=== PATIENT | female | born 1950 | race Caucasian/White ===

== ENCOUNTER 2020-11-03 12:26 | Inpatient (IN) | payer MEDICARE, OTHER ==
[2020-11-03] MEDS ORDERED: IBUPROFEN 600 MG TAB PO STA (12:50)
[2020-11-03] MEDS ORDERED: ACETAMINOPHEN TAB 500 MG TAB PO STA (12:50)
[2020-11-03] MEDS ORDERED: VANCOMYCIN IV PER PHARMACY 1 EACH MISC MISCELLANE PRN (12:50)
--- NOTE | 2020-11-03 12:54 | ED ---
General Adult HPI - General Chief complaint: Altered Mental Status Stated complaint: Fever Time Seen by Provider: 11/03/20 12:30 Source: patient, EMS, RN notes reviewed, old records reviewed Mode of arrival: EMS - History of Present Illness Initial comments: This is a 70-year-old female who presents to the emergency department from [facility]. She was diagnosed with pneumonia at that facility and sent to us because she was altered mental status with pneumonia. Patient received Rocephin and Zithromax at the facility and 2 L of fluid. Patient is a very poor historian. Patient states she started coughing earlier today which may be an accurate. Patient had a CT of the brain at the other facility was normal chest x-ray showed pneumonia. Patient high white count 22,000 and lactic acid was over 4. - Related Data Home Medications Medication Instructions Recorded Confirmed Acetaminophen [Tylenol Arthritis] 650 mg PO Q8H PRN 11/03/20 11/03/20 Aspirin EC [Ecotrin Low Dose] 81 mg PO DAILY 11/03/20 11/03/20 Benztropine Mesylate [Cogentin] 1 mg PO HS 11/03/20 11/03/20 Bumetanide [Bumex] 1 mg PO BID 11/03/20 11/03/20 Calcium Carbonate/Vitamin D3 1 tab PO DAILY 11/03/20 11/03/20 [Calcium 600-Vit D3 400 Tablet] Furosemide [Lasix] 20 mg PO PC-LUNCH 11/03/20 11/03/20 Furosemide [Lasix] 40 mg PO QAM 11/03/20 11/03/20 Gabapentin 300 mg PO TID 11/03/20 11/03/20 Glimepiride [Amaryl] 8 mg PO AC-BRKFST 11/03/20 11/03/20 Glucosamine-Chondr 500-400Mg 1 tab PO Q12HR 11/03/20 11/03/20 Levothyroxine Sodium [Synthroid] 150 mcg PO DAILY 11/03/20 11/03/20 Losartan [Cozaar] 12.5 mg PO DAILY 11/03/20 11/03/20 Magnesium Oxide [Mag-Ox] 250 mg PO BID 11/03/20 11/03/20 Metoprolol Succinate [Toprol XL] 25 mg PO HS 11/03/20 11/03/20 Multivitamin [Multivitamins Adult 2 tab PO DAILY 11/03/20 11/03/20 Gummies] Nystatin 100,000 Unit/gm Powd 1 applic TOPICAL BID 11/03/20 11/03/20 [Mycostatin Powder] Nystatin 100,000Unit/gm Cream 1 applic TOPICAL TID 11/03/20 11/03/20 [Mycostatin Cream] Omeprazole [PriLOSEC] 20 mg PO DAILY 11/03/20 11/03/20 Polyethylene Glycol 3350 [Miralax] 17 gm PO DAILY PRN 11/03/20 11/03/20 Potassium Chloride [Klor-Con 10] 10 meq PO DAILY 11/03/20 11/03/20 cloZAPine [Clozaril] 300 mg PO DAILY 11/03/20 11/03/20 l Acidophil/B Lactis/B Longum 460 mg PO DAILY 11/03/20 11/03/20 [Florajen3 Capsule] levETIRAcetam [Keppra] 500 mg PO Q12HR 11/03/20 11/03/20 metFORMIN HCL 1,000 mg PO BID 11/03/20 11/03/20 risperiDONE [RisperDAL] 1 mg PO HS 11/03/20 11/03/20 sitaGLIPtin [Januvia] 25 mg PO DAILY 11/03/20 11/03/20 Allergies Allergy/AdvReac Type Severity Reaction Status Date / Time haloperidol [From Haldol] Allergy Unknown Verified 11/03/20 14:10 Review of Systems ROS Statement: Those systems with pertinent positive or pertinent negative responses have been documented in the HPI. ROS Other: All systems not noted in ROS Statement are negative. Past Medical History Past Medical History: CVA/TIA, Diabetes Mellitus, GERD/Reflux, Hypertension, Myocardial Infarction (SD) Additional Past Medical History / Comment(s): hypothyroidism, high cholesterol History of Any Multi-Drug Resistant Organisms: None Reported Past Surgical History: Tonsillectomy Additional Past Surgical History / Comment(s): compression fracture, Past Psychological History: Schizophrenia Smoking Status: Never smoker Past Alcohol Use History: None Reported Past Drug Use History: None Reported General Exam - General Exam Comments Initial Comments: GENERAL: Patient is well-developed and well-nourished. Patient is nontoxic and well- hydrated and is in mild distress. ENT: Neck is soft and supple. No significant lymphadenopathy is noted. Oropharynx is clear. Moist mucous membranes. Neck has full range of motion without eliciting any pain. EYES: The sclera were anicteric and conjunctiva were pink and moist. Extraocular movements were intact and pupils were equal round and reactive to light. Eyelids were unremarkable. PULMONARY: Unlabored respirations. Good breath sounds bilaterally. Patient has crackles in the left base CARDIOVASCULAR: There is a regular rate and rhythm without any murmurs gallops or rubs. ABDOMEN: Soft and nontender with normal bowel sounds. SKIN: Skin is clear with no lesions or rashes and otherwise unremarkable. NEUROLOGIC: Patient is alert and oriented 2. Cranial nerves II through XII are grossly intact. Motor and sensory are also intact. Normal speech, volume and content. Symmetrical smile. MUSCULOSKELETAL: Normal extremities with adequate strength and full range of motion. Chronic cellulitis bilaterally LYMPHATICS: No significant lymphadenopathy is noted PSYCHIATRIC: Normal psychiatric evaluation. Course Vital Signs 11/03/20 11/03/20 11/03/20 12:31 12:51 14:13 Temperature 100.9 F H 99.4 F Pulse Rate 98 93 Respiratory 18 17 22 Rate Blood Pressure 120/57 116/57 O2 Sat by Pulse 98 96 Oximetry Medical Decision Making - Medical Decision Making Chest x-ray shows bilateral infiltrates consistent with pneumonia. COVID test is negative. Patient was already given a shot of Rocephin and Zithromax prior to arrival she was also given 2 L prior to arrival we gave her another 1.5 L so that she got a total of over 30 mL's per KG. I spoke with [facility] agreed to admit the patient admitted the patient wrote admitting orders continued antibiotics. Patient was diagnosed pneumonia at 2:16 PM. - Lab Data Result diagrams: 11/03/20 13:04 11/03/20 13:04 Lab Results 11/03/20 11/03/20 11/03/20 Range/Units 13:04 13:04 13:04 WBC 22.7 H (3.8-10.6) k/uL RBC 4.78 (3.80-5.40) m/uL Hgb 13.6 (11.4-16.0) gm/dL Hct 41.7 (34.0-46.0) % MCV 87.3 (80.0-100.0) fL MCH 28.4 (25.0-35.0) pg MCHC 32.6 (31.0-37.0) g/dL RDW 14.3 (11.5-15.5) % Plt Count 211 (150-450) k/uL MPV 6.9 Neutrophils % 91 % Lymphocytes % 4 % Monocytes % 3 % Eosinophils % 1 % Basophils % 0 % Neutrophils # 20.7 H (1.3-7.7) k/uL Lymphocytes # 0.9 L (1.0-4.8) k/uL Monocytes # 0.7 (0-1.0) k/uL Eosinophils # 0.2 (0-0.7) k/uL Basophils # 0.0 (0-0.2) k/uL Sodium 139 (137-145) mmol/L Potassium 3.4 L (3.5-5.1) mmol/L Chloride 99 (98-107) mmol/L Carbon Dioxide 32 H (22-30) mmol/L Anion Gap 8 mmol/L BUN 15 (7-17) mg/dL Creatinine 0.41 L (0.52-1.04) mg/dL Est GFR (CKD-EPI)AfAm >90 (>60 ml/min/1.73 sqM) Est GFR (CKD-EPI)NonAf >90 (>60 ml/min/1.73 sqM) Glucose 152 H (74-99) mg/dL Plasma Lactic Acid Cb 3.5 H* (0.7-2.0) mmol/L Calcium 8.7 (8.4-10.2) mg/dL Total Bilirubin 0.6 (0.2-1.3) mg/dL AST 26 (14-36) U/L ALT 20 (4-34) U/L Alkaline Phosphatase 105 (38-126) U/L Total Protein 6.4 (6.3-8.2) g/dL Albumin 3.6 (3.5-5.0) g/dL Coronavirus (PCR) (Not Detectd) 11/03/20 Range/Units 13:06 WBC (3.8-10.6) k/uL RBC (3.80-5.40) m/uL Hgb (11.4-16.0) gm/dL Hct (34.0-46.0) % MCV (80.0-100.0) fL MCH (25.0-35.0) pg MCHC (31.0-37.0) g/dL RDW (11.5-15.5) % Plt Count (150-450) k/uL MPV Neutrophils % % Lymphocytes % % Monocytes % % Eosinophils % % Basophils % % Neutrophils # (1.3-7.7) k/uL Lymphocytes # (1.0-4.8) k/uL Monocytes # (0-1.0) k/uL Eosinophils # (0-0.7) k/uL Basophils # (0-0.2) k/uL Sodium (137-145) mmol/L Potassium (3.5-5.1) mmol/L Chloride (98-107) mmol/L Carbon Dioxide (22-30) mmol/L Anion Gap mmol/L BUN (7-17) mg/dL Creatinine (0.52-1.04) mg/dL Est GFR (CKD-EPI)AfAm (>60 ml/min/1.73 sqM) Est GFR (CKD-EPI)NonAf (>60 ml/min/1.73 sqM) Glucose (74-99) mg/dL Plasma Lactic Acid Cb (0.7-2.0) mmol/L Calcium (8.4-10.2) mg/dL Total Bilirubin (0.2-1.3) mg/dL AST (14-36) U/L ALT (4-34) U/L Alkaline Phosphatase (38-126) U/L Total Protein (6.3-8.2) g/dL Albumin (3.5-5.0) g/dL Coronavirus (PCR) Not Detected (Not Detectd) Critical Care Time Critical Care Time: Yes Total Critical Care Time: 35 Disposition Clinical Impression: Pneumonia, Sepsis, Altered mental status Disposition: ADMITTED IP TO THIS HOSP Referrals: Nixon Kim MD [Primary Care Provider] - 1-2 days Time of Disposition: 14:17
[2020-11-03] MEDS ORDERED: SODIUM CHLORIDE 0.9% 500 ML 500 ML IV STA (13:01)
[2020-11-03] MEDS ORDERED: SODIUM CHLORIDE 0.9% 1,000 ML IV STA (13:01)
[2020-11-03] MEDS ORDERED: VANCOMYCIN 2,000 MG in SODIUM CHLORIDE 0.9% 500 ML 500 ML IVPB ONE (13:15)
[2020-11-03 13:33] LABS: Basophils % (A) 0 %; Eosinophils # (A) 0.2 k/uL (0-0.7); Eosinophils % (A) 1 %; HCT 41.7 % (34.0-46.0); HGB 13.6 gm/dL (11.4-16.0); Lymphocytes # (A) 0.9 k/uL (1.0-4.8); Lymphocytes % (A) 4 %; MCH 28.4 pg (25.0-35.0); MCHC 32.6 g/dL (31.0-37.0); MCV 87.3 fL (80.0-100.0); Mean Platelet Volume 6.9; Monocytes # (A) 0.7 k/uL (0-1.0); Monocytes % (A) 3 %; Neutrophils # (A) 20.7 k/uL (1.3-7.7); Neutrophils % (A) 91 %; Platelet Count 211 k/uL (150-450); RBC 4.78 m/uL (3.80-5.40); RDW 14.3 % (11.5-15.5); WBC 22.7 k/uL (3.8-10.6)
[2020-11-03 13:53] LABS: ALT 20 U/L (4-34); AST 26 U/L (14-36); African American GFR (CKD) >90 (>60 ml/min/1.73 sqM); Albumin 3.6 g/dL (3.5-5.0); Alkaline Phosphatase 105 U/L (38-126); Anion Gap 8 mmol/L; Blood Urea Nitrogen 15 mg/dL (7-17); Calcium 8.7 mg/dL (8.4-10.2); Carbon Dioxide 32 mmol/L (22-30); Chloride 99 mmol/L (98-107); Glucose 152 mg/dL (74-99); Non-African American GFR(CKD) >90 (>60 ml/min/1.73 sqM); Potassium 3.4 mmol/L (3.5-5.1); Sodium 139 mmol/L (137-145); Total Bilirubin 0.6 mg/dL (0.2-1.3); Total Protein 6.4 g/dL (6.3-8.2)
--- NOTE | 2020-11-03 14:08 | XR ---
EXAMINATION TYPE: XR chest 1V portable DATE OF EXAM: 11/03/2020 COMPARISON: CT chest 11/03/2020 heart per [place] INDICATION: History of pneumonia TECHNIQUE: Single frontal view of the chest is obtained. FINDINGS: The heart size is enlarged. The pulmonary vasculature is normal. Mild bibasilar infiltrates are present. Correlate for atelectasis or atypical pneumonia. IMPRESSION: 1. Mild bibasilar infiltrates and cardiomegaly. Clinical correlation for atypical pneumonia is recomm ended.
[2020-11-03] MEDS ORDERED: PNEUMONIA PROTOCOL UTILIZED 1 EACH MISC PO PRN (14:17)
[2020-11-03] MEDS ORDERED: polyethylene glycoL 3350 17 GM POWD.PACK PO PRN (16:27)
[2020-11-03] MEDS ORDERED: Potassium Replacement Protocol 1 EACH MISC MISCELLANE PRN (16:32)
[2020-11-03] MEDS: LOSARTAN 25 MG TAB PO SCH (17:00)
[2020-11-03] MEDS: MULTIVITAMINS, THERA 1 EACH TAB PO SCH (17:00)
[2020-11-03] MEDS: PANTOPRAZOLE 40 MG TABLET PO SCH (17:00)
[2020-11-03] MEDS: CALCIUM CARB-VIT D 500 MG-5 MCG TAB PO SCH (17:00)
[2020-11-03 17:01] LABS: Glucose,Whole Blood 185 mg/dL (75-99)
[2020-11-03] MEDS: LINAGLIPTIN 5 MG TABLET PO SCH (17:16)
[2020-11-03] MEDS: GABAPENTIN 300 MG CAP PO SCH ×2 (17:34→21:50)
[2020-11-03] MEDS: LEVOTHYROXINE 75 MCG TAB PO SCH (17:34)
[2020-11-03] MEDS ORDERED: POTASSIUM CHLORIDE ER 20 MEQ TAB.ER PO STA (17:44)
[2020-11-03] MEDS: INSULIN ASPART (NovoLOG) 100 UNIT/ML VIAL SQ SCH ×2 (17:55→23:03)
[2020-11-03] MEDS ORDERED: cloZAPine 100 MG TAB PO SCH (18:00)
[2020-11-03] MEDS ORDERED: ACETAMINOPHEN TAB 325 MG TAB PO PRN (20:08)
[2020-11-03] MEDS ORDERED: HYDROcodone/APAP 5-325MG 1 EACH TAB PO PRN (20:09)
[2020-11-03 20:54] LABS: Glucose,Whole Blood 125 mg/dL (75-99)
[2020-11-03] MEDS ORDERED: POTASSIUM CHLORIDE ER 20 MEQ TAB.ER PO SCH (21:00)
[2020-11-03] MEDS ORDERED: levETIRAcetam 500 MG TAB PO SCH (21:00)
[2020-11-03] MEDS: BENZTROPINE MESYLATE 1 MG TAB PO SCH (21:50)
[2020-11-03] MEDS: MAGNESIUM OXIDE 400 MG TAB PO SCH (21:50)
[2020-11-03] MEDS: cloZAPine 100 MG TAB PO SCH (21:50)
[2020-11-03] MEDS: risperiDONE 1 MG TAB PO SCH (21:50)
[2020-11-03] MEDS: METOPROLOL SUCCINATE (ER) 25 MG TAB.ER.24H PO SCH (21:50)
[2020-11-03] MEDS: POTASSIUM CHLORIDE ER 10 MEQ TAB.ER.PRT PO SCH (21:50)
[2020-11-03] MEDS: BUMETANIDE 1 MG TAB PO SCH (21:50)
[2020-11-03] MEDS: NYSTATIN 100,000 UNIT/GM POWD 15 GM TOPICAL SCH (21:51)
[2020-11-03] MEDS: HEPARIN SODIUM,PORCINE 5,000 UNIT/ML 1 ML VIAL SQ SCH (21:51)
[2020-11-03] MEDS: NON FORMULARY DRUG (Glucosamine-Chondr 500-400mg 1 EACH Each) PO SCH (21:51)
[2020-11-03] MEDS: NYSTATIN 100,000UNIT/GM CREAM 30 GM TUBE TOPICAL SCH (21:51)
--- NOTE | 2020-11-03 22:06 | HP ---
HISTORY AND PHYSICAL DATE OF SERVICE: 11/03/2020 CHIEF COMPLAINTS: Change in mental status and pneumonia. HISTORY OF PRESENT ILLNESS: This 70-year-old woman with a past medical history of multiple medical problems, including CVA, TIA, diabetes mellitus, GERD, hypertension, hyperlipidemia, seizure disorder, being followed by a primary physician in the [place] area, was noted to have weakness, some cough and confusion. The patient was taken to [facility] and the patient was diagnosed to have pneumonia. The patient was given IV fluid, and after 2 L of fluid, apparently the patient became slightly better. The patient was admitted for further evaluation and treatment. Chest x-ray showed some pneumonia. The white count is elevated. CT scan has also been done. The patient also had previous issues with the pancreas as well; further details are unknown at this time. Currently the patient is confused, able to provide only a sketchy history. Most of the history is taken from my discussion with the staff as well as review of the chart. PAST MEDICAL HISTORY: CVA, TIA, diabetes mellitus, history of GERD, hypertension, hyperlipidemia, seizure disorder. HOME MEDICATIONS: Lasix, Risperdal, metformin, Clozaril, Klor-Con, Tylenol, Prilosec, nystatin, Mycostatin, multivitamins, MiraLAX, Toprol, magnesium oxide, Cozaar, Synthroid, Januvia, Keppra, Amaryl, calcium, Bumex, Cogentin, Ecotrin. ALLERGIES: HALOPERIDOL. FAMILY HISTORY: No family history of heart disease or strokes. SOCIAL HISTORY: No history of smoking. No history of alcohol intake. REVIEW OF SYSTEMS: ENT: No diminished hearing. No diminished vision. CARDIOVASCULAR SYSTEM: No angina, palpitations. RESPIRATORY SYSTEM: As mentioned earlier. GI: No nausea, vomiting. : No dysuria or retention. NERVOUS SYSTEM: As mentioned earlier. ALLERGY/IMMUNOLOGY: No asthma, hayfever. MUSCULOSKELETAL: As mentioned earlier. HEMATOLOGY/ONCOLOGY: No history of anemia. ENDOCRINE: Diabetes, hypothyroidism. CONSTITUTIONAL: As mentioned earlier. DERMATOLOGY: Negative. RHEUMATOLOGY: Negative. PSYCHIATRY: As mentioned earlier. PHYSICAL EXAMINATION: Patient alert and oriented x2. Pulse 87, blood pressure 138/72, respiration 20, temperature 98.2, pulse ox 96% on 3 L. HEENT: Conjunctivae normal. NECK: No jugular venous distention. CARDIOVASCULAR SYSTEM: S1, S2 muffled. RESPIRATORY SYSTEM: Breath sounds diminished at the bases. A few scattered rhonchi and crackles. ABDOMEN: Soft, non-tender. No mass palpable. LEGS: No edema. No swelling. NERVOUS SYSTEM: Higher functions as mentioned earlier. Moves all 4 limbs. No focal motor or sensory deficit. LYMPHATICS: No lymph node palpable in neck, axillae or groin. SKIN: No ulcer, rash, bleeding. JOINTS: No active deforming arthropathy. LABS/IMAGING: WBC is 22.7, sodium 139, potassium 3.4. COVID-19 is negative. The chest x-ray, which was personally reviewed by me, showed evidence of right lower lobe pneumonia. ASSESSMENT: 1. Right lower lobe pneumonia, possibly community-acquired, with sepsis and change in mental status. 2. Acute metabolic encephalopathy secondary to sepsis. 3. Rule out COVID-19. 4. Cerebrovascular accident and transient ischemic attack history. 5. Diabetes mellitus, type 2. 6. Gastroesophageal reflux disease. 7. Hypertension. 8. Hyperlipidemia. 9. History of seizure disorder. 10.History of pancreatic mass apparently. 11.History of bilateral stasis dermatitis. 12.History of hyponatremia. 13.History of urinary tract infection. 14.History of schizophrenia. 15.Obesity with body mass index 51.3. 16.NO CODE, NO CPR, NO VENT. RECOMMENDATIONS AND DISCUSSION: In this 70-year-old woman who presented with multiple complex medical issues, we will monitor the patient closely, continue the current medications, continue symptomatic treatment. Will initiate Rocephin and Zithromax and also continue the rest of the medications. I would also recommend pulmonary consultation by Dr. Dumont as well as infectious disease evaluation. Guarded prognosis because of multiple complex medical conditions. Further recommendations to follow. Medication reconciliation was done. See orders for further details. DVT prophylaxis. MMODL / IJN: [id number] / MARQUITA
[2020-11-04] MEDS: ACETAMINOPHEN TAB 325 MG TAB PO PRN (02:33)
[2020-11-04] MEDS: VANCOMYCIN 2,000 MG in SODIUM CHLORIDE 0.9% 500 ML 500 ML IVPB SCH ×2 (02:33→18:28)
[2020-11-04] MEDS: LEVOTHYROXINE 75 MCG TAB PO SCH (06:18)
[2020-11-04 06:31] LABS: Basophils % (A) 0 %; Eosinophils % (A) 0 %; HCT 37.6 % (34.0-46.0); HGB 12.5 gm/dL (11.4-16.0); Lymphocytes # (A) 0.3 k/uL (1.0-4.8); Lymphocytes % (A) 2 %; MCH 29.7 pg (25.0-35.0); MCHC 33.3 g/dL (31.0-37.0); MCV 89.1 fL (80.0-100.0); Monocytes # (A) 0.2 k/uL (0-1.0); Monocytes % (A) 2 %; Neutrophils % (A) 94 %; Platelet Count 186 k/uL (150-450); RBC 4.22 m/uL (3.80-5.40); RDW 14.2 % (11.5-15.5); WBC 11.7 k/uL (3.8-10.6)
[2020-11-04] MEDS ORDERED: ONDANSETRON 4 MG/2 ML VIAL IVP PRN (07:16)
[2020-11-04 07:41] LABS: Glucose,Whole Blood 285 mg/dL (75-99)
[2020-11-04] MEDS: INSULIN ASPART (NovoLOG) 100 UNIT/ML VIAL SQ SCH ×4 (07:57→23:40)
[2020-11-04] MEDS: NYSTATIN 100,000 UNIT/GM POWD 15 GM TOPICAL SCH ×2 (07:58→22:20)
[2020-11-04] MEDS: NYSTATIN 100,000UNIT/GM CREAM 30 GM TUBE TOPICAL SCH ×3 (07:58→23:42)
[2020-11-04] MEDS: HEPARIN SODIUM,PORCINE 5,000 UNIT/ML 1 ML VIAL SQ SCH ×2 (07:59→22:20)
[2020-11-04] MEDS: ASPIRIN 81 MG PO SCH (08:09)
[2020-11-04] MEDS: AZITHROMYCIN 500 MG TAB PO SCH (08:09)
[2020-11-04] MEDS: GLIMEPIRIDE 4 MG TAB PO SCH (08:09)
[2020-11-04] MEDS: CALCIUM CARB-VIT D 500 MG-5 MCG TAB PO SCH (08:09)
[2020-11-04] MEDS: BUMETANIDE 1 MG TAB PO SCH ×3 (08:09→23:39)
[2020-11-04] MEDS: PANTOPRAZOLE 40 MG TABLET PO SCH (08:09)
[2020-11-04] MEDS: cloZAPine 100 MG TAB PO SCH ×3 (08:10→21:04)
[2020-11-04] MEDS: LACTOBACILLUS ACIDOPH & BULGAR 1 EACH PACKET PO SCH (08:10)
[2020-11-04] MEDS: GABAPENTIN 300 MG CAP PO SCH ×3 (08:10→23:41)
[2020-11-04] MEDS: NON FORMULARY DRUG (Glucosamine-Chondr 500-400mg 1 EACH Each) PO SCH ×2 (08:10→23:39)
[2020-11-04] MEDS: MAGNESIUM OXIDE 400 MG TAB PO SCH ×2 (08:11→23:40)
[2020-11-04] MEDS: polyethylene glycoL 3350 17 GM POWD.PACK PO SCH (08:11)
[2020-11-04] MEDS: MULTIVITAMINS, THERA 1 EACH TAB PO SCH (08:11)
[2020-11-04] MEDS: POTASSIUM CHLORIDE ER 10 MEQ TAB.ER.PRT PO SCH ×2 (08:11→23:40)
[2020-11-04] MEDS: LINAGLIPTIN 5 MG TABLET PO SCH (08:11)
[2020-11-04] MEDS: LOSARTAN 25 MG TAB PO SCH (08:11)
--- NOTE | 2020-11-04 08:40 | XR ---
EXAMINATION TYPE: XR chest 1V DATE OF EXAM: 11/04/2020 COMPARISON: Prior chest x-ray 11/03/2020 HISTORY: Pneumonia TECHNIQUE: Single frontal view of the chest is obtained. FINDINGS: The heart is enlarged. Retrocardiac density persists, patchy basilar density also present on the right. Vertebral plasty change is again seen in the lower thoracic spine. No evident pneumotho rax. Patient is rotated. IMPRESSION: Correlate for pneumonia.
[2020-11-04] MEDS ORDERED: FUROSEMIDE 20 MG TAB PO SCH ×2 (09:00→13:30)
[2020-11-04] MEDS ORDERED: NON FORMULARY DRUG (Potassium Chloride [Klor-Con 10] 10 MEQ Tablet.Er) PO SCH (09:00)
[2020-11-04 10:25] LABS: African American GFR (CKD) 115.3 (60.0-200.0); Anion Gap 8.6 mmol/L (4.00-12.00); Calcium 8.5 mg/dL (8.7-10.3); Carbon Dioxide 30.4 mmol/L (21.6-31.8); Magnesium 1.9 mg/dL (1.5-2.4); Non-African American GFR(CKD) 99.4 (60.0-200.0); Potassium 3.3 mmol/L (3.5-5.5)
[2020-11-04] MEDS: IOPAMIDOL CONTRAST (ORAL USE) VIAL PO PRN ×2 (10:52→12:01)
[2020-11-04] MEDS: levETIRAcetam 500 MG TAB PO SCH (10:54)
[2020-11-04 11:16] LABS: Glucose,Whole Blood 262 mg/dL (75-99)
--- NOTE | 2020-11-04 11:28 | P.CNPUL ---
History of Present Illness Consult date: 11/04/20 Requesting physician: Angelica De La Torre Reason for consult: abnormal CXR/CT Chief complaint: Altered mental status, pneumonia History of present illness: This is a 70-year-old female patient with a history of CVA/TIA, expressive aphasia, seizure disorder, diabetes mellitus, GERD, hypertension, myocardial infarction, hypothyroidism, hyperlipidemia, schizophrenia, resides in [place]. She was brought into [facility] for altered mental status and hypoxemia. She was subsequently transferred here for further treatment. Her CoVID 19 screen was negative. Chest x-ray shows mild basilar atelectasis and possible infiltrate retrocardiac area. She is currently maintaining O2 saturations in the low 90s on 5 L high flow nasal cannula. Afebrile. White count 11.7. Hemoglobin 12.5. Sodium 140. Potassium 3.3. Creatinine 0.5. Glucose 302. She has been initiated on antibiotics in the form of vancomycin, ceftriaxone and azithromycin. Review of Systems ROS unobtainable: due to mental status Past Medical History Past Medical History: CVA/TIA, Diabetes Mellitus, GERD/Reflux, Hyperlipidemia, Hypertension, Seizure Disorder, Skin Disorder, Thyroid Disorder Additional Past Medical History / Comment(s): CVA with R sided weakness, TIA, NIDDM type II, spouse states pt is confused much of the time, pancreatic mass being monitored every 6 months, last seizure 3 years ago, bilateral lower leg/pedal edema, bilateral stasis dermatitis, hyponatremia, past thoracic compression fractures, UTI, hypothyroid/nodules History of Any Multi-Drug Resistant Organisms: None Reported Past Surgical History: Tonsillectomy Additional Past Surgical History / Comment(s): Thyroid surgery, colonoscopy Past Anesthesia/Blood Transfusion Reactions: No Reported Reaction Smoking Status: Never smoker - Past Family History Father Family Medical History: No Reported History Additional Family Medical History / Comment(s): Father is 99yrs old. Mother Family Medical History: Cancer Additional Family Medical History / Comment(s): Mother of breast cancer. Sister(s) Family Medical History: Cancer Additional Family Medical History / Comment(s): Pt's twin sister from leukemia a couple months ago. Medications and Allergies Home Medications Medication Instructions Recorded Confirmed Type Acetaminophen [Tylenol Arthritis] 650 mg PO Q8H PRN 11/03/20 11/03/20 History Aspirin EC [Ecotrin Low Dose] 81 mg PO DAILY 11/03/20 11/03/20 History Benztropine Mesylate [Cogentin] 1 mg PO HS 11/03/20 11/03/20 History Bumetanide [Bumex] 1 mg PO BID 11/03/20 11/03/20 History Calcium Carbonate/Vitamin D3 1 tab PO DAILY 11/03/20 11/03/20 History [Calcium 600-Vit D3 400 Tablet] Furosemide [Lasix] 20 mg PO PC-LUNCH 11/03/20 11/03/20 History Furosemide [Lasix] 40 mg PO QAM 11/03/20 11/03/20 History Gabapentin 300 mg PO TID 11/03/20 11/03/20 History Glimepiride [Amaryl] 8 mg PO AC-BRKFST 11/03/20 11/03/20 History Glucosamine-Chondr 500-400Mg 1 tab PO Q12HR 11/03/20 11/03/20 History Levothyroxine Sodium [Synthroid] 150 mcg PO DAILY 11/03/20 11/03/20 History Losartan [Cozaar] 12.5 mg PO DAILY 11/03/20 11/03/20 History Magnesium Oxide [Mag-Ox] 250 mg PO BID 11/03/20 11/03/20 History Metoprolol Succinate [Toprol XL] 25 mg PO HS 11/03/20 11/03/20 History Multivitamin [Multivitamins Adult 2 tab PO DAILY 11/03/20 11/03/20 History Gummies] Nystatin 100,000 Unit/gm Powd 1 applic TOPICAL BID 11/03/20 11/03/20 History [Mycostatin Powder] Nystatin 100,000Unit/gm Cream 1 applic TOPICAL TID 11/03/20 11/03/20 History [Mycostatin Cream] Omeprazole [PriLOSEC] 20 mg PO DAILY 11/03/20 11/03/20 History Polyethylene Glycol 3350 [Miralax] 17 gm PO DAILY PRN 11/03/20 11/03/20 History Potassium Chloride [Klor-Con 10] 10 meq PO DAILY 11/03/20 11/03/20 History cloZAPine [Clozaril] 300 mg PO DAILY 11/03/20 11/03/20 History l Acidophil/B Lactis/B Longum 460 mg PO DAILY 11/03/20 11/03/20 History [Florajen3 Capsule] levETIRAcetam [Keppra] 500 mg PO Q12HR 11/03/20 11/03/20 History metFORMIN HCL 1,000 mg PO BID 11/03/20 11/03/20 History risperiDONE [RisperDAL] 1 mg PO HS 11/03/20 11/03/20 History sitaGLIPtin [Januvia] 25 mg PO DAILY 11/03/20 11/03/20 History Allergies Allergy/AdvReac Type Severity Reaction Status Date / Time haloperidol [From Haldol] Allergy Unknown Verified 11/03/20 14:10 Physical Exam Vitals: Vital Signs Temp Pulse Pulse Pulse Resp BP BP 11/04/20 09:19 98 F 92 15 138/82 11/04/20 01:20 97.5 F L 112 H 22 153/70 11/03/20 19:55 87 83 20 11/03/20 19:08 98.4 F 87 20 138/72 11/03/20 16:15 97.4 F L 83 19 110/67 11/03/20 16:02 99 F 86 24 103/49 11/03/20 14:13 99.4 F 93 22 116/57 11/03/20 12:51 17 11/03/20 12:31 100.9 F H 98 18 120/57 Pulse Ox 11/04/20 09:19 93 L 11/04/20 01:20 91 L 11/03/20 19:55 11/03/20 19:08 96 11/03/20 16:15 97 11/03/20 16:02 96 11/03/20 14:13 96 11/03/20 12:51 11/03/20 12:31 98 Intake and Output 11/03/20 11/04/20 11/04/20 22:59 06:59 14:59 Intake Total 800 Output Total 600 Balance 200 Intake: Intake, IV Titration 500 Amount Vancomycin 2,000 mg In 500 Sodium Chloride 0.9% 500 ml 500 ml @ 167 mls/hr IVPB Q16H [facility] Rx#: [id number] Oral 300 Output: Urine 600 Other: # Voids 1 4 # Bowel Movements 1 Weight 115.212 kg GENERAL EXAM: Alert, 70-year-old female patient, on 5 L nasal cannula, comfortable in no apparent distress. HEAD: Normocephalic. EYES: Normal reaction of pupils, equal size. NOSE: Clear with pink turbinates. THROAT: No erythema or exudates. NECK: No masses, no JVD. CHEST: No chest wall deformity. LUNGS: Equal air entry with few scattered rhonchi, crackles in the posterior bases CVS: S1 and S2 normal with no audible murmur, regular rhythm. ABDOMEN: No hepatosplenomegaly, normal bowel sounds, no guarding or rigidity. SPINE: No scoliosis or deformity SKIN: No rashes CENTRAL NERVOUS SYSTEM: Expressive aphasia No focal deficits, tone is normal in all 4 extremities. EXTREMITIES: There is no peripheral edema. No clubbing, no cyanosis. Per ipheral pulses are intact. Results - Laboratory Findings CBC and BMP: 11/04/20 06:14 11/04/20 06:14 PT/INR, D-dimer D-Dimer 0.90 mg/L FEU (<0.60) H 11/03/20 20:40 Abnormal lab findings: Abnormal Labs 11/03/20 11/03/20 11/03/20 13:04 13:04 13:04 WBC 22.7 H Neutrophils # 20.7 H Lymphocytes # 0.9 L D-Dimer Potassium 3.4 L Carbon Dioxide 32 H Creatinine 0.41 L BUN/Creatinine Ratio Glucose 152 H POC Glucose (mg/dL) Plasma Lactic Acid Cb 3.5 H* Calcium 11/03/20 11/03/20 11/03/20 17:00 20:40 20:52 WBC Neutrophils # Lymphocytes # D-Dimer 0.90 H Potassium Carbon Dioxide Creatinine BUN/Creatinine Ratio Glucose POC Glucose (mg/dL) 185 H 125 H Plasma Lactic Acid Cb Calcium 11/04/20 11/04/20 11/04/20 06:14 06:14 07:39 WBC 11.7 H Neutrophils # 11.0 H Lymphocytes # 0.3 L D-Dimer Potassium 3.3 L Carbon Dioxide Creatinine 0.5 L BUN/Creatinine Ratio 22.00 H Glucose 302 H POC Glucose (mg/dL) 285 H Plasma Lactic Acid Cb Calcium 8.5 L 11/04/20 11:14 WBC Neutrophils # Lymphocytes # D-Dimer Potassium Carbon Dioxide Creatinine BUN/Creatinine Ratio Glucose POC Glucose (mg/dL) 262 H Plasma Lactic Acid Cb Calcium - Diagnostic Findings Chest x-ray: image reviewed Assessment and Plan Assessment: 1 Acute hypoxic respiratory failure secondary to an acute healthcare acquired pneumonia. CoVID 19 screen negative 2 History of CVA/TIA 3 Expressive aphasia 4 Seizure disorder 5 History of schizophrenia 6 Hypertension 7 Diabetes mellitus 8 Hypothyroidism 9 Hyperlipidemia 10 History of recurrent infarction 11 long term resident [place]: The patient was seen and evaluated by Dr. Dumont Chest x-ray and labs reviewed Continue current antibiotics for now Titrate down the FiO2 as tolerated We will continue to follow I, the cosigning physician, performed a history & physical examination of the patient. Lungs sounds scattered rhonchi, crackles in the posterior bases. Maintaining good O2 saturations in the 90s on 5 L/m per nasal cannula. I discussed the assessment and plan of care with my nurse practitioner, Anna John. I attest to the above consultation as dictated by her.
[2020-11-04] MEDS: FOLIC ACID 1 MG TAB PO SCH (12:37)
[2020-11-04] MEDS: THIAMINE 100 MG TAB PO SCH (12:37)
[2020-11-04] MEDS: POTASSIUM CHLORIDE ER 20 MEQ TAB.ER PO SCH ×2 (14:40→16:57)
--- NOTE | 2020-11-04 15:06 | CT ---
EXAMINATION TYPE: CT angio chest DATE OF EXAM: 11/04/2020 COMPARISON: Outside CT 11/03/2020 HISTORY: 70-year-old female Pneumonia, Sepsis, AMS TECHNIQUE: Contiguous axial scanning of the chest performed with IV Contrast, patient injected with 1 00 mL of Isovue 370. Coronal/sagittal MIP reconstructions performed. CT DLP: 583.3 mGycm Automated exposure control for dose reduction was used. FINDINGS: Heart mildly enlarged. Trace anterior basilar pericardial fluid. No flattening of the interventricula r septum reflux of contrast into the hepatic veins. Ectatic aortic root at 3.8 cm. Ectatic ascending aorta at 3.7 cm. Bovine configuration to the aortic arch. Ectatic upper descending thoracic aorta 3.0 cm. Borderline sized 1.0 cm subcarinal/right paraesophageal lymph node, axial image 57 probably reactive/ post inflammatory. Otherwise, no thoracic lymphadenopathy by CT size criteria. Lower lungs are limited by breathing. No evidence for pulmonary embolus in the upper midlungs. No def inite embolus is in the lower lungs though again, assessment limited due to patient breathing. Normal variant azygous fissure. There are trace bilateral pleural effusions with prominent volume los s and consolidation in the basilar lower lobes, left greater than right and to a lesser extent within the inferior lingula. Bands of atelectasis are demonstrated. Abdomen reported separately. Bones: There is vertebral compression collapse of T9 and prior T8 vertebroplasty. Some retropulsion a t T9 causing [id number] spinal canal stenosis and focal kyphotic deformity. These findings were present on 11/03/2019 but are age indeterminate. Correlate to exclude acute fracture. IMPRESSION: 1. T9 VERTEBRAL COMPRESSION COLLAPSE. MILD RETROPULSION RESULTS IN FOCAL KYPHOTIC DEFORMITY AND MILD TO MODERATE SPINAL CANAL STENOSIS AT THIS LEVEL. CLINICAL CORRELATION WILL BE NEEDED TO DETERMINE THE AGE OF THIS FRACTURE AND EXCLUDE AN ACUTE INJURY. 2. BREATHING MOTION ARTIFACT LIMITING ASSESSMENT FOR PULMONARY EMBOLUS. NO PULMONARY EMBOLUS IN THE U PPER MID LUNGS AND NO DEFINITE EMBOLUS IN THE LOWER LUNGS ALLOWING FOR THIS LIMITATION. 3. CARDIOMEGALY AND PULMONARY ARTERIAL HYPERTENSION. CORRELATE FOR MILD CHF GIVEN TRACE EFFUSIONS. 4. VOLUME LOSS AND CONSOLIDATION WITHIN THE BASILAR LOWER LOBES, LEFT GREATER THAN RIGHT. UNDERLYING PNEUMONIA NOT EXCLUDED. CORRELATE WITH PATIENT'S SYMPTOMS. 5. ABDOMEN REPORTED SEPARATELY.
--- NOTE | 2020-11-04 15:32 | CT ---
EXAMINATION TYPE: CT abdomen pelvis w con DATE OF EXAM: 11/04/2020 COMPARISON: NONE HISTORY: 70-year-old female Pneumonia, Sepsis,AMS TECHNIQUE: Contiguous axial scanning of the abdomen and pelvis following administration of 100 ml Iso chucky-370 IV contrast. Delayed images through the kidneys and coronal/sagittal reconstructions perform ed. CT DLP: 1871 mGycm Automated exposure control for dose reduction was used. FINDINGS: Chest reported separately. Tiny hiatal hernia. Liver enlarged measuring 23.5 cm. No focal liver lesion. Portal venous system is patent. No biliary d uctal dilatation. Small gallstones measuring 7 mm. No abnormal gallbladder distention. Adrenal glands, kidneys, and spleen appear within normal limits. There is prominence to the main pancreatic duct at the level of the pancreatic head approximately 6 m m. There is a cystic lesion of the pancreatic body measuring 2.5 cm. Generalized pancreatic atrophy. Marked distention of the stomach. Additional distention of the duodenum up to 5.3 cm. No discrete tra nsition point is seen but oral contrast has only progressed to the proximal jejunum. There is a right lower quadrant anterior abdominal wall hernia containing loops of nonobstructed smal l bowel. The hernia sac measures 8.9 cm wide and 12.6 cm craniocaudal. The proximal transverse colon may also be involved in the hernia. No mesenteric or retroperitoneal lymphadenopathy. Bladder urine distended. Uterus anteverted. Cystic left ovarian lesion measuring 3.4 cm and right ova eliana lesion measuring 2.1 cm both of which warrant annual follow-up with ultrasound. Pelvic phleboliths. Prominent distention of the rectum with stool up to 8.4 cm wide. Mild presacral e césar is nonspecific. No abnormal fluid collection in the pelvis or pelvic lymphadenopathy. Bones: Advanced degenerative changes of the left greater than right hips. Facet arthropathy mid to lo wer lumbar spine. Redemonstrated is an age indeterminate T9 vertebral compression collapse with mild to moderate spinal canal stenosis at this level due to retropulsion. Prior T8 vertebroplasty change. IMPRESSION: 1. MARKED GASTRIC DISTENTION AND ABNORMAL DILATATION OF THE DUODENUM UP TO 5.3 CM. NO DISCRETE TRANSI TION POINT IS IDENTIFIED. ORAL CONTRAST HAS ONLY MADE ITS WAY INTO THE JEJUNUM AT THIS TIME. CONSIDER SHORT INTERVAL FOLLOW-UP TO ASSESS THE TRANSIT OF ORAL CONTRAST A PARTIAL OBSTRUCTION AND ILEUS A RE IN THE DIFFERENTIAL AT THIS TIME. 2. Right lower quadrant anterior abdominal wall hernia measuring 12.6 x 8.9 cm containing nonobstruct ed small bowel loops and a segment of proximal transverse colon. 3. A 2.5 cm cystic lesion of the pancreatic body. There is also dilatation of the main pancreatic teresita t of 6 mm in the pancreatic head. Initial characterization with pancreas MRI with MRCP is recommended . 4. Rectum distended with stool up to 8.4 cm wide. Correlate to exclude fecal impaction. 5. Cholelithiasis, cystic ovarian lesions measuring 2.1 cm on the right and 3.4 cm on the left (for [facility] annual ultrasound surveillance is recommended), hepatomegaly (23.5 cm), and tiny hiatal hernia. 6. Chest reported separately.
[2020-11-04] MEDS: PIPERACILLIN-TAZOBACTAM 3.375 GM in SODIUM CHLORIDE 0.9% 100 ML IVPB SCH (16:57)
[2020-11-04 17:01] LABS: Glucose,Whole Blood 206 mg/dL (75-99)
--- NOTE | 2020-11-04 17:35 | PN ---
PROGRESS NOTE DATE OF SERVICE: 11/04/2020 This 70-year-old woman who was admitted with right lower lobe pneumonia also had elevated D-dimer. A chest CT was done which was personally reviewed. It showed bilateral pneumonia, left more than the right. The patient also a CT scan of the abdomen and pelvis which showed marked gastric distention with possible partial obstruction. A 2.5 cm pancreatic lesion with cholelithiasis was also noted. The patient was started on broad-spectrum IV antibiotics. Rapid COVID-19 is negative. Past medical history reviewed. REVIEW OF SYSTEMS: CARDIOVASCULAR SYSTEM: No angina, palpitations. RESPIRATORY SYSTEM: As mentioned earlier. GI: As mentioned earlier. : No dysuria or retention. NERVOUS SYSTEM: No numbness, weakness. CURRENT MEDICATIONS: Reviewed. They include Tylenol, Ajo 5 mg, aspirin, Zithromax, Cogentin, Bumex, Rocephin 2 grams, Clozaril, Neurontin, Amaryl, NovoLog, Synthroid. Doses are reviewed. PHYSICAL EXAMINATION: Patient is alert, oriented x3. Pulse 92, blood pressure 138/82, respirations 15, temperature 98 degrees, pulse ox 93% on 5 L. HEENT: Conjunctivae normal. NECK: No jugular venous distention. CARDIOVASCULAR SYSTEM: S1, S2 muffled. RESPIRATORY SYSTEM: Breath sounds diminished at the bases. A few scattered rhonchi and crackles. ABDOMEN: Soft, non-tender. No mass palpable. LEGS: No edema. No swelling. NERVOUS SYSTEM: No focal deficit. LABS: WBC 7.7. Sodium 140, potassium 3.3 and procalcitonin 2.12. ASSESSMENT: 1. Right lower lobe pneumonia, possibly community-acquired, possibly interstitial pneumonia, possibly aspiration pneumonia with sepsis and change in mental status, present on admission. 2. Acute metabolic encephalopathy secondary to sepsis. 3. COVID-19 rapid test negative. 4. Rule out bowel obstruction. 5. Cerebrovascular accident, transient ischemic attack history. 6. Diabetes mellitus, type 2. 7. Gastroesophageal reflux disease. 8. Hypertension. 9. Hyperlipidemia. 10.Possible cholelithiasis. 11.History of seizure disorder. 12.History of pancreatic mass apparently previously. 13.History of bilateral stasis dermatitis. 14.History of hyponatremia. 15.History of urinary tract infection. 16.History of schizophrenia. 17.Obesity with body mass index of 51.3. 18.NO CODE, NO CPR, NO VENT. RECOMMENDATIONS AND DISCUSSION: I recommend to continue current medications, continue with the monitoring, symptomatic treatment. So far the cultures are negative at this time. I recommend changing the antibiotics to IV Zosyn. Infectious disease evaluation. Also recommend surgical evaluation because of the abnormal CT scan. The prognosis is guarded because of multiple complex medical issues. Further recommendations to follow. MMODL / IJN: [id number] /
[2020-11-04 20:45] LABS: Glucose,Whole Blood 190 mg/dL (75-99)
[2020-11-04] MEDS: BENZTROPINE MESYLATE 1 MG TAB PO SCH (23:39)
[2020-11-04] MEDS: METOPROLOL SUCCINATE (ER) 25 MG TAB.ER.24H PO SCH (23:40)
[2020-11-04] MEDS: risperiDONE 1 MG TAB PO SCH (23:40)
[2020-11-05] MEDS: PANTOPRAZOLE 40 MG/10 ML VIAL IVP SCH ×3 (00:21→21:47)
[2020-11-05] MEDS: PIPERACILLIN-TAZOBACTAM 3.375 GM in SODIUM CHLORIDE 0.9% 100 ML IVPB SCH ×4 (00:22→23:24)
[2020-11-05] MEDS: LEVOTHYROXINE 75 MCG TAB PO SCH (04:58)
[2020-11-05 07:18] LABS: Basophils % (A) 0 %; Eosinophils % (A) 0 %; HCT 37.7 % (34.0-46.0); Lymphocytes # (A) 0.7 k/uL (1.0-4.8); Lymphocytes % (A) 5 %; MCH 28.7 pg (25.0-35.0); MCHC 31.9 g/dL (31.0-37.0); MCV 89.9 fL (80.0-100.0); Mean Platelet Volume 7.3; Monocytes # (A) 0.7 k/uL (0-1.0); Monocytes % (A) 6 %; Neutrophils % (A) 87 %; Platelet Count 188 k/uL (150-450); RDW 14.4 % (11.5-15.5); WBC 12.7 k/uL (3.8-10.6)
[2020-11-05 07:41] LABS: Glucose,Whole Blood 248 mg/dL (75-99)
[2020-11-05] MEDS: INSULIN ASPART (NovoLOG) 100 UNIT/ML VIAL SQ SCH ×4 (08:24→21:48)
[2020-11-05] MEDS: GLIMEPIRIDE 4 MG TAB PO SCH (08:24)
[2020-11-05] MEDS: CALCIUM CARB-VIT D 500 MG-5 MCG TAB PO SCH (08:25)
[2020-11-05] MEDS: LACTOBACILLUS ACIDOPH & BULGAR 1 EACH PACKET PO SCH (08:25)
[2020-11-05] MEDS: NON FORMULARY DRUG (Glucosamine-Chondr 500-400mg 1 EACH Each) PO SCH ×2 (08:25→21:48)
[2020-11-05] MEDS: GABAPENTIN 300 MG CAP PO SCH ×3 (08:25→21:48)
[2020-11-05] MEDS: MAGNESIUM OXIDE 400 MG TAB PO SCH ×2 (08:25→21:48)
[2020-11-05] MEDS: LINAGLIPTIN 5 MG TABLET PO SCH (08:25)
[2020-11-05] MEDS: MULTIVITAMINS, THERA 1 EACH TAB PO SCH (08:26)
[2020-11-05] MEDS: polyethylene glycoL 3350 17 GM POWD.PACK PO SCH (08:26)
[2020-11-05] MEDS: POTASSIUM CHLORIDE ER 10 MEQ TAB.ER.PRT PO SCH ×2 (08:26→21:47)
[2020-11-05] MEDS: HEPARIN SODIUM,PORCINE 5,000 UNIT/ML 1 ML VIAL SQ SCH ×2 (08:35→21:47)
[2020-11-05] MEDS: ACETAMINOPHEN TAB 325 MG TAB PO PRN ×2 (08:36→16:36)
[2020-11-05] MEDS: LOSARTAN 25 MG TAB PO SCH (08:36)
[2020-11-05] MEDS: cloZAPine 100 MG TAB PO SCH ×2 (08:37→21:48)
[2020-11-05] MEDS: BUMETANIDE 1 MG TAB PO SCH ×2 (08:37→21:48)
[2020-11-05] MEDS: ASPIRIN 81 MG PO SCH (08:37)
[2020-11-05] MEDS: AZITHROMYCIN 500 MG TAB PO SCH (08:37)
[2020-11-05] MEDS: levETIRAcetam 500 MG TAB PO SCH (08:37)
[2020-11-05] MEDS: NYSTATIN 100,000UNIT/GM CREAM 30 GM TUBE TOPICAL SCH ×3 (08:38→21:49)
[2020-11-05] MEDS: NYSTATIN 100,000 UNIT/GM POWD 15 GM TOPICAL SCH ×2 (08:38→21:49)
[2020-11-05] MEDS ORDERED: VANCOMYCIN TROUGH DUE 1 EACH MISC MISCELLANE ONE (09:00)
[2020-11-05] MEDS ORDERED: IPRATROPIUM-ALBUTEROL 3 ML NEB INHALATION PRN (09:10)
[2020-11-05 09:42] LABS: African American GFR (CKD) 115.3 (60.0-200.0); Anion Gap 8.8 mmol/L (4.00-12.00); Calcium 8.6 mg/dL (8.7-10.3); Carbon Dioxide 32.2 mmol/L (21.6-31.8); Non-African American GFR(CKD) 99.4 (60.0-200.0); Potassium 3.6 mmol/L (3.5-5.5)
--- NOTE | 2020-11-05 09:56 | P.GSCN ---
History of Present Illness Consult date: 11/05/20 Reason for Consult: Bowel obstruction History of present illness: 70-year-old female with history of previous CVA presents from [facility] with change in mental status and hypoxia. She has had 2 Covid test negative. Patient yesterday was noted to be distended and having some abdominal discomfort. A CAT scan chest abdomen and pelvis was obtained. CAT scan abdomen demonstrates significant gastric distention with generalized ileus versus early SBO changes. Patient has a hernia in the right lower abdominal wall that did not appear inflamed and the bowel loops did not appear to be a source of transition at this time. Patient evaluated in her room. Patient is alert and able to answer simple questions. Denies abdominal pain. Appears mildly tachypneic. Nasogastric tube was placed after CAT scan was obtained and 2 L of output initially obtained. Patient per nursing had relief of much of her abdominal complaints. Review of Systems ROS unobtainable: due to mental status Past Medical History Past Medical History: CVA/TIA, Diabetes Mellitus, GERD/Reflux, Hyperlipidemia, Hypertension, Seizure Disorder, Skin Disorder, Thyroid Disorder Additional Past Medical History / Comment(s): CVA with R sided weakness, TIA, NIDDM type II, spouse states pt is confused much of the time, pancreatic mass being monitored every 6 months, last seizure 3 years ago, bilateral lower leg/pedal edema, bilateral stasis dermatitis, hyponatremia, past thoracic compression fractures, UTI, hypothyroid/nodules History of Any Multi-Drug Resistant Organisms: None Reported Past Surgical History: Tonsillectomy Additional Past Surgical History / Comment(s): Thyroid surgery, colonoscopy Past Anesthesia/Blood Transfusion Reactions: No Reported Reaction Smoking Status: Never smoker - Past Family History Father Family Medical History: No Reported History Additional Family Medical History / Comment(s): Father is 99yrs old. Mother Family Medical History: Cancer Additional Family Medical History / Comment(s): Mother of breast cancer. Sister(s) Family Medical History: Cancer Additional Family Medical History / Comment(s): Pt's twin sister from leukemia a couple months ago. Medications and Allergies Home Medications Medication Instructions Recorded Confirmed Type Acetaminophen [Tylenol Arthritis] 650 mg PO Q8H PRN 11/03/20 11/03/20 History Aspirin EC [Ecotrin Low Dose] 81 mg PO DAILY 11/03/20 11/03/20 History Benztropine Mesylate [Cogentin] 1 mg PO HS 11/03/20 11/03/20 History Bumetanide [Bumex] 1 mg PO BID 11/03/20 11/03/20 History Calcium Carbonate/Vitamin D3 1 tab PO DAILY 11/03/20 11/03/20 History [Calcium 600-Vit D3 400 Tablet] Furosemide [Lasix] 20 mg PO PC-LUNCH 11/03/20 11/03/20 History Furosemide [Lasix] 40 mg PO QAM 11/03/20 11/03/20 History Gabapentin 300 mg PO TID 11/03/20 11/03/20 History Glimepiride [Amaryl] 8 mg PO AC-BRKFST 11/03/20 11/03/20 History Glucosamine-Chondr 500-400Mg 1 tab PO Q12HR 11/03/20 11/03/20 History Levothyroxine Sodium [Synthroid] 150 mcg PO DAILY 11/03/20 11/03/20 History Losartan [Cozaar] 12.5 mg PO DAILY 11/03/20 11/03/20 History Magnesium Oxide [Mag-Ox] 250 mg PO BID 11/03/20 11/03/20 History Metoprolol Succinate [Toprol XL] 25 mg PO HS 11/03/20 11/03/20 History Multivitamin [Multivitamins Adult 2 tab PO DAILY 11/03/20 11/03/20 History Gummies] Nystatin 100,000 Unit/gm Powd 1 applic TOPICAL BID 11/03/20 11/03/20 History [Mycostatin Powder] Nystatin 100,000Unit/gm Cream 1 applic TOPICAL TID 11/03/20 11/03/20 History [Mycostatin Cream] Omeprazole [PriLOSEC] 20 mg PO DAILY 11/03/20 11/03/20 History Polyethylene Glycol 3350 [Miralax] 17 gm PO DAILY PRN 11/03/20 11/03/20 History Potassium Chloride [Klor-Con 10] 10 meq PO DAILY 11/03/20 11/03/20 History cloZAPine [Clozaril] 300 mg PO DAILY 11/03/20 11/03/20 History l Acidophil/B Lactis/B Longum 460 mg PO DAILY 11/03/20 11/03/20 History [Florajen3 Capsule] levETIRAcetam [Keppra] 500 mg PO Q12HR 11/03/20 11/03/20 History metFORMIN HCL 1,000 mg PO BID 11/03/20 11/03/20 History risperiDONE [RisperDAL] 1 mg PO HS 11/03/20 11/03/20 History sitaGLIPtin [Januvia] 25 mg PO DAILY 11/03/20 11/03/20 History Allergies Allergy/AdvReac Type Severity Reaction Status Date / Time haloperidol [From Haldol] Allergy Unknown Verified 11/03/20 14:10 Surgical - Exam Vital Signs Temp Pulse Resp BP Pulse Ox 100.9 F H 98 18 120/57 98 11/03/20 12:31 11/03/20 12:31 11/03/20 12:31 11/03/20 12:31 11/03/20 12:31 Physical exam: General: Well-developed, well-nourished HEENT: Normocephalic, sclerae nonicteric Abdomen: Obese, mild distention, nontender, unable to palpate hernia with certainty Extremities: No edema Neuro: Alert Results - Labs 11/05/20 07:03 11/05/20 07:03 Abnormal Lab Results - Last 24 Hours (Table) 11/04/20 11/04/20 11/04/20 Range/Units 06:14 06:14 11:14 WBC (3.8-10.6) k/uL Neutrophils # (1.3-7.7) k/uL Lymphocytes # (1.0-4.8) k/uL Potassium 3.3 L (3.5-5.5) mmol/L Carbon Dioxide (21.6-31.8) mmol/L Creatinine 0.5 L (0.6-1.5) mg/dL BUN/Creatinine Ratio 22.00 H (12.00-20.00) Ratio Glucose 302 H (70-110) mg/dL POC Glucose (mg/dL) 262 H (75-99) mg/dL Calcium 8.5 L (8.7-10.3) mg/dL Procalcitonin 2.12 H (0.02-0.09) ng/mL 11/04/20 11/04/20 11/05/20 Range/Units 16:59 20:40 07:03 WBC 12.7 H (3.8-10.6) k/uL Neutrophils # 11.0 H (1.3-7.7) k/uL Lymphocytes # 0.7 L (1.0-4.8) k/uL Potassium (3.5-5.5) mmol/L Carbon Dioxide (21.6-31.8) mmol/L Creatinine (0.6-1.5) mg/dL BUN/Creatinine Ratio (12.00-20.00) Ratio Glucose (70-110) mg/dL POC Glucose (mg/dL) 206 H 190 H (75-99) mg/dL Calcium (8.7-10.3) mg/dL Procalcitonin (0.02-0.09) ng/mL 11/05/20 11/05/20 Range/Units 07:03 07:38 WBC (3.8-10.6) k/uL Neutrophils # (1.3-7.7) k/uL Lymphocytes # (1.0-4.8) k/uL Potassium (3.5-5.5) mmol/L Carbon Dioxide 32.2 H (21.6-31.8) mmol/L Creatinine 0.5 L (0.6-1.5) mg/dL BUN/Creatinine Ratio 22.00 H (12.00-20.00) Ratio Glucose 232 H (70-110) mg/dL POC Glucose (mg/dL) 248 H (75-99) mg/dL Calcium 8.6 L (8.7-10.3) mg/dL Procalcitonin (0.02-0.09) ng/mL Diabetes panel 11/04/20 11/05/20 Range/Units 06:14 07:03 Sodium 140 143 (135-145) mmol/L Potassium 3.3 L 3.6 (3.5-5.5) mmol/L Chloride 101 102 (96-109) mmol/L Carbon Dioxide 30.4 32.2 H (21.6-31.8) mmol/L BUN 11.0 11.0 (9.0-27.0) mg/dL Creatinine 0.5 L 0.5 L (0.6-1.5) mg/dL Glucose 302 H 232 H (70-110) mg/dL Calcium 8.5 L 8.6 L (8.7-10.3) mg/dL Calcium panel 11/04/20 11/05/20 Range/Units 06:14 07:03 Calcium 8.5 L 8.6 L (8.7-10.3) mg/dL Pituitary panel 11/04/20 11/05/20 Range/Units 06:14 07:03 Sodium 140 143 (135-145) mmol/L Potassium 3.3 L 3.6 (3.5-5.5) mmol/L Chloride 101 102 (96-109) mmol/L Carbon Dioxide 30.4 32.2 H (21.6-31.8) mmol/L BUN 11.0 11.0 (9.0-27.0) mg/dL Creatinine 0.5 L 0.5 L (0.6-1.5) mg/dL Glucose 302 H 232 H (70-110) mg/dL Calcium 8.5 L 8.6 L (8.7-10.3) mg/dL Adrenal panel 11/04/20 11/05/20 Range/Units 06:14 07:03 Sodium 140 143 (135-145) mmol/L Potassium 3.3 L 3.6 (3.5-5.5) mmol/L Chloride 101 102 (96-109) mmol/L Carbon Dioxide 30.4 32.2 H (21.6-31.8) mmol/L BUN 11.0 11.0 (9.0-27.0) mg/dL Creatinine 0.5 L 0.5 L (0.6-1.5) mg/dL Glucose 302 H 232 H (70-110) mg/dL Calcium 8.5 L 8.6 L (8.7-10.3) mg/dL Assessment and Plan (1) Ileus Narrative/Plan: 70-year-old female with abdominal distention and gastric ileus. CAT scan films reviewed. No definite transition point seen at this time. Favor ileus over SBO currently. Continue nasogastric tube to suction. Continue evaluation of the patient's pulmonary issues and new onset fever. We'll follow with you. Current Visit: Yes Status: Acute Code(s): K56.7 - ILEUS, UNSPECIFIED S NOMED Code(s): 565690200
--- NOTE | 2020-11-05 10:51 | P.CONS ---
History of Present Illness - Reason for Consult Consult date: 11/04/20 Pneumonia Requesting physician: Angelica De La Torre - Chief Complaint mental status changes and fever x 1 day - History of Present Illness Patient is a 70-year-old female presented to the [facility] apparently with mental status changes patient was evaluated by facility has been diagnosed with pneumonia received a dose of Rocephin and Zithromax and subsequen tly patient to be transferred to this facility apparently patient was complaining of some coughing however the patient was not a very good historian and not good information could be obtained from this patient chest x-ray at that facility shows possible pneumonia. Have elevated white count of 22,000 and elevated lactic acid patient subsequently has been evaluated this facility this patient noticed to have a fever 100.9 F patient did have a hypoxemia requiring supplemental oxygen she was also tachycardic patient did have white count of 2.7 this morning vitals noted 11.7 D-dimer was mildly elevated patient did have a normal creatinine liver enzymes are normal lactic acid was high at 3.5 proc alcitonin was 2.12 patient did have a chest x-ray shows mild bibasilar infiltrate with cardiomegaly CT angiogram of the chest did shows T9 vertebral compression collapse no PE pulmonary hypertension volume loss and consolidation within the basal lower lobes left greater than right CT abdominal pelvis did shows marked gastric distention and abnormal dilatation of the duodenum and right lower quadrant anterior abdominal wall hernia but no incarceration, patient was initially on Rocephin and Zithromax antibiotic subsequently discharged to [facility] infectious was consulted for further management. Most information from review the chart and nursing staff at the patient was alert with good historian. Review of Systems Positive points mentioned in history of present illness complete review could not be obtained because of his underlying medical condition Past Medical History Past Medical History: CVA/TIA, Diabetes Mellitus, GERD/Reflux, Hyperlipidemia, Hypertension, Seizure Disorder, Skin Disorder, Thyroid Disorder Additional Past Medical History / Comment(s): CVA with R sided weakness, TIA, NIDDM type II, spouse states pt is confused much of the time, pancreatic mass being monitored every 6 months, last seizure 3 years ago, bilateral lower leg/pedal edema, bilateral stasis dermatitis, hyponatremia, past thoracic compression fractures, UTI, hypothyroid/nodules History of Any Multi-Drug Resistant Organisms: None Reported Past Surgical History: Tonsillectomy Additional Past Surgical History / Comment(s): Thyroid surgery, colonoscopy Past Anesthesia/Blood Transfusion Reactions: No Reported Reaction Smoking Status: Never smoker - Past Family History Father Family Medical History: No Reported History Additional Family Medical History / Comment(s): Father is 99yrs old. Mother Family Medical History: Cancer Additional Family Medical History / Comment(s): Mother of breast cancer. Sister(s) Family Medical History: Cancer Additional Family Medical History / Comment(s): Pt's twin sister from leukemia a couple months ago. Medications and Allergies Home Medications Medication Instructions Recorded Confirmed Type Acetaminophen [Tylenol Arthritis] 650 mg PO Q8H PRN 11/03/20 11/03/20 History Aspirin EC [Ecotrin Low Dose] 81 mg PO DAILY 11/03/20 11/03/20 History Benztropine Mesylate [Cogentin] 1 mg PO HS 11/03/20 11/03/20 History Bumetanide [Bumex] 1 mg PO BID 11/03/20 11/03/20 History Calcium Carbonate/Vitamin D3 1 tab PO DAILY 11/03/20 11/03/20 History [Calcium 600-Vit D3 400 Tablet] Furosemide [Lasix] 20 mg PO PC-LUNCH 11/03/20 11/03/20 History Furosemide [Lasix] 40 mg PO QAM 11/03/20 11/03/20 History Gabapentin 300 mg PO TID 11/03/20 11/03/20 History Glimepiride [Amaryl] 8 mg PO AC-BRKFST 11/03/20 11/03/20 History Glucosamine-Chondr 500-400Mg 1 tab PO Q12HR 11/03/20 11/03/20 History Levothyroxine Sodium [Synthroid] 150 mcg PO DAILY 11/03/20 11/03/20 History Losartan [Cozaar] 12.5 mg PO DAILY 11/03/20 11/03/20 History Magnesium Oxide [Mag-Ox] 250 mg PO BID 11/03/20 11/03/20 History Metoprolol Succinate [Toprol XL] 25 mg PO HS 11/03/20 11/03/20 History Multivitamin [Multivitamins Adult 2 tab PO DAILY 11/03/20 11/03/20 History Gummies] Nystatin 100,000 Unit/gm Powd 1 applic TOPICAL BID 11/03/20 11/03/20 History [Mycostatin Powder] Nystatin 100,000Unit/gm Cream 1 applic TOPICAL TID 11/03/20 11/03/20 History [Mycostatin Cream] Omeprazole [PriLOSEC] 20 mg PO DAILY 11/03/20 11/03/20 History Polyethylene Glycol 3350 [Miralax] 17 gm PO DAILY PRN 11/03/20 11/03/20 History Potassium Chloride [Klor-Con 10] 10 meq PO DAILY 11/03/20 11/03/20 History cloZAPine [Clozaril] 300 mg PO DAILY 11/03/20 11/03/20 History l Acidophil/B Lactis/B Longum 460 mg PO DAILY 11/03/20 11/03/20 History [Florajen3 Capsule] levETIRAcetam [Keppra] 500 mg PO Q12HR 11/03/20 11/03/20 History metFORMIN HCL 1,000 mg PO BID 11/03/20 11/03/20 History risperiDONE [RisperDAL] 1 mg PO HS 11/03/20 11/03/20 History sitaGLIPtin [Januvia] 25 mg PO DAILY 11/03/20 11/03/20 History Allergies Allergy/AdvReac Type Severity Reaction Status Date / Time haloperidol [From Haldol] Allergy Unknown Verified 11/03/20 14:10 Physical Exam Vitals: Vital Signs Temp Pulse Resp BP Pulse Ox 11/04/20 15:48 98.2 F 95 23 142/84 94 L 11/04/20 09:19 98 F 92 15 138/82 93 L 11/04/20 01:20 97.5 F L 112 H 22 153/70 91 L Intake and Output 11/04/20 11/04/20 11/04/20 06:59 14:59 22:59 Intake Total 800 Output Total 600 2000 Balance 200 -2000 Intake: Intake, IV Titration 500 Amount Vancomycin 2,000 mg In 500 Sodium Chloride 0.9% 500 ml 500 ml @ 167 mls/hr IVPB Q16H [facility] Rx#: [id number] Oral 300 Output: Gastric Drainage 2000 Urine 600 Other: # Voids 4 # Bowel Movements 1 1 GENERAL DESCRIPTION: Elderly female lying in bed, no distress. No tachypnea or accessory muscle of respiration use. HEENT: Shows Pallor , no scleral icterus. Oral mucous membrane is dry. No pharyngeal erythema or thrush NECK: Trachea central, no thyromegaly. LUNGS: Unlabored breathing. Decreased breath sound at the base. No wheeze or crackle. HEART: S1, S2, regular rate and rhythm. No loud murmur ABDOMEN: Soft, no tenderness , guarding or rigidity, no organomegaly EXTREMITIES: Diffuse swelling of the lower extremity minimal erythema. SKIN: No rash, no masses palpable. NEUROLOGICAL: The patient is awake, alert, oriented x1, mood and affect normal Results CBC & Chem 7: 11/05/20 07:03 11/05/20 07:03 Labs: Abnormal Lab Results - Last 24 Hours (Table) 11/04/20 11/04/20 11/04/20 Range/Units 06:14 06:14 06:14 WBC 11.7 H (3.8-10.6) k/uL Neutrophils # 11.0 H (1.3-7.7) k/uL Lymphocytes # 0.3 L (1.0-4.8) k/uL Potassium 3.3 L (3.5-5.5) mmol/L Creatinine 0.5 L (0.6-1.5) mg/dL BUN/Creatinine Ratio 22.00 H (12.00-20.00) Ratio Glucose 302 H (70-110) mg/dL POC Glucose (mg/dL) (75-99) mg/dL Calcium 8.5 L (8.7-10.3) mg/dL Procalcitonin 2.12 H (0.02-0.09) ng/mL 11/04/20 11/04/20 11/04/20 Range/Units 07:39 11:14 16:59 WBC (3.8-10.6) k/uL Neutrophils # (1.3-7.7) k/uL Lymphocytes # (1.0-4.8) k/uL Potassium (3.5-5.5) mmol/L Creatinine (0.6-1.5) mg/dL BUN/Creatinine Ratio (12.00-20.00) Ratio Glucose (70-110) mg/dL POC Glucose (mg/dL) 285 H 262 H 206 H (75-99) mg/dL Calcium (8.7-10.3) mg/dL Procalcitonin (0.02-0.09) ng/mL 11/04/20 Range/Units 20:40 WBC (3.8-10.6) k/uL Neutrophils # (1.3-7.7) k/uL Lymphocytes # (1.0-4.8) k/uL Potassium (3.5-5.5) mmol/L Creatinine (0.6-1.5) mg/dL BUN/Creatinine Ratio (12.00-20.00) Ratio Glucose (70-110) mg/dL POC Glucose (mg/dL) 190 H (75-99) mg/dL Calcium (8.7-10.3) mg/dL Procalcitonin (0.02-0.09) ng/mL Assessment and Plan Assessment: 1-patient presented to hospital with sepsis in this patient who did have a fever elevated white count high lactic acid in this patient who did have mild basilar consolidation right greater than left with evidence of marked gastric distention and concern for possible aspiration pneumonia clinically doubt COVID-19 infection with 2 - COVID-19 test (1) Pneumonia Current Visit: Yes Status: Acute Code(s): J18.9 - PNEUMONIA, UNSPECIFIED ORGANISM SNOMED Code(s): 028012772 (2) Sepsis Current Visit: Yes Status: Acute Code(s): A41.9 - SEPSIS, UNSPECIFIED ORGANISM SNOMED Code(s): 46142536 Plan: 1-we will try to obtain a sputum for Gram stain and culture 2-Zosyn 3.375 g every 8 hours should provide adequate antibiotic coverage We will follow on clinical condition and cultures to further adjust medication if needed Thank you for this consultation will follow this patient along with you Time with Patient: Greater than 30
[2020-11-05] MEDS: IPRATROPIUM-ALBUTEROL 3 ML NEB INHALATION SCH ×2 (11:21→21:29)
[2020-11-05] MEDS: THIAMINE 100 MG TAB PO SCH (12:09)
[2020-11-05] MEDS: FOLIC ACID 1 MG TAB PO SCH (12:09)
[2020-11-05 12:28] LABS: Glucose,Whole Blood 265 mg/dL (75-99)
--- NOTE | 2020-11-05 12:39 | P.PN ---
Subjective Progress Note Date: 11/05/20 Principal diagnosis: Acute hypoxic respiratory failure secondary to an acute healthcare acquired pneumonia. CoVID 19 screen negative This is a 70-year-old female patient with a history of CVA/TIA, expressive aphasia, seizure disorder, diabetes mellitus, GERD, hypertension, myocardial infarction, hypothyroidism, hyperlipidemia, schizophrenia, resides in an [facility]. She was brought into [facility] for altered mental status and hypoxemia. She was subsequently transferred here for further treatment. Her CoVID 19 screen was negative. Chest x-ray shows mild basilar atelectasis and possible infiltrate retrocardiac area. She is currently maintaining O2 saturations in the low 90s on 5 L high flow nasal cannula. Afebrile. White count 11.7. Hemoglobin 12.5. Sodium 140. Potassium 3.3. Creatinine 0.5. Glucose 302. She has been initiated on antibiotics in the form of vancomycin, ceftriaxone and azithromycin. The patient is seen today 11/05/2020 in follow-up on the regular medical floor. She is currently resting comfortably in bed. Awake and alert. Difficulty in communicating. Poor historian. She is more short of breath with bronchospasm and wheezing. She is on 5 L high flow nasal cannula to maintain O2 saturation in the 90s. Temperature 100.[address] angiogram of the chest revealed no evidence of pulmonary embolism however there was breathing motion artifact limiting the assessment. There is evidence of cardiomegaly and p ulmonary arterial hypertension, trace pleural effusions. Volume loss and consolidation with the basilar lower lobes left greater than right. Computed tomography scan of the abdomen revealed marked. Gastric distention and abnormal dilatation of the duodenum up to 5.3 cm. Possible partial obstruction and ileus within the differential. There is a right lower quadrant abdominal wall hernia. 2.5 cm cystic lesion in the pancreatic body. Distended rectum with stool. Cholelithiasis. She did end up having continued abdominal distention and an end nasogastric tube was placed with 2 L of fluid returned. She been seen and evaluated by surgical services. No interventions planned at this point. White count 12.7. Hemoglobin 12.0. Sodium 143. Potassium 3.6. Creatinine 0.5. She remains on antibiotics in the form of Zosyn. Objective - Vital Signs Vital signs: Vital Signs Temp 100.1 F H 11/05/20 10:15 Pulse 106 H 11/05/20 11:35 Resp 26 H 11/05/20 10:15 BP 133/85 11/05/20 10:15 Pulse Ox 93 L 11/05/20 10:15 Intake & Output 11/04/20 11/05/20 11/05/20 18:59 06:59 18:59 Output Total 1999 Balance -1999 Output: Gastric Drainage 1999 Other: # Voids 3 # Bowel Movements 1 1 - Exam GENERAL EXAM: Alert, 70-year-old female patient, on 5 L nasal cannula, in mild respiratory distress. HEAD: Normocephalic. EYES: Normal reaction of pupils, equal size. NOSE: Clear with pink turbinates. THROAT: No erythema or exudates. NECK: No masses, no JVD. CHEST: No chest wall deformity. LUNGS: Equal air entry with few scattered rhonchi, crackles in the posterior bases CVS: S1 and S2 normal with no audible murmur, regular rhythm. ABDOMEN: Abdominal distention, normal bowel sounds, no guarding or rigidity. SPINE: No scoliosis or deformity SKIN: No rashes CENTRAL NERVOUS SYSTEM: Expressive aphasia No focal deficits, tone is normal in all 4 extremities. EXTREMITIES: There is no peripheral edema. No clubbing, no cyanosis. Peripheral pulses are intact. - Labs CBC & Chem 7: 11/05/20 07:03 11/05/20 07:03 Labs: Abnormal Lab Results - Last 24 Hours (Table) 11/04/20 11/04/20 11/04/20 Range/Units 06:14 16:59 20:40 WBC (3.8-10.6) k/uL Neutrophils # (1.3-7.7) k/uL Lymphocytes # (1.0-4.8) k/uL Carbon Dioxide (21.6-31.8) mmol/L Creatinine (0.6-1.5) mg/dL BUN/Creatinine Ratio (12.00-20.00) Ratio Glucose (70-110) mg/dL POC Glucose (mg/dL) 206 H 190 H (75-99) mg/dL Calcium (8.7-10.3) mg/dL Procalcitonin 2.12 H (0.02-0.09) ng/mL 11/05/20 11/05/20 11/05/20 Range/Units 07:03 07:03 07:38 WBC 12.7 H (3.8-10.6) k/uL Neutrophils # 11.0 H (1.3-7.7) k/uL Lymphocytes # 0.7 L (1.0-4.8) k/uL Carbon Dioxide 32.2 H (21.6-31.8) mmol/L Creatinine 0.5 L (0.6-1.5) mg/dL BUN/Creatinine Ratio 22.00 H (12.00-20.00) Ratio Glucose 232 H (70-110) mg/dL POC Glucose (mg/dL) 248 H (75-99) mg/dL Calcium 8.6 L (8.7-10.3) mg/dL Procalcitonin (0.02-0.09) ng/mL 11/05/20 Range/Units 12:25 WBC (3.8-10.6) k/uL Neutrophils # (1.3-7.7) k/uL Lymphocytes # (1.0-4.8) k/uL Carbon Dioxide (21.6-31.8) mmol/L Creatinine (0.6-1.5) mg/dL BUN/Creatinine Ratio (12.00-20.00) Ratio Glucose (70-110) mg/dL POC Glucose (mg/dL) 265 H (75-99) mg/dL Calcium (8.7-10.3) mg/dL Procalcitonin (0.02-0.09) ng/mL Assessment and Plan Assessment: 1 Acute hypoxic respiratory failure secondary to an acute healthcare acquired pneumonia. CoVID 19 screen negative 2 History of CVA/TIA with expressive aphasia, poor historian 3 abdominal distention and possible partial ileus, nasogastric tube inserted with 2 L output 4 Seizure disorder 5 History of schizophrenia 6 Hypertension 7 Diabetes mellitus 8 Hypothyroidism 9 Hyperlipidemia 10 History of recurrent infarction 11 senior living resident [place]: The patient was seen and evaluated by Dr. Dumont Chest x-ray, CAT scans and labs reviewed Continue Zosyn, discontinue azithromycin Add DuoNeb inhalations 4 times a day and when necessary Add IV Solu-Medrol 40 mg every 6 hours ID and surgical services are on the case Prognosis is guarded DO NOT RESUSCITATE/DO NOT INTUBATE CODE STATUS We will continue to follow I, the cosigning physician, performed a history & physical examination of the patient. Lungs sounds scattered rhonchi, crackles in the posterior bases. Maintaining good O2 saturations in the 90s on 5 L/m per nasal cannula. I discussed the assessment and plan of care with my nurse practitioner, Anna John. I attest to the above note as dictated by her.
[2020-11-05] MEDS: methylPREDNISolone SOD SUCCI 40 MG/ML 1 ML VIAL IV SCH ×3 (13:44→23:24)
[2020-11-05] MEDS: SODIUM CHLORIDE 0.9% 1,000 ML IV SCH (14:25)
[2020-11-05 17:27] LABS: Glucose,Whole Blood 235 mg/dL (75-99)
--- NOTE | 2020-11-05 17:27 | PN ---
PROGRESS NOTE DATE OF SERVICE: 11/05/2020 REASON FOR FOLLOWUP: Possible aspiration pneumonia. INTERVAL HISTORY: The patient is currently afebrile. The patient is slightly more awake and alert, though she did spike a fever this morning of 100.9. The patient is currently to have the NG ( ). She was noted to have significant distention of the stomach on the CT. The patient denies having any chest pain or significant cough. No abdominal pain and no diarrhea has been reported. PHYSICAL EXAMINATION: Blood pressure 133/85 with a pulse of 104, temperature 100.1 she is 93% on 5 L nasal cannula. General description is an elderly female lying in bed in no distress. Respiratory system: Unlabored breathing, decreased breath sounds at the base, no wheeze. Heart S1, S2. Regular rate and rhythm. Abdomen soft, no tenderness. LABS: Hemoglobin is 12.7, white count ( ), BUN of 11, creatinine 0.5. DIAGNOSTIC IMPRESSION AND PLAN: Patient admitted to hospital with fever with evidence of pneumonia, likely aspiration as known has significant distention of the stomach. The patient did have NG placed. The patient is covered with Zosyn, to continue. Try to obtain a sputum to narrow down antibiotics and monitor clinical course closely. MMODL / IJN: [id number] /
[2020-11-05] MEDS ORDERED: PANTOPRAZOLE 40 MG TABLET PO SCH (17:30)
--- NOTE | 2020-11-05 18:51 | PN ---
PROGRESS NOTE DATE OF SERVICE: 11/05/2020 INTERVAL HISTORY: This is a 70-year-old woman who was admitted with bilateral pneumonia also had abdominal distention. Abdominal and pelvis CAT scan showed evidence of possible ileus versus obstruction. Dr. Marie is favoring ileus more than obstruction. Marked gastric distention, abnormal dilation of the duodenum was also noted. After the NG tube decompression was achieved about 2 L of fluid coming out instantaneously. The patient is closely monitored. Patient continues to be confused and previously apparently the patient and the family have been offered surgical evaluation and intervention which the patient refused at that time. Dr. Marie is planning medical treatment with the patient on broad spectrum IV antibiotics. Multiple consultants including Dr. Dumont is following the patient closely. PAST MEDICAL HISTORY: Reviewed. REVIEW OF SYSTEMS: Could not be taken as the patient is still confused. CURRENT MEDICATIONS: Reviewed and include Tylenol, [place], DuoNeb, aspirin, Cogentin, Bumex and as well as the Zosyn. Doses reviewed. PHYSICAL EXAM: GENERAL: Patient is conscious, mildly confused. VITAL SIGNS: Pulse 95, blood pressure 165/82, respirations 16, temperature 98.8, T-max 100.1, pulse ox 100% on 5 liters. HEENT: Conjunctivae normal. NECK: No jugular venous distention. No carotid bruits. No lymph node enlargement. RESPIRATORY: Breath sounds diminished at the bases. A few scattered rhonchi and crackles. HEART: S1 and S2, muffled. ABDOMEN: Soft, obese. Slightly better than previous to NG tube. Still draining some darkish fluid. EXTREMITIES: No edema, no swelling. NERVOUS: Higher functions as mentioned earlier. Moves all four limbs. No focal motor or sensory deficits. Full exam is not possible. LAB: WBC 12.7, sodium 143, potassium 3.6. Other labs are noted. COVID-19 is negative. Procalcitonin 2.12. ASSESSMENT: 1. Acute right lobe pneumonia, possibly aspiration pneumonia with sepsis and acute hypoxic respiratory failure present on admission. 2. Change in mental status acute metabolic encephalopathy secondary to sepsis. 3. COVID-19 rapid test is negative. 4. Possible gastric ileus and duodenal ileus versus obstruction. 5. Cerebrovascular accident and transient ischemic attack history. 6. Diabetes type 2. 7. Gastroesophageal reflux disease. 8. Hypertension. 9. Hyperlipidemia. 10.Possible cholelithiasis. 11.History of seizure disorder. 12.History of pancreatic mass apparently previously. 13.History of bilateral stasis dermatitis. 14.History of hyponatremia. 15.History urinary tract infection. 16.History of schizophrenia. 17.Obesity with body mass index of 51.6. 18.NO CODE, NO CPR, NO VENT. RECOMMENDATIONS AND DISCUSSION: I recommend to continue current management and symptomatic treatment. Continue the broad-spectrum IV antibiotics. NG tube. Continue the rest of the medication. Medication was reviewed. Closely follow with multiple consultants. As mentioned earlier, the patient's family wanted to continue with conservative line of management at this time, per staff. Otherwise, we will continue to monitor. Prognosis guarded because of multiple complex medical issues. Further recommendations to follow. MMODL / IJN: [id number] /
[2020-11-05 20:15] LABS: Glucose,Whole Blood 256 mg/dL (75-99)
[2020-11-05] MEDS: risperiDONE 1 MG TAB PO SCH (21:48)
[2020-11-05] MEDS: BENZTROPINE MESYLATE 1 MG TAB PO SCH (21:48)
[2020-11-05] MEDS: METOPROLOL SUCCINATE (ER) 25 MG TAB.ER.24H PO SCH (21:48)
[2020-11-06] MEDS: LEVOTHYROXINE 75 MCG TAB PO SCH (05:32)
[2020-11-06] MEDS: methylPREDNISolone SOD SUCCI 40 MG/ML 1 ML VIAL IV SCH ×4 (05:32→23:43)
[2020-11-06 06:15] LABS: Basophils % (A) 0 %; Eosinophils % (A) 0 %; HCT 36.4 % (34.0-46.0); HGB 11.9 gm/dL (11.4-16.0); Lymphocytes # (A) 0.6 k/uL (1.0-4.8); Lymphocytes % (A) 7 %; MCH 29.4 pg (25.0-35.0); MCHC 32.7 g/dL (31.0-37.0); MCV 89.8 fL (80.0-100.0); Mean Platelet Volume 7.3; Monocytes # (A) 0.2 k/uL (0-1.0); Monocytes % (A) 3 %; Neutrophils # (A) 6.8 k/uL (1.3-7.7); Neutrophils % (A) 88 %; Platelet Count 189 k/uL (150-450); RBC 4.05 m/uL (3.80-5.40); RDW 14.1 % (11.5-15.5); WBC 7.7 k/uL (3.8-10.6)
[2020-11-06] MEDS: GLIMEPIRIDE 4 MG TAB PO SCH (07:35)
[2020-11-06] MEDS: NON FORMULARY DRUG (Glucosamine-Chondr 500-400mg 1 EACH Each) PO SCH ×2 (07:36→22:36)
[2020-11-06 07:37] LABS: Glucose,Whole Blood 296 mg/dL (75-99)
[2020-11-06] MEDS: LINAGLIPTIN 5 MG TABLET PO SCH (07:37)
[2020-11-06] MEDS: IPRATROPIUM-ALBUTEROL 3 ML NEB INHALATION SCH ×3 (07:51→19:53)
--- NOTE | 2020-11-06 08:40 | P.PN ---
Subjective Progress Note Date: 11/06/20 Principal diagnosis: Ileus versus SBO Patient pleasantly confused. Denies pain. No bowel function. Nasogastric output significantly decreased. White blood cell count is normal at 7.7. Afebrile for last 12-24 hours. Objective - Vital Signs Vital signs: Vital Signs Temp 97.8 F 11/06/20 07:00 Pulse 99 11/06/20 07:59 Resp 20 11/06/20 07:00 BP 151/80 11/06/20 07:00 Pulse Ox 96 11/06/20 07:00 Intake & Output 11/05/20 11/06/20 11/06/20 18:59 06:59 18:59 Output Total 100 Balance -100 Output: Gastric Drainage 100 Other: # Voids 2 3 - Exam Abdomen: Soft, mild distention, no appreciable tenderness, hernia nonpalpable - Labs CBC & Chem 7: 11/06/20 05:59 11/05/20 07:03 Labs: Abnormal Lab Results - Last 24 Hours (Table) 11/05/20 11/05/20 11/05/20 Range/Units 07:03 12:25 17:25 Lymphocytes # (1.0-4.8) k/uL Carbon Dioxide 32.2 H (21.6-31.8) mmol/L Creatinine 0.5 L (0.6-1.5) mg/dL BUN/Creatinine Ratio 22.00 H (12.00-20.00) Ratio Glucose 232 H (70-110) mg/dL POC Glucose (mg/dL) 265 H 235 H (75-99) mg/dL Calcium 8.6 L (8.7-10.3) mg/dL 11/05/20 11/06/20 11/06/20 Range/Units 20:12 05:59 07:02 Lymphocytes # 0.6 L (1.0-4.8) k/uL Carbon Dioxide (21.6-31.8) mmol/L Creatinine (0.6-1.5) mg/dL BUN/Creatinine Ratio (12.00-20.00) Ratio Glucose (70-110) mg/dL POC Glucose (mg/dL) 256 H 296 H (75-99) mg/dL Calcium (8.7-10.3) mg/dL Assessment and Plan (1) Ileus Narrative/Plan: 70-year-old female doing better after nasogastric tube placement and bowel rest. We'll repeat abdominal x-rays tomorrow. Further decisions regarding diet to follow. Current Visit: Yes Status: Acute Code(s): K56.7 - ILEUS, UNSPECIFIED SNOMED Code(s): 694027470
[2020-11-06 09:33] LABS: African American GFR (CKD) 115.3 (60.0-200.0); Anion Gap 12.5 mmol/L (4.00-12.00); Calcium 8.7 mg/dL (8.7-10.3); Carbon Dioxide 32.5 mmol/L (21.6-31.8); Non-African American GFR(CKD) 99.4 (60.0-200.0); Potassium 3.5 mmol/L (3.5-5.5)
[2020-11-06] MEDS: THIAMINE 100 MG TAB PO SCH (10:37)
[2020-11-06] MEDS: GABAPENTIN 300 MG CAP PO SCH ×3 (10:37→22:36)
[2020-11-06] MEDS: PANTOPRAZOLE 40 MG/10 ML VIAL IVP SCH ×2 (10:37→20:45)
[2020-11-06] MEDS: MULTIVITAMINS, THERA 1 EACH TAB PO SCH (10:37)
[2020-11-06] MEDS: FOLIC ACID 1 MG TAB PO SCH (10:37)
[2020-11-06] MEDS: CALCIUM CARB-VIT D 500 MG-5 MCG TAB PO SCH (10:38)
[2020-11-06] MEDS: LOSARTAN 25 MG TAB PO SCH (10:38)
[2020-11-06] MEDS: levETIRAcetam 500 MG TAB PO SCH (10:38)
[2020-11-06] MEDS: MAGNESIUM OXIDE 400 MG TAB PO SCH ×2 (10:38→22:36)
[2020-11-06] MEDS: POTASSIUM CHLORIDE ER 10 MEQ TAB.ER.PRT PO SCH ×2 (10:39→22:36)
[2020-11-06] MEDS: BUMETANIDE 1 MG TAB PO SCH ×2 (10:39→22:35)
[2020-11-06] MEDS: cloZAPine 100 MG TAB PO SCH ×2 (10:40→22:03)
[2020-11-06] MEDS: ASPIRIN 81 MG PO SCH (10:40)
[2020-11-06] MEDS: PIPERACILLIN-TAZOBACTAM 3.375 GM in SODIUM CHLORIDE 0.9% 100 ML IVPB SCH ×3 (10:40→23:42)
[2020-11-06] MEDS: HEPARIN SODIUM,PORCINE 5,000 UNIT/ML 1 ML VIAL SQ SCH ×2 (10:40→20:57)
[2020-11-06] MEDS: NYSTATIN 100,000 UNIT/GM POWD 15 GM TOPICAL SCH ×2 (10:41→22:36)
[2020-11-06] MEDS: LACTOBACILLUS ACIDOPH & BULGAR 1 EACH PACKET PO SCH (10:41)
[2020-11-06] MEDS: polyethylene glycoL 3350 17 GM POWD.PACK PO SCH (10:41)
[2020-11-06] MEDS: NYSTATIN 100,000UNIT/GM CREAM 30 GM TUBE TOPICAL SCH ×3 (10:42→23:40)
[2020-11-06] MEDS: INSULIN ASPART (NovoLOG) 100 UNIT/ML VIAL SQ SCH ×4 (10:43→20:45)
[2020-11-06] MEDS: SODIUM CHLORIDE 0.9% 1,000 ML IV SCH (10:43)
[2020-11-06 11:38] LABS: Glucose,Whole Blood 282 mg/dL (75-99)
--- NOTE | 2020-11-06 12:39 | P.PN ---
Subjective Progress Note Date: 11/06/20 Principal diagnosis: Acute hypoxic respiratory failure secondary to an acute healthcare acquired pneumonia. CoVID 19 screen negative This is a 70-year-old female patient with a history of CVA/TIA, expressive aphasia, seizure disorder, diabetes mellitus, GERD, hypertension, myocardial infarction, hypothyroidism, hyperlipidemia, schizophrenia, resides in an [facility]. She was brought into [facility] for altered mental status and hypoxemia. She was subsequently transferred here for further treatment. Her CoVID 19 screen was negative. Chest x-ray shows mild basilar atelectasis and possible infiltrate retrocardiac area. She is currently maintaining O2 saturations in the low 90s on 5 L high flow nasal cannula. Afebrile. White count 11.7. Hemoglobin 12.5. Sodium 140. Potassium 3.3. Creatinine 0.5. Glucose 302. She has been initiated on antibiotics in the form of vancomycin, ceftriaxone and azithromycin. The patient is seen today 11/05/2020 in follow-up on the regular medical floor. She is currently resting comfortably in bed. Awake and alert. Difficulty in communicating. Poor historian. She is more short of breath with bronchospasm and wheezing. She is on 5 L high flow nasal cannula to maintain O2 saturation in the 90s. Temperature 100.[address] angiogram of the chest revealed no evidence of pulmonary embolism however there was breathing motion artifact limiting the assessment. There is evidence of cardiomegaly and p ulmonary arterial hypertension, trace pleural effusions. Volume loss and consolidation with the basilar lower lobes left greater than right. Computed tomography scan of the abdomen revealed marked. Gastric distention and abnormal dilatation of the duodenum up to 5.3 cm. Possible partial obstruction and ileus within the differential. There is a right lower quadrant abdominal wall hernia. 2.5 cm cystic lesion in the pancreatic body. Distended rectum with stool. Cholelithiasis. She did end up having continued abdominal distention and an end nasogastric tube was placed with 2 L of fluid returned. She been seen and evaluated by surgical services. No interventions planned at this point. White count 12.7. Hemoglobin 12.0. Sodium 143. Potassium 3.6. Creatinine 0.5. She remains on antibiotics in the form of Zosyn. Patient is seen today 11/06/2020 in follow-up on the regular medical floor. She is currently resting comfortably in bed. More awake and alert today. Answering some questions appropriately. Speech is clearing. She is maintaining O2 saturations in the 90s on 5 L high flow nasal cannula. Less bronchospastic and wheezy today. Currently afebrile. Hemodynamically stable. White count 7.7. Hemoglobin 11.9. Platelet count 189. Sodium 147. Potassium 3.5. Creatinine 0.5. Glucose 298. Continued on IV Solu Medrol, bronchodilators. Antibiotics in the form of Zosyn. Objective - Vital Signs Vital signs: Vital Signs Temp 97.8 F 11/06/20 07:00 Pulse 99 11/06/20 07:59 Resp 20 11/06/20 07:00 BP 151/80 11/06/20 07:00 Pulse Ox 96 11/06/20 07:00 Intake & Output 11/05/20 11/06/20 11/06/20 18:59 06:59 18:59 Output Total 100 Balance -100 Output: Gastric Drainage 100 Other: Voiding Method Incontinent # Voids 2 3 - Exam GENERAL EXAM: Alert, 70-year-old female patient, on 5 L nasal cannula, in no acute respiratory distress. HEAD: Normocephalic. EYES: Normal reaction of pupils, equal size. NOSE: Clear with pink turbinates. THROAT: No erythema or exudates. NECK: No masses, no JVD. CHEST: No chest wall deformity. LUNGS: Equal air entry with few scattered rhonchi, crackles in the posterior bases CVS: S1 and S2 normal with no audible murmur, regular rhythm. ABDOMEN: Abdominal distention, normal bowel sounds, no guarding or rigidity. SPINE: No scoliosis or deformity SKIN: No rashes CENTRAL NERVOUS SYSTEM: Expressive aphasia No focal deficits, tone is normal in all 4 extremities. EXTREMITIES: There is no peripheral edema. No clubbing, no cyanosis. Peripheral pulses are intact. - Labs CBC & Chem 7: 11/06/20 05:59 11/06/20 05:59 Labs: Abnormal Lab Results - Last 24 Hours (Table) 11/05/20 11/05/20 11/06/20 Range/Units 17:25 20:12 05:59 Lymphocytes # 0.6 L (1.0-4.8) k/uL Sodium (135-145) mmol/L Carbon Dioxide (21.6-31.8) mmol/L Anion Gap (4.00-12.00) mmol/L Creatinine (0.6-1.5) mg/dL BUN/Creatinine Ratio (12.00-20.00) Ratio Glucose (70-110) mg/dL POC Glucose (mg/dL) 235 H 256 H (75-99) mg/dL 11/06/20 11/06/20 11/06/20 Range/Units 05:59 07:02 11:29 Lymphocytes # (1.0-4.8) k/uL Sodium 147 H (135-145) mmol/L Carbon Dioxide 32.5 H (21.6-31.8) mmol/L Anion Gap 12.50 H (4.00-12.00) mmol/L Creatinine 0.5 L (0.6-1.5) mg/dL BUN/Creatinine Ratio 28.00 H (12.00-20.00) Ratio Glucose 298 H (70-110) mg/dL POC Glucose (mg/dL) 296 H 282 H (75-99) mg/dL Assessment and Plan Assessment: 1 Acute hypoxic respiratory failure secondary to an acute healthcare acquired pneumonia. CoVID 19 screen negative 2 History of CVA/TIA with expressive aphasia, poor historian 3 Abdominal distention and possible partial ileus, nasogastric tube inserted with 2 L output 4 Seizure disorder 5 History of schizophrenia 6 Hypertension 7 Diabetes mellitus 8 Hypothyroidism 9 Hyperlipidemia 10 History of recurrent infarction 11 residential resident Plan: The patient was seen and evaluated by Dr. Dumont Continue Zosyn, continue DuoNeb inhalations 4 times a day and when necessary Continue IV Solu-Medrol 40 mg every 6 hours Titrate down the FiO2 as tolerated Prognosis is guarded. DO NOT RESUSCITATE/DO NOT INTUBATE CODE STATUS We will continue to follow I, the cosigning physician, performed a history & physical examination of the p atient. Lungs sounds scattered rhonchi, crackles in the posterior bases. Maintaining good O2 saturations in the 90s on 5 L/m per nasal cannula. I discussed the assessment and plan of care with my nurse practitioner, Anna John. I attest to the above note as dictated by her.
--- NOTE | 2020-11-06 15:28 | XR ---
EXAMINATION TYPE: XR chest 1V portable DATE OF EXAM: 11/06/2020 COMPARISON: 11/04/2020 HISTORY: Pneumonia. Short of breath. TECHNIQUE: FINDINGS: Heart is enlarged. There is some pulmonary vascular congestion. There is nasogastric tube i n the stomach. There are bilateral basilar pulmonary infiltrates. IMPRESSION: There is increased pulmonary infiltrates and pulmonary congestion compared to recent exam and consistent with worsening heart failure and pneumonia.
--- NOTE | 2020-11-06 16:12 | PN ---
PROGRESS NOTE DATE OF SERVICE: 11/06/2020 INTERVAL HISTORY: This is a 70-year-old woman who was admitted with bilateral aspiration pneumonia also had significant abdominal distention. The possibility of ileus is considered by Dr. Marie. Patient still has NG tube. Patient continues to be confused. Patient is being closely monitored. Multiple consultants are following the patient closely. Cultures are negative so far. Sodium is 147 today. Blood sugars elevated. The patient is started on IV steroids. PAST MEDICAL HISTORY: Reviewed. REVIEW OF SYSTEMS: CARDIOVASCULAR: No angina or palpitations. RESPIRATORY: As mentioned earlier. GI: As mentioned earlier. : No dysuria. NERVOUS SYSTEM: No numbness or weakness. CURRENT MEDICATIONS: Reviewed include Tylenol, [place], DuoNeb, aspirin, Bumex, Clozaril, folic acid, Amaryl, NovoLog. Doses are reviewed. PHYSICAL EXAM: GENERAL: Patient is alert and oriented times two. VITAL SIGNS: Pulse 89, blood pressure 151/80, respirations 20, temperature 97.8, pulse ox 96% on 5 liters. HEENT: Conjunctivae normal. Oral mucosa moist. NECK: No jugular venous distention. No carotid bruits. No lymph node enlargement. RESPIRATORY: Breath sounds diminished at the bases. A few scattered rhonchi. HEART: S1 and S2, muffled. ABDOMEN: Soft, minimal diffuse tenderness. EXTREMITIES: No edema, no swelling. NERVOUS: No focal deficits. LABS: WBC 7.3, hemoglobin is 11.9. The labs are personally reviewed ASSESSMENT: 1. Acute right lower lobe pneumonia possibly aspiration pneumonia with sepsis and acute hypoxic respiratory failure present on admission. 2. Change in mental status and acute metabolic encephalopathy secondary to sepsis, multifactorial. 3. COVID-19 rapid test is negative. 4. Possible gastric ileus and duodenal ileus versus obstruction. 5. Cerebrovascular accident, transient ischemic attack history. 6. Diabetes mellitus type 2. 7. On NG tube. 8. Gastroesophageal reflux disease. 9. Hypertension. 10.Hyperlipidemia. 11.Possible cholelithiasis. 12.History of seizure disorder. 13.History of pancreatic mass apparently previously. 14.History of bilateral stasis dermatitis. 15.History of hyponatremia. 16.History of urinary tract infection .. 17.History of schizophrenia. 18.Obesity with body mass index of 51.6. 19.NO CODE, NO CPR, NO VENT. RECOMMENDATIONS AND DISCUSSION: Recommend to continue current management and continue symptomatic treatment. Otherwise at this time I recommend to continue the empiric antibiotics. Otherwise closely follow with Dr. Marie and repeat labs and repeat chest x-ray. Sugars are slightly elevated. I would add Lantus at night and continue to monitor. Further recommendations to follow. MMODL / IJN: [id number] /
[2020-11-06 17:33] LABS: Glucose,Whole Blood 245 mg/dL (75-99)
[2020-11-06 20:27] LABS: Glucose,Whole Blood 253 mg/dL (75-99)
[2020-11-06] MEDS: INSULIN DETEMIR (LEVEMIR) 100 UNIT/ML SYR SQ SCH (22:06)
[2020-11-06] MEDS: BENZTROPINE MESYLATE 1 MG TAB PO SCH (22:10)
[2020-11-06] MEDS: METOPROLOL SUCCINATE (ER) 25 MG TAB.ER.24H PO SCH (22:36)
[2020-11-06] MEDS: risperiDONE 1 MG TAB PO SCH (22:36)
--- NOTE | 2020-11-06 23:32 | PN ---
PROGRESS NOTE DATE OF SERVICE: 11/06/2020 REASON FOR FOLLOWUP: Aspiration pneumonia. INTERVAL HISTORY: Patient is currently afebrile. The patient seemed to be more awake, alert. She is breathing comfortably. Denies having any chest pain. Did have some cough, not bringing up sputum. No nausea, vomiting, abdominal pain or diarrhea. PHYSICAL EXAMINATION: Blood pressure 162/79 with a pulse of 90, temperature 97.5. She is 90% on 5 L nasal cannula. General description is an elderly female lying in bed in no distress. Respiratory system: Unlabored breathing, decreased intensity of breath sounds in the bases, with no wheeze. Heart S1, S2. Regular rate and rhythm. ABDOMEN: Soft, no tenderness. LABS: Hemoglobin 11.1, white count 7.7, BUN of 14, creatinine 0.5. DIAGNOSTIC IMPRESSION AND PLAN: Patient admitted to the hospital with generalized weakness, multifactorial in this patient with possible Covid aspiration pneumonia with significant distention status post NG. Patient is covered with Zosyn to continue and monitor clinical course closely. MMODL / IJN: [id number] /
[2020-11-07] MEDS: SODIUM CHLORIDE 0.9% 1,000 ML IV SCH (04:55)
[2020-11-07] MEDS: LEVOTHYROXINE 75 MCG TAB PO SCH (05:10)
[2020-11-07] MEDS: methylPREDNISolone SOD SUCCI 40 MG/ML 1 ML VIAL IV SCH ×3 (05:23→16:32)
[2020-11-07 07:02] LABS: Glucose,Whole Blood 283 mg/dL (75-99)
[2020-11-07] MEDS: IPRATROPIUM-ALBUTEROL 3 ML NEB INHALATION SCH ×3 (07:17→19:43)
[2020-11-07] MEDS: GLIMEPIRIDE 4 MG TAB PO SCH (07:46)
[2020-11-07] MEDS: ASPIRIN 81 MG PO SCH (07:47)
[2020-11-07] MEDS: GABAPENTIN 300 MG CAP PO SCH ×3 (07:47→21:35)
[2020-11-07] MEDS: CALCIUM CARB-VIT D 500 MG-5 MCG TAB PO SCH (07:47)
[2020-11-07] MEDS: MAGNESIUM OXIDE 400 MG TAB PO SCH ×2 (07:47→21:36)
[2020-11-07] MEDS: LOSARTAN 25 MG TAB PO SCH (07:47)
[2020-11-07] MEDS: LACTOBACILLUS ACIDOPH & BULGAR 1 EACH PACKET PO SCH (07:47)
[2020-11-07] MEDS: LINAGLIPTIN 5 MG TABLET PO SCH (07:47)
[2020-11-07] MEDS: NON FORMULARY DRUG (Glucosamine-Chondr 500-400mg 1 EACH Each) PO SCH ×2 (07:47→21:36)
[2020-11-07] MEDS: BUMETANIDE 1 MG TAB PO SCH ×2 (07:47→21:36)
[2020-11-07] MEDS: polyethylene glycoL 3350 17 GM POWD.PACK PO SCH (07:48)
[2020-11-07] MEDS: POTASSIUM CHLORIDE ER 10 MEQ TAB.ER.PRT PO SCH ×2 (07:48→21:36)
[2020-11-07] MEDS: MULTIVITAMINS, THERA 1 EACH TAB PO SCH (07:48)
--- NOTE | 2020-11-07 07:54 | XR ---
EXAMINATION TYPE: XR abdomen 2V DATE OF EXAM: 11/07/2020 CLINICAL HISTORY: Pain and ileus. TECHNIQUE: Supine and upright views of the abdomen are obtained. COMPARISON: CT 3 days ago. FINDINGS: New nasogastric tube projects below diaphragm with persisting gas prominent stomach. Contra st from recent CT has majority been excreted, some residual contrast noted in rectum. Some gas promin ent small and large bowel loops throughout the lower abdomen. Exam suboptimal due to patient's large body habitus. Moderate to severe narrowing0 and spurring in both hips, left greater than right. There is vertebroplasty through compression type fracture in the lower thoracic spine. IMPRESSION: Interval passage of contrast to rectum noted. Thus there is no complete bowel obstruction . Interval successful placement of nasogastric tube. Gas prominent stomach still felt present though is improved.
[2020-11-07] MEDS: PIPERACILLIN-TAZOBACTAM 3.375 GM in SODIUM CHLORIDE 0.9% 100 ML IVPB SCH ×2 (08:35→16:26)
[2020-11-07] MEDS: INSULIN ASPART (NovoLOG) 100 UNIT/ML VIAL SQ SCH ×4 (08:35→20:59)
[2020-11-07] MEDS: NYSTATIN 100,000 UNIT/GM POWD 15 GM TOPICAL SCH ×2 (08:36→21:36)
[2020-11-07] MEDS: levETIRAcetam 500 MG TAB PO SCH (08:36)
[2020-11-07] MEDS: cloZAPine 100 MG TAB PO SCH ×2 (08:36→20:59)
[2020-11-07] MEDS: PANTOPRAZOLE 40 MG/10 ML VIAL IVP SCH ×2 (08:36→21:42)
[2020-11-07] MEDS: HEPARIN SODIUM,PORCINE 5,000 UNIT/ML 1 ML VIAL SQ SCH ×2 (08:36→21:00)
[2020-11-07] MEDS: NYSTATIN 100,000UNIT/GM CREAM 30 GM TUBE TOPICAL SCH ×2 (08:36→16:26)
--- NOTE | 2020-11-07 10:54 | P.PN ---
Subjective Progress Note Date: 11/07/20 Principal diagnosis: Ileus versus SBO Patient without new complaints. Appears comfortable. Denies pain. Repeat abdominal x-rays today still shows gas-filled stomach with some distention. Nasogastric tube remains in place and appears appropriately positioned. Objective - Vital Signs Vital signs: Vital Signs Temp 97.9 F 11/07/20 07:00 Pulse 76 11/07/20 07:00 Resp 16 11/07/20 07:00 BP 158/90 11/07/20 07:00 Pulse Ox 90 L 11/07/20 07:00 Intake & Output 11/06/20 11/07/20 11/07/20 18:59 06:59 18:59 Output Total 100 Balance -100 Output: Gastric Drainage 100 Other: Voiding Method Incontinent Incontinent # Voids 2 1 # Bowel Movements 1 - Exam Abdomen: Soft, obese, mild distention, nontender - Labs CBC & Chem 7: 11/06/20 05:59 11/06/20 05:59 Labs: Abnormal Lab Results - Last 24 Hours (Table) 11/06/20 11/06/20 11/06/20 Range/Units 11:29 17:03 20:16 POC Glucose (mg/dL) 282 H 245 H 253 H (75-99) mg/dL 11/07/20 Range/Units 07:01 POC Glucose (mg/dL) 283 H (75-99) mg/dL Assessment and Plan (1) Ileus Narrative/Plan: Patient's x-rays still show gastric distention. Continue nasogastric tube to suction. May require upper GI/small bowel follow-through if no improvement. Current Visit: Yes Status: Acute Code(s): K56.7 - ILEUS, UNSPECIFIED SNOMED Code(s): 850026781
[2020-11-07] MEDS: FOLIC ACID 1 MG TAB PO SCH (11:12)
[2020-11-07] MEDS: THIAMINE 100 MG TAB PO SCH (11:12)
[2020-11-07 11:35] LABS: Glucose,Whole Blood 287 mg/dL (75-99)
--- NOTE | 2020-11-07 11:57 | P.PN ---
Subjective Progress Note Date: 11/07/20 Principal diagnosis: Acute hypoxic respiratory failure secondary to an acute healthcare acquired pneumonia. CoVID 19 screen negative This is a 70-year-old female patient with a history of CVA/TIA, expressive aphasia, seizure disorder, diabetes mellitus, GERD, hypertension, myocardial infarction, hypothyroidism, hyperlipidemia, schizophrenia, resides in an [facility]. She was [facility] into [facility] for altered mental status and hypoxemia. She was subsequently transferred here for further treatment. Her CoVID 19 screen was negative. Chest x-ray shows mild basilar atelectasis and possible infiltrate retrocardiac area. She is currently maintaining O2 saturations in the low 90s on 5 L high flow nasal cannula. Afebrile. White count 11.7. Hemoglobin 12.5. Sodium 140. Potassium 3.3. Creatinine 0.5. Glucose 302. She has been initiated on antibiotics in the form of vancomycin, ceftriaxone and azithromycin. The patient is seen today 11/05/2020 in follow-up on the regular medical floor. She is currently resting comfortably in bed. Awake and alert. Difficulty in communicating. Poor historian. She is more short of breath with bronchospasm and wheezing. She is on 5 L high flow nasal cannula to maintain O2 saturation in the 90s. Temperature 100.[address] angiogram of the chest revealed no evidence of pulmonary embolism however there was breathing motion artifact limiting the assessment. There is evidence of cardiomegaly and p ulmonary arterial hypertension, trace pleural effusions. Volume loss and consolidation with the basilar lower lobes left greater than right. Computed tomography scan of the abdomen revealed marked. Gastric distention and abnormal dilatation of the duodenum up to 5.3 cm. Possible partial obstruction and ileus within the differential. There is a right lower quadrant abdominal wall hernia. 2.5 cm cystic lesion in the pancreatic body. Distended rectum with stool. Cholelithiasis. She did end up having continued abdominal distention and an end nasogastric tube was placed with 2 L of fluid returned. She been seen and evaluated by surgical services. No interventions planned at this point. White count 12.7. Hemoglobin 12.0. Sodium 143. Potassium 3.6. Creatinine 0.5. She remains on antibiotics in the form of Zosyn. Patient is seen today 11/06/2020 in follow-up on the regular medical floor. She is currently resting comfortably in bed. More awake and alert today. Answering some questions appropriately. Speech is clearing. She is maintaining O2 saturations in the 90s on 5 L high flow nasal cannula. Less bronchospastic and wheezy today. Currently afebrile. Hemodynamically stable. White count 7.7. Hemoglobin 11.9. Platelet count 189. Sodium 147. Potassium 3.5. Creatinine 0.5. Glucose 298. Continued on IV Solu Medrol, bronchodilators. Antibiotics in the form of Zosyn. The patient is seen today 11/07/2020 in follow-up on the regular medical floor. She is a bit more awake and alert today. Speaking in near complete sentences. Denies any worsening shortness of breath, cough or congestion. He is maintaining O2 saturation in the low 90s on 5 L/m per nasal cannula. She's afebrile. Blood glucose 287. Remains on antibiotics in the form of Zosyn, IV Solu-Medrol, bronchodilators. Abdominal x-ray today reveals interval passage of contrast to the rectum. There is no complete bowel obstruction. Gas prominent stomach still present but improved. Nasogastric tube remains in place. Remains nothing by mouth. Surgical services are on the case. Objective - Vital Signs Vital signs: Vital Signs Temp 97.9 F 11/07/20 07:00 Pulse 76 11/07/20 07:00 Resp 16 11/07/20 07:00 BP 158/90 11/07/20 07:00 Pulse Ox 90 L 11/07/20 07:00 Intake & Output 11/06/20 11/07/20 11/07/20 18:59 06:59 18:59 Output Total 100 Balance -100 Output: Gastric Drainage 100 Other: Voiding Method Incontinent Incontinent # Voids 2 1 # Bowel Movements 1 - Exam GENERAL EXAM: Alert, 70-year-old female patient, on 5 L nasal cannula, in no acute respiratory distress. HEAD: Normocephalic. EYES: Normal reaction of pupils, equal size. NOSE: Nasogastric tube secured in place. Clear with pink turbinates. THROAT: No erythema or exudates. NECK: No masses, no JVD. CHEST: No chest wall deformity. LUNGS: Equal air entry with few scattered rhonchi, crackles in the posterior bases CVS: S1 and S2 normal with no audible murmur, regular rhythm. ABDOMEN: Abdominal distention, normal bowel sounds, no guarding or rigidity. SPINE: No scoliosis or deformity SKIN: No rashes CENTRAL NERVOUS SYSTEM: Expressive aphasia No focal deficits, tone is normal in all 4 extremities. EXTREMITIES: There is no peripheral edema. No clubbing, no cyanosis. Peripheral pulses are intact. - Labs CBC & Chem 7: 11/06/20 05:59 11/06/20 05:59 Labs: Abnormal Lab Results - Last 24 Hours (Table) 11/06/20 11/06/20 11/07/20 Range/Units 17:03 20:16 07:01 POC Glucose (mg/dL) 245 H 253 H 283 H (75-99) mg/dL 11/07/20 Range/Units 11:33 POC Glucose (mg/dL) 287 H (75-99) mg/dL Assessment and Plan Assessment: 1 Acute hypoxic respiratory failure secondary to an acute healthcare acquired pneumonia. CoVID 19 screen negative currently on 5 L high flow nasal cannula. 2 History of CVA/TIA with expressive aphasia, poor historian 3 Abdominal distention and possible partial ileus, nasogastric tube inserted with 2 L output. Abdominal x-ray does not reveal complete obstruction 4 Seizure disorder 5 History of schizophrenia 6 Hypertension 7 Diabetes mellitus 8 Hypothyroidism 9 Hyperlipidemia 10 History of recurrent infarction 11 [facility] resident Plan: The patient was seen and evaluated by Chikis Samson inhalations, IV Solu-Medrol Titrate down the FiO2 as tolerated DO NOT RESUSCITATE/DO NOT INTUBATE CODE STATUS We will continue to follow I, the cosigning physician, performed a history & physical examination of the patient. Lungs sounds scattered rhonchi, crackles in the posterior bases. Maintaining good O2 saturations in the 90s on 5 L/m per nasal cannula. I discussed the assessment and plan of care with my nurse practitioner, Anna John. I attest to the above note as dictated by her.
[2020-11-07 16:26] LABS: Glucose,Whole Blood 266 mg/dL (75-99)
[2020-11-07 17:00] LABS: Glucose,Whole Blood 253 mg/dL (75-99)
--- NOTE | 2020-11-07 17:17 | PN ---
PROGRESS NOTE DATE OF SERVICE: 11/07/2020 This 70-year-old woman with a past medical history of multiple medical problems admitted with abdominal distention as well as possibly aspiration pneumonia. NG tube inserted. Surgery and Pulmonary are following the patient closely. The most recent abdominal plain x-ray showed still some persistent intestinal dilatations interval passage of the contrast in the rectum was also noted. No complete bowel obstruction was noted. The most recent chest x-ray which was done yesterday showed bilateral infiltrates also. Past medical history reviewed. REVIEW OF SYSTEMS: CARDIOVASCULAR SYSTEM: No angina. Respiration: As mentioned earlier. GI mentioned earlier. NERVOUS SYSTEM: No numbness or weakness. CURRENT MEDICATIONS: Reviewed and include Tylenol. [place]. DuoNeb, Cogentin, Bumex, Neurontin, heparin, Synthroid. Solu-Medrol and Zosyn. PHYSICAL EXAMINATION: Patient is alert, oriented x2. Pulse 88. Blood pressure is 158/91, respirations 16, temperature 97.9. Pulse ox 96% on 5 L. HEENT: Conjunctivae normal. NECK: No JVD. CARDIOVASCULAR: S1, S2 muffled. Respirations: Breath sounds diminished in the bases. A few scattered rhonchi and crackles. ABDOMEN: Soft, obese, nontender. LEGS are no edema. No swelling. NERVOUS SYSTEM: No focal deficits. LABORATORY DATA: Glucose 283, 287. CBC within normal limits. Sodium is 147. ASSESSMENT: 1. Acute right lower lobe pneumonia, possibly aspiration pneumonia with sepsis and acute hypoxic respiratory failure present on admission. 2. Change in mental status, acute metabolic encephalopathy secondary to sepsis multifactorial. 3. Covid 19 rapid test negative. 4. Possible gastric ileus and duodenal ileus, complete obstruction unlikely. 5. Cerebrovascular accident, transient ischemic attack history. 6. Diabetes mellitus type 2. 7. On NG tube. 8. Gastroesophageal reflux disease. 9. Hypertension. 10.Hyperlipidemia. 11.Possible cholelithiasis. 12.History of seizure disorder. 13.History of pancreatic mass apparently previously. 14.History of bilateral stasis dermatitis. 15.History of hyponatremia. 16.History urinary tract infection. 17.History of schizophrenia. 18.Obesity with body mass index of 51.6. 19.NO CODE, NO CPR, NO VENT. RECOMMENDATIONS AND DISCUSSION: I recommend to continue current management. Continue symptomatic treatment. Continue NG tube. Continue with empiric antibiotics. Chest x-ray noted. Continue the rest of medications. The patient is also started on Lantus 20 units. Blood sugar has been still increased. I would recommend increase Lantus to 25 units and continue to monitor. MMODL / IJN: [id number] /
[2020-11-07 20:32] LABS: Glucose,Whole Blood 227 mg/dL (75-99)
[2020-11-07] MEDS: INSULIN DETEMIR (LEVEMIR) 100 UNIT/ML SYR SQ SCH (20:59)
[2020-11-07] MEDS: BENZTROPINE MESYLATE 1 MG TAB PO SCH (21:36)
[2020-11-07] MEDS: METOPROLOL SUCCINATE (ER) 25 MG TAB.ER.24H PO SCH (21:36)
[2020-11-07] MEDS: risperiDONE 1 MG TAB PO SCH (21:36)
--- NOTE | 2020-11-07 22:44 | PN ---
PROGRESS NOTE DATE OF SERVICE: 11/07/2020 REASON FOR FOLLOWUP: Aspiration pneumonia. INTERVAL HISTORY: The patient is currently afebrile. The patient is breathing comfortably. Remains to be slightly pleasantly confused but no agitation has been noticed. Still has the NG. No vomiting or diarrhea reported by the nursing staff. Patient herself was unable to provide any reliable history. PHYSICAL EXAMINATION: Blood pressure 138/76, pulse of 75, temperature 97.5. She is 97% on 5 L nasal cannula. General description is an elderly female lying in bed in no distress. Respiratory system: Unlabored breathing, decreased breath sounds in the base, with no wheeze. Heart S1, S2. Regular rate and rhythm. Abdomen soft, no tenderness. LABS: No new labs have been obtained today. White count normal as of yesterday. DIAGNOSTIC IMPRESSION AND PLAN: Patient admitted to the hospital with mental status changes, multifactorial in this patient with cough, possible component of aspiration pneumonia with significant . The patient is status NG. The patient is covered with Zosyn to continue and will monitor clinical course closely. Continue supportive care. MMODL / IJN: [id number] /
[2020-11-08] MEDS: methylPREDNISolone SOD SUCCI 40 MG/ML 1 ML VIAL IV SCH ×5 (01:19→22:33)
[2020-11-08] MEDS: NYSTATIN 100,000UNIT/GM CREAM 30 GM TUBE TOPICAL SCH ×4 (01:20→22:36)
[2020-11-08] MEDS: PIPERACILLIN-TAZOBACTAM 3.375 GM in SODIUM CHLORIDE 0.9% 100 ML IVPB SCH ×4 (01:20→22:37)
[2020-11-08] MEDS: SODIUM CHLORIDE 0.9% 1,000 ML IV SCH ×2 (01:22→22:37)
[2020-11-08] MEDS: LEVOTHYROXINE 75 MCG TAB PO SCH (05:58)
[2020-11-08 07:23] LABS: Glucose,Whole Blood 222 mg/dL (75-99)
[2020-11-08] MEDS: CALCIUM CARB-VIT D 500 MG-5 MCG TAB PO SCH (07:57)
[2020-11-08] MEDS: GLIMEPIRIDE 4 MG TAB PO SCH (07:57)
[2020-11-08] MEDS: GABAPENTIN 300 MG CAP PO SCH ×3 (07:57→22:36)
[2020-11-08] MEDS: ASPIRIN 81 MG PO SCH (07:57)
[2020-11-08] MEDS: BUMETANIDE 1 MG TAB PO SCH ×2 (07:57→21:58)
[2020-11-08] MEDS: NON FORMULARY DRUG (Glucosamine-Chondr 500-400mg 1 EACH Each) PO SCH ×2 (07:58→21:58)
[2020-11-08] MEDS: LINAGLIPTIN 5 MG TABLET PO SCH (07:58)
[2020-11-08] MEDS: MAGNESIUM OXIDE 400 MG TAB PO SCH ×2 (07:58→21:59)
[2020-11-08] MEDS: polyethylene glycoL 3350 17 GM POWD.PACK PO SCH (07:58)
[2020-11-08] MEDS: LACTOBACILLUS ACIDOPH & BULGAR 1 EACH PACKET PO SCH (07:58)
[2020-11-08] MEDS: MULTIVITAMINS, THERA 1 EACH TAB PO SCH (07:58)
[2020-11-08] MEDS: POTASSIUM CHLORIDE ER 10 MEQ TAB.ER.PRT PO SCH ×2 (07:58→21:59)
[2020-11-08] MEDS: FOLIC ACID 1 MG TAB PO SCH (07:58)
[2020-11-08] MEDS: LOSARTAN 25 MG TAB PO SCH (07:58)
[2020-11-08] MEDS: INSULIN ASPART (NovoLOG) 100 UNIT/ML VIAL SQ SCH ×4 (08:00→22:33)
[2020-11-08] MEDS: cloZAPine 100 MG TAB PO SCH ×2 (08:02→22:32)
[2020-11-08] MEDS: levETIRAcetam 500 MG TAB PO SCH (08:02)
[2020-11-08] MEDS: HEPARIN SODIUM,PORCINE 5,000 UNIT/ML 1 ML VIAL SQ SCH ×2 (08:03→22:34)
[2020-11-08] MEDS: NYSTATIN 100,000 UNIT/GM POWD 15 GM TOPICAL SCH ×2 (08:03→22:34)
[2020-11-08] MEDS: PANTOPRAZOLE 40 MG/10 ML VIAL IVP SCH ×2 (08:04→22:33)
[2020-11-08] MEDS: IPRATROPIUM-ALBUTEROL 3 ML NEB INHALATION SCH ×3 (08:37→19:47)
--- NOTE | 2020-11-08 11:05 | XR ---
EXAMINATION TYPE: XR chest 1V portable DATE OF EXAM: 11/08/2020 CLINICAL HISTORY: Difficulty breathing and hypoxia progress study. TECHNIQUE: Single AP portable semiupright view of the chest is obtained. COMPARISON: Chest x-ray from 2 days earlier. CTA chest 4 days earlier. FINDINGS: Stable nasogastric tube. Persistent cardiomegaly with atherosclerotic thoracic aorta. Rede monstration of vertebroplasty at compression type fracture near T10 level. Persistent right bibasilar opacities along with right midlung opacity. Persistent low lung volumes. IMPRESSION: Cardiomegaly and low lung volumes with left greater than right bibasilar consolidation an d/or atelectasis and likely stable tiny bilateral pleural effusions with mild/moderate interstitial e césar. No significant change from prior studies except for successful decompression of stomach since C T.
--- NOTE | 2020-11-08 11:14 | P.PN ---
Subjective Progress Note Date: 11/08/20 CHIEF COMPLAINT: Ileus versus small bowel obstruction HISTORY OF PRESENT ILLNESS: Patient denies any abdominal pain. She has NG tube in place with only 50 ML out of greenish colored drainage. She did have a small bowel movement last night. She is requiring 8 L of oxygen. She's currently nothing by mouth. Afebrile. Her CBC is pending this morning she is covid negative PHYSICAL EXAM: VITAL SIGNS: Reviewed. GENERAL: Well-developed in no acute distress. HEENT: No sclera icterus. Extraocular movements grossly intact. Moist buccal mucosa. Head is atraumatic, normocephalic. ABDOMEN: Soft. Obese. Mildly distended. Nontender. NEUROLOGIC: Pleasantly confused and at baseline ASSESSMENT: 1. Ileus versus small bowel obstruction PLAN: -Continue with conservative management -Continue NG tube for decompression -Keep patient nothing by mouth except medications -GI prophylaxis Protonix and DVT prophylaxis subcu heparin Physician Patron Attendant note has been reviewed by physician. Signing provider agrees with the documented findings, assessment, and plan of care. Objective - Vital Signs Vital signs: Vital Signs Temp 98.2 F 11/08/20 07:00 Pulse 78 11/08/20 07:00 Resp 20 11/08/20 07:00 BP 163/82 11/08/20 07:00 Pulse Ox 88 L 11/08/20 07:00 Intake & Output 11/07/20 11/08/20 11/08/20 18:59 06:59 18:59 Output Total 600 Balance -600 Output: Urine 600 Other: Voiding Method Incontinent Incontinent # Voids 4 1 # Bowel Movements 1 - Labs CBC & Chem 7: 11/06/20 05:59 11/06/20 05:59 Labs: Abnormal Lab Results - Last 24 Hours (Table) 11/07/20 11/07/20 11/07/20 Range/Units 11:33 16:22 16:58 POC Glucose (mg/dL) 287 H 266 H 253 H (75-99) mg/dL 11/07/20 11/08/20 Range/Units 20:20 07:21 POC Glucose (mg/dL) 227 H 222 H (75-99) mg/dL
[2020-11-08 11:40] LABS: Glucose,Whole Blood 204 mg/dL (75-99)
[2020-11-08 11:47] LABS: ABG Base Excess 14.6 mmol/L; ABG HCO3 39 mmol/L (21-25); ABG Oxygen Saturation 91.5 % (94-97); ABG PCO2 60 mmHg (35-45); ABG PH 7.43 (7.35-7.45); ABG TCO2 41 mmol/L (19-24); Allen Test Performed? Yes
[2020-11-08 11:55] LABS: ABG PO2 59 mmHg (83-108)
[2020-11-08] MEDS: THIAMINE 100 MG TAB PO SCH (12:29)
--- NOTE | 2020-11-08 13:33 | P.PN ---
Subjective Progress Note Date: 11/08/20 HISTORY OF PRESENT ILLNESS This is a 70-year-old female admitted to the hospital with mental sta tus changes and treated for aspiration pneumonia and ileus versus small bowel obstruction. NG tube remains in place. Patient is covered with Zosyn IV. Repeat chest x-ray reveals cardiomegaly and low lung volumes with left greater than right bibasilar consolidation and/or atelectasis and likely stable tiny bilateral pleural effusions with mild to moderate interstitial edema. No significant change. She has been afebrile, heart rate 70, blood pressure 163/82, pulse ox 88% on 8 L nasal cannula. PHYSICAL EXAMINATION Gen: This is a morbidly obese 70-year-old female. Patient is laying in bed appears to be in no acute respiratory distress. HEENT: Head is atraumatic, normocephalic. Pupils equal, round. Sclerae is anicteric. NG tube in place. NECK: Supple. No JVD. No lymphadenopathy. LUNGS: Decreased breath sounds to the bases. No wheeze. No intercostal retractions. Poor respiratory effort. HEART: Regular rate and rhythm. No murmur. ABDOMEN: Soft. Bowel sounds are present. No masses. No tenderness. EXTREMITIES: Mild bilateral pedal edema. No calf tenderness. NEUROLOGICAL: Patient is awake, lethargic. Oriented to person. ASSESSMENT Aspiration pneumonia Ileus versus small bowel obstruction PLAN Continue Zosyn Continue supportive care. The above dictated assessment and findings were discussed with Dr. Smith. The impression and plan of care have been directed as dictated. May Camacho nurse practitioner acting as scribe for Dr. Smith. Objective - Vital Signs Vital signs: Vital Signs Temp 98.2 F 11/08/20 07:00 Pulse 78 11/08/20 07:00 Resp 20 11/08/20 07:00 BP 163/82 11/08/20 07:00 Pulse Ox 88 L 11/08/20 07:00 Intake & Output 11/07/20 11/08/20 11/08/20 18:59 06:59 18:59 Output Total 600 Balance -600 Output: Urine 600 Other: Voiding Method Incontinent Incontinent # Voids 4 1 # Bowel Movements 1 - Labs CBC & Chem 7: 11/06/20 05:59 11/06/20 05:59 Labs: Abnormal Lab Results - Last 24 Hours (Table) 11/07/20 11/07/20 11/07/20 Range/Units 11:33 16:22 16:58 POC Glucose (mg/dL) 287 H 266 H 253 H (75-99) mg/dL 11/07/20 11/08/20 Range/Units 20:20 07:21 POC Glucose (mg/dL) 227 H 222 H (75-99) mg/dL
--- NOTE | 2020-11-08 14:29 | P.PN ---
Subjective Progress Note Date: 11/08/20 Principal diagnosis: Acute hypoxic respiratory failure secondary to an acute healthcare acquired pneumonia This is a 70-year-old female patient with a history of CVA/TIA, expressive aphasia, seizure disorder, diabetes mellitus, GERD, hypertension, myocardial infarction, hypothyroidism, hyperlipidemia, schizophrenia, resides in an F. She was brought into [facility] for altered mental status and hypoxemia. She was subsequently transferred here for further treatment. Her CoVID 19 screen was negative. Chest x-ray shows mild basilar atelectasis and possible infiltrate retrocardiac area. She is currently maintaining O2 saturations in the low 90s on 5 L high flow nasal cannula. Afebrile. White count 11.7. Hemoglobin 12.5. Sodium 140. Potassium 3.3. Creatinine 0.5. Glucose 302. She has been initiated on antibiotics in the form of vancomycin, ceftriaxone and azithromycin. The patient is seen today 11/05/2020 in follow-up on the regular medical floor. She is currently resting comfortably in bed. Awake and alert. Difficulty in communicating. Poor historian. She is more short of breath with bronchospasm and wheezing. She is on 5 L high flow nasal cannula to maintain O2 saturation in the 90s. Temperature 100.[address] angiogram of the chest revealed no evidence of pulmonary embolism however there was breathing motion artifact limiting the assessment. There is evidence of cardiomegaly and pulmonary arterial hypertension, trace pleural effusions. Volume loss and consolidation with the basilar lower lobes left greater than right. Computed tomography scan of the abdomen revealed marked. Gastric distention and abnormal dilatation of the duodenum up to 5.3 cm. Possible partial obstruction and ileus within the differential. There is a right lower quadrant abdominal wall hernia. 2.5 cm cystic lesion in the pancreatic body. Distended rectum with stool. Cholelithiasis. She did end up having continued abdominal distention and an end nasogastric tube was placed with 2 L of fluid returned. She been seen and evaluated by surgical services. No interventions planned at this point. White count 12.7. Hemoglobin 12.0. Sodium 143. Potassium 3.6. Creatinine 0.5. She remains on antibiotics in the form of Zosyn. Patient is seen today 11/06/2020 in follow-up on the regular medical floor. She is currently resting comfortably in bed. More awake and alert today. Answering some questions appropriately. Speech is clearing. She is maintaining O2 saturations in the 90s on 5 L high flow nasal cannula. Less bronchospastic and wheezy today. Currently afebrile. Hemodynamically stable. White count 7.7. Hemoglobin 11.9. Platelet count 189. Sodium 147. Potassium 3.5. Creatinine 0.5. Glucose 298. Continued on IV Solu Medrol, bronchodilators. Antibiotics in the form of Zosyn. The patient is seen today 11/07/2020 in follow-up on the regular medical floor. She is a bit more awake and alert today. Speaking in near complete sentences. Denies any worsening shortness of breath, cough or congestion. He is maintaining O2 saturation in the low 90s on 5 L/m per nasal cannula. She's afebrile. Blood glucose 287. Remains on antibiotics in the form of Zosyn, IV Solu-Medrol, bronchodilators. Abdominal x-ray today reveals interval passage of contrast to the rectum. There is no complete bowel obstruction. Gas prominent stomach still present but improved. Nasogastric tube remains in place. Remains nothing by mouth. Surgical services are on the case. On 11/08/2020 patient seen in follow-up on medical floor, staff reports that FiO2 was increased from 5 L to 8 L, and her pulse ox is at 88%, however patient appears to be in no acute distress, her chest x-ray showed bibasilar consolid ation left greater than right and/or atelectasis and possible tiny bilateral pleural effusions with mild to moderate interstitial edema. Patient still has NG tube in place, and current chest x-ray shows successful decompression of the stomach since prior exam. NG tube is to low intermittent suction, her 24-hour output is adequate amount 100 mL, abdomen is soft, nontender, patient denies any nausea or abdominal pain. He was found to be negative for Coronavirus. Patient is on a combination of oral Bumex, IV steroids and bronchodilators, and Zosyn. She's been afebrile, she is breathing comfortably, denies any chest discomfort, denies any hemoptysis. No wheezing, no signs of any respiratory difficulty. Patient had a blood gas done today which showed the O2 of 59, pCO2 of 60, and pH of 7.43. This was done on FiO2 of 50%. Objective - Vital Signs Vital signs: Vital Signs Temp 98.2 F 11/08/20 07:00 Pulse 78 11/08/20 08:00 Resp 20 11/08/20 08:00 BP 163/82 11/08/20 07:00 Pulse Ox 88 L 11/08/20 07:00 Intake & Output 11/07/20 11/08/20 11/08/20 18:59 06:59 18:59 Output Total 600 Balance -600 Output: Urine 600 Other: Voiding Method Incontinent Incontinent Incontinent # Voids 4 1 # Bowel Movements 1 - Exam GENERAL EXAM: Alert, 70-year-old white female, and on 8 liters of oxygen, answering simple questions, appears to be in no acute distress HEAD: Normocephalic/atraumatic. EYES: Normal reaction of pupils, equal size. Conjunctiva pink, sclera white. NOSE: Clear with pink turbinates. THROAT: No erythema or exudates. NECK: No masses, no JVD, no thyroid enlargement, no adenopathy. CHEST: No chest wall deformity. Symmetrical expansion. LUNGS: Equal air entry with diminished breath sounds at the bases, no crackles, no wheezes CVS: Regular rate and rhythm, normal S1 and S2, no gallops, no murmurs, no rubs ABDOMEN: Soft, nontender. No hepatosplenomegaly, normal bowel sounds, no guarding or rigidity. EXTREMITIES: No clubbing, no edema, no cyanosis, 2+ pulses and upper and lower extremities. MUSCULOSKELETAL: Muscle strength and tone normal. SPINE: No scoliosis or deformity SKIN: No rashes CENTRAL NERVOUS SYSTEM: Alert and oriented -1. No focal deficits, tone is normal in all 4 extremities. PSYCHIATRIC: Alert and oriented -1. Appropriate affect. Intact judgment and insight. - Labs CBC & Chem 7: 11/06/20 05:59 11/06/20 05:59 Labs: Abnormal Lab Results - Last 24 Hours (Table) 11/07/20 11/07/20 11/07/20 Range/Units 16:22 16:58 20:20 ABG pCO2 (35-45) mmHg ABG pO2 (83-108) mmHg ABG HCO3 (21-25) mmol/L ABG Total CO2 (19-24) mmol/L ABG O2 Saturation (94-97) % POC Glucose (mg/dL) 266 H 253 H 227 H (75-99) mg/dL 11/08/20 11/08/20 11/08/20 Range/Units 07:21 11:31 11:42 ABG pCO2 60 H (35-45) mmHg ABG pO2 59 L* (83-108) mmHg ABG HCO3 39 H (21-25) mmol/L ABG Total CO2 41 H (19-24) mmol/L ABG O2 Saturation 91.5 L (94-97) % POC Glucose (mg/dL) 222 H 204 H (75-99) mg/dL Assessment and Plan Plan: Assessment: #1. Acute hypoxic respiratory failure related to possibility of aspiration pneumonia, COVID 19 has been ruled out #2. Chronic hypercapnic respiratory failure with the possibility of obesity hypoventilation syndrome #3. Ileus versus small bowel obstruction, patient has NG tube in place to low intermittent suction, surgical services are following #4. Altered mental status, related to pneumonia #5. History of CVA/TIA with expressive aphasia and right-sided weakness #6. History of seizure disorder #7. Diabetes mellitus type 2 #8. GERD/reflux #9. Hypertension #10. History of myocardial infarction #11. Hypothyroidism #12. Hyperlipidemia #13. Schizophrenia #14. Resident of a half-way facility Plan: Continue current antibiotic coverage, blood gases have been reviewed, showing chronic hypercapnic respiratory failure and hypoxemia, patient however appears comfortable, no respiratory distress noted, she is awake and alert, normal acid base balance, may continue on FiO2 to keep O2 sat at 88-89%, chest x-ray has been reviewed, maintain aspiration precautions, continue steroids and breathing treatments. Antibiotics per ID service recommendations. We'll continue to follow. I performed a history & physical examination of the patient and discussed their management with my nurse practitioner, Estefani Amor. I reviewed the nurse practitioner's note and agree with the documented findings and plan of care. Lung sounds are positive for diminished breath sounds. The findings and the impression was discussed with the patient. I attest to the documentation by the nurse practitioner. Time with Patient: Greater than 30
[2020-11-08 15:09] LABS: Basophils % (A) 0 %; Eosinophils % (A) 0 %; HCT 38.2 % (34.0-46.0); HGB 12.6 gm/dL (11.4-16.0); Hypochromasia Slight; Lymphocytes # (A) 0.5 k/uL (1.0-4.8); Lymphocytes % (A) 7 %; MCH 29.9 pg (25.0-35.0); MCHC 33.1 g/dL (31.0-37.0); MCV 90.3 fL (80.0-100.0); Mean Platelet Volume 7.5; Monocytes # (A) 0.4 k/uL (0-1.0); Monocytes % (A) 6 %; Neutrophils % (A) 86 %; Platelet Count 249 k/uL (150-450); RBC 4.22 m/uL (3.80-5.40); RDW 14.1 % (11.5-15.5); WBC 6.9 k/uL (3.8-10.6)
[2020-11-08 17:16] LABS: Glucose,Whole Blood 209 mg/dL (75-99)
--- NOTE | 2020-11-08 17:30 | PN ---
PROGRESS NOTE DATE OF SERVICE: 11/08/2020 This 70-year-old woman was admitted with multiple medical issues, including possibly aspiration pneumonia also had bowel dilatation also including the stomach and duodenum. The exact nature of the distention is unknown. Ileus is a possibility and the family refused further evaluation and investigation including surgery also. The patient is currently on NG tube. Patient continues to be confused. A chest x-ray was done today which is personally reviewed by me and showed evidence of pneumonia on the right side. A plain x-ray of the abdomen was done yesterday which was also personally reviewed by me and showed significant bowel dilatation. The patient being closely monitored. PAST MEDICAL HISTORY: Reviewed. REVIEW OF SYSTEMS: Could not be taken. The patient is confused. CURRENT MEDICATIONS: Reviewed and include: Tylenol, Beaver, DuoNeb, aspirin, Cogentin, Bumex, Clozaril, folic acid. Doses reviewed. PHYSICAL EXAM: Patient is conscious, confused, pulse 79, blood pressure 164/88, respiration 20, temperature 98.7, pulse ox 89 percent on 8 L. HEENT: Conjunctivae normal. Neck: No JVD. CARDIOVASCULAR: S1, S2. Respirations: Breath sounds diminished in the bases. A few scattered rhonchi and crackles. ABDOMEN: Soft, nontender. Legs are no edema. No swelling. NERVOUS SYSTEM: No focal deficits. LABORATORY DATA: CBC within normal limits. ABG showed pCO2 59. ASSESSMENT: 1. Acute right lower lobe pneumonia, possibly aspiration pneumonia with sepsis and acute hypoxic hypercarbic respiratory failure present on admission. 2. Change in mental status, acute metabolic encephalopathy secondary to sepsis and multifactorial. 3. Covid 19 rapid test is negative. 4. Possible gastric ileus and duodenal ileus complete obstruction unlikely on NG tube and conservative line of management. 5. History of cerebrovascular accident, transient ischemic attack. 6. Diabetes type 2. 7. Gastroesophageal reflux disease. 8. Hypertension. 9. Hyperlipidemia. 10.Possible cholelithiasis. 11.History of seizure disorder. 12.History of pancreatic mass apparently previously. 13.History of bilateral stasis dermatitis. 14.History of hyponatremia. 15.Anemia. 16.History of urinary tract infection. 17.History of schizophrenia. 18.Obesity with body mass index of 51.6. 19.NO CODE, NO CPR, NO VENT. RECOMMENDATIONS AND DISCUSSION: I recommend to continue current medications, continue to monitor. Symptomatic treatment. Otherwise, monitor. Continue with antibiotics. Chest x-ray reviewed. Closely follow with Infectious Disease and as well as Pulmonary. Guarded prognosis. Further recommendations to follow. MMODL / IJN: [id number] /
[2020-11-08 20:09] LABS: African American GFR (CKD) 115.3 (60.0-200.0); Anion Gap 6.5 mmol/L (4.00-12.00); Carbon Dioxide 36.5 mmol/L (21.6-31.8); Non-African American GFR(CKD) 99.4 (60.0-200.0); Potassium 3.4 mmol/L (3.5-5.5)
[2020-11-08 20:25] LABS: Glucose,Whole Blood 251 mg/dL (75-99)
[2020-11-08] MEDS: BENZTROPINE MESYLATE 1 MG TAB PO SCH (21:58)
[2020-11-08] MEDS: METOPROLOL SUCCINATE (ER) 25 MG TAB.ER.24H PO SCH ×2 (21:59→22:32)
[2020-11-08] MEDS: risperiDONE 1 MG TAB PO SCH (21:59)
[2020-11-08] MEDS: INSULIN DETEMIR (LEVEMIR) 100 UNIT/ML SYR SQ SCH (22:46)
[2020-11-09] MEDS: LEVOTHYROXINE 75 MCG TAB PO SCH (04:50)
[2020-11-09] MEDS: methylPREDNISolone SOD SUCCI 40 MG/ML 1 ML VIAL IV SCH ×3 (05:15→19:06)
[2020-11-09 06:59] LABS: Basophils % (A) 0 %; Eosinophils % (A) 0 %; HCT 42.3 % (34.0-46.0); HGB 13.5 gm/dL (11.4-16.0); Hypochromasia Slight; Lymphocytes # (A) 0.6 k/uL (1.0-4.8); Lymphocytes % (A) 7 %; MCH 29.2 pg (25.0-35.0); MCV 91.3 fL (80.0-100.0); Mean Platelet Volume 7.1; Monocytes # (A) 0.4 k/uL (0-1.0); Monocytes % (A) 5 %; Neutrophils # (A) 6.8 k/uL (1.3-7.7); Neutrophils % (A) 86 %; Platelet Count 258 k/uL (150-450); RBC 4.63 m/uL (3.80-5.40); RDW 14.1 % (11.5-15.5)
[2020-11-09 07:24] LABS: Glucose,Whole Blood 258 mg/dL (75-99)
--- NOTE | 2020-11-09 07:52 | XR ---
EXAMINATION TYPE: XR chest 1V portable DATE OF EXAM: 11/09/2020 COMPARISON: 11/08/2000 HISTORY: NG tube placement TECHNIQUE: Single frontal view of the chest is obtained. FINDINGS: NG tube is seen to the level of GE junction. Technique limits further assessment. Bilatera l infiltrate and tiny effusion stable. Heart enlarged. No pneumothorax. Coarsened interstitium. IMPRESSION: 1. Bilateral infiltrate is stable correlate for pneumonia versus pulmonary edema. 2. NG tube is seen coursing into the upper abdomen. Due to overlying soft tissue artifact distal francesca in of the NG tube now clearly defined.
[2020-11-09] MEDS: IPRATROPIUM-ALBUTEROL 3 ML NEB INHALATION SCH ×3 (07:55→20:51)
[2020-11-09] MEDS: PIPERACILLIN-TAZOBACTAM 3.375 GM in SODIUM CHLORIDE 0.9% 100 ML IVPB SCH ×2 (09:38→16:08)
[2020-11-09] MEDS: PANTOPRAZOLE 40 MG/10 ML VIAL IVP SCH (09:38)
[2020-11-09] MEDS: levETIRAcetam 500 MG TAB PO SCH (09:39)
[2020-11-09] MEDS: LOSARTAN 25 MG TAB PO SCH (09:39)
[2020-11-09] MEDS: HEPARIN SODIUM,PORCINE 5,000 UNIT/ML 1 ML VIAL SQ SCH ×2 (09:40→22:10)
[2020-11-09] MEDS: cloZAPine 100 MG TAB PO SCH ×2 (09:40→22:11)
[2020-11-09] MEDS: INSULIN ASPART (NovoLOG) 100 UNIT/ML VIAL SQ SCH ×4 (09:44→22:10)
[2020-11-09] MEDS: ASPIRIN 81 MG PO SCH (09:45)
[2020-11-09] MEDS: BUMETANIDE 1 MG TAB PO SCH (09:45)
[2020-11-09] MEDS: CALCIUM CARB-VIT D 500 MG-5 MCG TAB PO SCH (09:45)
[2020-11-09] MEDS: GLIMEPIRIDE 4 MG TAB PO SCH (09:45)
[2020-11-09] MEDS: MULTIVITAMINS, THERA 1 EACH TAB PO SCH (09:46)
[2020-11-09] MEDS: GABAPENTIN 300 MG CAP PO SCH ×3 (09:46→22:10)
[2020-11-09] MEDS: LACTOBACILLUS ACIDOPH & BULGAR 1 EACH PACKET PO SCH (09:46)
[2020-11-09] MEDS: POTASSIUM CHLORIDE ER 10 MEQ TAB.ER.PRT PO SCH ×2 (09:46→22:12)
[2020-11-09] MEDS: NON FORMULARY DRUG (Glucosamine-Chondr 500-400mg 1 EACH Each) PO SCH ×2 (09:46→21:57)
[2020-11-09] MEDS: MAGNESIUM OXIDE 400 MG TAB PO SCH ×2 (09:46→21:57)
[2020-11-09] MEDS: LINAGLIPTIN 5 MG TABLET PO SCH (09:46)
[2020-11-09] MEDS: polyethylene glycoL 3350 17 GM POWD.PACK PO SCH (09:46)
[2020-11-09 10:28] LABS: African American GFR (CKD) 115.3 (60.0-200.0); Anion Gap 11.7 mmol/L (4.00-12.00); Calcium 9.1 mg/dL (8.7-10.3); Carbon Dioxide 34.3 mmol/L (21.6-31.8); Non-African American GFR(CKD) 99.4 (60.0-200.0); Potassium 3.4 mmol/L (3.5-5.5)
--- NOTE | 2020-11-09 10:44 | P.PN ---
Subjective Progress Note Date: 11/09/20 CHIEF COMPLAINT: Ileus versus small bowel obstruction HISTORY OF PRESENT ILLNESS: Patient denies any abdominal pain. She is reporting that she feels more distended today. She has NG tube in place with 100 ML yellowish colored output. She did have a small bowel movement yesterday evening. She is nothing by mouth. She is now up to 15 L of oxygen. Afebrile. WBC 5.0 Chest x-ray shows stable bilateral infiltrates pneumonia versus pulmonary edema PHYSICAL EXAM: VITAL SIGNS: Reviewed. GENERAL: Well-developed in no acute distress. HEENT: No sclera icterus. Extraocular movements grossly intact. Moist buccal mucosa. Head is atraumatic, normocephalic. ABDOMEN: Soft. Obese. distended. Nontender. NEUROLOGIC: Pleasantly confused and at baseline ASSESSMENT: 1. Ileus versus small bowel obstruction PLAN: -Continue with conservative management -Continue NG tube for decompression -Keep patient nothing by mouth except medications -GI prophylaxis Protonix and DVT prophylaxis subcu heparin Physician Tire Fixer note has been reviewed by physician. Signing provider agrees with the documented findings, assessment, and plan of care. Objective - Vital Signs Vital signs: Vital Signs Temp 97.8 F 11/09/20 07:00 Pulse 80 11/09/20 08:01 Resp 20 11/09/20 08:00 BP 182/92 11/09/20 07:00 Pulse Ox 91 L 11/09/20 07:00 Intake & Output 11/08/20 11/09/20 11/09/20 18:59 06:59 18:59 Other: Voiding Method Incontinent Diaper Diaper Incontinent Incontinent # Voids 1 # Bowel Movements 0 - Labs CBC & Chem 7: 11/09/20 06:27 11/09/20 06:27 Labs: Abnormal Lab Results - Last 24 Hours (Table) 11/08/20 11/08/20 11/08/20 Range/Units 11:31 11:42 14:48 Lymphocytes # 0.5 L (1.0-4.8) k/uL ABG pCO2 60 H (35-45) mmHg ABG pO2 59 L* (83-108) mmHg ABG HCO3 39 H (21-25) mmol/L ABG Total CO2 41 H (19-24) mmol/L ABG O2 Saturation 91.5 L (94-97) % Sodium (135-145) mmol/L Potassium (3.5-5.5) mmol/L Chloride (96-109) mmol/L Carbon Dioxide (21.6-31.8) mmol/L Creatinine (0.6-1.5) mg/dL BUN/Creatinine Ratio (12.00-20.00) Ratio Glucose (70-110) mg/dL POC Glucose (mg/dL) 204 H (75-99) mg/dL Procalcitonin (0.02-0.09) ng/mL 11/08/20 11/08/20 11/08/20 Range/Units 14:48 14:48 17:04 Lymphocytes # (1.0-4.8) k/uL ABG pCO2 (35-45) mmHg ABG pO2 (83-108) mmHg ABG HCO3 (21-25) mmol/L ABG Total CO2 (19-24) mmol/L ABG O2 Saturation (94-97) % Sodium 154 H (135-145) mmol/L Potassium 3.4 L (3.5-5.5) mmol/L Chloride 111 H (96-109) mmol/L Carbon Dioxide 36.5 H (21.6-31.8) mmol/L Creatinine 0.5 L (0.6-1.5) mg/dL BUN/Creatinine Ratio 42.00 H (12.00-20.00) Ratio Glucose 214 H (70-110) mg/dL POC Glucose (mg/dL) 209 H (75-99) mg/dL Procalcitonin 0.21 H (0.02-0.09) ng/mL 11/08/20 11/09/20 11/09/20 Range/Units 20:23 06:27 06:27 Lymphocytes # 0.6 L (1.0-4.8) k/uL ABG pCO2 (35-45) mmHg ABG pO2 (83-108) mmHg ABG HCO3 (21-25) mmol/L ABG Total CO2 (19-24) mmol/L ABG O2 Saturation (94-97) % Sodium 155 H (135-145) mmol/L Potassium 3.4 L (3.5-5.5) mmol/L Chloride (96-109) mmol/L Carbon Dioxide 34.3 H (21.6-31.8) mmol/L Creatinine 0.5 L (0.6-1.5) mg/dL BUN/Creatinine Ratio 38.00 H (12.00-20.00) Ratio Glucose 255 H (70-110) mg/dL POC Glucose (mg/dL) 251 H (75-99) mg/dL Procalcitonin (0.02-0.09) ng/mL 11/09/20 Range/Units 07:03 Lymphocytes # (1.0-4.8) k/uL ABG pCO2 (35-45) mmHg ABG pO2 (83-108) mmHg ABG HCO3 (21-25) mmol/L ABG Total CO2 (19-24) mmol/L ABG O2 Saturation (94-97) % Sodium (135-145) mmol/L Potassium (3.5-5.5) mmol/L Chloride (96-109) mmol/L Carbon Dioxide (21.6-31.8) mmol/L Creatinine (0.6-1.5) mg/dL BUN/Creatinine Ratio (12.00-20.00) Ratio Glucose (70-110) mg/dL POC Glucose (mg/dL) 258 H (75-99) mg/dL Procalcitonin (0.02-0.09) ng/mL
[2020-11-09 11:42] LABS: Glucose,Whole Blood 227 mg/dL (75-99)
[2020-11-09] MEDS: NYSTATIN 100,000UNIT/GM CREAM 30 GM TUBE TOPICAL SCH ×3 (12:38→22:14)
[2020-11-09] MEDS: NYSTATIN 100,000 UNIT/GM POWD 15 GM TOPICAL SCH ×2 (12:38→22:13)
[2020-11-09] MEDS: THIAMINE 100 MG TAB PO SCH (13:11)
[2020-11-09] MEDS: FOLIC ACID 1 MG TAB PO SCH (13:11)
--- NOTE | 2020-11-09 14:39 | P.PN ---
Subjective Progress Note Date: 11/09/20 Principal diagnosis: Acute hypoxic respiratory failure secondary to an acute healthcare acquired pneumonia This is a 70-year-old female patient with a history of CVA/TIA, expressive aphasia, seizure disorder, diabetes mellitus, GERD, hypertension, myocardial infarction, hypothyroidism, hyperlipidemia, schizophrenia, resides in an F. She was brought into [facility] for altered mental status and hypoxemia. She was subsequently transferred here for further treatment. Her CoVID 19 screen was negative. Chest x-ray shows mild basilar atelectasis and possible infiltrate retrocardiac area. She is currently maintaining O2 saturations in the low 90s on 5 L high flow nasal cannula. Afebrile. White count 11.7. Hemoglobin 12.5. Sodium 140. Potassium 3.3. Creatinine 0.5. Glucose 302. She has been initiated on antibiotics in the form of vancomycin, ceftriaxone and azithromycin. The patient is seen today 11/05/2020 in follow-up on the regular medical floor. She is currently resting comfortably in bed. Awake and alert. Difficulty in communicating. Poor historian. She is more short of breath with bronchospasm and wheezing. She is on 5 L high flow nasal cannula to maintain O2 saturation in the 90s. Temperature 100.[address] angiogram of the chest revealed no evidence of pulmonary embolism however there was breathing motion artifact limiting the assessment. There is evidence of cardiomegaly and pulmonary arterial hypertension, trace pleural effusions. Volume loss and consolidation with the basilar lower lobes left greater than right. Computed tomography scan of the abdomen revealed marked. Gastric distention and abnormal dilatation of the duodenum up to 5.3 cm. Possible partial obstruction and ileus within the differential. There is a right lower quadrant abdominal wall hernia. 2.5 cm cystic lesion in the pancreatic body. Distended rectum with stool. Cholelithiasis. She did end up having continued abdominal distention and an end nasogastric tube was placed with 2 L of fluid returned. She been seen and evaluated by surgical services. No interventions planned at this point. White count 12.7. Hemoglobin 12.0. Sodium 143. Potassium 3.6. Creatinine 0.5. She remains on antibiotics in the form of Zosyn. Patient is seen today 11/06/2020 in follow-up on the regular medical floor. She is currently resting comfortably in bed. More awake and alert today. Answering some questions appropriately. Speech is clearing. She is maintaining O2 saturations in the 90s on 5 L high flow nasal cannula. Less bronchospastic and wheezy today. Currently afebrile. Hemodynamically stable. White count 7.7. Hemoglobin 11.9. Platelet count 189. Sodium 147. Potassium 3.5. Creatinine 0.5. Glucose 298. Continued on IV Solu Medrol, bronchodilators. Antibiotics in the form of Zosyn. The patient is seen today 11/07/2020 in follow-up on the regular medical floor. She is a bit more awake and alert today. Speaking in near complete sentences. Denies any worsening shortness of breath, cough or congestion. He is maintaining O2 saturation in the low 90s on 5 L/m per nasal cannula. She's afebrile. Blood glucose 287. Remains on antibiotics in the form of Zosyn, IV Solu-Medrol, bronchodilators. Abdominal x-ray today reveals interval passage of contrast to the rectum. There is no complete bowel obstruction. Gas prominent stomach still present but improved. Nasogastric tube remains in place. Remains nothing by mouth. Surgical services are on the case. On 11/08/2020 patient seen in follow-up on medical floor, staff reports that FiO2 was increased from 5 L to 8 L, and her pulse ox is at 88%, however patient appears to be in no acute distress, her chest x-ray showed bibasilar consolid ation left greater than right and/or atelectasis and possible tiny bilateral pleural effusions with mild to moderate interstitial edema. Patient still has NG tube in place, and current chest x-ray shows successful decompression of the stomach since prior exam. NG tube is to low intermittent suction, her 24-hour output is adequate amount 100 mL, abdomen is soft, nontender, patient denies any nausea or abdominal pain. He was found to be negative for Coronavirus. Patient is on a combination of oral Bumex, IV steroids and bronchodilators, and Zosyn. She's been afebrile, she is breathing comfortably, denies any chest discomfort, denies any hemoptysis. No wheezing, no signs of any respiratory difficulty. Patient had a blood gas done today which showed the O2 of 59, pCO2 of 60, and pH of 7.43. This was done on FiO2 of 50%. On 11/09/2020 patient seen in follow-up on medical floor, she is confused, but not agitated, her FiO2 requirements have increased, and she is currently on 15 L per high flow nasal cannula, and a pulse ox 91%, hemodynamically she's been slightly hypertensive, with a blood pressure of 182/92, she's had no fever, seems to be breathing comfortably, no cough, NG tube remains in place to low intermittent suction, patient has not received any nutrition, surgery is f ollowing, apparently she has not had any oral intake in the last 5 days, she has not received any other nutritional supplementation, will let surgery address that but abdomen is soft, nontender, today's chest x-ray has been reviewed showing bilateral infiltrates stable in appearance. Generally patient is weak, we ordered a BiPAP support on as-needed basis, but reportedly patient had refused BiPAP however we believe that because of over all generalized weakness patient may benefit from intermittent BiPAP support and bedtime BiPAP support. Objective - Vital Signs Vital signs: Vital Signs Temp 97.8 F 11/09/20 07:00 Pulse 80 11/09/20 08:01 Resp 20 11/09/20 08:00 BP 182/92 11/09/20 07:00 Pulse Ox 91 L 11/09/20 07:00 Intake & Output 11/08/20 11/09/20 11/09/20 18:59 06:59 18:59 Weight 115.212 kg Other: Voiding Method Incontinent Diaper Diaper Incontinent Incontinent # Voids 1 # Bowel Movements 0 - Exam GENERAL EXAM: Alert, confused but not agitated 70-year-old white female, and on 15 liters of oxygen, answering simple questions, appears to be in no acute distress HEAD: Normocephalic/atraumatic. EYES: Normal reaction of pupils, equal size. Conjunctiva pink, sclera white. NOSE: Clear with pink turbinates. NG tube in place to low intermittent suction THROAT: No erythema or exudates. NECK: No masses, no JVD, no thyroid enlargement, no adenopathy. CHEST: No chest wall deformity. Symmetrical expansion. LUNGS: Equal air entry with diminished breath sounds at the bases, no crackles, no wheezes CVS: Regular rate and rhythm, normal S1 and S2, no gallops, no murmurs, no rubs ABDOMEN: Soft, nontender. No hepatosplenomegaly, normal bowel sounds, no guarding or rigidity. EXTREMITIES: No clubbing, no edema, no cyanosis, 2+ pulses and upper and lower extremities. MUSCULOSKELETAL: Muscle strength and tone normal. SPINE: No scoliosis or deformity SKIN: No rashes CENTRAL NERVOUS SYSTEM: Alert and oriented -1. No focal deficits, tone is normal in all 4 extremities. PSYCHIATRIC: Alert and oriented -1. Appropriate affect. Intact judgment and insight. - Labs CBC & Chem 7: 11/09/20 06:27 11/09/20 06:27 Labs: Abnormal Lab Results - Last 24 Hours (Table) 11/08/20 11/08/20 11/08/20 Range/Units 14:48 14:48 14:48 Lymphocytes # 0.5 L (1.0-4.8) k/uL Sodium 154 H (135-145) mmol/L Potassium 3.4 L (3.5-5.5) mmol/L Chloride 111 H (96-109) mmol/L Carbon Dioxide 36.5 H (21.6-31.8) mmol/L Creatinine 0.5 L (0.6-1.5) mg/dL BUN/Creatinine Ratio 42.00 H (12.00-20.00) Ratio Glucose 214 H (70-110) mg/dL POC Glucose (mg/dL) (75-99) mg/dL Procalcitonin 0.21 H (0.02-0.09) ng/mL 11/08/20 11/08/20 11/09/20 Range/Units 17:04 20:23 06:27 Lymphocytes # (1.0-4.8) k/uL Sodium 155 H (135-145) mmol/L Potassium 3.4 L (3.5-5.5) mmol/L Chloride (96-109) mmol/L Carbon Dioxide 34.3 H (21.6-31.8) mmol/L Creatinine 0.5 L (0.6-1.5) mg/dL BUN/Creatinine Ratio 38.00 H (12.00-20.00) Ratio Glucose 255 H (70-110) mg/dL POC Glucose (mg/dL) 209 H 251 H (75-99) mg/dL Procalcitonin (0.02-0.09) ng/mL 0111/09/20 11/09/20 Range/Units 06:27 07:03 11:39 Lymphocytes # 0.6 L (1.0-4.8) k/uL Sodium (135-145) mmol/L Potassium (3.5-5.5) mmol/L Chloride (96-109) mmol/L Carbon Dioxide (21.6-31.8) mmol/L Creatinine (0.6-1.5) mg/dL BUN/Creatinine Ratio (12.00-20.00) Ratio Glucose (70-110) mg/dL POC Glucose (mg/dL) 258 H 227 H (75-99) mg/dL Procalcitonin (0.02-0.09) ng/mL Assessment and Plan Plan: Assessment: #1. Acute hypoxic respiratory failure related to possibility of aspiration pneumonia, COVID 19 has been ruled out #2. Chronic hypercapnic respiratory failure with the possibility of obesity hypoventilation syndrome, and overall generalized medical debility #3. Ileus versus small bowel obstruction, patient has NG tube in place to low intermittent suction, surgical services are following #4. Altered mental status, related to pneumonia #5. History of CVA/TIA with expressive aphasia and right-sided weakness #6. History of seizure disorder #7. Diabetes mellitus type 2 #8. GERD/reflux #9. Hypertension #10. History of myocardial infarction #11. Hypothyroidism #12. Hyperlipidemia #13. Schizophrenia #14. Resident of a alf facility #15. Hypernatremia, related to nothing by mouth status, small bowel obstruction versus ileus, and free water deficit, as well as diuretic therapy #16. Altered mental status likely related to hypernatremia, nothing by mouth status, worsening hypoxemia Plan: Today's chest x-ray has been reviewed, showing stable findings with the bilateral infiltrates. Continue with current antibiotic coverage, she seems to be more confused today, her sodium continues to increase, patient has been nothing by mouth for last 5 days has not had any nutritional supplementation. We will let the dietitian address that with the surgical services, we will stop the Bumex, we'll start the patient on D5W at 150 ML per hour, surgical services are okay with is using the NG tube patient will receive 200 mL of free water down the NG tube every 4 hours. Patient will benefit from BiPAP support at least at bedtime and as needed through the day for muscle fatigue as she is very generally debilitated. Encourage BiPAP support at bedtime and through the day as needed. Continue with aspiration precautions I performed a history & physical examination of the patient and discussed their management with my nurse practitioner, Estefani Amor. I reviewed the nurse practitioner's note and agree with the documented findings and plan of care. Lung sounds are positive for diminished breath sounds. The findings and the impression was discussed with the patient. I attest to the documentation by the nurse practitioner. Time with Patient: Less than 30
[2020-11-09] MEDS: DEXTROSE 5% IN WATER 1,000 ML IV SCH (14:56)
[2020-11-09] MEDS ORDERED: POTASSIUM CHLORIDE 20 MEQ in WATER FOR INJECTION 1 100ML.BAG IVPB STA (14:57)
--- NOTE | 2020-11-09 16:30 | PN ---
PROGRESS NOTE DATE OF SERVICE: 11/09/2020 This 70-year-old woman who was admitted with acute right lower lobe pneumonia with possible aspiration pneumonia and sepsis and acute hypoxic hypercarbic respiratory failure is being closely monitored. Patient with change in mental status. Patient also had , duodenal ileus, treated symptomatically. The most recent chest x-ray which was reviewed personally by me showed evidence of significant pneumonic process. PAST MEDICAL HISTORY: Reviewed. REVIEW OF SYSTEMS: CARDIOVASCULAR SYSTEM: No angina. RESPIRATORY SYSTEM: As mentioned earlier. GI: As mentioned earlier. CURRENT MEDICATIONS: Current medications are reviewed and include: Tylenol, [place], DuoNeb, Cogentin, Clozaril, dextrose, Amaryl. Doses are reviewed. PHYSICAL EXAMINATION: Patient is alert and oriented x2. Pulse 80, blood pressure 182/92, respiration 20, temperature 97.8, pulse ox 91% on L. HEENT: Conjunctivae normal. NECK: No jugular venous distention. CARDIOVASCULAR: S1, S2 muffled. RESPIRATORY: Breath sounds diminished at the bases. A few scattered rhonchi and crackles. ABDOMEN: Soft, nontender. No mass palpable. LEGS: No edema. No swelling. NERVOUS SYSTEM: No focal deficits. LABS: Labs are at this time show CBC with normal limits. Sodium 155, potassium 3.4. Glucose noted. ASSESSMENT: 1. Acute right lower lobe pneumonia possibly aspiration pneumonia with sepsis and acute hypoxic hypercarbic respiratory failure, present on admission. 2. Change in mental status, acute metabolic acidosis secondary to sepsis and multifactorial. 3. COVID-19 rapid test is negative. 4. Gastric ileus and duodenal ileus with complete bowel obstruction unlikely. NG tube and conservative line of management. 5. History of cerebrovascular accident, transient ischemic attack. 6. Diabetes mellitus type 2. 7. Gastroesophageal reflux disease. 8. Hypertension. 9. Hyperlipidemia. 10.Possible cholelithiasis. 11.History of seizure disorder. 12.History of pancreatic mass apparently previously. 13.History of bilateral stasis dermatitis. 14.History of hyponatremia. 15.Anemia. 16.History of urinary tract infection. 17.History of schizophrenia. 18.Obesity with body mass index of 51.6. 19.NO CODE, NO CPR, NO VENT. RECOMMENDATIONS AND DISCUSSION: Recommend to continue current medication, continue symptomatic treatment. Continue with the current medication. Continue with Lantus increase to 30 units subcu at bedtime and continue to monitor. Otherwise, prognosis guarded because of multiple complex medical issues. Still has NG tube. Conservative line of management. The family does not want any active surgical intervention or evaluation at this time. Guarded prognosis. Further recommendations to follow. MMZEKEL / IJN: [id number] / MTDD
[2020-11-09 17:20] LABS: Glucose,Whole Blood 170 mg/dL (75-99)
[2020-11-09 20:43] LABS: Glucose,Whole Blood 145 mg/dL (75-99)
[2020-11-09] MEDS: BENZTROPINE MESYLATE 1 MG TAB PO SCH (21:56)
[2020-11-09] MEDS: risperiDONE 1 MG TAB PO SCH (22:11)
--- NOTE | 2020-11-09 23:18 | PN ---
PROGRESS NOTE DATE OF SERVICE: 11/09/2020 REASON FOR FOLLOWUP: Aspiration pneumonia. INTERVAL HISTORY: Patient is currently afebrile. She has been breathing more comfortably. She is requiring high-flow nasal cannula oxygen. Denies any chest pain. Occasional cough. No abdominal pain or diarrhea. PHYSICAL EXAMINATION: Blood pressure 162/85 with a pulse of 79, temperature 97.1. She is 95% on 11 L nasal cannula. General description is an elderly female lying in bed in no distress. Respiratory system: Unlabored breathing, decreased breath sounds in the base, with no wheeze. Heart S1, S2. Regular rate. ABDOMEN: Soft, no tenderness. LAB: Hemoglobin 13.5, white count 8.0, BUN of 19, creatinine 0.5. DIAGNOSTIC IMPRESSION AND PLAN: Patient with likely aspiration pneumonia. Patient is covered with Zosyn to continue. Try to transition to oral antibiotic on discharge. Continue supportive care. MMODL / IJN: [id number] /
[2020-11-10] MEDS: PANTOPRAZOLE 40 MG/10 ML VIAL IVP SCH ×3 (00:46→20:35)
[2020-11-10] MEDS: PIPERACILLIN-TAZOBACTAM 3.375 GM in SODIUM CHLORIDE 0.9% 100 ML IVPB SCH ×3 (00:54→12:59)
[2020-11-10] MEDS: methylPREDNISolone SOD SUCCI 40 MG/ML 1 ML VIAL IV SCH ×4 (00:55→18:33)
[2020-11-10] MEDS: DEXTROSE 5% IN WATER 1,000 ML IV SCH ×4 (01:42→18:31)
[2020-11-10] MEDS: INSULIN DETEMIR (LEVEMIR) 100 UNIT/ML SYR SQ SCH (02:57)
[2020-11-10 02:59] LABS: Glucose,Whole Blood 206 mg/dL (75-99)
[2020-11-10] MEDS: LEVOTHYROXINE 75 MCG TAB PO SCH (05:41)
[2020-11-10 07:10] LABS: African American GFR (CKD) >90 (>60 ml/min/1.73 sqM); Anion Gap 1 mmol/L; Blood Urea Nitrogen 16 mg/dL (7-17); Calcium 8.4 mg/dL (8.4-10.2); Carbon Dioxide 39 mmol/L (22-30); Chloride 106 mmol/L (98-107); Glucose 235 mg/dL (74-99); Non-African American GFR(CKD) >90 (>60 ml/min/1.73 sqM); Sodium 146 mmol/L (137-145)
[2020-11-10] MEDS: IPRATROPIUM-ALBUTEROL 3 ML NEB INHALATION SCH ×3 (07:25→20:00)
[2020-11-10 07:34] LABS: Glucose,Whole Blood 226 mg/dL (75-99)
[2020-11-10 07:54] LABS: Basophils % (A) 0 %; Eosinophils # (A) 0.1 k/uL (0-0.7); Eosinophils % (A) 1 %; HCT 45.4 % (34.0-46.0); HGB 14.2 gm/dL (11.4-16.0); Hypochromasia Slight; Lymphocytes # (A) 0.6 k/uL (1.0-4.8); Lymphocytes % (A) 6 %; MCH 28.5 pg (25.0-35.0); MCHC 31.3 g/dL (31.0-37.0); MCV 91.2 fL (80.0-100.0); Mean Platelet Volume 7.3; Monocytes # (A) 0.3 k/uL (0-1.0); Monocytes % (A) 2 %; Neutrophils # (A) 9.3 k/uL (1.3-7.7); Neutrophils % (A) 90 %; Platelet Count 265 k/uL (150-450); RBC 4.98 m/uL (3.80-5.40); RDW 14.4 % (11.5-15.5); WBC 10.3 k/uL (3.8-10.6)
[2020-11-10] MEDS: INSULIN ASPART (NovoLOG) 100 UNIT/ML VIAL SQ SCH ×3 (08:14→18:30)
[2020-11-10] MEDS: GLIMEPIRIDE 4 MG TAB PO SCH (08:14)
[2020-11-10] MEDS: NYSTATIN 100,000 UNIT/GM POWD 15 GM TOPICAL SCH ×2 (09:00→18:32)
[2020-11-10] MEDS: GABAPENTIN 300 MG CAP PO SCH ×4 (09:00→20:35)
[2020-11-10] MEDS: cloZAPine 100 MG TAB PO SCH ×2 (09:00→20:38)
[2020-11-10] MEDS: LINAGLIPTIN 5 MG TABLET PO SCH (10:23)
[2020-11-10] MEDS: HEPARIN SODIUM,PORCINE 5,000 UNIT/ML 1 ML VIAL SQ SCH ×2 (10:23→20:35)
[2020-11-10] MEDS: CALCIUM CARB-VIT D 500 MG-5 MCG TAB PO SCH (10:23)
[2020-11-10] MEDS: LACTOBACILLUS ACIDOPH & BULGAR 1 EACH PACKET PO SCH (10:23)
[2020-11-10] MEDS: ASPIRIN 81 MG PO SCH (10:23)
[2020-11-10] MEDS: MULTIVITAMINS, THERA 1 EACH TAB PO SCH (10:24)
[2020-11-10] MEDS: MAGNESIUM OXIDE 400 MG TAB PO SCH (10:24)
[2020-11-10] MEDS: polyethylene glycoL 3350 17 GM POWD.PACK PO SCH (10:24)
[2020-11-10] MEDS: LOSARTAN 25 MG TAB PO SCH (10:24)
[2020-11-10] MEDS: POTASSIUM CHLORIDE ER 10 MEQ TAB.ER.PRT PO SCH ×2 (10:25→20:35)
--- NOTE | 2020-11-10 10:25 | P.PN ---
Subjective Progress Note Date: 11/10/20 CHIEF COMPLAINT: Ileus versus small bowel obstruction HISTORY OF PRESENT ILLNESS: Patient is being followed for ileus versus small bowel obstruction. Patient denies any abdominal pain. Patient denies any flatus or BM. She has NG tube in place with 300 ML light brownish colored output. She is nothing by mouth. Her oxygen requirement is down from 15-11 L of high flow oxygen. Patient has been 6 days without eating. She is scheduled for PICC line and to be started on TPN today. Patient is receiving free water through her NG tube and is on IV fluids D5W at 150ml/hr. Afebrile. WBC 10.3 sodium down from 155-146 potassium 4.0. Hypokalemia improved with supplement. Patient also being treated for aspiration pneumonia PHYSICAL EXAM: VITAL SIGNS: Reviewed. GENERAL: Well-developed in no acute distress. HEENT: No sclera icterus. Extraocular movements grossly intact. Moist buccal mucosa. Head is atraumatic, normocephalic. ABDOMEN: Soft. Obese. distended. Nontender. NEUROLOGIC: Pleasantly confused and at baseline ASSESSMENT: 1. Ileus versus small bowel obstruction PLAN: -Patient scheduled for PICC line placement for TPN -Continue with conservative management -Continue NG tube for decompression -Keep patient nothing by mouth except medications -GI prophylaxis Protonix and DVT prophylaxis subcu heparin Physician Station Chief note has been reviewed by physician. Signing provider agrees with the documented findings, assessment, and plan of care. Objective - Vital Signs Vital signs: Vital Signs Temp 98.6 F 11/10/20 07:00 Pulse 80 11/10/20 07:35 Resp 15 11/10/20 08:00 BP 173/92 11/10/20 07:00 Pulse Ox 94 L 11/10/20 07:00 Intake & Output 11/09/20 11/10/20 11/10/20 18:59 06:59 18:59 Output Total 200 Balance -200 Weight 115.212 kg Output: Gastric Drainage 200 Other: Voiding Method Diaper Diaper Diaper Incontinent Incontinent Incontinent # Voids 2 1 # Bowel Movements 1 - Labs CBC & Chem 7: 11/10/20 07:34 11/10/20 05:59 Labs: Abnormal Lab Results - Last 24 Hours (Table) 01/05/21 01/05/21 01/05/21 Range/Units 06:27 11:39 17:15 Neutrophils # (1.3-7.7) k/uL Lymphocytes # (1.0-4.8) k/uL Sodium 155 H (135-145) mmol/L Potassium 3.4 L (3.5-5.5) mmol/L Carbon Dioxide 34.3 H (21.6-31.8) mmol/L Creatinine 0.5 L (0.6-1.5) mg/dL BUN/Creatinine Ratio 38.00 H (12.00-20.00) Ratio Glucose 255 H (70-110) mg/dL POC Glucose (mg/dL) 227 H 170 H (75-99) mg/dL 11/09/20 11/10/20 11/10/20 Range/Units 20:41 02:56 05:59 Neutrophils # (1.3-7.7) k/uL Lymphocytes # (1.0-4.8) k/uL Sodium 146 H (135-145) mmol/L Potassium (3.5-5.5) mmol/L Carbon Dioxide 39 H (21.6-31.8) mmol/L Creatinine 0.32 L (0.6-1.5) mg/dL BUN/Creatinine Ratio (12.00-20.00) Ratio Glucose 235 H (70-110) mg/dL POC Glucose (mg/dL) 145 H 206 H (75-99) mg/dL 11/10/20 11/10/20 Range/Units 07:29 07:34 Neutrophils # 9.3 H (1.3-7.7) k/uL Lymphocytes # 0.6 L (1.0-4.8) k/uL Sodium (135-145) mmol/L Potassium (3.5-5.5) mmol/L Carbon Dioxide (21.6-31.8) mmol/L Creatinine (0.6-1.5) mg/dL BUN/Creatinine Ratio (12.00-20.00) Ratio Glucose (70-110) mg/dL POC Glucose (mg/dL) 226 H (75-99) mg/dL
[2020-11-10] MEDS ORDERED: LIDOCAINE 1% INJ 10MG/ML (20 ML MDV) ONE (11:43)
[2020-11-10] MEDS ORDERED: LIDOCAINE 1% INJ 10MG/ML (20 ML MDV) SQ ONE (12:02)
--- NOTE | 2020-11-10 12:26 | IR ---
PICC LINE PLACEMENT: HISTORY: Infection requiring long-term antibiotic therapy PROCEDURE: Ultrasound and fluoroscopic guidance of PICC line placement. COMPLICATIONS: None ANESTHESIA: 1. 1% Lidocaine locally. FINDINGS/TECHNIQUE: The procedure was explained to the patient. The risks, complications, benefits and alternatives were discussed and any questions were answered. Informed consent was obtained. The patient was placed supine on the fluoroscopic table and prepped and draped in the usual sterile fash ion. Utilizing a 21 gauge needle and sonographic and fluoroscopic guidance, access in the left ceph alic vein was achieved and there is placement of a 0.018 guidewire. The vein is patent. A 4-F sheat h was placed over the guidewire. The guidewire and dilator were removed and a 4-F. PICC line was ashok rohan through the sheath with the tip at the level of the SVC. The sheath was removed, the catheter wa s flushed and sutured into position. The patient was stable throughout the procedure and remained st able upon discharge from the Department of Radiology. The vein puncture was patent under ultrasound. A banks scale image was obtained to document patency of the vein punctured. All elements of the maximal barrier technique were utilized. FLUOROSCOPY TIME: 0.2 minutes and 1 images submitted IMPRESSION: Successful PICC line placement under ultrasound and fluoroscopic guidance.
[2020-11-10 13:01] LABS: Ionized Calcium 4.6 mg/dL (4.5-5.3)
[2020-11-10] MEDS: levETIRAcetam 500 MG TAB PO SCH (13:02)
[2020-11-10] MEDS: NYSTATIN 100,000UNIT/GM CREAM 30 GM TUBE TOPICAL SCH ×3 (13:05→20:39)
[2020-11-10] MEDS: THIAMINE 100 MG TAB PO SCH (13:05)
[2020-11-10] MEDS: FOLIC ACID 1 MG TAB PO SCH (13:05)
[2020-11-10 13:13] LABS: Albumin 3.1 g/dL (3.5-5.0); Magnesium 2.2 mg/dL (1.6-2.3); Phosphorus 3.2 mg/dL (2.5-4.5)
[2020-11-10 13:41] LABS: Glucose,Whole Blood 171 mg/dL (75-99)
--- NOTE | 2020-11-10 13:57 | P.PN ---
Subjective Progress Note Date: 11/10/20 Principal diagnosis: Acute hypoxic respiratory failure secondary to an acute healthcare acquired pneumonia This is a 70-year-old female patient with a history of CVA/TIA, expressive aphasia, seizure disorder, diabetes mellitus, GERD, hypertension, myocardial infarction, hypothyroidism, hyperlipidemia, schizophrenia, resides in an F. She was brought into [facility] for altered mental status and hypoxemia. She was subsequently transferred here for further treatment. Her CoVID 19 screen was negative. Chest x-ray shows mild basilar atelectasis and possible infiltrate retrocardiac area. She is currently maintaining O2 saturations in the low 90s on 5 L high flow nasal cannula. Afebrile. White count 11.7. Hemoglobin 12.5. Sodium 140. Potassium 3.3. Creatinine 0.5. Glucose 302. She has been initiated on antibiotics in the form of vancomycin, ceftriaxone and azithromycin. The patient is seen today 11/05/2020 in follow-up on the regular medical floor. She is currently resting comfortably in bed. Awake and alert. Difficulty in communicating. Poor historian. She is more short of breath with bronchospasm and wheezing. She is on 5 L high flow nasal cannula to maintain O2 saturation in the 90s. Temperature 100.[address] angiogram of the chest revealed no evidence of pulmonary embolism however there was breathing motion artifact limiting the assessment. There is evidence of cardiomegaly and pulmonary arterial hypertension, trace pleural effusions. Volume loss and consolidation with the basilar lower lobes left greater than right. Computed tomography scan of the abdomen revealed marked. Gastric distention and abnormal dilatation of the duodenum up to 5.3 cm. Possible partial obstruction and ileus within the differential. There is a right lower quadrant abdominal wall hernia. 2.5 cm cystic lesion in the pancreatic body. Distended rectum with stool. Cholelithiasis. She did end up having continued abdominal distention and an end nasogastric tube was placed with 2 L of fluid returned. She been seen and evaluated by surgical services. No interventions planned at this point. White count 12.7. Hemoglobin 12.0. Sodium 143. Potassium 3.6. Creatinine 0.5. She remains on antibiotics in the form of Zosyn. Patient is seen today 11/06/2020 in follow-up on the regular medical floor. She is currently resting comfortably in bed. More awake and alert today. Answering some questions appropriately. Speech is clearing. She is maintaining O2 saturations in the 90s on 5 L high flow nasal cannula. Less bronchospastic and wheezy today. Currently afebrile. Hemodynamically stable. White count 7.7. Hemoglobin 11.9. Platelet count 189. Sodium 147. Potassium 3.5. Creatinine 0.5. Glucose 298. Continued on IV Solu Medrol, bronchodilators. Antibiotics in the form of Zosyn. The patient is seen today 11/07/2020 in follow-up on the regular medical floor. She is a bit more awake and alert today. Speaking in near complete sentences. Denies any worsening shortness of breath, cough or congestion. He is maintaining O2 saturation in the low 90s on 5 L/m per nasal cannula. She's afebrile. Blood glucose 287. Remains on antibiotics in the form of Zosyn, IV Solu-Medrol, bronchodilators. Abdominal x-ray today reveals interval passage of contrast to the rectum. There is no complete bowel obstruction. Gas prominent stomach still present but improved. Nasogastric tube remains in place. Remains nothing by mouth. Surgical services are on the case. On 11/08/2020 patient seen in follow-up on medical floor, staff reports that FiO2 was increased from 5 L to 8 L, and her pulse ox is at 88%, however patient appears to be in no acute distress, her chest x-ray showed bibasilar consolid ation left greater than right and/or atelectasis and possible tiny bilateral pleural effusions with mild to moderate interstitial edema. Patient still has NG tube in place, and current chest x-ray shows successful decompression of the stomach since prior exam. NG tube is to low intermittent suction, her 24-hour output is adequate amount 100 mL, abdomen is soft, nontender, patient denies any nausea or abdominal pain. He was found to be negative for Coronavirus. Patient is on a combination of oral Bumex, IV steroids and bronchodilators, and Zosyn. She's been afebrile, she is breathing comfortably, denies any chest discomfort, denies any hemoptysis. No wheezing, no signs of any respiratory difficulty. Patient had a blood gas done today which showed the O2 of 59, pCO2 of 60, and pH of 7.43. This was done on FiO2 of 50%. On 11/09/2020 patient seen in follow-up on medical floor, she is confused, but not agitated, her FiO2 requirements have increased, and she is currently on 15 L per high flow nasal cannula, and a pulse ox 91%, hemodynamically she's been slightly hypertensive, with a blood pressure of 182/92, she's had no fever, seems to be breathing comfortably, no cough, NG tube remains in place to low intermittent suction, patient has not received any nutrition, surgery is f ollowing, apparently she has not had any oral intake in the last 5 days, she has not received any other nutritional supplementation, will let surgery address that but abdomen is soft, nontender, today's chest x-ray has been reviewed showing bilateral infiltrates stable in appearance. Generally patient is weak, we ordered a BiPAP support on as-needed basis, but reportedly patient had refused BiPAP however we believe that because of over all generalized weakness patient may benefit from intermittent BiPAP support and bedtime BiPAP support. On 11/10/2020 patient seen in follow-up on medical floor, she is looking much better today, much more awake, she is following command, she is responding a ppropriately, less confused. Her sodium is down to 146 on today's labs, she is receiving free water, 200 ml down the NG tube every 4 hours however the NG tube is still being intermittently inactive to suction, and 200 mL moderate NG tube in last 24 hours, abdomen is soft, nontender, no nausea, patient states she had a bowel movement 2 days ago, she denies any acute complaints, no worsening dyspnea, she needs a lot of encouragement and coaching to work on incentive spirometer, she is able to achieve 500 mL on the today. She is sitting up in the recliner today, appears to be in no acute distress, his labs have been reviewed, showing white blood cell count of 10.3, hemoglobin is 14, potassium is 4.0, chloride is 106, CO2 is 29, BUN 16, creatinine 0.32. She is currently on 11 L of oxygen pulse ox 94%, she is breathing comfortable, back to the uterus, BiPAP is on standby on the as-needed basis and at bedtime. Overall patient clinically is looking better. Services are following, and patient will receive a PICC line for TPN initiation. Objective - Vital Signs Vital signs: Vital Signs Temp 98.6 F 11/10/20 07:00 Pulse 77 11/10/20 11:12 Resp 15 11/10/20 08:00 BP 173/92 11/10/20 07:00 Pulse Ox 94 L 11/10/20 07:00 Intake & Output 11/09/20 11/10/20 11/10/20 18:59 06:59 18:59 Output Total 200 Balance -200 Weight 115.212 kg Output: Gastric Drainage 200 Other: Voiding Method Diaper Diaper Diaper Incontinent Incontinent Incontinent # Voids 2 1 # Bowel Movements 1 - Exam GENERAL EXAM: Alert, pleasant, less confused, oriented 2, not agitated 70-year-old white female, and on 11 liters of oxygen, answering simple questions, appears to be in no acute distress HEAD: Normocephalic/atraumatic. EYES: Normal reaction of pupils, equal size. Conjunctiva pink, sclera white. NOSE: Clear with pink turbinates. NG tube in place to low intermittent suction THROAT: No erythema or exudates. NECK: No masses, no JVD, no thyroid enlargement, no adenopathy. CHEST: No chest wall deformity. Symmetrical expansion. LUNGS: Equal air entry with diminished breath sounds at the bases, no crackles, no wheezes CVS: Regular rate and rhythm, normal S1 and S2, no gallops, no murmurs, no rubs ABDOMEN: Soft, nontender. No hepatosplenomegaly, normal bowel sounds, no guarding or rigidity. EXTREMITIES: No clubbing, no edema, no cyanosis, 2+ pulses and upper and lower extremities. MUSCULOSKELETAL: Muscle strength and tone normal. SPINE: No scoliosis or deformity SKIN: No rashes CENTRAL NERVOUS SYSTEM: Alert and oriented -2. No focal deficits, tone is normal in all 4 extremities. PSYCHIATRIC: Alert and oriented -2. Appropriate affect. Intact judgment and insight. - Labs CBC & Chem 7: 11/10/20 07:34 11/10/20 05:59 Labs: Abnormal Lab Results - Last 24 Hours (Table) 11/09/20 11/09/20 11/10/20 Range/Units 17:15 20:41 02:56 Neutrophils # (1.3-7.7) k/uL Lymphocytes # (1.0-4.8) k/uL Sodium (137-145) mmol/L Carbon Dioxide (22-30) mmol/L Creatinine (0.52-1.04) mg/dL Glucose (74-99) mg/dL POC Glucose (mg/dL) 170 H 145 H 206 H (75-99) mg/dL Albumin (3.5-5.0) g/dL Triglycerides (<150) mg/dL 11/10/20 11/10/20 11/10/20 Range/Units 05:59 07:29 07:34 Neutrophils # 9.3 H (1.3-7.7) k/uL Lymphocytes # 0.6 L (1.0-4.8) k/uL Sodium 146 H (137-145) mmol/L Carbon Dioxide 39 H (22-30) mmol/L Creatinine 0.32 L (0.52-1.04) mg/dL Glucose 235 H (74-99) mg/dL POC Glucose (mg/dL) 226 H (75-99) mg/dL Albumin (3.5-5.0) g/dL Triglycerides (<150) mg/dL 11/10/20 11/10/20 Range/Units 12:30 13:35 Neutrophils # (1.3-7.7) k/uL Lymphocytes # (1.0-4.8) k/uL Sodium (137-145) mmol/L Carbon Dioxide (22-30) mmol/L Creatinine (0.52-1.04) mg/dL Glucose (74-99) mg/dL POC Glucose (mg/dL) 171 H (75-99) mg/dL Albumin 3.1 L (3.5-5.0) g/dL Triglycerides 268 H (<150) mg/dL Assessment and Plan Plan: Assessment: #1. Acute hypoxic respiratory failure related to possibility of aspiration pneumonia, COVID 19 has been ruled out #2. Chronic hypercapnic respiratory failure with the possibility of obesity hypoventilation syndrome, and overall generalized medical debility #3. Ileus versus small bowel obstruction, patient has NG tube in place to low intermittent suction, surgical services are following #4. Altered mental status, related to pneumonia #5. History of CVA/TIA with expressive aphasia and right-sided weakness #6. History of seizure disorder #7. Diabetes mellitus type 2 #8. GERD/reflux #9. Hypertension #10. History of myocardial infarction #11. Hypothyroidism #12. Hyperlipidemia #13. Schizophrenia #14. Resident of a [facility] facility #15. Hypernatremia, related to nothing by mouth status, small bowel obstruction versus ileus, and free water deficit, as well as diuretic therapy #16. Altered mental status likely related to hypernatremia, nothing by mouth status, worsening hypoxemia, improved with hydration, Plan: Continue weaning FiO2, encourage deep breathing and coughing, incentive spirometry use, continue D5W at 150 ML per hour, patient is going for PICC line insertion and initiation of TPN, no worsening dyspnea, maintain aspiration precautions, will await further recommendations from surgical services as to when the NG tube can be clamped or discontinued. Use BiPAP support as needed for respiratory fatigue I performed a history & physical examination of the patient and discussed their management with my nurse practitioner, Estefani Amor. I reviewed the nurse practitioner's note and agree with the documented findings and plan of care. Lung sounds are positive for diminished breath sounds. The findings and the impression was discussed with the patient. I attest to the documentation by the nurse practitioner. Time with Patient: Less than 30
[2020-11-10] MEDS: [UNRECOGNIZED DRUG - OTHER] IV SCH ×6 (15:42)
[2020-11-10] MEDS: POTASSIUM PHOSPHATE IV SCH ×6 (15:42)
[2020-11-10] MEDS: CALCIUM GLUCONATE IV SCH ×6 (15:42)
[2020-11-10] MEDS: MAGNESIUM SULFATE IV SCH ×6 (15:42)
[2020-11-10] MEDS: FAT EMULSION 20% 250 ML IV SCH (15:42)
[2020-11-10] MEDS: MVI IV SCH ×6 (15:42)
[2020-11-10 17:22] LABS: Glucose,Whole Blood 117 mg/dL (75-99)
--- NOTE | 2020-11-10 18:23 | PN ---
PROGRESS NOTE DATE OF SERVICE: 11/10/2020 This 70-year-old woman who was admitted with acute right lower lobe pneumonia with possible aspiration pneumonia also had features of sepsis and acute hypoxic respiratory failure. Patient also had bowel obstruction, possible duodenal, and stomach ileus, but at this time the family does not want any new surgical intervention or evaluation. Patient is being closely monitored. The patient is still on NG tube. TPN has also been . A PICC line has been inserted. Multiple consultants are following the patient closely. Past medical history reviewed. Review of systems could not be taken. The patient is confused. CURRENT MEDICATIONS: Reviewed. They include DuoNeb, Cogentin, Clozaril, Neurontin, NovoLog, Synthroid, Zosyn. Doses are reviewed. PHYSICAL EXAMINATION: Patient is conscious but confused. Oriented x2. Pulse 81, blood pressure 179/82, respiration 20, temperature 98.8, pulse ox 94% on 11 L. HEENT: Conjunctivae normal. NECK: No jugular venous distention. CARDIOVASCULAR SYSTEM: S1, S2 muffled. RESPIRATORY SYSTEM: Breath sounds diminished at the bases. A few scattered rhonchi and crackles. ABDOMEN: Soft, obese, non-tender. No mass palpable. LEGS: No edema. No swelling. NERVOUS SYSTEM: Higher functions as mentioned earlier. Moves all 4 limbs. No focal motor or sensory deficit. LYMPHATICS: No lymph node palpable in neck, axillae or groin. SKIN: No ulcer, rash, bleeding. JOINTS: No active deforming arthropathy. LABS: CBC within normal limits. Sodium ntd, triglycerides 268. ASSESSMENT: 1. Acute right lower lobe pneumonia, possibly aspiration pneumonia with sepsis and acute hypoxic hypercarbic respiratory failure, present on admission. 2. Change in mental status, acute metabolic encephalopathy secondary to sepsis and multifactorial. COVID-19 rapid test is negative. 3. Gastric ileus and duodenal ileus with a complete bowel obstruction unlikely. 4. NG tube and conservative line of management. 5. On total parenteral nutrition. 6. History of cerebrovascular accident, transient ischemic attack. 7. Diabetes mellitus, type 2. 8. Gastroesophageal reflux disease. 9. Hypertension. 10.Hyperlipidemia. 11.Possible cholelithiasis history. 12.History of seizure disorder. 13.History of pancreatic mass apparently previously. 14.History of bilateral stasis dermatitis. 15.History of hyponatremia. 16.History of anemia. 17.History of urinary tract infection. 18.History of schizophrenia. 19.Obesity with body mass index of 51.6. 20.NO CODE, NO CPR, NO VENT. RECOMMENDATIONS AND DISCUSSION: I recommend to continue current medications, continue with the monitoring, symptomatic treatment. Repeat labs. PT/OT evaluation. Continue the NG tube. Continue the TPN. Closely follow with dietitian. Guarded prognosis. Further recommendations to follow. MMODL / IJN: [id number] / MTDD
[2020-11-10] MEDS ORDERED: LORazepam 2 MG/ML INJ IV PRN (18:34)
[2020-11-10] MEDS: METOPROLOL SUCCINATE (ER) 25 MG TAB.ER.24H PO SCH (20:35)
[2020-11-10] MEDS: BENZTROPINE MESYLATE 1 MG TAB PO SCH (20:36)
[2020-11-10] MEDS: risperiDONE 1 MG TAB PO SCH (20:38)
[2020-11-10 20:57] LABS: Glucose,Whole Blood 130 mg/dL (75-99)
[2020-11-11] MEDS: PIPERACILLIN-TAZOBACTAM 3.375 GM in SODIUM CHLORIDE 0.9% 100 ML IVPB SCH ×4 (01:27→23:45)
[2020-11-11] MEDS: methylPREDNISolone SOD SUCCI 40 MG/ML 1 ML VIAL IV SCH ×3 (01:27→12:42)
[2020-11-11 02:22] LABS: Glucose,Whole Blood 156 mg/dL (75-99)
[2020-11-11] MEDS: INSULIN ASPART (NovoLOG) 100 UNIT/ML VIAL SQ SCH ×5 (02:34→21:22)
[2020-11-11] MEDS: INSULIN DETEMIR (LEVEMIR) 100 UNIT/ML SYR SQ SCH ×2 (02:35→21:23)
--- NOTE | 2020-11-11 04:13 | PN ---
PROGRESS NOTE DATE OF SERVICE: 11/10/2020 REASON FOR FOLLOWUP: Aspiration pneumonia. INTERVAL HISTORY: The patient is currently afebrile. The patient is breathing comfortably. Wants her NG tube to be out. Denies any chest pain or shortness of breath or cough. No abdominal pain. No diarrhea. PHYSICAL EXAMINATION: Blood pressure 134/84 with pulse of 77, temperature 97.1. She is 93% on . General is an elderly female lying in bed in no distress. Respiratory system: Unlabored breathing with decreased breath sounds in the bases, no wheeze. Heart S1-S2 regular rate and rhythm. ABDOMEN: Soft, no tenderness. LABORATORY DATA: Hemoglobin is 14.1, white count of 10.3. DIAGNOSTIC IMPRESSION AND PLAN: Patient with aspiration pneumonia, sputum significant , status post I and D patient is covered with Zosyn. Currently afebrile. normal. Continue current antibiotics and monitor clinical course closely. Continue supportive care. MMODL / IJN: [id number] /
[2020-11-11] MEDS: DEXTROSE 5% IN WATER 1,000 ML IV SCH ×3 (06:15→14:35)
[2020-11-11] MEDS: LEVOTHYROXINE 75 MCG TAB PO SCH (06:15)
[2020-11-11 06:41] LABS: Glucose,Whole Blood 208 mg/dL (75-99)
[2020-11-11 07:12] LABS: Magnesium 2.4 mg/dL (1.6-2.3); Phosphorus 4.4 mg/dL (2.5-4.5)
[2020-11-11] MEDS: IPRATROPIUM-ALBUTEROL 3 ML NEB INHALATION SCH ×3 (07:30→20:03)
[2020-11-11] MEDS: HEPARIN SODIUM,PORCINE 5,000 UNIT/ML 1 ML VIAL SQ SCH ×2 (08:35→21:22)
[2020-11-11] MEDS: POTASSIUM CHLORIDE ER 10 MEQ TAB.ER.PRT PO SCH ×2 (08:36→21:24)
[2020-11-11] MEDS: LOSARTAN 25 MG TAB PO SCH (08:36)
[2020-11-11] MEDS: levETIRAcetam 500 MG TAB PO SCH (08:36)
[2020-11-11] MEDS: GABAPENTIN 300 MG CAP PO SCH ×3 (08:36→21:34)
--- NOTE | 2020-11-11 08:40 | XR ---
EXAMINATION TYPE: XR chest 1V portable DATE OF EXAM: 11/11/2020 COMPARISON: 11/09/2020 INDICATION: Nasogastric tube placement TECHNIQUE: Single frontal view of the chest is obtained. FINDINGS: The heart size is borderline prominent. The pulmonary vasculature is normal. Small bilateral pleural effusions are present. Mild infiltrate may be at the left base. Platelike ate lectasis at the right base IMPRESSION: 1. Mild bibasilar infiltrates with small pleural fluid collections
[2020-11-11] MEDS: NYSTATIN 100,000UNIT/GM CREAM 30 GM TUBE TOPICAL SCH ×3 (08:59→21:34)
[2020-11-11] MEDS: NYSTATIN 100,000 UNIT/GM POWD 15 GM TOPICAL SCH ×2 (08:59→21:23)
[2020-11-11] MEDS: PANTOPRAZOLE 40 MG/10 ML VIAL IVP SCH ×2 (08:59→21:23)
[2020-11-11 09:47] LABS: African American GFR (CKD) >90 (>60 ml/min/1.73 sqM); Anion Gap 5 mmol/L; Blood Urea Nitrogen 14 mg/dL (7-17); Calcium 8.7 mg/dL (8.4-10.2); Carbon Dioxide 36 mmol/L (22-30); Chloride 102 mmol/L (98-107); Glucose 213 mg/dL (74-99); Non-African American GFR(CKD) >90 (>60 ml/min/1.73 sqM); Potassium 3.7 mmol/L (3.5-5.1); Sodium 143 mmol/L (137-145)
[2020-11-11] MEDS ORDERED: HALOPERIDOL LACTATE 5 MG/ML 1 ML VIAL IM PRN (10:41)
--- NOTE | 2020-11-11 11:38 | P.PN ---
Subjective Progress Note Date: 11/11/20 CHIEF COMPLAINT: Ileus versus small bowel obstruction HISTORY OF PRESENT ILLNESS: Patient is being followed for ileus versus small bowel obstruction. Patient denies any abdominal pain. Patient denies any flatus or BM. Per nursing staff there were issues with the NG tube not working through the night. Patient is now sitting up at bedside chair this morning and NG tube is now working. She is nothing by mouth. Her oxygen requirement is down to 10 L of high flow oxygen. Patient had PICC line placed yesterday to start TPN. Unfortunately, patient pulled out the PICC line. She is scheduled for another PICC line placement today. Patient has bedside sitter. Patient also being treated for aspiration pneumonia. Hypernatremia resolved PHYSICAL EXAM: VITAL SIGNS: Reviewed. GENERAL: Well-developed in no acute distress. HEENT: No sclera icterus. Extraocular movements grossly intact. Moist buccal mucosa. Head is atraumatic, normocephalic. ABDOMEN: Soft. Obese. distended. Nontender. NEUROLOGIC: Pleasantly confused and at baseline ASSESSMENT: 1. Ileus versus small bowel obstruction PLAN: -Computed tomography scan of the abdomen and pelvis with oral contrast ordered for further evaluation of patient's possible small bowel obstruction -Patient scheduled for PICC line placement for TPN -Continue with conservative management -Continue NG tube for decompression -Keep patient nothing by mouth except medications -GI prophylaxis Protonix and DVT prophylaxis subcu heparin Physician Professor Of Theology note has been reviewed by physician. Signing provider agrees with the documented findings, assessment, and plan of care. Objective - Vital Signs Vital signs: Vital Signs Temp 98.3 F 11/11/20 06:57 Pulse 76 11/11/20 11:12 Resp 17 11/11/20 06:57 BP 161/80 11/11/20 06:57 Pulse Ox 94 L 11/11/20 06:57 Intake & Output 11/10/20 11/11/20 11/11/20 18:59 06:59 18:59 Output Total 250 Balance -250 Output: Gastric Drainage 250 Other: Voiding Method Diaper Diaper Incontinent Incontinent # Voids 3 - Labs CBC & Chem 7: 11/10/20 07:34 11/11/20 06:23 Labs: Abnormal Lab Results - Last 24 Hours (Table) 11/10/20 11/10/20 11/10/20 Range/Units 12:30 13:35 17:20 Carbon Dioxide (22-30) mmol/L Creatinine (0.52-1.04) mg/dL Glucose (74-99) mg/dL POC Glucose (mg/dL) 171 H 117 H (75-99) mg/dL Magnesium (1.6-2.3) mg/dL Albumin 3.1 L (3.5-5.0) g/dL Triglycerides 268 H (<150) mg/dL 11/10/20 11/11/20 11/11/20 Range/Units 20:56 02:20 06:23 Carbon Dioxide (22-30) mmol/L Creatinine (0.52-1.04) mg/dL Glucose (74-99) mg/dL POC Glucose (mg/dL) 130 H 156 H (75-99) mg/dL Magnesium 2.4 H (1.6-2.3) mg/dL Albumin (3.5-5.0) g/dL Triglycerides (<150) mg/dL 11/11/20 11/11/20 Range/Units 06:23 06:39 Carbon Dioxide 36 H (22-30) mmol/L Creatinine 0.40 L (0.52-1.04) mg/dL Glucose 213 H (74-99) mg/dL POC Glucose (mg/dL) 208 H (75-99) mg/dL Magnesium (1.6-2.3) mg/dL Albumin (3.5-5.0) g/dL Triglycerides (<150) mg/dL
[2020-11-11 12:04] LABS: Glucose,Whole Blood 281 mg/dL (75-99)
[2020-11-11] MEDS: IOPAMIDOL CONTRAST (ORAL USE) VIAL PO PRN ×2 (13:30→14:30)
--- NOTE | 2020-11-11 13:44 | P.PN ---
Subjective Progress Note Date: 11/11/20 Principal diagnosis: Acute hypoxic respiratory failure secondary to an acute healthcare acquired pneumonia This is a 70-year-old female patient with a history of CVA/TIA, expressive aphasia, seizure disorder, diabetes mellitus, GERD, hypertension, myocardial infarction, hypothyroidism, hyperlipidemia, schizophrenia, resides in an F. She was brought into [facility] for altered mental status and hypoxemia. She was subsequently transferred here for further treatment. Her CoVID 19 screen was negative. Chest x-ray shows mild basilar atelectasis and possible infiltrate retrocardiac area. She is currently maintaining O2 saturations in the low 90s on 5 L high flow nasal cannula. Afebrile. White count 11.7. Hemoglobin 12.5. Sodium 140. Potassium 3.3. Creatinine 0.5. Glucose 302. She has been initiated on antibiotics in the form of vancomycin, ceftriaxone and azithromycin. The patient is seen today 11/05/2020 in follow-up on the regular medical floor. She is currently resting comfortably in bed. Awake and alert. Difficulty in communicating. Poor historian. She is more short of breath with bronchospasm and wheezing. She is on 5 L high flow nasal cannula to maintain O2 saturation in the 90s. Temperature 100.[address] angiogram of the chest revealed no evidence of pulmonary embolism however there was breathing motion artifact limiting the assessment. There is evidence of cardiomegaly and pulmonary arterial hypertension, trace pleural effusions. Volume loss and consolidation with the basilar lower lobes left greater than right. Computed tomography scan of the abdomen revealed marked. Gastric distention and abnormal dilatation of the duodenum up to 5.3 cm. Possible partial obstruction and ileus within the differential. There is a right lower quadrant abdominal wall hernia. 2.5 cm cystic lesion in the pancreatic body. Distended rectum with stool. Cholelithiasis. She did end up having continued abdominal distention and an end nasogastric tube was placed with 2 L of fluid returned. She been seen and evaluated by surgical services. No interventions planned at this point. White count 12.7. Hemoglobin 12.0. Sodium 143. Potassium 3.6. Creatinine 0.5. She remains on antibiotics in the form of Zosyn. Patient is seen today 11/06/2020 in follow-up on the regular medical floor. She is currently resting comfortably in bed. More awake and alert today. Answering some questions appropriately. Speech is clearing. She is maintaining O2 saturations in the 90s on 5 L high flow nasal cannula. Less bronchospastic and wheezy today. Currently afebrile. Hemodynamically stable. White count 7.7. Hemoglobin 11.9. Platelet count 189. Sodium 147. Potassium 3.5. Creatinine 0.5. Glucose 298. Continued on IV Solu Medrol, bronchodilators. Antibiotics in the form of Zosyn. The patient is seen today 11/07/2020 in follow-up on the regular medical floor. She is a bit more awake and alert today. Speaking in near complete sentences. Denies any worsening shortness of breath, cough or congestion. He is maintaining O2 saturation in the low 90s on 5 L/m per nasal cannula. She's afebrile. Blood glucose 287. Remains on antibiotics in the form of Zosyn, IV Solu-Medrol, bronchodilators. Abdominal x-ray today reveals interval passage of contrast to the rectum. There is no complete bowel obstruction. Gas prominent stomach still present but improved. Nasogastric tube remains in place. Remains nothing by mouth. Surgical services are on the case. On 11/08/2020 patient seen in follow-up on medical floor, staff reports that FiO2 was increased from 5 L to 8 L, and her pulse ox is at 88%, however patient appears to be in no acute distress, her chest x-ray showed bibasilar consolid ation left greater than right and/or atelectasis and possible tiny bilateral pleural effusions with mild to moderate interstitial edema. Patient still has NG tube in place, and current chest x-ray shows successful decompression of the stomach since prior exam. NG tube is to low intermittent suction, her 24-hour output is adequate amount 100 mL, abdomen is soft, nontender, patient denies any nausea or abdominal pain. He was found to be negative for Coronavirus. Patient is on a combination of oral Bumex, IV steroids and bronchodilators, and Zosyn. She's been afebrile, she is breathing comfortably, denies any chest discomfort, denies any hemoptysis. No wheezing, no signs of any respiratory difficulty. Patient had a blood gas done today which showed the O2 of 59, pCO2 of 60, and pH of 7.43. This was done on FiO2 of 50%. On 11/09/2020 patient seen in follow-up on medical floor, she is confused, but not agitated, her FiO2 requirements have increased, and she is currently on 15 L per high flow nasal cannula, and a pulse ox 91%, hemodynamically she's been slightly hypertensive, with a blood pressure of 182/92, she's had no fever, seems to be breathing comfortably, no cough, NG tube remains in place to low intermittent suction, patient has not received any nutrition, surgery is f ollowing, apparently she has not had any oral intake in the last 5 days, she has not received any other nutritional supplementation, will let surgery address that but abdomen is soft, nontender, today's chest x-ray has been reviewed showing bilateral infiltrates stable in appearance. Generally patient is weak, we ordered a BiPAP support on as-needed basis, but reportedly patient had refused BiPAP however we believe that because of over all generalized weakness patient may benefit from intermittent BiPAP support and bedtime BiPAP support. On 11/10/2020 patient seen in follow-up on medical floor, she is looking much better today, much more awake, she is following command, she is responding a ppropriately, less confused. Her sodium is down to 146 on today's labs, she is receiving free water, 200 ml down the NG tube every 4 hours however the NG tube is still being intermittently inactive to suction, and 200 mL moderate NG tube in last 24 hours, abdomen is soft, nontender, no nausea, patient states she had a bowel movement 2 days ago, she denies any acute complaints, no worsening dyspnea, she needs a lot of encouragement and coaching to work on incentive spirometer, she is able to achieve 500 mL on the today. She is sitting up in the recliner today, appears to be in no acute distress, his labs have been reviewed, showing white blood cell count of 10.3, hemoglobin is 14, potassium is 4.0, chloride is 106, CO2 is 29, BUN 16, creatinine 0.32. She is currently on 11 L of oxygen pulse ox 94%, she is breathing comfortable, back to the uterus, BiPAP is on standby on the as-needed basis and at bedtime. Overall patient clinically is looking better. Services are following, and patient will receive a PICC line for TPN initiation. On 11/11/2020 patient seen in follow-up on medical floor, she is lethargic on today's exam, she is sitting up in the recliner, there is a airworthiness safety inspector at the bedside, apparently last night patient was more confused, pulled out her IV lines, including the PICC line. She remains on high flow oxygen at 11 L, her pulse ox is 94%, hemodynamics are stable, she is afebrile. Does not seem to be in any acute pulmonary distress, today's chest x-ray has been reviewed showing mild bibasilar infiltrates with small pleural fluid collections. No cough or congestion, patient seems very drowsy, remains confused, but not agitated. Today's labs have been reviewed, her sodium has been corrected, down to 143, potassium 3.7, chloride is 102, CO2 36, BUN is 14 and creatinine 0.4. Last pro calcitonin was improving and was down to 0.21, NG tube remains in place and there has only been 250 ML out of it for last 24 hours. Patient also receiving some water flushes through it 200 mL every 4 hours, abdomen is soft, patient has had no nausea or vomiting, she had a bowel movement on 11/10/2020, denies any abdominal discomfort, surgical services of following, CT of the abdomen and pelvis is pending for this afternoon Objective - Vital Signs Vital signs: Vital Signs Temp 98.3 F 11/11/20 06:57 Pulse 77 11/11/20 11:25 Resp 17 11/11/20 06:57 BP 161/80 11/11/20 06:57 Pulse Ox 94 L 11/11/20 06:57 Intake & Output 11/10/20 11/11/20 11/11/20 18:59 06:59 18:59 Output Total 250 Balance -250 Output: Gastric Drainage 250 Other: Voiding Method Diaper Diaper Incontinent Incontinent # Voids 3 - Exam GENERAL EXAM: Drowsy, pleasant, less confused, oriented 1, not agitated 70-year-old white female, and on 11 liters of oxygen, answering simple questions, appears to be in no acute distress HEAD: Normocephalic/atraumatic. EYES: Normal reaction of pupils, equal size. Conjunctiva pink, sclera white. NOSE: Clear with pink turbinates. NG tube in place to low intermittent suction THROAT: No erythema or exudates. NECK: No masses, no JVD, no thyroid enlargement, no adenopathy. CHEST: No chest wall deformity. Symmetrical expansion. LUNGS: Equal air entry with diminished breath sounds at the bases, no crackles, no wheezes CVS: Regular rate and rhythm, normal S1 and S2, no gallops, no murmurs, no rubs ABDOMEN: Soft, nontender. No hepatosplenomegaly, normal bowel sounds, no guarding or rigidity. EXTREMITIES: No clubbing, no edema, no cyanosis, 2+ pulses and upper and lower extremities. MUSCULOSKELETAL: Muscle strength and tone normal. SPINE: No scoliosis or deformity SKIN: No rashes CENTRAL NERVOUS SYSTEM: Drowsy, but arousable to verbal stimulation. No focal deficits, tone is normal in all 4 extremities. - Labs CBC & Chem 7: 11/10/20 07:34 11/11/20 06:23 Labs: Abnormal Lab Results - Last 24 Hours (Table) 11/10/20 11/10/20 11/10/20 Range/Units 13:35 17:20 20:56 Carbon Dioxide (22-30) mmol/L Creatinine (0.52-1.04) mg/dL Glucose (74-99) mg/dL POC Glucose (mg/dL) 171 H 117 H 130 H (75-99) mg/dL Magnesium (1.6-2.3) mg/dL 11/11/20 11/11/20 11/11/20 Range/Units 02:20 06:23 06:23 Carbon Dioxide 36 H (22-30) mmol/L Creatinine 0.40 L (0.52-1.04) mg/dL Glucose 213 H (74-99) mg/dL POC Glucose (mg/dL) 156 H (75-99) mg/dL Magnesium 2.4 H (1.6-2.3) mg/dL 11/11/20 11/11/20 Range/Units 06:39 11:42 Carbon Dioxide (22-30) mmol/L Creatinine (0.52-1.04) mg/dL Glucose (74-99) mg/dL POC Glucose (mg/dL) 208 H 281 H (75-99) mg/dL Magnesium (1.6-2.3) mg/dL Assessment and Plan Plan: Assessment: #1. Acute hypoxic respiratory failure related to possibility of aspiration pneumonia, COVID 19 has been ruled out #2. Chronic hypercapnic respiratory failure with the possibility of obesity hypoventilation syndrome, and overall generalized medical debility #3. Ileus versus small bowel obstruction, patient has NG tube in place to low intermittent suction, surgical services are following #4. Altered mental status, related to pneumonia #5. History of CVA/TIA with expressive aphasia and right-sided weakness #6. History of seizure disorder #7. Diabetes mellitus type 2 #8. GERD/reflux #9. Hypertension #10. History of myocardial infarction #11. Hypothyroidism #12. Hyperlipidemia #13. Schizophrenia #14. Resident of a detention facility #15. Hypernatremia, related to nothing by mouth status, small bowel obstruction versus ileus, and free water deficit, as well as diuretic therapy, improved #16. Altered mental status, metabolic encephalopathy Plan: Decrease IV fluids down to 50 ML per hour, maintain aspiration precautions, continue with Zosyn, today's chest x-ray was noted encourage deep breathing and coughing, encourage incentive spirometry use, avoid oversedation with narcotics and benzodiazepines. Maintaining safety precautions. CT of the abdomen and pelvis pending for this afternoon, surgery managing the NG tube. BiPAP support as needed for respiratory fatigue. I performed a history & physical examination of the patient and discussed their management with my nurse practitioner, Estefani Amor. I reviewed the nurse practitioner's note and agree with the documented findings and plan of care. Lung sounds are positive for diminished breath sounds. The findings and the impression was discussed with the patient. I attest to the documentation by the nurse practitioner. Time with Patient: Less than 30
[2020-11-11] MEDS ORDERED: METOCLOPRAMIDE 5 MG/ML 2 ML VIAL IVP PRN (14:36)
--- NOTE | 2020-11-11 15:53 | CT ---
EXAMINATION TYPE: CT abdomen pelvis wo con DATE OF EXAM: 11/11/2020 COMPARISON: 11/04/2020 HISTORY: 70-year-old female Abdominal distention. CT DLP: 1677.4 mGycm. Automated exposure control for dose reduction was used. TECHNIQUE: Contiguous axial scanning of the abdomen and pelvis without IV contrast. Coronal and sagit jermaine reconstructions performed. FINDINGS: Heart mildly enlarged without pericardial effusion. There are small bilateral pleural effusions with prominent atelectasis and consolidation in the lower lungs. An NG tube has been placed with pronounced decompression of the stomach now. Oral contrast is present within the stomach and extends to the mid small bowel level. Suspect old oral contrast material now within the left side of the colon and rectum. Noncontrast appearance of the liver, adrenal glands, kidneys and spleen show no gross abnormality. Redemonstrated 2.6 cm cystic lesion of the pancreatic body which will need to be reassessed at follow -up as recommended previously. No dilated small bowel, free fluid, or free air. No mesenteric or retroperitoneal lymphadenopathy see n. No significant stool burden. Redemonstrated right lower quadrant ventral abdominal wall hernia containing nonobstructed small martha l loops. The hernia sac measures 11.0 cm craniocaudal and 8.8 cm wide, similar compared to 11/04/2020 but now shows some mass effect onto the anterior abdominal wall with concave margin, refer to axial image 83 for example. IMPRESSION: The abdominal wall defect itself is narrow at 1.7 cm wide. Bladder distended. Uterus anteverted with a 2.4 cm cyst of the left ovary redemonstrated. Right ovary appears normal. Presacral edema but improvement in the previous rectal dilatation and wall thickenin g. No pelvic lymphadenopathy seen. Bones: Advanced degenerative change at the left greater than right hips. Facet arthropathy mid to low er lumbar spine. Redemonstrated T8 vertebroplasty and T9 vertebral compression collapse with focal ky phosis at this level and moderate spinal canal stenosis from retropulsion. IMPRESSION: 1. Placement of NG tube with significant interval decompression of the stomach and duodenum. Oral co ntrast extends to the mid small bowel level. The previous oral contrast has made its way to the left side of the colon. No evidence for bowel obstruction. 2. Redemonstrated 11.0 x 8.8 cm right lower quadrant ventral abdominal wall hernia containing nonobs tructed small bowel loops. The hernia now show some mass effect on to the anterior abdominal wall wit h a concave margin. Findings may be seen in the setting of hernia incarceration. No inflammatory rankin ges to suggest strangulation. 3. Small bilateral pleural effusions. Continued prominent consolidation within the dependent portion of the lower lungs. Correlate to exclude underlying pneumonia. 4. The previous rectal stool and rectal distention has improved. 5. Appropriate follow-up for the cystic pancreatic and left ovarian lesions as mentioned previously.
--- NOTE | 2020-11-11 16:08 | PN ---
PROGRESS NOTE DATE OF SERVICE: 11/11/2020 INTERVAL HISTORY: This is a 70-year-old woman who was admitted with acute right lower lobe pneumonia, possibly aspiration in nature, also significant GI problems. Also the patient had persistent NG tube. The patient is confused. Patient apparently pulled out the PICC line yesterday through which the TPN was given. A new PICC line is being planned to be inserted today. The most recent chest x-ray done today which is reviewed personally by me showed evidence of bilateral pneumonia, right more than the left, and multiple consultants are following the patient. The patient is on broad-spectrum IV antibiotics. The cultures are negative so far. PAST MEDICAL HISTORY: Reviewed. REVIEW OF SYSTEMS: Could not be taken. The patient is confused. CURRENT MEDICATIONS: Are reviewed include DuoNeb, Clozaril, dextrose, TPN, heparin, Levemir, Keppra, Synthroid, Ativan. Doses reviewed. PHYSICAL EXAM: GENERAL: Patient is alert and oriented times one. VITAL SIGNS: Pulse 71, blood pressure 161/80, respirations 17, temperature 98.3, pulse ox 94% on 11 liters of oxygen. HEENT: Conjunctivae normal. NECK: No jugular venous distention. No carotid bruits. No lymph node enlargement. RESPIRATORY: Breath sounds diminished at the bases. Bilateral scattered rhonchi and crackles. HEART: S1 and S2, muffled. ABDOMEN: Soft, no tenderness. No masses palpable. EXTREMITIES: No edema, no swelling. NG tube. LAB STUDIES: Sodium 143, potassium 3.7, glucose 281. ASSESSMENT: 1. Acute right lower lobe pneumonia possibly aspiration pneumonia with sepsis and acute hypoxic respiratory failure, present on admission. 2. Change in mental status secondary to acute metabolic encephalopathy secondary to sepsis and multifactorial. COVID-19 test is negative. 3. Gastric recent and duodenal ileus with complete bowel obstruction unlikely. 4. NG tube on conservative line of management. 5. On TPN. 6. History of cerebrovascular accident, transient ischemic attack. 7. Diabetes mellitus type 2. 8. Gastroesophageal reflux disease. 9. Hypertension. 10.Hyperlipidemia. 11.History of cholelithiasis. 12.History of seizure disorder. 13.History of pancreatic mass possibly apparently. 14.History of bilateral stasis dermatitis. 15.History of hyponatremia. 16.Anemia. 17.History of urinary tract infection .. 18.History of schizophrenia. 19.Obesity with body mass index of 51.2. 20.NO CODE, NO CPR, NO VENT. RECOMMENDATIONS AND DISCUSSION: I recommend to continue current management. Continue symptomatic treatment. Continue broad spectrum IV antibiotics. Chest x-ray showed improvement, but however the patient is still on NG tube and the family, as mentioned earlier, does not want any extensive treatment. Currently patient is NO CODE. Continue with TPN. The prognosis is extremely guarded because of multiple complex medical issues. Further recommendations to follow. MMODL / IJN: [id number] /
[2020-11-11] MEDS: MVI IV SCH ×6 (16:17)
[2020-11-11] MEDS: [UNRECOGNIZED DRUG - OTHER] IV SCH ×6 (16:17)
[2020-11-11] MEDS: CALCIUM GLUCONATE IV SCH ×12 (16:17)
[2020-11-11] MEDS: [UNRECOGNIZED DRUG - OTHER] IV SCH ×6 (16:17)
[2020-11-11] MEDS: POTASSIUM PHOSPHATE IV SCH ×12 (16:17)
[2020-11-11] MEDS: MAGNESIUM SULFATE IV SCH ×12 (16:17)
[2020-11-11 16:51] LABS: Glucose,Whole Blood 295 mg/dL (75-99)
[2020-11-11 21:16] LABS: Glucose,Whole Blood 260 mg/dL (75-99)
[2020-11-11] MEDS: BENZTROPINE MESYLATE 1 MG TAB PO SCH (21:22)
[2020-11-11] MEDS: cloZAPine 100 MG TAB PO SCH (21:22)
[2020-11-11] MEDS: METOPROLOL SUCCINATE (ER) 25 MG TAB.ER.24H PO SCH (21:23)
[2020-11-11] MEDS: risperiDONE 1 MG TAB PO SCH (21:24)
--- NOTE | 2020-11-11 23:11 | PN ---
PROGRESS NOTE DATE OF SERVICE: 11/11/2020 REASON FOR FOLLOWUP: Aspiration pneumonia. INTERVAL HISTORY: Patient is currently afebrile. The patient remains confused. No agitation has been noticed. No vomiting or diarrhea reported. The patient herself was not able to provide any history. PHYSICAL EXAMINATION: Blood pressure 109/62 with a pulse of 74, temperature 97.8. She is 92% on 2 L nasal cannula. General description is an elderly female lying in bed in no distress. Respiratory system: Unlabored breathing, decreased breath sounds in the base, with no wheeze. Heart S1, S2. Regular rate and rhythm. Abdomen soft. No tenderness. LABS: BUN of 14 and creatinine 0.40. DIAGNOSTIC IMPRESSION AND PLAN: Patient with a component of aspiration pneumonia in this patient who did have significant distention of the stomach. The patient at this time covered with Zosyn to continue and monitor clinical course closely. Continue supportive care. MMODL / IJN: [id number] /
[2020-11-12 02:47] LABS: Glucose,Whole Blood 200 mg/dL (75-99)
[2020-11-12] MEDS: CALCIUM GLUCONATE IV SCH ×6 (03:39)
[2020-11-12] MEDS: [UNRECOGNIZED DRUG - OTHER] IV SCH ×6 (03:39)
[2020-11-12] MEDS: POTASSIUM PHOSPHATE IV SCH ×6 (03:39)
[2020-11-12] MEDS: MAGNESIUM SULFATE IV SCH ×6 (03:39)
[2020-11-12] MEDS: LEVOTHYROXINE 75 MCG TAB PO SCH (05:53)
[2020-11-12 07:10] LABS: Glucose,Whole Blood 157 mg/dL (75-99)
[2020-11-12] MEDS: PIPERACILLIN-TAZOBACTAM 3.375 GM in SODIUM CHLORIDE 0.9% 100 ML IVPB SCH ×3 (07:12→23:09)
[2020-11-12] MEDS: POTASSIUM CHLORIDE ER 10 MEQ TAB.ER.PRT PO SCH ×2 (07:14→20:56)
[2020-11-12] MEDS: LOSARTAN 25 MG TAB PO SCH (07:14)
[2020-11-12] MEDS: levETIRAcetam 500 MG TAB PO SCH (07:15)
[2020-11-12] MEDS: GABAPENTIN 300 MG CAP PO SCH ×3 (07:15→20:55)
[2020-11-12] MEDS: HEPARIN SODIUM,PORCINE 5,000 UNIT/ML 1 ML VIAL SQ SCH ×2 (07:15→20:54)
[2020-11-12] MEDS: NYSTATIN 100,000 UNIT/GM POWD 15 GM TOPICAL SCH ×2 (07:16→20:56)
[2020-11-12] MEDS: methylPREDNISolone SOD SUCCI 40 MG/ML 1 ML VIAL IV SCH (07:16)
[2020-11-12] MEDS: NYSTATIN 100,000UNIT/GM CREAM 30 GM TUBE TOPICAL SCH ×3 (07:16→20:57)
[2020-11-12] MEDS: PANTOPRAZOLE 40 MG/10 ML VIAL IVP SCH ×2 (07:16→20:54)
[2020-11-12] MEDS: INSULIN ASPART (NovoLOG) 100 UNIT/ML VIAL SQ SCH ×4 (07:18→20:55)
[2020-11-12] MEDS: IPRATROPIUM-ALBUTEROL 3 ML NEB INHALATION SCH ×3 (07:42→19:14)
[2020-11-12] MEDS: DEXTROSE 5% IN WATER 1,000 ML IV SCH (08:10)
[2020-11-12] MEDS ORDERED: LIDOCAINE 1% INJ 10MG/ML (20 ML MDV) SQ ONE (08:57)
[2020-11-12] MEDS ORDERED: IV FLUID CONTINUATION 1,000 ML IV ONE (09:00)
--- NOTE | 2020-11-12 09:32 | IR ---
PICC LINE PLACEMENT: HISTORY: TPN PROCEDURE: Ultrasound and fluoroscopic guidance of PICC line placement. COMPLICATIONS: None ANESTHESIA: 1. 1% Lidocaine locally. FINDINGS/TECHNIQUE: The procedure was explained to the patient. The risks, complications, benefits and alternatives were discussed and any questions were answered. Informed consent was obtained. The patient was placed supine on the fluoroscopic table and prepped and draped in the usual sterile fash ion. Utilizing a 21 gauge needle and sonographic and fluoroscopic guidance, access in the left ceph alic vein was achieved and there is placement of a 0.018 guidewire. The vein is patent. A 4-F sheat h was placed over the guidewire. The guidewire and dilator were removed and a 4-F. PICC line was ashok rohan through the sheath with the tip at the level of the SVC. The sheath was removed, the catheter wa s flushed and sutured into position. The patient was stable throughout the procedure and remained st able upon discharge from the Department of Radiology. The vein puncture was patent under ultrasound. A banks scale image was obtained to document patency of the vein punctured. All elements of the maximal barrier technique were utilized. FLUOROSCOPY TIME: 0.1 minutes and one image submitted IMPRESSION: Successful PICC line placement under ultrasound and fluoroscopic guidance.
[2020-11-12] MEDS ORDERED: MAGNESIUM SULFATE IV ONE ×6 (10:00)
[2020-11-12] MEDS ORDERED: [UNRECOGNIZED DRUG - OTHER] IV ONE ×6 (10:00)
[2020-11-12] MEDS ORDERED: MVI IV ONE ×6 (10:00)
[2020-11-12] MEDS ORDERED: CALCIUM GLUCONATE IV ONE ×6 (10:00)
[2020-11-12] MEDS ORDERED: POTASSIUM PHOSPHATE IV ONE ×6 (10:00)
[2020-11-12 10:10] LABS: African American GFR (CKD) 115.3 (60.0-200.0); Anion Gap 6.1 mmol/L (4.00-12.00); Calcium 8.3 mg/dL (8.7-10.3); Carbon Dioxide 37.9 mmol/L (21.6-31.8); Magnesium 2.1 mg/dL (1.5-2.4); Non-African American GFR(CKD) 99.4 (60.0-200.0); Phosphorus 3.2 mg/dL (2.4-5.1)
[2020-11-12] MEDS: cloZAPine 100 MG TAB PO SCH ×2 (10:21→20:55)
--- NOTE | 2020-11-12 10:28 | P.PN ---
Subjective Progress Note Date: 11/12/20 CHIEF COMPLAINT: Ileus versus small bowel obstruction HISTORY OF PRESENT ILLNESS: Patient is being followed for ileus versus small bowel obstruction. Patient denies any abdominal pain. Patient denies any flatus or BM. Patient has had 300ml greenish fluid through her NG tube for the past 24 hours. Computed tomography scan of abdomen and pelvis shows placement of NG tube with significant interval decompression of stomach and duodenum. Oral contrast extends to the mid small bowel level. The previous oral contraceptive estimated weight left side of the colon. No evidence of bowel obstruction. Redemonstrated Leven by 8.8 cm right lower quadrant ventral abdominal wall hernia containing nonobstructed small bowel loops. The hernia now I'll shows some mass effect on the anterior abdominal wall with a concave margin. Findings may be seen in the setting of hernia incarceration. No inflammatory change to suggest strangulation. The previous rectal stool in rectal distention has improved. Patient has bedside sitter. Patient also being treated for aspiration pneumonia. Hypernatremia resolved. Patient did get her PICC line placed today. And she is scheduled to start her TPN. Afebrile PHYSICAL EXAM: VITAL SIGNS: Reviewed. GENERAL: Well-developed in no acute distress. HEENT: No sclera icterus. Extraocular movements grossly intact. Moist buccal mucosa. Head is atraumatic, normocephalic. ABDOMEN: Soft. Obese. distended. Nontender. Evidence of incisional hernia on the right side of the abdomen NEUROLOGIC: Pleasantly confused and at baseline ASSESSMENT: 1. Ileus versus small bowel obstruction with no further evidence of small bowel obstruction or ileus on repeat computed tomography scan 2. Incarcerated incisional hernia PLAN: -Patient is scheduled for repair of incarcerated incisional hernia on 11/15/[address] Sosa -Patient has PICC line and is scheduled to start TPN today -Continue NG tube for decompression -Keep patient nothing by mouth except medications -GI prophylaxis Protonix and DVT prophylaxis subcu heparin Physician Buttonhole Marker note has been reviewed by physician. Signing provider agrees with the documented findings, assessment, and plan of care. Objective - Vital Signs Vital signs: Vital Signs Temp 98.4 F 11/12/20 06:00 Pulse 77 11/12/20 07:54 Resp 16 11/12/20 08:00 BP 106/62 01/08/21 06:00 Pulse Ox 91 L 11/12/20 07:42 Intake & Output 11/11/20 11/12/20 11/12/20 18:59 06:59 18:59 Intake Total 400 25 Output Total 300 Balance 400 -300 25 Intake: IV 25 Intake, IV Titration 400 Amount Dextrose 5% in Water 1, 400 000 ml @ 50 mls/hr IV . Q20H [facility] Rx#:[id number] Output: Gastric Drainage 300 Other: Voiding Method Diaper Diaper Incontinent Incontinent - Labs CBC & Chem 7: 11/10/20 07:34 11/12/20 06:22 Labs: Abnormal Lab Results - Last 24 Hours (Table) 11/11/20 11/11/20 11/11/20 Range/Units 11:42 16:47 21:14 Sodium (135-145) mmol/L Potassium (3.5-5.5) mmol/L Carbon Dioxide (21.6-31.8) mmol/L Creatinine (0.6-1.5) mg/dL Glucose (70-110) mg/dL POC Glucose (mg/dL) 281 H 295 H 260 H (75-99) mg/dL Calcium (8.7-10.3) mg/dL 11/12/20 11/12/20 11/12/20 Range/Units 02:44 06:22 07:08 Sodium 147 H (135-145) mmol/L Potassium 3.0 L (3.5-5.5) mmol/L Carbon Dioxide 37.9 H (21.6-31.8) mmol/L Creatinine 0.5 L (0.6-1.5) mg/dL Glucose 177 H (70-110) mg/dL POC Glucose (mg/dL) 200 H 157 H (75-99) mg/dL Calcium 8.3 L (8.7-10.3) mg/dL
[2020-11-12 11:35] LABS: Glucose,Whole Blood 148 mg/dL (75-99)
[2020-11-12] MEDS: POTASSIUM CHLORIDE 20 MEQ in WATER FOR INJECTION 1 100ML.BAG IVPB SCH ×2 (12:27→14:56)
[2020-11-12] MEDS: FAT EMULSION 20% 250 ML IV SCH (14:24)
[2020-11-12 16:41] LABS: Glucose,Whole Blood 192 mg/dL (75-99)
--- NOTE | 2020-11-12 18:00 | PN ---
PROGRESS NOTE REASON FOR FOLLOWUP: Aspiration pneumonia. INTERVAL HISTORY: The patient is currently afebrile. The patient is breathing comfortably. He seems to be slightly more awake and alert today. No chest pain. Occasional cough. No abdominal pain or diarrhea. PHYSICAL EXAMINATION: Blood pressure 106/52 with a pulse of 88, temperature 98.4. She is 92% on 8 L high- flow oxygen. General description is an elderly female lying in bed in no distress. Respiratory system: Unlabored breathing, decreased intensity in breath sounds. No wheeze. HEART: S1, S2. Regular rate and rhythm. ABDOMEN: Soft. No tenderness. LABS: BUN of 10, creatinine 0.50. DIAGNOSTIC IMPRESSION AND PLAN: Patient with aspiration pneumonia in this patient who did have significant abdominal distention, status post NG. The patient is currently covered with Zosyn to continue and monitor clinical course closely. MMODL / IJN: [id number] /
--- NOTE | 2020-11-12 19:06 | PN ---
PROGRESS NOTE DATE OF SERVICE: 11/12/2020 This 70-year-old woman who was admitted with acute right lower lobe pneumonia as well as aspiration pneumonia, sepsis, is being closely monitored. There is no significant GI problem. The patient is still on NG tube. PICC line has been pulled by patient. The PICC line insertion was done. Patient on broad spectrum IV antibiotics. Abdomen and pelvis CAT scan was also done yesterday which showed placement of NG tube. The previous contrast was made into the left side of the colon. No evidence of bowel obstruction was noted and significant decompression of stomach and duodenum was also noted. Abdominal wall hernia was noted. Small bilateral is also noted. Past medical history reviewed. REVIEW OF SYSTEM: Could not be taken, the patient is confused. CURRENT MEDICATIONS: Reviewed and include: DuoNeb, Cogentin, Clozaril, dextrose, lipids, TPN, Levemir and Keppra. Doses are reviewed. PHYSICAL EXAM: Patient is conscious, confused. Pulse 74, blood pressure 143/76, respirations 16, temperature 97.2, pulse ox 92% on 10 L high-flow nasal cannula. HEENT: Conjunctivae normal. Neck: No JVD. CARDIOVASCULAR: S1, S2 muffled. Respiration: Breath sounds diminished in the bases. A few scattered rhonchi and crackles. ABDOMEN: Soft. Nervous system: Diffusely weak. LABS: Sodium 147, potassium 3. Accu-Cheks noted. ASSESSMENT: 1. Acute right lower lobe pneumonia possibly aspiration pneumonia with sepsis and acute hypoxic respiratory failure present on admission. 2. Change in mental status secondary to acute metabolic encephalopathy secondary to sepsis and multifactorial. Covid 19 test is negative, ruled out. 3. Gastric and duodenal ileus with complete bowel obstruction unlikely. 4. On NG tube and conservative line of management. 5. On TPN and status post PICC line repeat. 6. History of cerebrovascular accident, transient ischemic attack. 7. Diabetes mellitus type 2. 8. Gastroesophageal reflux disease. 9. Hypertension. 10.Hyperlipidemia. 11.History of cholelithiasis. 12.History of seizure disorder. 13.History of pancreatic mass, possibly apparently previously. 14.History of bilateral stasis dermatitis. 15.History of hyponatremia. 16.Hypokalemia. 17.Anemia. 18.History urinary tract infection. 19.History of schizophrenia. 20.Obesity with body mass index of 51.2. 21. 22.NO CODE, NO CPR, NO VENT. RECOMMENDATIONS AND DISCUSSION: This 70-year-old woman who presented with multiple complex medical issues, we will monitor the patient closely, continue the current medications, Symptomatic treatment. Continue with NG tube. Continue with the broad-spectrum IV antibiotics. I would also recommend potassium supplementation. The patient is on D5 water drip at this time. Monitor sodium closely. Repeat labs. The patient is on IV steroids which is being reduced. Also cut down the dose of insulin also. Guarded prognosis. Further recommendations to follow. See orders for details. Please note, the family wants only conservative line of management at this time. The patient is NO CODE. MMODL / IJN: [id number] /
[2020-11-12 20:38] LABS: Glucose,Whole Blood 190 mg/dL (75-99)
[2020-11-12] MEDS: INSULIN DETEMIR (LEVEMIR) 100 UNIT/ML SYR SQ SCH (20:54)
[2020-11-12] MEDS: METOPROLOL SUCCINATE (ER) 25 MG TAB.ER.24H PO SCH (20:55)
[2020-11-12] MEDS: BENZTROPINE MESYLATE 1 MG TAB PO SCH (20:55)
[2020-11-12] MEDS: risperiDONE 1 MG TAB PO SCH (20:56)
[2020-11-13 02:15] LABS: Glucose,Whole Blood 211 mg/dL (75-99)
[2020-11-13] MEDS: DEXTROSE 5% IN WATER 1,000 ML IV SCH ×2 (04:24→23:16)
[2020-11-13] MEDS: LEVOTHYROXINE 75 MCG TAB PO SCH (05:43)
[2020-11-13 05:54] LABS: Basophils % (A) 0 %; Eosinophils % (A) 0 %; HCT 39.8 % (34.0-46.0); HGB 12.9 gm/dL (11.4-16.0); Lymphocytes # (A) 0.9 k/uL (1.0-4.8); Lymphocytes % (A) 8 %; MCH 29.2 pg (25.0-35.0); MCHC 32.6 g/dL (31.0-37.0); MCV 89.8 fL (80.0-100.0); Mean Platelet Volume 7.3; Monocytes # (A) 0.8 k/uL (0-1.0); Monocytes % (A) 7 %; Neutrophils # (A) 9.1 k/uL (1.3-7.7); Neutrophils % (A) 83 %; Platelet Count 200 k/uL (150-450); RBC 4.43 m/uL (3.80-5.40); RDW 14.3 % (11.5-15.5); WBC 10.9 k/uL (3.8-10.6)
[2020-11-13] MEDS: IPRATROPIUM-ALBUTEROL 3 ML NEB INHALATION SCH ×4 (07:00→20:42)
[2020-11-13 07:10] LABS: Glucose,Whole Blood 247 mg/dL (75-99)
[2020-11-13] MEDS: PIPERACILLIN-TAZOBACTAM 3.375 GM in SODIUM CHLORIDE 0.9% 100 ML IVPB SCH ×3 (07:29→23:01)
[2020-11-13] MEDS: INSULIN ASPART (NovoLOG) 100 UNIT/ML VIAL SQ SCH ×4 (07:30→20:58)
[2020-11-13] MEDS: HEPARIN SODIUM,PORCINE 5,000 UNIT/ML 1 ML VIAL SQ SCH ×2 (07:31→20:58)
[2020-11-13] MEDS: GABAPENTIN 300 MG CAP PO SCH ×3 (07:31→20:59)
[2020-11-13] MEDS: LOSARTAN 25 MG TAB PO SCH (07:31)
[2020-11-13] MEDS: POTASSIUM CHLORIDE ER 10 MEQ TAB.ER.PRT PO SCH ×2 (07:31→20:59)
[2020-11-13] MEDS: levETIRAcetam 500 MG TAB PO SCH (07:32)
[2020-11-13] MEDS: cloZAPine 100 MG TAB PO SCH ×2 (07:32→20:59)
[2020-11-13] MEDS: NYSTATIN 100,000UNIT/GM CREAM 30 GM TUBE TOPICAL SCH ×3 (07:33→20:59)
[2020-11-13] MEDS: PANTOPRAZOLE 40 MG/10 ML VIAL IVP SCH ×2 (07:33→20:58)
[2020-11-13] MEDS: methylPREDNISolone SOD SUCCI 40 MG/ML 1 ML VIAL IV SCH (07:33)
[2020-11-13] MEDS: NYSTATIN 100,000 UNIT/GM POWD 15 GM TOPICAL SCH ×2 (07:33→20:59)
[2020-11-13 10:15] LABS: African American GFR (CKD) 115.3 (60.0-200.0); Anion Gap 3.9 mmol/L (4.00-12.00); Calcium 8.2 mg/dL (8.7-10.3); Carbon Dioxide 38.1 mmol/L (21.6-31.8); Magnesium 2.2 mg/dL (1.5-2.4); Non-African American GFR(CKD) 99.4 (60.0-200.0); Phosphorus 3.9 mg/dL (2.4-5.1); Potassium 3.5 mmol/L (3.5-5.5)
[2020-11-13 11:24] LABS: Glucose,Whole Blood 211 mg/dL (75-99)
--- NOTE | 2020-11-13 11:43 | P.PN ---
Progress Note - Text Progress Note Date: 11/13/20 The patient is resting in bed. She is less confused today. On exam her vital signs are stable. Abdomen soft. Ileus. Patient is scheduled for repair of incisional/ventral hernia on Sunday. She'll continue receive nothing by mouth with NG tube
[2020-11-13] MEDS: MAGNESIUM SULFATE IV SCH ×6 (12:06)
[2020-11-13] MEDS: [UNRECOGNIZED DRUG - OTHER] IV SCH ×6 (12:06)
[2020-11-13] MEDS: POTASSIUM PHOSPHATE IV SCH ×6 (12:06)
[2020-11-13] MEDS: CALCIUM GLUCONATE IV SCH ×6 (12:06)
[2020-11-13 16:49] LABS: Glucose,Whole Blood 239 mg/dL (75-99)
--- NOTE | 2020-11-13 17:25 | PN ---
PROGRESS NOTE DATE OF SERVICE: 11/13/2020 REASON FOR FOLLOWUP: Aspiration pneumonia. INTERVAL HISTORY: The patient is currently afebrile. The patient is breathing comfortably. Still has the NG in. No vomiting, diarrhea or any other changes reported by the nursing staff. The patient herself is not a very good historian. PHYSICAL EXAMINATION: Blood pressure 144/70 with a pulse of 71, temperature 98.7. She is 95% on 7 L nasal cannula. General description is an elderly female lying in bed in no distress. RESPIRATORY SYSTEM: Unlabored breathing with decreased breath sounds at the base. No wheeze. HEART: S1, S2. Regular rate and rhythm. ABDOMEN: Soft. No tenderness. LABS: Hemoglobin is 12.9, white count 10.9, BUN of 13, creatinine 0.5. DIAGNOSTIC IMPRESSION AND PLAN: Patient with a component of aspiration pneumonia in this patient who did have significant epigastric distention, possible obstruction. Surgery is following the patient. Currently on TPN and Zosyn; to continue. Monitor clinical course closely. MMODL / IJN: [id number] /
[2020-11-13 20:27] LABS: Glucose,Whole Blood 189 mg/dL (75-99)
[2020-11-13] MEDS: risperiDONE 1 MG TAB PO SCH (20:58)
[2020-11-13] MEDS: BENZTROPINE MESYLATE 1 MG TAB PO SCH (20:58)
[2020-11-13] MEDS: INSULIN DETEMIR (LEVEMIR) 100 UNIT/ML SYR SQ SCH (20:58)
[2020-11-13] MEDS: METOPROLOL SUCCINATE (ER) 25 MG TAB.ER.24H PO SCH (20:58)
--- NOTE | 2020-11-13 21:52 | P.PN ---
Subjective Progress Note Date: 11/13/20 Principal diagnosis: Sepsis Ms. Anna is a 70-year-old female with a past medical history of CVA/TIA, expressive aphasia, seizure disorder, diabetes mellitus, GERD, hypertension, hypothyroidism, hyperlipidemia, she is off uremia who is a resident of [facility] brought in for altered mental status changes and hypoxia. She has been treated for aspiration pneumonia. Patient also has issues with aspiration so she is on NG tube. Patient had a CAT scan of the abdomen and pelvis showing no evidence of bowel obstruction but there was right lower quadrant ventral abdominal wall hernia containing nonobstructed small bowel loops. She was also having bilateral small pleural effusions. On 11/13/2020 -patient is lying in bed appears to be confused. Sitter at bedside. As per nursing staff report patient has been pulling her NG tube. Review of systems could not be done as the patient is confused on reviewing the vitals patient had a temperature of 98.2, heart rate 72 respiratory 20, blood pressure 153/81 saturating at 95% on 7 L of high flow nasal cannula. On reviewing the labs patient had a white count of 10.9, hemoglobin 12.9, platelets 200, sodium 147, potassium 3.5, chloride 105, bicarb 38. BUN is 13 and creatinine is 0.5. Active Medications Albuterol/Ipratropium (Ipratropium-Albuterol 3 Ml Neb) 3 ml INHALATION RT-TID PRN PRN Reason: Shortness Of Breath Or Wheezing Albuterol/Ipratropium (Ipratropium-Albuterol 3 Ml Neb) 3 ml INHALATION RT-TID [facility] Last Admin: 11/13/20 20:42 Dose: 3 ml Documented by: Benztropine Mesylate (Benztropine Mesylate 1 Mg Tab) 1 mg PO [facility] Last Admin: 11/13/20 20:58 Dose: 1 mg Documented by: Clozapine (Clozapine 100 Mg Tab) 200 mg PO [facility] Stop: 11/17/20 23:00 Last Admin: 11/13/20 20:59 Dose: 200 mg Documented by: Clozapine (Clozapine 100 Mg Tab) 100 mg PO DAILY [facility] Stop: 11/17/20 10:01 Last Admin: 11/13/20 07:32 Dose: 100 mg Documented by: Gabapentin (Gabapentin 300 Mg Cap) 300 mg PO TID [facility] Last Admin: 11/13/20 20:59 Dose: 300 mg Documented by: Heparin Sodium (Porcine) (Heparin Sodium,Porcine 5,000 Unit/Ml 1 Ml Vial) 5,000 unit SQ Q12HR [facility] Last Admin: 11/13/20 20:58 Dose: 5,000 unit Documented by: Piperacillin Sod/Tazobactam (Sod 3.375 gm/ Sodium Chloride) 100 mls @ 25 mls/hr IVPB Q8HR [facility] Last Admin: 11/13/20 16:03 Dose: 25 mls/hr Documented by: Dextrose/Water (Dextrose 5%-Water Iv Soln) 1,000 mls @ 50 mls/hr IV .Q20H [facility] Last Admin: 11/13/20 04:24 Dose: Not Given Documented by: Fat Emulsion Intravenous (Lipids 20%) 250 mls @ 20.833 mls/hr IV MoWeFr [facility] Last Admin: 11/12/20 14:24 Dose: 20.833 mls/hr Documented by: Potassium Phosphate 30 mmol/Magnesium Sulfate 1 gm/Calcium Gluconate 1 gm/ Amino Acids/Dextrose 1,022 mls @ 65 mls/hr IV .BY DURATION [facility] Last Admin: 11/13/20 12:06 Dose: 65 mls/hr Documented by: Potassium Phosphate 30 mmol/Magnesium Sulfate 1 gm/Calcium Gluconate 1 gm/Parenteral Vitamin Supplement 10 ml/ Chromium/Copper/Manganese/Seleni/Zn 1 ml/Amino Acids/Dextrose 1,033 mls @ 65 mls/hr IV .BY DURATION [facility] Insulin Aspart (Insulin Aspart (Novolog) 100 Unit/Ml Vial) 0 unit SQ ACHS [facility]; Protocol Last Admin: 11/13/20 20:58 Dose: 3 unit Documented by: Insulin Detemir (Insulin Detemir (Levemir) 100 Unit/Ml Syr) 20 unit SQ HS [facility] Last Admin: 11/13/20 20:58 Dose: 20 unit Documented by: Levetiracetam (Levetiracetam 500 Mg Tab) 500 mg PO DAILY [facility] Last Admin: 11/13/20 07:32 Dose: 500 mg Documented by: Levothyroxine Sodium (Levothyroxine 75 Mcg Tab) 150 mcg PO DAILY@0630 [facility] Last Admin: 11/13/20 05:43 Dose: Not Given Documented by: Lorazepam (Lorazepam 2 Mg/Ml Inj) 1 mg IV Q6HR PRN PRN Reason: Anxiety/agitation/restlessness Losartan Potassium (Losartan 25 Mg Tab) 12.5 mg PO DAILY [facility] Last Admin: 11/13/20 07:31 Dose: 12.5 mg Documented by: Methylprednisolone Sodium Succinate (Methylprednisolone Sod Succi 40 Mg/Ml 1 Ml Vial) 40 mg IV DAILY [facility] Last Admin: 11/13/20 07:33 Dose: 40 mg Documented by: Metoclopramide HCl (Metoclopramide 5 Mg/Ml 2 Ml Vial) 10 mg IVP Q6HR PRN PRN Reason: Nausea Metoprolol Succinate (Metoprolol Succinate (Er) 25 Mg Tab.Er.24h) 25 mg PO [facility] Last Admin: 11/13/20 20:58 Dose: 25 mg Documented by: Miscellaneous Information (Pneumonia Protocol Utilized 1 Each Mis) 1 each PO ONCE PRN PRN Reason: Per Protocol Miscellaneous Information (Potassium Replacement Protocol 1 Each Mis) 1 each MISCELLANE DAILY PRN; Protocol PRN Reason: Per Protocol Nystatin (Nystatin 100,000 Unit/Gm Powd 15 Gm) 1 applic TOPICAL BID [facility] Last Admin: 11/13/20 20:59 Dose: 1 applic Documented by: Nystatin (Nystatin 100,000unit/Gm Cream 30 Gm Tube) 1 applic TOPICAL TID [facility] Last Admin: 11/13/20 20:59 Dose: 1 applic Documented by: Ondansetron HCl (Ondansetron 4 Mg/2 Ml Vial) 4 mg IVP Q6HR PRN PRN Reason: Nausea And Vomiting Last Admin: 11/04/20 07:27 Dose: 4 mg Documented by: Pantoprazole Sodium (Pantoprazole 40 Mg/10 Ml Vial) 40 mg IVP BID [facility] Last Admin: 11/13/20 20:58 Dose: 40 mg Documented by: Potassium Chloride (Potassium Chloride Er 10 Meq Tab.Er.Prt) 10 meq PO BID [facility] Last Admin: 11/13/20 20:59 Dose: 10 meq Documented by: Risperidone (Risperidone 1 Mg Tab) 1 mg PO [facility] Last Admin: 11/13/20 20:58 Dose: 1 mg Documented by: Objective - Vital Signs Vital signs: Vital Signs Temp 98.7 F 11/13/20 15:16 Pulse 71 11/13/20 15:16 Resp 18 11/13/20 15:16 BP 144/70 11/13/20 15:16 Pulse Ox 95 11/13/20 15:16 Intake & Output 11/12/20 11/13/20 11/13/20 18:59 06:59 18:59 Intake Total 25 Output Total 300 Balance -275 Weight 115.212 kg Intake: IV 25 Output: Gastric Drainage 300 Other: Voiding Method Diaper Bedpan Bedpan Incontinent Diaper Diaper Incontinent Incontinent # Voids 2 - Exam PHYSICAL EXAMINATION: GENERAL: Awake but confused and trying to pull her IV line and NG tube HEENT: Conjunctiva normal, NG tube in place with dark green-colored secretions Neck: No JVD Cardiovascular: S1-S2 muffled Respiratory: Breath sounds diminished at the bases with few rhonchi and crackles Abdomen: Soft nontender CHECK CASHIER: Diffuse weakness Extremities: No edema - Labs CBC & Chem 7: 11/13/20 05:35 11/13/20 05:35 Labs: Abnormal Lab Results - Last 24 Hours (Table) 11/12/20 11/12/20 11/13/20 Range/Units 16:38 20:37 02:13 WBC (3.8-10.6) k/uL Neutrophils # (1.3-7.7) k/uL Lymphocytes # (1.0-4.8) k/uL Sodium (135-145) mmol/L Carbon Dioxide (21.6-31.8) mmol/L Anion Gap (4.00-12.00) mmol/L Creatinine (0.6-1.5) mg/dL BUN/Creatinine Ratio (12.00-20.00) Ratio Glucose (70-110) mg/dL POC Glucose (mg/dL) 192 H 190 H 211 H (75-99) mg/dL Calcium (8.7-10.3) mg/dL 11/13/20 11/13/20 11/13/20 Range/Units 05:35 05:35 07:09 WBC 10.9 H (3.8-10.6) k/uL Neutrophils # 9.1 H (1.3-7.7) k/uL Lymphocytes # 0.9 L (1.0-4.8) k/uL Sodium 147 H (135-145) mmol/L Carbon Dioxide 38.1 H (21.6-31.8) mmol/L Anion Gap 3.90 L (4.00-12.00) mmol/L Creatinine 0.5 L (0.6-1.5) mg/dL BUN/Creatinine Ratio 26.00 H (12.00-20.00) Ratio Glucose 212 H (70-110) mg/dL POC Glucose (mg/dL) 247 H (75-99) mg/dL Calcium 8.2 L (8.7-10.3) mg/dL 11/13/20 Range/Units 11:21 WBC (3.8-10.6) k/uL Neutrophils # (1.3-7.7) k/uL Lymphocytes # (1.0-4.8) k/uL Sodium (135-145) mmol/L Carbon Dioxide (21.6-31.8) mmol/L Anion Gap (4.00-12.00) mmol/L Creatinine (0.6-1.5) mg/dL BUN/Creatinine Ratio (12.00-20.00) Ratio Glucose (70-110) mg/dL POC Glucose (mg/dL) 211 H (75-99) mg/dL Calcium (8.7-10.3) mg/dL Assessment and Plan Assessment: ASSESSMENT Sepsis secondary to acute right lower lobe pneumonia Acute hypoxic respiratory failure due to pneumonia Metabolic encephalopathy multifactorial Gastric and duodenal ileus Parenteral nutrition -on TPN History of CVA/TIA Type 2 diabetes mellitus GERD Hypertension Hyperlipidemia Morbid obesity with BMI 51.2 Seizure disorder Hypokalemia Hyponatremia Bilateral stasis dermatitis History of pancreatic mass No code PLAN: Patient has multiple chronic medical issues, she is on broad-spectrum antibiotics as per ID recommendations. She is on TPN for nutritional support. Multiple consultants surgery, pulmonary, ID on board and following the patient closely. Overall prognosis is poor. Currently family wants conservative plan of management. Patient is a NO CODE.
[2020-11-14] MEDS: [UNRECOGNIZED DRUG - OTHER] IV SCH ×12 (00:55→18:32)
[2020-11-14] MEDS: MAGNESIUM SULFATE IV SCH ×12 (00:55→18:32)
[2020-11-14] MEDS: CALCIUM GLUCONATE IV SCH ×12 (00:55→18:32)
[2020-11-14] MEDS: POTASSIUM PHOSPHATE IV SCH ×12 (00:55→18:32)
[2020-11-14] MEDS: LEVOTHYROXINE 75 MCG TAB PO SCH (05:35)
[2020-11-14 06:27] LABS: Basophils % (A) 0 %; Eosinophils % (A) 0 %; HCT 38.5 % (34.0-46.0); HGB 12.9 gm/dL (11.4-16.0); Lymphocytes # (A) 0.7 k/uL (1.0-4.8); Lymphocytes % (A) 7 %; MCH 30.3 pg (25.0-35.0); MCHC 33.6 g/dL (31.0-37.0); MCV 90.1 fL (80.0-100.0); Mean Platelet Volume 7.5; Monocytes # (A) 0.6 k/uL (0-1.0); Monocytes % (A) 6 %; Neutrophils # (A) 9.8 k/uL (1.3-7.7); Neutrophils % (A) 87 %; Platelet Count 154 k/uL (150-450); RBC 4.27 m/uL (3.80-5.40); RDW 14.1 % (11.5-15.5); WBC 11.3 k/uL (3.8-10.6)
[2020-11-14 07:09] LABS: Glucose,Whole Blood 315 mg/dL (75-99)
[2020-11-14] MEDS: PIPERACILLIN-TAZOBACTAM 3.375 GM in SODIUM CHLORIDE 0.9% 100 ML IVPB SCH ×3 (07:39→23:00)
[2020-11-14] MEDS: INSULIN ASPART (NovoLOG) 100 UNIT/ML VIAL SQ SCH ×4 (07:39→20:50)
[2020-11-14] MEDS: levETIRAcetam 500 MG TAB PO SCH (07:40)
[2020-11-14] MEDS: cloZAPine 100 MG TAB PO SCH ×3 (07:40→21:31)
[2020-11-14] MEDS: POTASSIUM CHLORIDE ER 10 MEQ TAB.ER.PRT PO SCH ×3 (07:41→21:31)
[2020-11-14] MEDS: GABAPENTIN 300 MG CAP PO SCH ×4 (07:41→21:31)
[2020-11-14] MEDS: methylPREDNISolone SOD SUCCI 40 MG/ML 1 ML VIAL IV SCH (07:41)
[2020-11-14] MEDS: HEPARIN SODIUM,PORCINE 5,000 UNIT/ML 1 ML VIAL SQ SCH ×2 (07:41→20:51)
[2020-11-14] MEDS: NYSTATIN 100,000UNIT/GM CREAM 30 GM TUBE TOPICAL SCH ×3 (07:42→20:50)
[2020-11-14] MEDS: NYSTATIN 100,000 UNIT/GM POWD 15 GM TOPICAL SCH ×2 (07:42→20:50)
[2020-11-14] MEDS: LOSARTAN 25 MG TAB PO SCH (07:42)
[2020-11-14] MEDS: PANTOPRAZOLE 40 MG/10 ML VIAL IVP SCH ×2 (07:42→20:51)
[2020-11-14] MEDS: IPRATROPIUM-ALBUTEROL 3 ML NEB INHALATION SCH ×4 (07:45→18:54)
[2020-11-14 10:44] LABS: Magnesium 2.1 mg/dL (1.5-2.4); Phosphorus 3.4 mg/dL (2.4-5.1)
--- NOTE | 2020-11-14 11:00 | P.PN ---
Progress Note - Text Progress Note Date: 11/14/20 The patient's confusion slowly better. She still denies a significant bowel function. On exam vital signs are stable. Abdomen soft. There is no significant tenderness. Incarcerated incisional/ventral hernia. Patient will undergo repair tomorrow.
[2020-11-14 11:37] LABS: Glucose,Whole Blood 237 mg/dL (75-99)
[2020-11-14 12:31] LABS: African American GFR (CKD) 115.3 (60.0-200.0); Anion Gap 6.2 mmol/L (4.00-12.00); Calcium 8.1 mg/dL (8.7-10.3); Carbon Dioxide 35.8 mmol/L (21.6-31.8); Non-African American GFR(CKD) 99.4 (60.0-200.0)
[2020-11-14 16:52] LABS: Glucose,Whole Blood 206 mg/dL (75-99)
--- NOTE | 2020-11-14 18:46 | P.PN ---
Subjective Progress Note Date: 11/14/20 Principal diagnosis: Sepsis Ms. Anna is a 70-year-old female with a past medical history of CVA/TIA, expressive aphasia, seizure disorder, diabetes mellitus, GERD, hypertension, hypothyroidism, hyperlipidemia, she is off uremia who is a resident of [facility] brought in for altered mental status changes and hypoxia. She has been treated for aspiration pneumonia. Patient also has issues with aspiration so she is on NG tube. Patient had a CAT scan of the abdomen and pelvis showing no evidence of bowel obstruction but there was right lower quadrant ventral abdominal wall hernia containing nonobstructed small bowel loops. She was also having bilateral small pleural effusions. On 11/13/2020 -patient is lying in bed appears to be confused. Sitter at bedside. As per nursing staff report patient has been pulling her NG tube. Review of systems could not be done as the patient is confused on reviewing the vitals patient had a temperature of 98.2, heart rate 72 respiratory 20, blood pressure 153/81 saturating at 95% on 7 L of high flow nasal cannula. On reviewing the labs patient had a white count of 10.9, hemoglobin 12.9, platelets 200, sodium 147, potassium 3.5, chloride 105, bicarb 38. BUN is 13 and creatinine is 0.5. On 11/14/2020 - patient is seen and examined on the general medical floors. Patient is lying in bed and is confused but arousable. Sitter at the bedside. Patient is a poor historian and cannot provide much information. On reviewing the vitals temperature of 98.2, heart rate 85, respiratory rate 22, blood pressure 168 per 81 saturating at 98% on 7 L of nasal cannula. Labs morning show white count of lung 0.3, hemoglobin 12.9, platelets 154. Sodium 146 compression 4, chloride 104, bicarb 35, BUN 12, creatinine 0.5 magnesium 2.1. Active Medications Albuterol/Ipratropium (Ipratropium-Albuterol 3 Ml Neb) 3 ml INHALATION RT-TID PRN PRN Reason: Shortness Of Breath Or Wheezing Albuterol/Ipratropium (Ipratropium-Albuterol 3 Ml Neb) 3 ml INHALATION RT-TID [facility] Last Admin: 11/14/20 14:08 Dose: 3 ml Documented by: Benztropine Mesylate (Benztropine Mesylate 1 Mg Tab) 1 mg PO HS [facility] Last Admin: 11/13/20 20:58 Dose: 1 mg Documented by: Clozapine (Clozapine 100 Mg Tab) 200 mg PO [facility] Stop: 11/17/20 23:00 Last Admin: 11/13/20 20:59 Dose: 200 mg Documented by: Clozapine (Clozapine 100 Mg Tab) 100 mg PO DAILY [facility] Stop: 11/17/20 10:01 Last Admin: 11/14/20 07:40 Dose: 100 mg Documented by: Gabapentin (Gabapentin 300 Mg Cap) 300 mg PO TID [facility] Last Admin: 11/14/20 16:27 Dose: 300 mg Documented by: Heparin Sodium (Porcine) (Heparin Sodium,Porcine 5,000 Unit/Ml 1 Ml Vial) 5,000 unit SQ Q12HR [facility] Last Admin: 11/14/20 07:41 Dose: 5,000 unit Documented by: Piperacillin Sod/Tazobactam (Sod 3.375 gm/ Sodium Chloride) 100 mls @ 25 mls/hr IVPB Q8HR [facility] Last Admin: 11/14/20 16:27 Dose: 25 mls/hr Documented by: Dextrose/Water (Dextrose 5%-Water Iv Soln) 1,000 mls @ 50 mls/hr IV .Q20H [facility] Last Admin: 11/13/20 23:16 Dose: Not Given Documented by: Fat Emulsion Intravenous (Lipids 20%) 250 mls @ 20.833 mls/hr IV MoWeFr [facility] Last Admin: 11/12/20 14:24 Dose: 20.833 mls/hr Documented by: Potassium Phosphate 30 mmol/Magnesium Sulfate 1 gm/Calcium Gluconate 1 gm/ Amino Acids/Dextrose 1,022 mls @ 65 mls/hr IV .BY DURATION [facility] Last Admin: 11/14/20 18:32 Dose: 65 mls/hr Documented by: Potassium Phosphate 30 mmol/Magnesium Sulfate 1 gm/Calcium Gluconate 1 gm/Parenteral Vitamin Supplement 10 ml/ Chromium/Copper/Manganese/Seleni/Zn 1 ml/Amino Acids/Dextrose 1,033 mls @ 65 mls/hr IV .BY DURATION [facility] Last Admin: 11/14/20 00:55 Dose: Not Given Documented by: Insulin Aspart (Insulin Aspart (Novolog) 100 Unit/Ml Vial) 0 unit SQ ACHS [facility]; Protocol Last Admin: 11/14/20 17:12 Dose: 4 unit Documented by: Insulin Detemir (Insulin Detemir (Levemir) 100 Unit/Ml Syr) 20 unit SQ HS [facility] Last Admin: 11/13/20 20:58 Dose: 20 unit Documented by: Levetiracetam (Levetiracetam 500 Mg Tab) 500 mg PO DAILY [facility] Last Admin: 11/14/20 07:40 Dose: 500 mg Documented by: Levothyroxine Sodium (Levothyroxine 75 Mcg Tab) 150 mcg PO DAILY@0630 [facility] Last Admin: 11/14/20 05:35 Dose: 150 mcg Documented by: Lorazepam (Lorazepam 2 Mg/Ml Inj) 1 mg IV Q6HR PRN PRN Reason: Anxiety/agitation/restlessness Losartan Potassium (Losartan 25 Mg Tab) 12.5 mg PO DAILY [facility] Last Admin: 11/14/20 07:42 Dose: 12.5 mg Documented by: Methylprednisolone Sodium Succinate (Methylprednisolone Sod Succi 40 Mg/Ml 1 Ml Vial) 40 mg IV DAILY [facility] Last Admin: 11/14/20 07:41 Dose: 40 mg Documented by: Metoclopramide HCl (Metoclopramide 5 Mg/Ml 2 Ml Vial) 10 mg IVP Q6HR PRN PRN Reason: Nausea Metoprolol Succinate (Metoprolol Succinate (Er) 25 Mg Tab.Er.24h) 25 mg PO [facility] Last Admin: 11/13/20 20:58 Dose: 25 mg Documented by: Miscellaneous Information (Pneumonia Protocol Utilized 1 Each Misc) 1 each PO ONCE PRN PRN Reason: Per Protocol Miscellaneous Information (Potassium Replacement Protocol 1 Each Misc) 1 each MISCELLANE DAILY PRN; Protocol PRN Reason: Per Protocol Nystatin (Nystatin 100,000 Unit/Gm Powd 15 Gm) 1 applic TOPICAL BID [facility] Last Admin: 11/14/20 07:42 Dose: 1 applic Documented by: Nystatin (Nystatin 100,000unit/Gm Cream 30 Gm Tube) 1 applic TOPICAL TID [facility] Last Admin: 11/14/20 16:27 Dose: 1 applic Documented by: Ondansetron HCl (Ondansetron 4 Mg/2 Ml Vial) 4 mg IVP Q6HR PRN PRN Reason: Nausea And Vomiting Last Admin: 11/04/20 07:27 Dose: 4 mg Documented by: Pantoprazole Sodium (Pantoprazole 40 Mg/10 Ml Vial) 40 mg IVP BID [facility] Last Admin: 11/14/20 07:42 Dose: 40 mg Documented by: Potassium Chloride (Potassium Chloride Er 10 Meq Tab.Er.Prt) 10 meq PO BID [facility] Last Admin: 11/14/20 07:41 Dose: 10 meq Documented by: Risperidone (Risperidone 1 Mg Tab) 1 mg PO [facility] Last Admin: 11/13/20 20:58 Dose: 1 mg Documented by: Objective - Vital Signs Vital signs: Vital Signs Temp 98.2 F 11/14/20 14:00 Pulse 76 11/14/20 14:21 Resp 22 11/14/20 14:00 BP 168/81 11/14/20 14:00 Pulse Ox 98 11/14/20 14:00 Intake & Output 11/13/20 11/14/20 11/14/20 18:59 06:59 18:59 Intake Total 100 Balance 100 Weight 115.212 kg Intake: Oral 100 Other: Voiding Method Diaper Diaper Incontinent Incontinent # Voids 2 # Bowel Movements 1 - Exam PHYSICAL EXAMINATION: GENERAL: Awake but confused and trying to pull her IV line and NG tube HEENT: Conjunctiva normal, NG tube in place with dark green-colored secretions Neck: No JVD Cardiovascular: S1-S2 muffled Respiratory: Breath sounds diminished at the bases with few rhonchi and crackles Abdomen: Soft nontender [employer]IENT SERVER PROGRAMMER: Diffuse weakness Extremities: No edema - Labs CBC & Chem 7: 11/14/20 05:40 11/14/20 05:40 Labs: Abnormal Lab Results - Last 24 Hours (Table) 11/13/20 11/14/20 11/14/20 Range/Units 20:04 05:40 05:40 WBC 11.3 H (3.8-10.6) k/uL Neutrophils # 9.8 H (1.3-7.7) k/uL Lymphocytes # 0.7 L (1.0-4.8) k/uL Sodium 146 H (135-145) mmol/L Carbon Dioxide 35.8 H (21.6-31.8) mmol/L Creatinine 0.5 L (0.6-1.5) mg/dL BUN/Creatinine Ratio 24.00 H (12.00-20.00) Ratio Glucose 322 H (70-110) mg/dL POC Glucose (mg/dL) 189 H (75-99) mg/dL Calcium 8.1 L (8.7-10.3) mg/dL 11/14/20 11/14/20 11/14/20 Range/Units 07:07 11:35 16:47 WBC (3.8-10.6) k/uL Neutrophils # (1.3-7.7) k/uL Lymphocytes # (1.0-4.8) k/uL Sodium (135-145) mmol/L Carbon Dioxide (21.6-31.8) mmol/L Creatinine (0.6-1.5) mg/dL BUN/Creatinine Ratio (12.00-20.00) Ratio Glucose (70-110) mg/dL POC Glucose (mg/dL) 315 H 237 H 206 H (75-99) mg/dL Calcium (8.7-10.3) mg/dL Assessment and Plan Assessment: ASSESSMENT Sepsis secondary to acute right lower lobe pneumonia Acute hypoxic respiratory failure due to pneumonia Metabolic encephalopathy multifactorial Gastric and duodenal ileus Parenteral nutrition -on TPN History of CVA/TIA Type 2 diabetes mellitus GERD Hypertension Hyperlipidemia Morbid obesity with BMI 51.2 Seizure disorder Hypokalemia Hyponatremia Bilateral stasis dermatitis History of pancreatic mass No code PLAN: Patient has multiple chronic medical issues, she is on broad-spectrum antibiotics as per ID recommendations. She is on TPN for nutritional support. Multiple consultants surgery, pulmonary, ID on board and following the patient closely. Plan is to take the patient to the OR for repair of incarcerated incisional/ventral hernia. But she would be at a very high risk for the p rocedure. Overall prognosis is poor. Currently family wants conservative plan of management. Patient is a NO CODE.
[2020-11-14 20:31] LABS: Glucose,Whole Blood 224 mg/dL (75-99)
[2020-11-14] MEDS: DEXTROSE 5% IN WATER 1,000 ML IV SCH (20:42)
[2020-11-14] MEDS: METOPROLOL SUCCINATE (ER) 25 MG TAB.ER.24H PO SCH ×2 (20:49→21:31)
[2020-11-14] MEDS: BENZTROPINE MESYLATE 1 MG TAB PO SCH ×2 (20:50→21:31)
[2020-11-14] MEDS: INSULIN DETEMIR (LEVEMIR) 100 UNIT/ML SYR SQ SCH (20:50)
[2020-11-14] MEDS: risperiDONE 1 MG TAB PO SCH ×2 (20:50→21:31)
--- NOTE | 2020-11-14 20:53 | PN ---
PROGRESS NOTE DATE OF SERVICE: 11/14/2020 REASON FOR FOLLOWUP: Aspiration pneumonia. INTERVAL HISTORY: The patient is currently afebrile. The patient is breathing comfortably. The patient still has the NG and is on TPN. No vomiting, diarrhea or any other changes reported by the nursing staff. PHYSICAL EXAMINATION: Blood pressure 132/74 with a pulse of 72, temperature 98.8. She is 97% on 7 L nasal cannula. General description is an elderly female lying in bed in no distress. RESPIRATORY SYSTEM: Unlabored breathing with decreased breath sounds at the base. No wheeze. HEART: S1, S2. Regular rate and rhythm. ABDOMEN: Soft. No tenderness. LABS: Hemoglobin is 12.9, white count 11.3, BUN of 12, creatinine 0.5. DIAGNOSTIC IMPRESSION AND PLAN: Patient with a component of aspiration pneumonia in this patient who had significant distention of the stomach, currently on TPN with an NG and is covered with Zosyn; to continue and monitor her clinical course closely. MMODL / IJN: [id number] /
[2020-11-15 02:39] LABS: Glucose,Whole Blood 301 mg/dL (75-99)
[2020-11-15] MEDS: LEVOTHYROXINE 75 MCG TAB PO SCH (05:58)
[2020-11-15 06:26] LABS: Basophils % (A) 0 %; Eosinophils % (A) 0 %; HCT 41.2 % (34.0-46.0); HGB 13.4 gm/dL (11.4-16.0); Lymphocytes % (A) 9 %; MCH 29.2 pg (25.0-35.0); MCHC 32.5 g/dL (31.0-37.0); MCV 89.8 fL (80.0-100.0); Mean Platelet Volume 7.2; Monocytes # (A) 0.7 k/uL (0-1.0); Monocytes % (A) 6 %; Neutrophils # (A) 9.7 k/uL (1.3-7.7); Neutrophils % (A) 84 %; Platelet Count 142 k/uL (150-450); RBC 4.59 m/uL (3.80-5.40); RDW 14.2 % (11.5-15.5); WBC 11.6 k/uL (3.8-10.6)
[2020-11-15 07:24] LABS: Glucose,Whole Blood 260 mg/dL (75-99)
[2020-11-15] MEDS: IPRATROPIUM-ALBUTEROL 3 ML NEB INHALATION SCH ×3 (07:42→20:43)
[2020-11-15] MEDS: PIPERACILLIN-TAZOBACTAM 3.375 GM in SODIUM CHLORIDE 0.9% 100 ML IVPB SCH ×3 (08:14→23:03)
[2020-11-15] MEDS: methylPREDNISolone SOD SUCCI 40 MG/ML 1 ML VIAL IV SCH (08:14)
[2020-11-15] MEDS: PANTOPRAZOLE 40 MG/10 ML VIAL IVP SCH ×2 (08:14→21:06)
[2020-11-15] MEDS: levETIRAcetam 500 MG TAB PO SCH (08:15)
[2020-11-15] MEDS: LOSARTAN 25 MG TAB PO SCH (08:15)
[2020-11-15] MEDS: cloZAPine 100 MG TAB PO SCH ×2 (08:15→21:03)
[2020-11-15] MEDS: GABAPENTIN 300 MG CAP PO SCH ×3 (08:16→21:06)
[2020-11-15] MEDS: INSULIN ASPART (NovoLOG) 100 UNIT/ML VIAL SQ SCH ×4 (08:16→21:05)
[2020-11-15] MEDS: NYSTATIN 100,000UNIT/GM CREAM 30 GM TUBE TOPICAL SCH ×3 (08:16→21:06)
[2020-11-15] MEDS: NYSTATIN 100,000 UNIT/GM POWD 15 GM TOPICAL SCH ×2 (08:16→21:06)
[2020-11-15] MEDS: POTASSIUM CHLORIDE ER 10 MEQ TAB.ER.PRT PO SCH ×2 (08:16→21:06)
[2020-11-15] MEDS: HEPARIN SODIUM,PORCINE 5,000 UNIT/ML 1 ML VIAL SQ SCH ×2 (08:17→21:05)
[2020-11-15 09:11] LABS: African American GFR (CKD) 115.3 (60.0-200.0); Anion Gap 6.1 mmol/L (4.00-12.00); Calcium 8.4 mg/dL (8.7-10.3); Carbon Dioxide 34.9 mmol/L (21.6-31.8); Non-African American GFR(CKD) 99.4 (60.0-200.0)
[2020-11-15 11:33] LABS: Glucose,Whole Blood 269 mg/dL (75-99)
--- NOTE | 2020-11-15 14:18 | XR ---
EXAMINATION TYPE: XR chest 1V portable DATE OF EXAM: 11/15/2020 COMPARISON: Prior chest x-ray 11/11/2020 HISTORY: Prior chest x-ray 11/11/2020 TECHNIQUE: Single frontal view of the chest is obtained. FINDINGS: Orogastric tube is again seen, distal tip not included on exam, there is evidence of prior vertebroplasty as on prior. Persistent obscured left hemidiaphragm, bibasilar increased density with blunting the right costophrenic angle noted. Heart is obscured but may be enlarged. It is dense. Pat ient is rotated. There is no evident pneumothorax. IMPRESSION: There is not a significant interval change compared to prior exam. Possible basilar effu sions and associated atelectasis, correlate to exclude pneumonia.
--- NOTE | 2020-11-15 14:43 | P.PN ---
Subjective Progress Note Date: 11/15/20 CHIEF COMPLAINT: Ileus versus small bowel obstruction HISTORY OF PRESENT ILLNESS: Patient is being followed for ileus versus small bowel obstruction. She's also followed for her incisional hernia. She is lying in bed comfortably. She was evaluated by pulmonary service and cleared for surgery. However, cardiology once to diuresis patient. They have ordered chest x-ray and echo. They have not cleared patient yet for surgery. Patient did pull her PICC line again today and is scheduled for another PICC line to be replaced. Patient still not having any bowel movements. Afebrile PHYSICAL EXAM: VITAL SIGNS: Reviewed. GENERAL: Well-developed in no acute distress. HEENT: No sclera icterus. Extraocular movements grossly intact. Moist buccal mucosa. Head is atraumatic, normocephalic. ABDOMEN: Soft. Obese. distended. Nontender. Evidence of incisional hernia on the right side of the abdomen NEUROLOGIC: Pleasantly confused ASSESSMENT: 1. Ileus versus small bowel obstruction with no further evidence of small bowel obstruction or ileus on repeat computed tomography scan 2. Incarcerated incisional hernia PLAN: -Hernia repair surgery canceled today, per cardiology patient is not clear for surgery and is requiring to be diuresed. They've also ordered echo and chest x- ray -Continue NG tube for decompression -Keep patient nothing by mouth except medications -Patient scheduled for another PICC line to be placed for TPN -GI prophylaxis Protonix and DVT prophylaxis subcu heparin Physician Transfer Machine Operator note has been reviewed by physician. Signing provider agrees with the documented findings, assessment, and plan of care. Objective - Vital Signs Vital signs: Vital Signs Temp 98.2 F 11/15/20 14:00 Pulse 80 11/15/20 14:00 Resp 18 11/15/20 14:00 BP 146/68 11/15/20 14:00 Pulse Ox 92 L 11/15/20 14:00 Intake & Output 11/14/20 11/15/20 11/15/20 18:59 06:59 18:59 Weight 115.212 kg Other: Voiding Method Diaper Incontinent # Voids 2 # Bowel Movements 1 - Labs CBC & Chem 7: 11/15/20 06:10 11/15/20 06:10 Labs: Abnormal Lab Results - Last 24 Hours (Table) 11/14/20 11/14/20 11/15/20 Range/Units 16:47 20:28 02:29 WBC (3.8-10.6) k/uL Plt Count (150-450) k/uL Neutrophils # (1.3-7.7) k/uL Carbon Dioxide (21.6-31.8) mmol/L Creatinine (0.6-1.5) mg/dL BUN/Creatinine Ratio (12.00-20.00) Ratio Glucose (70-110) mg/dL POC Glucose (mg/dL) 206 H 224 H 301 H (75-99) mg/dL Calcium (8.7-10.3) mg/dL 11/15/20 11/15/20 11/15/20 Range/Units 06:10 06:10 07:10 WBC 11.6 H (3.8-10.6) k/uL Plt Count 142 L (150-450) k/uL Neutrophils # 9.7 H (1.3-7.7) k/uL Carbon Dioxide 34.9 H (21.6-31.8) mmol/L Creatinine 0.5 L (0.6-1.5) mg/dL BUN/Creatinine Ratio 26.00 H (12.00-20.00) Ratio Glucose 312 H (70-110) mg/dL POC Glucose (mg/dL) 260 H (75-99) mg/dL Calcium 8.4 L (8.7-10.3) mg/dL 11/15/20 Range/Units 11:31 WBC (3.8-10.6) k/uL Plt Count (150-450) k/uL Neutrophils # (1.3-7.7) k/uL Carbon Dioxide (21.6-31.8) mmol/L Creatinine (0.6-1.5) mg/dL BUN/Creatinine Ratio (12.00-20.00) Ratio Glucose (70-110) mg/dL POC Glucose (mg/dL) 269 H (75-99) mg/dL Calcium (8.7-10.3) mg/dL
--- NOTE | 2020-11-15 14:46 | P.CRDCN ---
History of Present Illness Consult reason: pre-op evaluation History of present illness: HISTORY OF PRESENTING ILLNESS This is a pleasant 70-year-old female past medical history significant for hypertension, dyslipidemia, CVA, seizure disorder, paranoid schizophrenic and chronic diastolic heart failure. She follows in the office with Dr. Gutierrez. We have been asked to see in consultation for preoperative evaluation. The patient was seen and examined sitting up in bed in mild respiratory distress. She is confused and not able to give an accurate history. She denies all symptoms of chest pain, shortness of breath, abdominal pain, nausea, vomiting, palpitations or dizziness. According to the nursing staff she has been pulling her IV's, PICC line and NG tube. She has been hospitalized since 11/03 initially being treated for aspiration pneumonia and found to have a ventral hernia. She is scheduled to undergo ventral hernia repair with Dr. Hummel this afternoon. She had a cardiac catheterization at [facility] in 2019 that revealed normal coronary arteries. Most recent echocardiogram in the office revealed preserved LV function with EF 55%, mild MR, moderate TR and moderate pulmonary hypertension. She is currently maintained on IV antibiotics, bowel rest and TPN. Oral diuretics have been held since admission. Laboratory data reviewed, WBC 11.6, hemoglobin 13.4, platelets 142, sodium 142, potassium 4.0, creatinine 0.5 and magnesium 2.0. Current daily cardiac medications include aspirin 81 mg daily, Toprol 25 mg daily, losartan 12.5 mg daily, Bumex 1 mg twice a day and Lasix 40 mg in the morning and 20 in the afternoon. REVIEW OF SYSTEMS At the time of my exam: Patient is confused however denies all complaints. CONSTITUTIONAL: Denies fever or chills. CARDIOVASCULAR: Denies chest pain, shortness of breath, orthopnea, PND or palpitations. RESPIRATORY: Denies cough. GASTROINTESTINAL: Denies abdominal pain, diarrhea, constipation, nausea or vomiting. MUSCULOSKELETAL: Denies myalgias. NEUROLOGIC: Denies numbness, tingling, headacbe or weakness. ENDOCRINE: Denies fatigue, weight change, polydipsia or polyurina. GENITOURINARY: Denies burning, hematuria or urgency with micturation. HEMATOLOGIC: Denies history of anemia or bleeding. PHYSICAL EXAMINATION Blood pressure 132/78 heart rate 81 afebrile and maintaining oxygen saturation on high flow nasal cannula. CONSTITUTIONAL: No apparent distress. HEENT: Head is normocephalic. Pupils are equal, round. Sclerae anicteric. Mucous membranes of the mouth are moist. No JVD. No carotid bruit. CHEST EXAMINATION: Bibasilar rales, scattered rhonchi, no wheezes. No chest wall tenderness is noted on palpation or with deep breathing. HEART EXAMINATION: Regular rate and rhythm. S1, S2 heard. Systolic ejection murmur at the left sternal border, no gallops or rub. ABDOMEN: Soft, nontender. Positive bowel sounds. EXTREMITIES: 2+ peripheral pulses, 2+ bilateral lower extremity pitting edema and no calf tenderness. NEUROLOGIC EXAMINATION: Patient is awake, alert and oriented to self. ASSESSMENT Acute on chronic diastolic heart failure Aspiration pneumonia Ventral hernia, possibly incarcerated Leukocytosis Hypertension Dyslipidemia CVA Seizure disorder PLAN Obtain repeat chest xray. Repeat 2D echocardiogram and doppler study to assess cardiac structure and function. Initiate lasix IV 40 mg BID. Obtain baseline EKG. Follow renal function and electrolytes in the morning. Document accurate intake and output along with daily weights. Currently she is not stable to proceed with surgical intervention, recommend diuresis for now and will reassess surgical status in 24 hours. Thank you kindly for this consultation. Nurse Practitioner note has been reviewed, I agree with a documented findings and plan of care. Patient was seen and examined. Past Medical History Past Medical History: CVA/TIA, Diabetes Mellitus, GERD/Reflux, Hyperlipidemia, Hypertension, Seizure Disorder, Skin Disorder, Thyroid Disorder Additional Past Medical History / Comment(s): CVA with R sided weakness, TIA, NIDDM type II, spouse states pt is confused much of the time, pancreatic mass being monitored every 6 months, last seizure 3 years ago, bilateral lower leg/ pedal edema, bilateral stasis dermatitis, hyponatremia, past thoracic compression fractures, UTI, hypothyroid/nodules History of Any Multi-Drug Resistant Organisms: None Reported Past Surgical History: Tonsillectomy Additional Past Surgical History / Comment(s): Thyroid surgery, colonoscopy Past Anesthesia/Blood Transfusion Reactions: No Reported Reaction Smoking Status: Never smoker - Past Family History Father Family Medical History: No Reported History Additional Family Medical History / Comment(s): Father is 99yrs old. Mother Family Medical History: Cancer Additional Family Medical History / Comment(s): Mother of breast cancer. Sister(s) Family Medical History: Cancer Additional Family Medical History / Comment(s): Pt's twin sister from leukemia a couple months ago. Medications and Allergies Home Medications Medication Instructions Recorded Confirmed Type Acetaminophen [Tylenol Arthritis] 650 mg PO Q8H PRN 11/03/20 11/03/20 History Aspirin EC [Ecotrin Low Dose] 81 mg PO DAILY 11/03/20 11/03/20 History Benztropine Mesylate [Cogentin] 1 mg PO HS 11/03/20 11/03/20 History Bumetanide [Bumex] 1 mg PO BID 11/03/20 11/03/20 History Calcium Carbonate/Vitamin D3 1 tab PO DAILY 11/03/20 11/03/20 History [Calcium 600-Vit D3 400 Tablet] Furosemide [Lasix] 20 mg PO PC-LUNCH 11/03/20 11/03/20 History Furosemide [Lasix] 40 mg PO QAM 11/03/20 11/03/20 History Gabapentin 300 mg PO TID 11/03/20 11/03/20 History Glimepiride [Amaryl] 8 mg PO AC-BRKFST 11/03/20 11/03/20 History Glucosamine-Chondr 500-400Mg 1 tab PO Q12HR 11/03/20 11/03/20 History Levothyroxine Sodium [Synthroid] 150 mcg PO DAILY 11/03/20 11/03/20 History Losartan [Cozaar] 12.5 mg PO DAILY 11/03/20 11/03/20 History Magnesium Oxide [Mag-Ox] 250 mg PO BID 11/03/20 11/03/20 History Metoprolol Succinate [Toprol XL] 25 mg PO HS 11/03/20 11/03/20 History Multivitamin [Multivitamins Adult 2 tab PO DAILY 11/03/20 11/03/20 History Gummies] Nystatin 100,000 Unit/gm Powd 1 applic TOPICAL BID 11/03/20 11/03/20 History [Mycostatin Powder] Nystatin 100,000Unit/gm Cream 1 applic TOPICAL TID 11/03/20 11/03/20 History [Mycostatin Cream] Omeprazole [PriLOSEC] 20 mg PO DAILY 11/03/20 11/03/20 History Polyethylene Glycol 3350 [Miralax] 17 gm PO DAILY PRN 11/03/20 11/03/20 History Potassium Chloride [Klor-Con 10] 10 meq PO DAILY 11/03/20 11/03/20 History cloZAPine [Clozaril] 300 mg PO DAILY 11/03/20 11/03/20 History l Acidophil/B Lactis/B Longum 460 mg PO DAILY 11/03/20 11/03/20 History [Florajen3 Capsule] levETIRAcetam [Keppra] 500 mg PO Q12HR 11/03/20 11/03/20 History metFORMIN HCL 1,000 mg PO BID 11/03/20 11/03/20 History risperiDONE [RisperDAL] 1 mg PO HS 11/03/20 11/03/20 History sitaGLIPtin [Januvia] 25 mg PO DAILY 11/03/20 11/03/20 History Allergies Allergy/AdvReac Type Severity Reaction Status Date / Time haloperidol [From Haldol] Allergy Unknown Verified 11/03/20 14:10 Physical Exam Vitals: Vital Signs Temp Pulse Pulse Pulse Resp BP Pulse Ox 11/15/20 14:00 98.2 F 80 18 146/68 92 L 11/15/20 11:10 96 11/15/20 11:02 81 11/15/20 10:49 80 11/15/20 08:00 98.6 F 66 82 18 132/78 96 11/15/20 07:52 80 11/15/20 07:42 80 11/15/20 01:30 99 F 76 20 155/76 92 L 11/14/20 19:03 78 11/14/20 19:00 98.8 F 72 20 132/74 97 11/14/20 18:56 76 Intake and Output 11/14/20 11/15/20 11/15/20 22:59 06:59 14:59 Other: Voiding Method Diaper Incontinent # Voids 2 # Bowel Movements 1 Results 11/15/20 06:10 11/15/20 06:10 CBC 11/15/20 Range/Units 06:10 WBC 11.6 H (3.8-10.6) k/uL RBC 4.59 (3.80-5.40) m/uL Hgb 13.4 (11.4-16.0) gm/dL Hct 41.2 (34.0-46.0) % Plt Count 142 L (150-450) k/uL Comprehensive Metabolic Panel 11/15/20 Range/Units 06:10 Sodium 142 (135-145) mmol/L Potassium 4.0 (3.5-5.5) mmol/L Chloride 101 (96-109) mmol/L Carbon Dioxide 34.9 H (21.6-31.8) mmol/L BUN 13.0 (9.0-27.0) mg/dL Creatinine 0.5 L (0.6-1.5) mg/dL Glucose 312 H (70-110) mg/dL Calcium 8.4 L (8.7-10.3) mg/dL Current Medications Generic Name Dose Route Start Last Admin Trade Name Freq PRN Reason Stop Dose Admin Albuterol/Ipratropium 3 ml 11/05/20 09:10 Ipratropium-Albuterol 3 Ml Neb INHALATION RT-TID PRN Shortness Of Breath Or Wheezing Albuterol/Ipratropium 3 ml 11/05/20 13:00 11/15/20 10:49 Ipratropium-Albuterol 3 Ml Neb INHALATION 3 ml RT-TID BRICE Administration Benztropine Mesylate 1 mg 11/03/20 21:00 11/14/20 21:31 Benztropine Mesylate 1 Mg Tab PO Not Given HS BRICE Clozapine 200 mg 11/03/20 21:00 11/14/20 21:31 Clozapine 100 Mg Tab PO 11/17/20 23:00 Not Given HS BRICE Clozapine 100 mg 11/12/20 10:00 11/15/20 08:15 Clozapine 100 Mg Tab PO 11/17/20 10:01 100 mg DAILY BRICE Administration Gabapentin 300 mg 11/03/20 16:30 11/15/20 08:16 Gabapentin 300 Mg Cap PO 300 mg TID BRICE Administration Heparin Sodium (Porcine) 5,000 unit 11/03/20 21:00 11/15/20 08:17 Heparin Sodium,Porcine 5,000 Unit/Ml 1 Ml Vial SQ Not Given Q12HR BRICE Piperacillin Sod/Tazobactam 100 mls @ 25 mls/hr 11/04/20 16:15 11/15/20 08:14 Sod 3.375 gm/ Sodium Chloride IVPB 25 mls/hr Q8HR BRICE Administration Dextrose/Water 1,000 mls @ 50 mls/hr 11/09/20 14:45 11/14/20 20:42 Dextrose 5%-Water Iv Soln IV Not Given .Q20H [facility] Fat Emulsion Intravenous 250 mls @ 20.833 mls/hr 11/10/20 14:00 11/12/20 14:2 4 Lipids 20% IV 20.833 mls/hr MoWeFr BRICE Administration Potassium Phosphate 30 mmol/ 1,022 mls @ 65 mls/hr 11/15/20 09:00 Magnesium Sulfate 1 gm/ IV Calcium Gluconate 1 gm/ Amino .BY DURATION BRICE Acids/Dextrose Potassium Phosphate 30 mmol/ 1,033 mls @ 65 mls/hr 11/15/20 09:00 Magnesium Sulfate 1 gm/ IV Calcium Gluconate 1 gm/ .BY DURATION [facility] Parenteral Vitamin Supplement 10 ml/ Chromium/Copper/ Manganese/Seleni/Zn 1 ml/ Amino Acids/Dextrose Insulin Aspart 0 unit 11/11/20 07:30 11/15/20 08:16 Insulin Aspart (Novolog) 100 Unit/Ml Vial SQ 6 unit ACHS [facility] Administration Protocol Insulin Detemir 20 unit 11/12/20 21:00 11/14/20 20:50 Insulin Detemir (Levemir) 100 Unit/Ml Syr SQ 20 unit HS BRICE Administration Levetiracetam 500 mg 11/04/20 09:00 11/15/20 08:15 Levetiracetam 500 Mg Tab PO 500 mg DAILY BRICE Administration Levothyroxine Sodium 150 mcg 11/03/20 16:30 11/15/20 05:58 Levothyroxine 75 Mcg Tab PO 150 mcg DAILY@0630 BRICE Administration Lorazepam 1 mg 11/10/20 18:34 Lorazepam 2 Mg/Ml Inj IV Q6HR PRN Anxiety/agitation/restlessness Losartan Potassium 12.5 mg 11/03/20 16:30 11/15/20 08:15 Losartan 25 Mg Tab PO 12.5 mg DAILY BRICE Administration Methylprednisolone Sodium Succinate 40 mg 11/12/20 09:00 11/15/20 08:14 Methylprednisolone Sod Succi 40 Mg/Ml 1 Ml Vial IV 40 mg DAILY BRICE Administration Metoclopramide HCl 10 mg 11/11/20 14:36 Metoclopramide 5 Mg/Ml 2 Ml Vial IVP Q6HR PRN Nausea Metoprolol Succinate 25 mg 11/03/20 21:00 11/14/20 21:31 Metoprolol Succinate (Er) 25 Mg Tab.Er.24h PO Not Given HS BRICE Miscellaneous Information 1 each 11/03/20 14:17 Pneumonia Protocol Utilized 1 Each Misc PO ONCE PRN Per Protocol Miscellaneous Information 1 each 11/03/20 16:32 Potassium Replacement Protocol 1 Each Misc MISCELLANE DAILY PRN Per Protocol Protocol Nystatin 1 applic 11/03/20 21:00 11/15/20 08:16 Nystatin 100,000 Unit/Gm Powd 15 Gm TOPICAL 1 applic BID BRICE Administration Nystatin 1 applic 11/03/20 22:00 11/15/20 08:16 Nystatin 100,000unit/Gm Cream 30 Gm Tube TOPICAL 1 applic TID BRICE Administration Ondansetron HCl 4 mg 11/04/20 07:16 11/04/20 07:27 Ondansetron 4 Mg/2 Ml Vial IVP 4 mg Q6HR PRN Administration Nausea And Vomiting Pantoprazole Sodium 40 mg 11/05/20 21:00 11/15/20 08:14 Pantoprazole 40 Mg/10 Ml Vial IVP 40 mg BID BRICE Administration Potassium Chloride 10 meq 11/03/20 21:00 11/15/20 08:16 Potassium Chloride Er 10 Meq Tab.Er.Prt PO 10 meq BID BRICE Administration Risperidone 1 mg 11/03/20 21:00 11/14/20 21:31 Risperidone 1 Mg Tab PO Not Given HS BRICE Intake and Output 11/14/20 11/15/20 11/15/20 22:59 06:59 14:59 Other: Voiding Method Diaper Incontinent # Voids 2 # Bowel Movements 1 11/15/20 06:10 11/15/20 06:10
[2020-11-15 16:31] LABS: Glucose,Whole Blood 256 mg/dL (75-99)
[2020-11-15] MEDS: POTASSIUM PHOSPHATE IV SCH ×12 (18:09→23:26)
[2020-11-15] MEDS: MAGNESIUM SULFATE IV SCH ×12 (18:09→23:26)
[2020-11-15] MEDS: [UNRECOGNIZED DRUG - OTHER] IV SCH ×12 (18:09→23:26)
[2020-11-15] MEDS: CALCIUM GLUCONATE IV SCH ×12 (18:09→23:26)
[2020-11-15] MEDS: FAT EMULSION 20% 250 ML IV SCH (18:10)
[2020-11-15] MEDS: DEXTROSE 5% IN WATER 1,000 ML IV SCH (18:11)
[2020-11-15] MEDS: FUROSEMIDE 10 MG/ML 4 ML VIAL IV SCH ×2 (18:11→21:04)
--- NOTE | 2020-11-15 18:47 | ECHOF ---
Referral Reason:pre-op MEASUREMENTS -------- HEIGHT: 167.6 cm WEIGHT: 99.8 kg BP: RVIDd: 3.2 cm (< 3.3) IVSd: 1.3 cm (0.6 - 1.1) LVIDd: 3.6 cm (3.9 - 5.3) LVPWd: 1.4 cm (0.6 - 1.1) IVSs: 1.6 cm LVIDs: 2.0 cm LVPWs: 1.8 cm IVSd: 2.9 cm (0.6 - 1.1) Ao Diam: 2.8 cm (2.0 - 3.7) AV Cusp: 2.0 cm (1.5 - 2.6) LA Diam: 2.8 cm (2.7 - 3.8) MV EXCURSION: 10.629 mm (> 18.000) MV EF SLOPE: 25 mm/s (70 - 150) EPSS: 0.9 cm MV E Kyle: 0.56 m/s MV DecT: 284 ms MV A Kyle: 0.86 m/s MV E/A Ratio: 0.66 RAP: 5.00 mmHg RVSP: 14.10 mmHg FINDINGS -------- This was a technically difficult study with suboptimal views. The left ventricular size is normal. There is moderate concentric left ventricular hypertrophy. O verall left ventricular systolic function is normal with, an EF between 55 - 60 %. The right ventricle is normal in size. The left atrial size is normal. The right atrial size is normal. The aortic valve is trileaflet and appears structurally normal. The mitral valve is normal. There is trace mitral regurgitation. The tricuspid valve appears structurally normal. Trace tricuspid regurgitation present. Right harley tricular systolic pressure is normal at < 35 mmHg. There is no pulmonic regurgitation present. The aortic root size is normal. IVC Not well visulized. There is no pericardial effusion. CONCLUSIONS -------- 1. The left ventricular size is normal. 2. There is moderate concentric left ventricular hypertrophy. 3. Overall left ventricular systolic function is normal with, an EF between 55 - 60 %. 4. There is trace mitral regurgitation. 5. Trace tricuspid regurgitation present. 6. There is no pericardial effusion. DIRECTOR SPECIAL EDUCATION: Gladys Gallagher [facility]
[2020-11-15 20:32] LABS: Glucose,Whole Blood 204 mg/dL (75-99)
[2020-11-15] MEDS: BENZTROPINE MESYLATE 1 MG TAB PO SCH (21:03)
[2020-11-15] MEDS: INSULIN DETEMIR (LEVEMIR) 100 UNIT/ML SYR SQ SCH (21:05)
[2020-11-15] MEDS: METOPROLOL TARTRATE 12.5 MG TAB PO SCH (21:05)
[2020-11-15] MEDS: risperiDONE 1 MG TAB PO SCH (21:06)
--- NOTE | 2020-11-15 22:16 | PN ---
PROGRESS NOTE DATE OF SERVICE: 11/15/2020 REASON FOR FOLLOWUP: Aspiration pneumonia. INTERVAL HISTORY: The patient is currently afebrile. The patient is breathing comfortably. The patient denies having any chest pain or shortness of breath. Occasional cough. No abdominal pain. She seems to be slightly more awake and alert today. PHYSICAL EXAMINATION: Blood pressure 146/68 with a pulse of 80, temperature 98.2. She is 92% on 7 L nasal cannula. General description is an elderly female lying in bed in no distress. RESPIRATORY SYSTEM: Unlabored breathing. Clear to auscultation anteriorly. HEART: S1, S2. Regular rate and rhythm. ABDOMEN: Soft. No tenderness. LABS: Hemoglobin 13.4, white count 11.7. BUN of 13, creatinine 0.5. DIAGNOSTIC IMPRESSION AND PLAN: Patient with a component of aspiration pneumonia in this patient who did have significant abdominal distention and concern for obstruction. The patient is currently being treated with NG suction, TPN, and Zosyn; to continue while monitoring clinical course closely. Continue supportive care. MMODL / IJN: [id number] /
--- NOTE | 2020-11-15 22:57 | P.PN ---
Subjective Progress Note Date: 11/15/20 Principal diagnosis: Sepsis Ms. Anna is a 70-year-old female with a past medical history of CVA/TIA, expressive aphasia, seizure disorder, diabetes mellitus, GERD, hypertension, hypothyroidism, hyperlipidemia, she is off uremia who is a resident of [facility] brought in for altered mental status changes and hypoxia. She has been treated for aspiration pneumonia. Patient also has issues with aspiration so she is on NG tube. Patient had a CAT scan of the abdomen and pelvis showing no evidence of bowel obstruction but there was right lower quadrant ventral abdominal wall hernia containing nonobstructed small bowel loops. She was also having bilateral small pleural effusions. On 11/13/2020 -patient is lying in bed appears to be confused. Sitter at bedside. As per nursing staff report patient has been pulling her NG tube. Review of systems could not be done as the patient is confused on reviewing the vitals patient had a temperature of 98.2, heart rate 72 respiratory 20, blood pressure 153/81 saturating at 95% on 7 L of high flow nasal cannula. On reviewing the labs patient had a white count of 10.9, hemoglobin 12.9, platelets 200, sodium 147, potassium 3.5, chloride 105, bicarb 38. BUN is 13 and creatinine is 0.5. On 11/14/2020 - patient is seen and examined on the general medical floors. Patient is lying in bed and is confused but arousable. Sitter at the bedside. Patient is a poor historian and cannot provide much information. On reviewing the vitals temperature of 98.2, heart rate 85, respiratory rate 22, blood pressure 168 per 81 saturating at 98% on 7 L of nasal cannula. Labs morning show white count of lung 0.3, hemoglobin 12.9, platelets 154. Sodium 146 compression 4, chloride 104, bicarb 35, BUN 12, creatinine 0.5 magnesium 2.1. On 11/15/2020-as per discussion with nursing staff, patient pulled her PICC line this morning. She is lying in bed and confused but arousable. Patient is a poor historian and cannot provide much information. Surgical service is on board, planning for repair of incarcerated incisional/ventral hernia. But she would be a very high risk candidate for the surgery, so cardiology was consulted for clearance. On reviewing the vitals temperature 98.2, heart rate 80, respi ratory rate 18, blood pressure 146 x 68 saturating at 92% on 7 L of high flow nasal cannula. On reviewing the labs white count of 11.6, hemoglobin 13.4, platelets 142. Sodium 142, potassium 4, chloride 101, bicarb 34, BUN 13, creatinine 0.5. She is on antibiotics in the form of Zosyn. She is on TPN for nutritional support. Active Medications Albuterol/Ipratropium (Ipratropium-Albuterol 3 Ml Neb) 3 ml INHALATION RT-TID PRN PRN Reason: Shortness Of Breath Or Wheezing Albuterol/Ipratropium (Ipratropium-Albuterol 3 Ml Neb) 3 ml INHALATION RT-TID [facility] Last Admin: 11/15/20 20:43 Dose: 3 ml Documented by: Benztropine Mesylate (Benztropine Mesylate 1 Mg Tab) 1 mg PO [facility] Last Admin: 11/15/20 21:03 Dose: 1 mg Documented by: Clozapine (Clozapine 100 Mg Tab) 200 mg PO [facility] Stop: 11/17/20 23:00 Last Admin: 11/15/20 21:03 Dose: 200 mg Documented by: Clozapine (Clozapine 100 Mg Tab) 100 mg PO DAILY [facility] Stop: 11/17/20 10:01 Last Admin: 11/15/20 08:15 Dose: 100 mg Documented by: Furosemide (Furosemide 10 Mg/Ml 4 Ml Vial) 40 mg IV Q12HR [facility] Last Admin: 11/15/20 21:04 Dose: 40 mg Documented by: Gabapentin (Gabapentin 300 Mg Cap) 300 mg PO TID [facility] Last Admin: 11/15/20 21:06 Dose: 300 mg Documented by: Heparin Sodium (Porcine) (Heparin Sodium,Porcine 5,000 Unit/Ml 1 Ml Vial) 5,000 unit SQ Q12HR [facility] Last Admin: 11/15/20 21:05 Dose: 5,000 unit Documented by: Piperacillin Sod/Tazobactam (Sod 3.375 gm/ Sodium Chloride) 100 mls @ 25 mls/hr IVPB Q8HR [facility] Last Admin: 11/15/20 18:08 Dose: 25 mls/hr Documented by: Dextrose/Water (Dextrose 5%-Water Iv Soln) 1,000 mls @ 50 mls/hr IV .Q20H [facility] Last Admin: 11/15/20 18:11 Dose: Not Given Documented by: Fat Emulsion Intravenous (Lipids 20%) 250 mls @ 20.833 mls/hr IV MoWeFr [facility] Last Admin: 11/15/20 18:10 Dose: Not Given Documented by: Potassium Phosphate 30 mmol/Magnesium Sulfate 1 gm/Calcium Gluconate 1 gm/ Amino Acids/Dextrose 1,022 mls @ 65 mls/hr IV .BY DURATION [facility] Last Admin: 11/15/20 18:09 Dose: Not Given Documented by: Potassium Phosphate 30 mmol/Magnesium Sulfate 1 gm/Calcium Gluconate 1 gm/Parenteral Vitamin Supplement 10 ml/ Chromium/Copper/Manganese/Seleni/Zn 1 ml/Amino Acids/Dextrose 1,033 mls @ 65 mls/hr IV .BY DURATION [facility] Insulin Aspart (Insulin Aspart (Novolog) 100 Unit/Ml Vial) 0 unit SQ ACHS [facility]; Protocol Last Admin: 11/15/20 21:05 Dose: 4 unit Documented by: Insulin Detemir (Insulin Detemir (Levemir) 100 Unit/Ml Syr) 20 unit SQ HS [facility] Last Admin: 11/15/20 21:05 Dose: 20 unit Documented by: Levetiracetam (Levetiracetam 500 Mg Tab) 500 mg PO DAILY [facility] Last Admin: 11/15/20 08:15 Dose: 500 mg Documented by: Levothyroxine Sodium (Levothyroxine Ivp 100 Mcg/5 Ml Vial) 112 mcg IV DAILY [facility] Lorazepam (Lorazepam 2 Mg/Ml Inj) 1 mg IV Q6HR PRN PRN Reason: Anxiety/agitation/restlessness Losartan Potassium (Losartan 25 Mg Tab) 12.5 mg PO DAILY [facility] Last Admin: 11/15/20 08:15 Dose: 12.5 mg Documented by: Methylprednisolone Sodium Succinate (Methylprednisolone Sod Succi 40 Mg/Ml 1 Ml Vial) 40 mg IV DAILY [facility] Last Admin: 11/15/20 08:14 Dose: 40 mg Documented by: Metoclopramide HCl (Metoclopramide 5 Mg/Ml 2 Ml Vial) 10 mg IVP Q6HR PRN PRN Reason: Nausea Metoprolol Tartrate (Metoprolol Tartrate 12.5 Mg Tab) 12.5 mg PO BID [facility] Last Admin: 11/15/20 21:05 Dose: 12.5 mg Documented by: Miscellaneous Information (Pneumonia Protocol Utilized 1 Each Misc) 1 each PO ONCE PRN PRN Reason: Per Protocol Miscellaneous Information (Potassium Replacement Protocol 1 Each Misc) 1 each MISCELLANE DAILY PRN; Protocol PRN Reason: Per Protocol Nystatin (Nystatin 100,000 Unit/Gm Powd 15 Gm) 1 applic TOPICAL BID [facility] Last Admin: 11/15/20 21:06 Dose: 1 applic Documented by: Nystatin (Nystatin 100,000unit/Gm Cream 30 Gm Tube) 1 applic TOPICAL TID [facility] Last Admin: 11/15/20 21:06 Dose: 1 applic Documented by: Ondansetron HCl (Ondansetron 4 Mg/2 Ml Vial) 4 mg IVP Q6HR PRN PRN Reason: Nausea And Vomiting Last Admin: 11/04/20 07:27 Dose: 4 mg Documented by: Pantoprazole Sodium (Pantoprazole 40 Mg/10 Ml Vial) 40 mg IVP BID [facility] Last Admin: 11/15/20 21:06 Dose: 40 mg Documented by: Potassium Chloride (Potassium Chloride Er 10 Meq Tab.Er.Prt) 10 meq PO BID [facility] Last Admin: 11/15/20 21:06 Dose: 10 meq Documented by: Risperidone (Risperidone 1 Mg Tab) 1 mg PO HS [facility] Last Admin: 11/15/20 21:06 Dose: 1 mg Documented by: Objective - Vital Signs Vital signs: Vital Signs Temp 98.2 F 11/15/20 14:00 Pulse 80 11/15/20 14:00 Resp 18 11/15/20 14:00 BP 146/68 11/15/20 14:00 Pulse Ox 92 L 11/15/20 14:00 Intake & Output 11/14/20 11/15/20 11/15/20 18:59 06:59 18:59 Weight 115.212 kg Other: Voiding Method Diaper Incontinent # Voids 2 # Bowel Movements 1 - Exam PHYSICAL EXAMINATION: GENERAL: Awake but confused and trying to pull her IV line and NG tube with greenish secretions HEENT: Conjunctiva normal, NG tube in place with dark green-colored secretions Neck: No JVD Cardiovascular: S1-S2 muffled Respiratory: Breath sounds diminished at the bases with few rhonchi and crackles Abdomen: Soft nontender PRODUCT SAFETY COORDINATOR: Diffuse weakness Extremities: Mild edema - Labs CBC & Chem 7: 11/15/20 06:10 11/15/20 06:10 Labs: Abnormal Lab Results - Last 24 Hours (Table) 11/14/20 11/14/20 11/15/20 Range/Units 16:47 20:28 02:29 WBC (3.8-10.6) k/uL Plt Count (150-450) k/uL Neutrophils # (1.3-7.7) k/uL Carbon Dioxide (21.6-31.8) mmol/L Creatinine (0.6-1.5) mg/dL BUN/Creatinine Ratio (12.00-20.00) Ratio Glucose (70-110) mg/dL POC Glucose (mg/dL) 206 H 224 H 301 H (75-99) mg/dL Calcium (8.7-10.3) mg/dL 11/15/20 11/15/20 11/15/20 Range/Units 06:10 06:10 07:10 WBC 11.6 H (3.8-10.6) k/uL Plt Count 142 L (150-450) k/uL Neutrophils # 9.7 H (1.3-7.7) k/uL Carbon Dioxide 34.9 H (21.6-31.8) mmol/L Creatinine 0.5 L (0.6-1.5) mg/dL BUN/Creatinine Ratio 26.00 H (12.00-20.00) Ratio Glucose 312 H (70-110) mg/dL POC Glucose (mg/dL) 260 H (75-99) mg/dL Calcium 8.4 L (8.7-10.3) mg/dL 11/15/20 Range/Units 11:31 WBC (3.8-10.6) k/uL Plt Count (150-450) k/uL Neutrophils # (1.3-7.7) k/uL Carbon Dioxide (21.6-31.8) mmol/L Creatinine (0.6-1.5) mg/dL BUN/Creatinine Ratio (12.00-20.00) Ratio Glucose (70-110) mg/dL POC Glucose (mg/dL) 269 H (75-99) mg/dL Calcium (8.7-10.3) mg/dL Assessment and Plan Assessment: ASSESSMENT Sepsis secondary to acute right lower lobe pneumonia Acute hypoxic respiratory failure due to pneumonia Metabolic encephalopathy multifactorial Gastric and duodenal ileus Parenteral nutrition -on TPN History of CVA/TIA Type 2 diabetes mellitus GERD Hypertension Hyperlipidemia Morbid obesity with BMI 51.2 Seizure disorder Hypokalemia Hyponatremia Bilateral stasis dermatitis History of pancreatic mass No code PLAN: Patient has multiple chronic medical issues, she is on broad-spectrum antibiotics as per ID recommendations. She is on TPN for nutritional support. Multiple consultants surgery, pulmonary, ID on board and following the patient closely.Surgery on board and planning for taking her to the OR for repair of ventral hernia. As she is a very high risk candidate for the surgery, cardiology was consulted for clearance. Overall prognosis is poor. Family is being updated on her condition. Patient is a NO CODE.
[2020-11-16 00:39] LABS: Glucose,Whole Blood 174 mg/dL (75-99)
--- NOTE | 2020-11-16 06:49 | P.PN ---
Subjective Progress Note Date: 11/16/20 Principal diagnosis: Preoperative cardiac assessment This is a pleasant 70-year-old female patient was chronic diastolic congestive heart failure as well as hypertension and dyslipidemia and history of CVA as well as multiple psychiatric disorder who was admitted to the hospital with possible ventral hernia and the plan initially was to pursue with surgery. We saw the patient as a consult for preoperative cardiac assessment and the patient was started on Lasix because she was in heart failure exacerbation secondary to diastole dysfunction. The echo revealed normal left ventricular systolic function without any significant valvular abnormalities. The patient was seen today. The lower extremities edema has definitely improved. She still have diminished breathing sounds bilaterally. She continues to be on Lasix IV. Otherwise hemodynamically she is stable but she states "I feel better". At this point I recommended continue the Lasix IV for additional 24 hours and continue monitor the kidney function and electrolytes. I would postpone the surgery at this point unless the surgeon is emergency then the patient can proceed. Objective - Vital Signs Vital signs: Vital Signs Temp 98.2 F 11/16/20 02:51 Pulse 74 11/16/20 02:51 Resp 18 11/15/20 20:00 BP 112/67 11/16/20 02:51 Pulse Ox 96 11/16/20 02:51 Intake & Output 11/15/20 11/15/20 11/16/20 06:59 18:59 06:59 Output Total 100 Balance -100 Weight 119 kg 63.5 kg Output: Gastric Drainage 100 Other: Voiding Method Diaper Incontinent # Voids 2 2 - Constitutional General appearance: Present: no acute distress - Respiratory Respiratory: bilateral: diminished - Cardiovascular Rhythm: regular Heart sounds: normal: S1, S2 - Labs CBC & Chem 7: 11/15/20 06:10 11/15/20 06:10 Labs: Abnormal Lab Results - Last 24 Hours (Table) 11/15/20 11/15/20 11/15/20 Range/Units 06:10 07:10 11:31 Carbon Dioxide 34.9 H (21.6-31.8) mmol/L Creatinine 0.5 L (0.6-1.5) mg/dL BUN/Creatinine Ratio 26.00 H (12.00-20.00) Ratio Glucose 312 H (70-110) mg/dL POC Glucose (mg/dL) 260 H 269 H (75-99) mg/dL Calcium 8.4 L (8.7-10.3) mg/dL 11/15/20 11/15/20 11/16/20 Range/Units 16:29 20:30 00:38 Carbon Dioxide (21.6-31.8) mmol/L Creatinine (0.6-1.5) mg/dL BUN/Creatinine Ratio (12.00-20.00) Ratio Glucose (70-110) mg/dL POC Glucose (mg/dL) 256 H 204 H 174 H (75-99) mg/dL Calcium (8.7-10.3) mg/dL Assessment and Plan Assessment: Assessment #1 acute exacerbation of diastolic congestive heart failure #2 possible aspiration pneumonia #3 ventral hernia #4 multiple comorbid conditions Plan #1 continue the Lasix IV for additional 24 hours #2 continue monitor the kidney function and electrolytes #3 follow-up with the patient
[2020-11-16 07:04] LABS: Glucose,Whole Blood 140 mg/dL (75-99)
[2020-11-16] MEDS: IPRATROPIUM-ALBUTEROL 3 ML NEB INHALATION SCH ×3 (07:57→19:41)
[2020-11-16] MEDS: INSULIN ASPART (NovoLOG) 100 UNIT/ML VIAL SQ SCH ×4 (08:27→21:39)
[2020-11-16] MEDS: PIPERACILLIN-TAZOBACTAM 3.375 GM in SODIUM CHLORIDE 0.9% 100 ML IVPB SCH ×2 (08:27→17:49)
[2020-11-16] MEDS: LOSARTAN 25 MG TAB PO SCH (08:28)
[2020-11-16] MEDS: FUROSEMIDE 10 MG/ML 4 ML VIAL IV SCH ×2 (08:28→21:39)
[2020-11-16] MEDS: PANTOPRAZOLE 40 MG/10 ML VIAL IVP SCH ×2 (08:28→21:44)
[2020-11-16] MEDS: methylPREDNISolone SOD SUCCI 40 MG/ML 1 ML VIAL IV SCH (08:28)
[2020-11-16] MEDS: cloZAPine 100 MG TAB PO SCH ×2 (08:29→21:39)
[2020-11-16] MEDS: METOPROLOL TARTRATE 12.5 MG TAB PO SCH ×2 (08:29→21:38)
[2020-11-16] MEDS: HEPARIN SODIUM,PORCINE 5,000 UNIT/ML 1 ML VIAL SQ SCH ×2 (08:30→21:39)
[2020-11-16] MEDS: levETIRAcetam 500 MG TAB PO SCH (08:30)
[2020-11-16] MEDS: POTASSIUM CHLORIDE ER 10 MEQ TAB.ER.PRT PO SCH ×2 (08:30→21:38)
[2020-11-16] MEDS: GABAPENTIN 300 MG CAP PO SCH ×3 (08:30→21:38)
[2020-11-16] MEDS: LEVOTHYROXINE IVP 100 MCG/5 ML VIAL IV SCH (08:35)
[2020-11-16] MEDS: NYSTATIN 100,000UNIT/GM CREAM 30 GM TUBE TOPICAL SCH ×3 (08:37→21:44)
[2020-11-16] MEDS: NYSTATIN 100,000 UNIT/GM POWD 15 GM TOPICAL SCH ×2 (08:37→21:45)
[2020-11-16 11:21] LABS: Glucose,Whole Blood 164 mg/dL (75-99)
[2020-11-16 11:58] LABS: African American GFR (CKD) 115.3 (60.0-200.0); Anion Gap 4.4 mmol/L (4.00-12.00); Calcium 8.7 mg/dL (8.7-10.3); Carbon Dioxide 35.6 mmol/L (21.6-31.8); Magnesium 1.9 mg/dL (1.5-2.4); Non-African American GFR(CKD) 99.4 (60.0-200.0); Phosphorus 3.8 mg/dL (2.4-5.1); Potassium 3.5 mmol/L (3.5-5.5)
[2020-11-16] MEDS: DEXTROSE 5% IN WATER 1,000 ML IV SCH (13:04)
--- NOTE | 2020-11-16 13:39 | P.PN ---
Subjective Progress Note Date: 11/16/20 CHIEF COMPLAINT: Ileus versus small bowel obstruction HISTORY OF PRESENT ILLNESS: Patient is being followed for ileus versus small bowel obstruction. She's also followed for her incisional/Ventral hernia. Patient did have a bowel movement 2. She is being followed by cardiology for diuresing of her CHF exacerbation. Cardiology will reevaluate patient tomorrow for possible cardiac clearance for her hernia repair and Port-A-Cath placement. Patient had pulled out 2 different PICC lines. Interventional radiology did not want to place another PICC line and recommended a port placement. Patient lying in bed comfortably. She is afebrile. She has NG tube in place with dark material output. Denies any abdominal pain. PHYSICAL EXAM: VITAL SIGNS: Reviewed. GENERAL: Well-developed in no acute distress. HEENT: No sclera icterus. Extraocular movements grossly intact. Moist buccal mucosa. Head is atraumatic, normocephalic. ABDOMEN: Soft. Obese. distended. Nontender. Evidence of incisional hernia on the right side of the abdomen NEUROLOGIC: Pleasantly confused ASSESSMENT: 1. Ileus versus small bowel obstruction with no further evidence of small bowel obstruction or ileus on repeat computed tomography scan 2. Incarcerated incisional hernia PLAN: -Patient scheduled for incarcerated incisional hernia repair tomorrow 11/17/[address] Sosa -Patient scheduled for Port-A-Cath placement for TPN with Dr. Sosa tomorrow 11/17/2020 -Continue NG tube for decompression -Keep patient nothing by mouth except medications -GI prophylaxis Protonix and DVT prophylaxis subcu heparin Physician Milk Receiver note has been reviewed by physician. Signing provider agrees with the documented findings, assessment, and plan of care. Objective - Vital Signs Vital signs: Vital Signs Temp 98.4 F 11/16/20 06:45 Pulse 72 11/16/20 12:45 Resp 18 11/16/20 06:45 BP 125/67 11/16/20 06:45 Pulse Ox 98 11/16/20 06:45 Intake & Output 11/15/20 11/16/20 11/16/20 18:59 06:59 18:59 Output Total 100 Balance -100 Weight 119 kg 63.5 kg Output: Gastric Drainage 100 Other: Voiding Method Diaper Diaper Incontinent Incontinent # Voids 2 # Bowel Movements 1 - Labs CBC & Chem 7: 01/11/21 06:10 11/16/20 06:33 Labs: Abnormal Lab Results - Last 24 Hours (Table) 11/15/20 11/15/20 11/16/20 Range/Units 16:29 20:30 00:38 Carbon Dioxide (21.6-31.8) mmol/L Creatinine (0.6-1.5) mg/dL BUN/Creatinine Ratio (12.00-20.00) Ratio Glucose (70-110) mg/dL POC Glucose (mg/dL) 256 H 204 H 174 H (75-99) mg/dL 11/16/20 11/16/20 11/16/20 Range/Units 06:33 07:02 11:19 Carbon Dioxide 35.6 H (21.6-31.8) mmol/L Creatinine 0.5 L (0.6-1.5) mg/dL BUN/Creatinine Ratio 32.00 H (12.00-20.00) Ratio Glucose 145 H (70-110) mg/dL POC Glucose (mg/dL) 140 H 164 H (75-99) mg/dL
[2020-11-16] MEDS ORDERED: POTASSIUM CHLORIDE 10 MEQ in WATER FOR INJECTION 1 100ML.BAG IVPB ONE (14:00)
--- NOTE | 2020-11-16 15:04 | P.PN ---
Subjective From records. Patient could not provide information so it was obtained from staff and records Ms. Anna is a 70-year-old female with a past medical history of CVA/TIA, expressive aphasia, seizure disorder, diabetes mellitus, GERD, hypertension, hypothyroidism, hyperlipidemia, she is off uremia who is a resident of [facility] brought in for altered mental status changes and hypoxia. She has been treated for aspiration pneumonia. Patient also has issues with aspiration so she is on NG tube. Patient had a CAT scan of the abdomen and pelvis showing no evidence of bowel obstruction but there was right lower quadrant ventral abdominal wall hernia containing nonobstructed small bowel loops. She was also having bilateral small pleural effusions. On 11/13/2020 -patient is lying in bed appears to be confused. Sitter at bedside. As per nursing staff report patient has been pulling her NG tube. Review of systems could not be done as the patient is confused on reviewing the vitals patient had a temperature of 98.2, heart rate 72 respiratory 20, blood pressure 153/81 saturating at 95% on 7 L of high flow nasal cannula. On reviewing the labs patient had a white count of 10.9, hemoglobin 12.9, platelets 200, sodium 147, potassium 3.5, chloride 105, bicarb 38. BUN is 13 and creatinine is 0.5. On 11/14/2020 - patient is seen and examined on the general medical floors. Patient is lying in bed and is confused but arousable. Sitter at the bedside. Patient is a poor historian and cannot provide much information. On reviewing the vitals temperature of 98.2, heart rate 85, respiratory rate 22, blood pressure 168 per 81 saturating at 98% on 7 L of nasal cannula. Labs morning show white count of lung 0.3, hemoglobin 12.9, platelets 154. Sodium 146 compression 4, chloride 104, bicarb 35, BUN 12, creatinine 0.5 magnesium 2.1. On 11/15/2020-as per discussion with nursing staff, patient pulled her PICC line this morning. She is lying in bed and confused but arousable. Patient is a poor historian and cannot provide much information. Surgical service is on board, planning for repair of incarcerated incisional/ventral hernia. But she would be a very high risk candidate for the surgery, so cardiology was consulted for clearance. On reviewing the vitals temperature 98.2, heart rate 80, respiratory rate 18, blood pressure 146 x 68 saturating at 92% on 7 L of high flow nasal cannula. On reviewing the labs white count of 11.6, hemoglobin 13.4, platelets 142. Sodium 142, potassium 4, chloride 101, bicarb 34, BUN 13, creati nine 0.5. She is on antibiotics in the form of Zosyn. She is on TPN for nutritional support. Subjective: This is the first time I care of the patient 11/16/2020 This is a pleasant 70 years old female with multiple medical problems was admitted for altered mental status, patient was agitated and pulling lines and aspiration pneumonia was suspected also patient possibly had incarcerated ventral hernia and she was planned to undergo surgical repair yesterday however it was held by applications packager for decompensated diastolic CHF with ejection fraction of 55%, patient was placed on Lasix 40 mg IV twice daily. When asked the patient she couldn't tell me that she agrees to go for surgery. Also patient has NG tube with about 100 mL of dark discharge since yesterday 7 PM. She is hemodynamically stable however she needs 5 L of oxygen compared to 7 L yesterday to keep oxygen saturating about 93%. Patient is very sleepy, she opens eyes spontaneously to verbal stimuli and go back to sleep shortly. She follows commands, she knew that she is at [facility] and both she could not recognize she is in the hospital, she could not recognize the year or the name of the president. Also patient has chronic aphasia and right hemiparesis per decrements. Chest peripheral IV line but no PICC line. Echocardiogram showed ejection fraction of 55-60% with moderate LVH. On exam patient has no leg edema. Labs from today looks stable Surgical team upon in for surgical repair of her incisional hernia tomorrow on 11/17 as well as placement of Port-A-Cath placement for TPN. Objective - Vital Signs Vital signs: Vital Signs Temp 97.8 F 11/16/20 14:00 Pulse 71 11/16/20 14:00 Resp 17 11/16/20 14:00 BP 114/61 11/16/20 14:00 Pulse Ox 93 L 11/16/20 14:00 Intake & Output 11/15/20 11/16/20 11/16/20 18:59 06:59 18:59 Output Total 100 Balance -100 Weight 119 kg 63.5 kg Output: Gastric Drainage 100 Other: Voiding Method Diaper Diaper Incontinent Incontinent # Voids 2 # Bowel Movements 1 - Exam -GENERAL: The patient is sleepy, she follows commands. She is confused. She is calm and not in distress. Well developed, well nourished. HEENT: Pupils are round and equally reacting to light. EOMI. No scleral icterus. No conjunctival pallor. Normocephalic, atraumatic. No pharyngeal erythema. No thyromegaly. CARDIOVASCULAR: S1 and S2 present. No murmurs, rubs, or gallops. PULMONARY: Chest is clear to auscultation, no wheezing or crackles. ABDOMEN: Soft, nontender, nondistended, normoactive bowel sounds. No palpable organomegaly. MUSCULOSKELETAL: No joint swelling or deformity. EXTREMITIES: No cyanosis, clubbing, or pedal edema. NEUROLOGICAL: Gross neurological examination did not reveal any focal deficits. SKIN: No rashes. no petechiae. - Labs CBC & Chem 7: 11/15/20 06:10 11/16/20 06:33 Labs: Abnormal Lab Results - Last 24 Hours (Table) 11/15/20 11/15/20 11/16/20 Range/Units 16:29 20:30 00:38 Carbon Dioxide (21.6-31.8) mmol/L Creatinine (0.6-1.5) mg/dL BUN/Creatinine Ratio (12.00-20.00) Ratio Glucose (70-110) mg/dL POC Glucose (mg/dL) 256 H 204 H 174 H (75-99) mg/dL 11/16/20 11/16/20 11/16/20 Range/Units 06:33 07:02 11:19 Carbon Dioxide 35.6 H (21.6-31.8) mmol/L Creatinine 0.5 L (0.6-1.5) mg/dL BUN/Creatinine Ratio 32.00 H (12.00-20.00) Ratio Glucose 145 H (70-110) mg/dL POC Glucose (mg/dL) 140 H 164 H (75-99) mg/dL Assessment and Plan Assessment: Sepsis secondary to acute right lower lobe pneumonia Acute hypoxic respiratory failure due to pneumonia Metabolic encephalopathy multifactorial Incarcerated ventral incisional hernia Ileus versus small bowel obstruction, improving Acute on chronic diastolic CHF with ejection fraction of 55% Pending Parenteral nutrition -on TPN History of CVA/TIA Type 2 diabetes mellitus patient with chronic hypoxic respiratory failure secondary to obesity and hypoventilation syndrome per pulmonary 2.6 cm pancreatic cyst, needs follow-up as an outpatient 2.4 left ovarian cyst, follow-up as an outpatient history of GERD Hypertension Hyperlipidemia Morbid obesity with BMI 51.2 history of Seizure disorder History of stroke with Chronic aphasia and right hemiparesis Hypokalemia Hyponatremia Bilateral stasis dermatitis History of pancreatic mass No code Plan: This is a pleasant 70 years old female who presents with pneumonia, CHF, AMS. And incisional ventral hernia Continue with antibiotics with Zosyn, Lasix IV and D5W. Several consultants on the case including infectious disease, applications packager, surgical team. She is planned for hernia repair and 11/16 Labs and medication were reviewed.. Continue same treatment. Continue with symptomatic treatment. Resume home medication. Monitor lytes and vitals. DVT and GI prophylaxis. Further recommendationsas per clinical course of the patient DVT prophylaxis: Subcutaneous heparin GI Prophylaxis: Ppi Prognosis is guarded
[2020-11-16 16:44] LABS: Glucose,Whole Blood 199 mg/dL (75-99)
[2020-11-16] MEDS: [UNRECOGNIZED DRUG - OTHER] IV SCH ×6 (16:49)
[2020-11-16] MEDS: MAGNESIUM SULFATE IV SCH ×6 (16:49)
[2020-11-16] MEDS: CALCIUM GLUCONATE IV SCH ×6 (16:49)
[2020-11-16] MEDS: POTASSIUM PHOSPHATE IV SCH ×6 (16:49)
[2020-11-16 21:09] LABS: Glucose,Whole Blood 159 mg/dL (75-99)
[2020-11-16] MEDS: risperiDONE 1 MG TAB PO SCH (21:38)
[2020-11-16] MEDS: BENZTROPINE MESYLATE 1 MG TAB PO SCH (21:39)
[2020-11-16] MEDS: INSULIN DETEMIR (LEVEMIR) 100 UNIT/ML SYR SQ SCH (21:43)
--- NOTE | 2020-11-16 22:14 | PN ---
PROGRESS NOTE DATE OF SERVICE: 11/16/2020 REASON FOR FOLLOWUP: Aspiration pneumonia. INTERVAL HISTORY: The patient is currently afebrile. The patient seems to be slightly more awake and alert. Denies having any chest pain or shortness of breath. Occasional cough. No abdominal pain. She was asking me when she can eat. PHYSICAL EXAMINATION: Blood pressure 113/72 with a pulse of 68, temperature 98.1. She is 96% on 5 L nasal cannula. General description is an elderly female lying in bed in no distress. RESPIRATORY SYSTEM: Unlabored breathing with decreased breath sounds at the base. No wheeze. HEART: S1, S2. Regular rate and rhythm. ABDOMEN: Soft. No tenderness. LABS: BUN of 16, creatinine 0.5. DIAGNOSTIC IMPRESSION AND PLAN: Patient with a component of aspiration pneumonia with significant distention of the stomach in this patient currently covered with Zosyn; to continue while monitoring clinical course closely. Continue with supportive care. MMODL / IJN: [id number] /
[2020-11-17] MEDS: PIPERACILLIN-TAZOBACTAM 3.375 GM in SODIUM CHLORIDE 0.9% 100 ML IVPB SCH ×4 (00:49→23:54)
[2020-11-17 03:36] LABS: Glucose,Whole Blood 131 mg/dL (75-99)
[2020-11-17] MEDS ORDERED: LACTATED RINGERS 1,000 ML IV SCH (05:59)
[2020-11-17 06:31] LABS: Basophils % (A) 0 %; Eosinophils % (A) 0 %; HCT 43.2 % (34.0-46.0); HGB 14.1 gm/dL (11.4-16.0); Lymphocytes # (A) 1.4 k/uL (1.0-4.8); Lymphocytes % (A) 14 %; MCH 29.2 pg (25.0-35.0); MCHC 32.6 g/dL (31.0-37.0); MCV 89.5 fL (80.0-100.0); Mean Platelet Volume 7.4; Monocytes # (A) 0.9 k/uL (0-1.0); Monocytes % (A) 9 %; Neutrophils # (A) 7.5 k/uL (1.3-7.7); Neutrophils % (A) 74 %; Platelet Count 212 k/uL (150-450); RBC 4.82 m/uL (3.80-5.40); RDW 14.7 % (11.5-15.5); WBC 10.2 k/uL (3.8-10.6)
[2020-11-17 07:49] LABS: Glucose,Whole Blood 142 mg/dL (75-99)
[2020-11-17] MEDS: INSULIN ASPART (NovoLOG) 100 UNIT/ML VIAL SQ SCH ×4 (08:42→20:37)
[2020-11-17] MEDS: METOPROLOL TARTRATE 12.5 MG TAB PO SCH ×2 (08:54→20:11)
[2020-11-17] MEDS: POTASSIUM CHLORIDE ER 10 MEQ TAB.ER.PRT PO SCH ×2 (08:54→20:12)
[2020-11-17] MEDS: LOSARTAN 25 MG TAB PO SCH (08:54)
[2020-11-17] MEDS: HEPARIN SODIUM,PORCINE 5,000 UNIT/ML 1 ML VIAL SQ SCH ×2 (08:54→20:12)
[2020-11-17] MEDS: GABAPENTIN 300 MG CAP PO SCH ×3 (08:54→20:13)
[2020-11-17] MEDS: PANTOPRAZOLE 40 MG/10 ML VIAL IVP SCH ×2 (08:55→20:12)
[2020-11-17] MEDS: methylPREDNISolone SOD SUCCI 40 MG/ML 1 ML VIAL IV SCH (08:55)
[2020-11-17] MEDS: FUROSEMIDE 10 MG/ML 4 ML VIAL IV SCH (08:55)
[2020-11-17] MEDS: NYSTATIN 100,000 UNIT/GM POWD 15 GM TOPICAL SCH ×2 (08:57→20:12)
[2020-11-17] MEDS: NYSTATIN 100,000UNIT/GM CREAM 30 GM TUBE TOPICAL SCH ×3 (08:57→20:12)
[2020-11-17] MEDS: IPRATROPIUM-ALBUTEROL 3 ML NEB INHALATION SCH ×3 (09:12→19:58)
[2020-11-17] MEDS: [UNRECOGNIZED DRUG - OTHER] IV SCH ×6 (09:26)
[2020-11-17] MEDS: CALCIUM GLUCONATE IV SCH ×6 (09:26)
[2020-11-17] MEDS: POTASSIUM PHOSPHATE IV SCH ×6 (09:26)
[2020-11-17] MEDS: MAGNESIUM SULFATE IV SCH ×6 (09:26)
[2020-11-17] MEDS: levETIRAcetam 500 MG TAB PO SCH (09:31)
[2020-11-17] MEDS: cloZAPine 100 MG TAB PO SCH ×2 (09:31→20:12)
[2020-11-17] MEDS: LEVOTHYROXINE IVP 100 MCG/5 ML VIAL IV SCH (09:32)
[2020-11-17] MEDS: DEXTROSE 5% IN WATER 1,000 ML IV SCH (09:36)
[2020-11-17 10:14] LABS: African American GFR (CKD) 108.5 (60.0-200.0); Anion Gap 5.9 mmol/L (4.00-12.00); BUN/Creat Ratio 28.33 Ratio (12.00-20.00); Carbon Dioxide 37.1 mmol/L (21.6-31.8); Magnesium 1.9 mg/dL (1.5-2.4); Non-African American GFR(CKD) 93.7 (60.0-200.0); Phosphorus 3.7 mg/dL (2.4-5.1); Potassium 3.4 mmol/L (3.5-5.5)
[2020-11-17] MEDS ORDERED: POTASSIUM CHLORIDE 20 MEQ in WATER FOR INJECTION 1 100ML.BAG IVPB STA (11:22)
[2020-11-17 11:38] LABS: Glucose,Whole Blood 178 mg/dL (75-99)
--- NOTE | 2020-11-17 11:42 | P.PN ---
Subjective HISTORY OF PRESENTING ILLNESS This is a pleasant 83-year-old male past medical history significant for coronary artery disease s/p bypass grafting 2006 with ARAGON to LAD and SVG to PDA and OM, abdominal aortic aneurysm status post repair, chronic persistent atrial fibrillation on long-term anticoagulation, moderate mitral regurgitation, hypertension, chronic systolic heart failure and dyslipidemia. He follows in the office with Dr. Elias. He is seen and examined sitting up in chair in no acute distress. HEENT denies symptoms of chest pain, shortness of breath, dizziness or palpitations. Blood pressure 149/86 heart rate 64 afebrile maintaining oxygen saturation on nasal cannula. Laboratory data reviewed, sodium 142, potassium 3.4, creatinine 0.9 and magnesium 1.9. Request has been resumed. PHYSICAL EXAMINATION CONSTITUTIONAL: No apparent distress. HEENT: Head is normocephalic. Pupils are equal, round. Sclerae anicteric. Mucous membranes of the mouth are moist. No JVD. No carotid bruit. NG tube in place. CHEST EXAMINATION: Scattered rhonchi. No rales or wheezes. No chest wall tenderness is noted on palpation or with deep breathing. HEART EXAMINATION: Irregular rate and rhythm. S1, S2 heard. Systolic ejection murmur at the base, no gallops or rub. EXTREMITIES: 2+ peripheral pulses, no lower extremity edema and no calf tenderness. ASSESSMENT Chronic persistent atrial fibrillation with rapid ventricular rate, currently controlled Incarcerated inguinal hernia status post repair Small bowel obstruction Hypokalemia Chronic systolic heart failure Coronary artery disease status post bypass grafting in 2006 Hypertension Dyslipidemia PLAN Potassium being replaced per protocol. Eliquis has been resumed for thromboembolic protection. Clinically stable from a cardiac perspective. We will follow along as needed. Nurse Practitioner note has been reviewed, I agree with a documented findings and plan of care. Patient was seen and examined. Objective - Vital Signs Vital signs: Vital Signs Temp 97.8 F 11/17/20 08:00 Pulse 64 11/17/20 09:24 Resp 18 11/17/20 09:26 BP 103/64 11/17/20 08:00 Pulse Ox 95 11/17/20 09:26 Intake & Output 11/16/20 11/17/20 11/17/20 18:59 06:59 18:59 Output Total 200 Balance -200 Output: Gastric Drainage 200 Other: Voiding Method Diaper Diaper Diaper Incontinent Incontinent Incontinent # Voids 2 3 # Bowel Movements 1 1 - Labs CBC & Chem 7: 11/17/20 06:05 11/17/20 06:05 Labs: Abnormal Lab Results - Last 24 Hours (Table) 11/16/20 11/16/20 11/16/20 Range/Units 06:33 16:41 21:06 Potassium (3.5-5.5) mmol/L Carbon Dioxide 35.6 H (21.6-31.8) mmol/L Creatinine 0.5 L (0.6-1.5) mg/dL BUN/Creatinine Ratio 32.00 H (12.00-20.00) Ratio Glucose 145 H (70-110) mg/dL POC Glucose (mg/dL) 199 H 159 H (75-99) mg/dL Triglycerides (0.0-149.0) mg/dL 11/17/20 11/17/20 11/17/20 Range/Units 03:34 06:05 07:47 Potassium 3.4 L (3.5-5.5) mmol/L Carbon Dioxide 37.1 H (21.6-31.8) mmol/L Creatinine (0.6-1.5) mg/dL BUN/Creatinine Ratio 28.33 H (12.00-20.00) Ratio Glucose 151 H (70-110) mg/dL POC Glucose (mg/dL) 131 H 142 H (75-99) mg/dL Triglycerides 280.0 H (0.0-149.0) mg/dL 11/17/20 Range/Units 11:36 Potassium (3.5-5.5) mmol/L Carbon Dioxide (21.6-31.8) mmol/L Creatinine (0.6-1.5) mg/dL BUN/Creatinine Ratio (12.00-20.00) Ratio Glucose (70-110) mg/dL POC Glucose (mg/dL) 178 H (75-99) mg/dL Triglycerides (0.0-149.0) mg/dL
--- NOTE | 2020-11-17 12:34 | P.PN ---
Subjective From records. Patient could not provide information so it was obtained from staff and records Ms. Anna is a 70-year-old female with a past medical history of CVA/TIA, expressive aphasia, seizure disorder, diabetes mellitus, GERD, hypertension, hypothyroidism, hyperlipidemia, she is off uremia who is a resident of [facility] brought in for altered mental status changes and hypoxia. She has been treated for aspiration pneumonia. Patient also has issues with aspiration so she is on NG tube. Patient had a CAT scan of the abdomen and pelvis showing no evidence of bowel obstruction but there was right lower quadrant ventral abdominal wall hernia containing nonobstructed small bowel loops. She was also having bilateral small pleural effusions. On 11/13/2020 -patient is lying in bed appears to be confused. Sitter at bedside. As per nursing staff report patient has been pulling her NG tube. Review of systems could not be done as the patient is confused on reviewing the vitals patient had a temperature of 98.2, heart rate 72 respiratory 20, blood pressure 153/81 saturating at 95% on 7 L of high flow nasal cannula. On reviewing the labs patient had a white count of 10.9, hemoglobin 12.9, platelets 200, sodium 147, potassium 3.5, chloride 105, bicarb 38. BUN is 13 and creatinine is 0.5. On 11/14/2020 - patient is seen and examined on the general medical floors. Patient is lying in bed and is confused but arousable. Sitter at the bedside. Patient is a poor historian and cannot provide much information. On reviewing the vitals temperature of 98.2, heart rate 85, respiratory rate 22, blood pressure 168 per 81 saturating at 98% on 7 L of nasal cannula. Labs morning show white count of lung 0.3, hemoglobin 12.9, platelets 154. Sodium 146 compression 4, chloride 104, bicarb 35, BUN 12, creatinine 0.5 magnesium 2.1. On 11/15/2020-as per discussion with nursing staff, patient pulled her PICC line this morning. She is lying in bed and confused but arousable. Patient is a poor historian and cannot provide much information. Surgical service is on board, planning for repair of incarcerated incisional/ventral hernia. But she would be a very high risk candidate for the surgery, so cardiology was consulted for clearance. On reviewing the vitals temperature 98.2, heart rate 80, respiratory rate 18, blood pressure 146 x 68 saturating at 92% on 7 L of high flow nasal cannula. On reviewing the labs white count of 11.6, hemoglobin 13.4, platelets 142. Sodium 142, potassium 4, chloride 101, bicarb 34, BUN 13, creati nine 0.5. She is on antibiotics in the form of Zosyn. She is on TPN for nutritional support. Subjective: This is the first time I care of the patient 11/16/2020 This is a pleasant 70 years old female with multiple medical problems was admitted for altered mental status, patient was agitated and pulling lines and aspiration pneumonia was suspected also patient possibly had incarcerated ventral hernia and she was planned to undergo surgical repair yesterday however it was held by joinery machinist for decompensated diastolic CHF with ejection fraction of 55%, patient was placed on Lasix 40 mg IV twice daily. When asked the patient she couldn't tell me that she agrees to go for surgery. Also patient has NG tube with about 100 mL of dark discharge since yesterday 7 PM. She is hemodynamically stable however she needs 5 L of oxygen compared to 7 L yesterday to keep oxygen saturating about 93%. Patient is very sleepy, she opens eyes spontaneously to verbal stimuli and go back to sleep shortly. She follows commands, she knew that she is at [place] and both she could not recognize she is in the hospital, she could not recognize the year or the name of the president. Also patient has chronic aphasia and right hemiparesis per decrements. Chest peripheral IV line but no PICC line. Echocardiogram showed ejection fraction of 55-60% with moderate LVH. On exam patient has no leg edema. Labs from today looks stable Surgical team upon in for surgical repair of her incisional hernia tomorrow on 11/17 as well as placement of Port-A-Cath placement for TPN. 11/17/2020 Patient is more awake today, she notes in the hospital, sheis November 2020, and she knew the name of the president Venkata. 11 patient is talking more freely with no aphasia, she can move her right arm with no hemiparesis. NG tube is still in place with light brown of a few millimeter of discharge. Patient is hemodynamically stable and labs look stable as well with sugar control. Patient with no abdominal pain or nausea vomiting. Abdomen nondistended. Patient is planned to go for ventral hernia repair today. Also she will got PICC line placement for possible TPN Objective - Vital Signs Vital signs: Vital Signs Temp 97.8 F 11/17/20 08:00 Pulse 64 11/17/20 09:24 Resp 18 11/17/20 09:26 BP 103/64 11/17/20 08:00 Pulse Ox 95 11/17/20 09:26 Intake & Output 11/16/20 11/17/20 11/17/20 18:59 06:59 18:59 Output Total 200 Balance -200 Output: Gastric Drainage 200 Other: Voiding Method Diaper Diaper Diaper Incontinent Incontinent Incontinent # Voids 2 3 # Bowel Movements 1 1 - Exam -GENERAL: The patient is sleepy, she follows commands. She is confused. She is calm and not in distress. Well developed, well nourished. HEENT: Pupils are round and equally reacting to light. EOMI. No scleral icterus. No conjunctival pallor. Normocephalic, atraumatic. No pharyngeal erythema. No thyromegaly. CARDIOVASCULAR: S1 and S2 present. No murmurs, rubs, or gallops. PULMONARY: Chest is clear to auscultation, no wheezing or crackles. ABDOMEN: Soft, nontender, nondistended, normoactive bowel sounds. No palpable organomegaly. MUSCULOSKELETAL: No joint swelling or deformity. EXTREMITIES: No cyanosis, clubbing, or pedal edema. NEUROLOGICAL: Gross neurological examination did not reveal any focal deficits. SKIN: No rashes. no petechiae. - Labs CBC & Chem 7: 11/17/20 06:05 11/17/20 06:05 Labs: Abnormal Lab Results - Last 24 Hours (Table) 11/16/20 11/16/20 11/17/20 Range/Units 16:41 21:06 03:34 Potassium (3.5-5.5) mmol/L Carbon Dioxide (21.6-31.8) mmol/L BUN/Creatinine Ratio (12.00-20.00) Ratio Glucose (70-110) mg/dL POC Glucose (mg/dL) 199 H 159 H 131 H (75-99) mg/dL Triglycerides (0.0-149.0) mg/dL 11/17/20 11/17/20 11/17/20 Range/Units 06:05 07:47 11:36 Potassium 3.4 L (3.5-5.5) mmol/L Carbon Dioxide 37.1 H (21.6-31.8) mmol/L BUN/Creatinine Ratio 28.33 H (12.00-20.00) Ratio Glucose 151 H (70-110) mg/dL POC Glucose (mg/dL) 142 H 178 H (75-99) mg/dL Triglycerides 280.0 H (0.0-149.0) mg/dL Assessment and Plan Assessment: Sepsis secondary to acute right lower lobe pneumonia Acute hypoxic respiratory failure due to pneumonia Metabolic encephalopathy multifactorial Incarcerated ventral incisional hernia Ileus versus small bowel obstruction, improving Acute on chronic diastolic CHF with ejection fraction of 55% Pending Parenteral nutrition -on TPN History of CVA/TIA Type 2 diabetes mellitus patient with chronic hypoxic respiratory failure secondary to obesity and hypoventilation syndrome per pulmonary 2.6 cm pancreatic cyst, needs follow-up as an outpatient 2.4 left ovarian cyst, follow-up as an outpatient history of GERD Hypertension Hyperlipidemia Morbid obesity with BMI 51.2 history of Seizure disorder History of stroke with Chronic aphasia and right hemiparesis Hypokalemia Hyponatremia Bilateral stasis dermatitis History of pancreatic mass No code Plan: This is a pleasant 70 years old female who presents with pneumonia, CHF, AMS. And incisional ventral hernia Continue with antibiotics with Zosyn, Lasix IV and D5W. Several consultants on the case including infectious disease, joinery machinist, surgical team. She is planned for hernia repair and 11/16 Labs and medication were reviewed.. Continue same treatment. Continue with symptomatic treatment. Resume home medication. Monitor lytes and vitals. DVT and GI prophylaxis. Further recommendationsas per clinical course of the patient DVT prophylaxis: Subcutaneous heparin GI Prophylaxis: Ppi Prognosis is guarded
--- NOTE | 2020-11-17 12:42 | P.PN ---
Subjective HISTORY OF PRESENTING ILLNESS This is a pleasant 70-year-old female past medical history significant for hypertension, dyslipidemia, CVA, seizure disorder, paranoid schizophrenic and chronic diastolic heart failure. She follows in the office with Dr. Gutierrez. She is seen and examined sitting up in bed. She seems more alert and conversat ional today. She denies chest pain or shortness of breath. Blood pressure 103/64 heart rate 67 afebrile maintaining oxygen saturation on room air. Laboratory data reviewed, CBC unremarkable, sodium 143, potassium 3.4, creatinine 0.6 and magnesium 1.9. Currently maintained on Lasix 40 mg IV twice a day. 24-hour urine output not accurately documented secondary to incontinence. Per nursing staff she has had 2 bowel movements yesterday and the patient states she is passing gas. She would like to eat something today if possible. PHYSICAL EXAMINATION CONSTITUTIONAL: No apparent distress. HEENT: Head is normocephalic. Pupils are equal, round. Sclerae anicteric. Mucous membranes of the mouth are moist. No JVD. No carotid bruit. CHEST EXAMINATION: Diminished bilaterally. No chest wall tenderness is noted on palpation or with deep breathing. HEART EXAMINATION: Regular rate and rhythm. S1, S2 heard. Systolic ejection murmur at the left sternal border, no gallops or rub. EXTREMITIES: 2+ peripheral pulses, no lower extremity edema and no calf tenderness. ASSESSMENT Acute on chronic diastolic heart failure Aspiration pneumonia Ventral hernia, possibly incarcerated Leukocytosis Hypertension Dyslipidemia CVA Seizure disorder PLAN Recommend not proceeding with any elective non-emergent surgeries at this time. Consider conservative management if feasible. Fluid overload has improved and will transition to oral diuretics. Nurse Practitioner note has been reviewed, I agree with a documented findings and plan of care. Patient was seen and examined. Objective - Vital Signs Vital signs: Vital Signs Temp 97.8 F 11/17/20 08:00 Pulse 64 11/17/20 09:24 Resp 18 11/17/20 09:26 BP 103/64 11/17/20 08:00 Pulse Ox 95 11/17/20 09:26 Intake & Output 11/16/20 11/17/20 11/17/20 18:59 06:59 18:59 Output Total 200 Balance -200 Output: Gastric Drainage 200 Other: Voiding Method Diaper Diaper Diaper Incontinent Incontinent Incontinent # Voids 2 3 # Bowel Movements 1 1 - Labs CBC & Chem 7: 11/17/20 06:05 11/17/20 06:05 Labs: Abnormal Lab Results - Last 24 Hours (Table) 11/16/20 11/16/20 11/17/20 Range/Units 16:41 21:06 03:34 Potassium (3.5-5.5) mmol/L Carbon Dioxide (21.6-31.8) mmol/L BUN/Creatinine Ratio (12.00-20.00) Ratio Glucose (70-110) mg/dL POC Glucose (mg/dL) 199 H 159 H 131 H (75-99) mg/dL Triglycerides (0.0-149.0) mg/dL 11/17/20 11/17/20 11/17/20 Range/Units 06:05 07:47 11:36 Potassium 3.4 L (3.5-5.5) mmol/L Carbon Dioxide 37.1 H (21.6-31.8) mmol/L BUN/Creatinine Ratio 28.33 H (12.00-20.00) Ratio Glucose 151 H (70-110) mg/dL POC Glucose (mg/dL) 142 H 178 H (75-99) mg/dL Triglycerides 280.0 H (0.0-149.0) mg/dL
[2020-11-17] MEDS: FAT EMULSION 20% 250 ML IV SCH (13:51)
--- NOTE | 2020-11-17 15:15 | P.PN ---
Subjective Progress Note Date: 11/17/20 CHIEF COMPLAINT: Ileus versus small bowel obstruction HISTORY OF PRESENT ILLNESS: Patient is being followed for ileus versus small bowel obstruction. She's also followed for her incisional/Ventral hernia. Patient did have 2 bowel movements yesterday. Patient states that she is now passing gas. Patient is followed by cardiology there diuresing her for CHF exacerbation. They're recommending to not proceed with any elective nonemergent surgeries at this time. Therefore, surgery for hernia repair and Port-A-Cath placement were canceled today. Patient will eventually need surgery for her incarcerated hernia. Afebrile WBC 10.2 hemoglobin 14.1 potassium 3.4 PHYSICAL EXAM: VITAL SIGNS: Reviewed. GENERAL: Well-developed in no acute distress. HEENT: No sclera icterus. Extraocular movements grossly intact. Moist buccal mucosa. Head is atraumatic, normocephalic. ABDOMEN: Soft. Obese. distended. Nontender. Evidence of incisional hernia on the right side of the abdomen NEUROLOGIC: Pleasantly confused ASSESSMENT: 1. Ileus versus small bowel obstruction with no further evidence of small bowel obstruction or ileus on repeat computed tomography scan 2. Incarcerated incisional hernia 3. Hypokalemia patient receiving supplement PLAN: -Surgery for incisional and ventral hernia repair and Port-A-Cath placement canceled today per cardiology recommendations of not proceeding with any nonemergent surgery at this time due to patient's CHF exacerbation -Continue with diuretics per cardiology recommendations -Patient will eventually need surgery on her incarcerated incisional/ventral hernia -Discontinue NG tube -Start clear liquid diet -Add ensure clear 3 times a day -GI prophylaxis Protonix and DVT prophylaxis subcu heparin Physician Cell Tuber Machine note has been reviewed by physician. Signing provider agrees with the documented findings, assessment, and plan of care. Objective - Vital Signs Vital signs: Vital Signs Temp 97.3 F L 11/17/20 14:00 Pulse 72 11/17/20 14:00 Resp 16 11/17/20 14:00 BP 110/63 11/17/20 14:00 Pulse Ox 91 L 11/17/20 14:00 Intake & Output 11/16/20 11/17/20 11/17/20 18:59 06:59 18:59 Output Total 200 Balance -200 Weight 63.5 kg Output: Gastric Drainage 200 Other: Voiding Method Diaper Diaper Diaper Incontinent Incontinent Incontinent # Voids 2 3 # Bowel Movements 1 1 - Labs CBC & Chem 7: 11/17/20 06:05 11/17/20 06:05 Labs: Abnormal Lab Results - Last 24 Hours (Table) 11/16/20 11/16/20 11/17/20 Range/Units 16:41 21:06 03:34 Potassium (3.5-5.5) mmol/L Carbon Dioxide (21.6-31.8) mmol/L BUN/Creatinine Ratio (12.00-20.00) Ratio Glucose (70-110) mg/dL POC Glucose (mg/dL) 199 H 159 H 131 H (75-99) mg/dL Triglycerides (0.0-149.0) mg/dL 11/17/20 11/17/20 11/17/20 Range/Units 06:05 07:47 11:36 Potassium 3.4 L (3.5-5.5) mmol/L Carbon Dioxide 37.1 H (21.6-31.8) mmol/L BUN/Creatinine Ratio 28.33 H (12.00-20.00) Ratio Glucose 151 H (70-110) mg/dL POC Glucose (mg/dL) 142 H 178 H (75-99) mg/dL Triglycerides 280.0 H (0.0-149.0) mg/dL
[2020-11-17] MEDS: FUROSEMIDE 40 MG TAB PO SCH (15:25)
[2020-11-17 16:47] LABS: Glucose,Whole Blood 237 mg/dL (75-99)
[2020-11-17] MEDS: BENZTROPINE MESYLATE 1 MG TAB PO SCH (20:11)
[2020-11-17] MEDS: risperiDONE 1 MG TAB PO SCH (20:11)
[2020-11-17 20:35] LABS: Glucose,Whole Blood 323 mg/dL (75-99)
[2020-11-17] MEDS: INSULIN DETEMIR (LEVEMIR) 100 UNIT/ML SYR SQ SCH (20:37)
--- NOTE | 2020-11-17 22:37 | PN ---
PROGRESS NOTE DATE OF SERVICE: 11/17/2020 REASON FOR FOLLOWUP: Aspiration pneumonia. INTERVAL HISTORY: The patient is currently afebrile. The patient is breathing more comfortably. Denies having any chest pain or shortness of breath. Occasional cough. No abdominal pain or diarrhea. PHYSICAL EXAMINATION: Blood pressure 107/62 with a pulse of 74, temperature 97.7. She is 95% on 3 L nasal cannula. General description is an elderly female lying in bed in no distress. RESPIRATORY SYSTEM: Unlabored breathing with decreased breath sounds at the base. No wheeze. HEART: S1, S2. Regular rate and rhythm. ABDOMEN: Soft. No tenderness. LABS: Hemoglobin is 14.1, white count 10.2, BUN of 17, creatinine 0.6. DIAGNOSTIC IMPRESSION AND PLAN: Patient with a component of aspiration pneumonia with significant distention of the stomach ileus in this patient who did have an NG tube; currently covered with Zosyn and TPN; to continue. Monitor clinical course closely. MMODL / IJN: [id number] /
[2020-11-18 02:03] LABS: Glucose,Whole Blood 135 mg/dL (75-99)
[2020-11-18] MEDS: DEXTROSE 5% IN WATER 1,000 ML IV SCH (05:03)
[2020-11-18 07:23] LABS: Glucose,Whole Blood 123 mg/dL (75-99)
[2020-11-18] MEDS: IPRATROPIUM-ALBUTEROL 3 ML NEB INHALATION SCH ×3 (08:50→19:52)
[2020-11-18] MEDS: PIPERACILLIN-TAZOBACTAM 3.375 GM in SODIUM CHLORIDE 0.9% 100 ML IVPB SCH ×2 (09:06→18:14)
[2020-11-18] MEDS: INSULIN ASPART (NovoLOG) 100 UNIT/ML VIAL SQ SCH ×4 (09:07→20:24)
[2020-11-18] MEDS: cloZAPine 100 MG TAB PO SCH (09:07)
[2020-11-18] MEDS: levETIRAcetam 500 MG TAB PO SCH (09:07)
[2020-11-18] MEDS: LOSARTAN 25 MG TAB PO SCH (09:08)
[2020-11-18] MEDS: POTASSIUM CHLORIDE ER 10 MEQ TAB.ER.PRT PO SCH ×2 (09:08→20:25)
[2020-11-18] MEDS: methylPREDNISolone SOD SUCCI 40 MG/ML 1 ML VIAL IV SCH (09:08)
[2020-11-18] MEDS: HEPARIN SODIUM,PORCINE 5,000 UNIT/ML 1 ML VIAL SQ SCH ×2 (09:08→20:25)
[2020-11-18] MEDS: METOPROLOL TARTRATE 12.5 MG TAB PO SCH ×2 (09:08→20:24)
[2020-11-18] MEDS: GABAPENTIN 300 MG CAP PO SCH ×3 (09:08→20:25)
[2020-11-18] MEDS: PANTOPRAZOLE 40 MG/10 ML VIAL IVP SCH ×2 (09:09→20:24)
[2020-11-18] MEDS: FUROSEMIDE 40 MG TAB PO SCH ×2 (09:09→14:56)
[2020-11-18] MEDS: LEVOTHYROXINE IVP 100 MCG/5 ML VIAL IV SCH (09:09)
[2020-11-18] MEDS: NYSTATIN 100,000 UNIT/GM POWD 15 GM TOPICAL SCH ×2 (09:10→14:57)
[2020-11-18] MEDS: NYSTATIN 100,000UNIT/GM CREAM 30 GM TUBE TOPICAL SCH ×3 (09:10→20:23)
--- NOTE | 2020-11-18 10:22 | P.PN ---
Subjective From records. Patient could not provide information so it was obtained from staff and records Ms. Anna is a 70-year-old female with a past medical history of CVA/TIA, expressive aphasia, seizure disorder, diabetes mellitus, GERD, hypertension, hypothyroidism, hyperlipidemia, she is off uremia who is a resident of [facility] brought in for altered mental status changes and hypoxia. She has been treated for aspiration pneumonia. Patient also has issues with aspiration so she is on NG tube. Patient had a CAT scan of the abdomen and pelvis showing no evidence of bowel obstruction but there was right lower quadrant ventral abdominal wall hernia containing nonobstructed small bowel loops. She was also having bilateral small pleural effusions. On 11/13/2020 -patient is lying in bed appears to be confused. Sitter at bedside. As per nursing staff report patient has been pulling her NG tube. Review of systems could not be done as the patient is confused on reviewing the vitals patient had a temperature of 98.2, heart rate 72 respiratory 20, blood pressure 153/81 saturating at 95% on 7 L of high flow nasal cannula. On reviewing the labs patient had a white count of 10.9, hemoglobin 12.9, platelets 200, sodium 147, potassium 3.5, chloride 105, bicarb 38. BUN is 13 and creatinine is 0.5. On 11/14/2020 - patient is seen and examined on the general medical floors. Patient is lying in bed and is confused but arousable. Sitter at the bedside. Patient is a poor historian and cannot provide much information. On reviewing the vitals temperature of 98.2, heart rate 85, respiratory rate 22, blood pressure 168 per 81 saturating at 98% on 7 L of nasal cannula. Labs morning show white count of lung 0.3, hemoglobin 12.9, platelets 154. Sodium 146 compression 4, chloride 104, bicarb 35, BUN 12, creatinine 0.5 magnesium 2.1. On 11/15/2020-as per discussion with nursing staff, patient pulled her PICC line this morning. She is lying in bed and confused but arousable. Patient is a poor historian and cannot provide much information. Surgical service is on board, planning for repair of incarcerated incisional/ventral hernia. But she would be a very high risk candidate for the surgery, so cardiology was consulted for clearance. On reviewing the vitals temperature 98.2, heart rate 80, respiratory rate 18, blood pressure 146 x 68 saturating at 92% on 7 L of high flow nasal cannula. On reviewing the labs white count of 11.6, hemoglobin 13.4, platelets 142. Sodium 142, potassium 4, chloride 101, bicarb 34, BUN 13, creati nine 0.5. She is on antibiotics in the form of Zosyn. She is on TPN for nutritional support. Subjective: This is the first time I care of the patient 11/16/2020 This is a pleasant 70 years old female with multiple medical problems was admitted for altered mental status, patient was agitated and pulling lines and aspiration pneumonia was suspected also patient possibly had incarcerated ventral hernia and she was planned to undergo surgical repair yesterday however it was held by architectural draftsperson for decompensated diastolic CHF with ejection fraction of 55%, patient was placed on Lasix 40 mg IV twice daily. When asked the patient she couldn't tell me that she agrees to go for surgery. Also patient has NG tube with about 100 mL of dark discharge since yesterday 7 PM. She is hemodynamically stable however she needs 5 L of oxygen compared to 7 L yesterday to keep oxygen saturating about 93%. Patient is very sleepy, she opens eyes spontaneously to verbal stimuli and go back to sleep shortly. She follows commands, she knew that she is at [facility] and both she could not recognize she is in the hospital, she could not recognize the year or the name of the president. Also patient has chronic aphasia and right hemiparesis per decrements. Chest peripheral IV line but no PICC line. Echocardiogram showed ejection fraction of 55-60% with moderate LVH. On exam patient has no leg edema. Labs from today looks stable Surgical team upon in for surgical repair of her incisional hernia tomorrow on 11/17 as well as placement of Port-A-Cath placement for TPN. 11/17/2020 Patient is more awake today, she notes in the hospital, sheis November 2020, and she knew the name of the president Venkata. 11 patient is talking more freely with no aphasia, she can move her right arm with no hemiparesis. NG tube is still in place with light brown of a few millimeter of discharge. Patient is hemodynamically stable and labs look stable as well with sugar control. Patient with no abdominal pain or nausea vomiting. Abdomen nondistended. Patient is planned to go for ventral hernia repair today. Also she will got PICC line placement for possible TPN 11/18/2020 Patient still awake and oriented to time place and person, she is mildly lethargic and sleepy but easily arousable. She is tolerating liquid diet and wanted to be advanced. Discontinue IV fluid. She had good bowel movement, no nausea vomiting, no abdominal pain. She is saturating 96% on 2 L oxygen and discussed with staff to try to wean down her oxygen requirement. Yesterday her surgery for her incarcerated ventral hernia was held open architectural draftsperson recommendation and due to her CHF exacerbation. Her mental status is improved and her IV Lasix was wished oral Lasix by cardiology team. She is less edematous today. Physical therapy were following the patient. We will ask for reevaluation by PT/OT to assess for home health care versus rehab. Objective - Vital Signs Vital signs: Vital Signs Temp 97.4 F L 11/18/20 07:50 Pulse 72 11/18/20 09:00 Resp 18 11/18/20 07:50 BP 114/73 11/18/20 07:50 Pulse Ox 96 11/18/20 07:50 Intake & Output 11/17/20 11/18/20 11/18/20 18:59 06:59 18:59 Intake Total 240 Output Total 70 Balance -70 240 Weight 63.5 kg 64 kg Intake: Oral 240 Output: Gastric Drainage 70 Other: Voiding Method Diaper Diaper Incontinent Incontinent Incontinent # Voids 4 - Exam -GENERAL: The patient is sleepy, she follows commands. She is confused. She is calm and not in distress. Well developed, well nourished. HEENT: Pupils are round and equally reacting to light. EOMI. No scleral icterus. No conjunctival pallor. Normocephalic, atraumatic. No pharyngeal erythema. No thyromegaly. CARDIOVASCULAR: S1 and S2 present. No murmurs, rubs, or gallops. PULMONARY: Chest is clear to auscultation, no wheezing or crackles. ABDOMEN: Soft, nontender, nondistended, normoactive bowel sounds. No palpable organomegaly. MUSCULOSKELETAL: No joint swelling or deformity. EXTREMITIES: No cyanosis, clubbing, or pedal edema. NEUROLOGICAL: Gross neurological examination did not reveal any focal deficits. SKIN: No rashes. no petechiae. - Labs CBC & Chem 7: 11/17/20 06:05 11/17/20 06:05 Labs: Abnormal Lab Results - Last 24 Hours (Table) 11/17/20 11/17/20 11/17/20 Range/Units 11:36 16:45 20:29 POC Glucose (mg/dL) 178 H 237 H 323 H (75-99) mg/dL 11/18/20 11/18/20 Range/Units 02:00 07:03 POC Glucose (mg/dL) 135 H 123 H (75-99) mg/dL Assessment and Plan Assessment: Sepsis secondary to acute right lower lobe pneumonia Acute hypoxic respiratory failure due to pneumonia Metabolic encephalopathy multifactorial Incarcerated ventral incisional hernia Ileus versus small bowel obstruction, improving Acute on chronic diastolic CHF with ejection fraction of 55% Pending Parenteral nutrition -on TPN History of CVA/TIA Type 2 diabetes mellitus patient with chronic hypoxic respiratory failure secondary to obesity and hypoventilation syndrome per pulmonary 2.6 cm pancreatic cyst, needs follow-up as an outpatient 2.4 left ovarian cyst, follow-up as an outpatient history of GERD Hypertension Hyperlipidemia Morbid obesity with BMI 51.2 history of Seizure disorder History of stroke with Chronic aphasia and right hemiparesis Hypokalemia Hyponatremia Bilateral stasis dermatitis History of pancreatic mass No code Plan: This is a pleasant 70 years old female who presents with pneumonia, CHF, AMS. And incisional ventral hernia Continue with antibiotics with Zosyn, Lasix IV and D5W. Several consultants on the case including infectious disease, architectural draftsperson, surgical team. She is planned for hernia repair and 11/16 Labs and medication were reviewed.. Continue same treatment. Continue with symptomatic treatment. Resume home medication. Monitor lytes and vitals. DVT and GI prophylaxis. Further recommendationsas per clinical course of the patient DVT prophylaxis: Subcutaneous heparin GI Prophylaxis: Ppi Prognosis is guarded
[2020-11-18 10:47] LABS: African American GFR (CKD) 115.3 (60.0-200.0); Calcium 8.2 mg/dL (8.7-10.3); Magnesium 1.7 mg/dL (1.5-2.4); Non-African American GFR(CKD) 99.4 (60.0-200.0); Phosphorus 2.9 mg/dL (2.4-5.1)
[2020-11-18 11:34] LABS: Glucose,Whole Blood 338 mg/dL (75-99)
[2020-11-18] MEDS ORDERED: POTASSIUM CHLORIDE ER 20 MEQ TAB.ER PO STA ×2 (11:42→23:25)
--- NOTE | 2020-11-18 11:45 | P.PN ---
Subjective Progress Note Date: 11/18/20 CHIEF COMPLAINT: Ileus versus small bowel obstruction HISTORY OF PRESENT ILLNESS: Patient is being followed for ileus versus small bowel obstruction. She's also followed for her incisional/Ventral hernia. Patient had 2 bowel movements yesterday and one bowel movement this morning. At this time she reports she has not passed gas. She was started on a clear liquid diet yesterday. She has tolerated it. She denies any abdominal pain. Denies any nausea or vomiting. Patient is followed by cardiology there diuresing her for CHF exacerbation. They're recommending to not proceed with any elective n onemergent surgeries at this time. She is currently on oral Lasix for her CHF exacerbation. She is down to 3 L satting at 96%. Afebrile. Potassium 3.0 . Magnesium 1.7 PHYSICAL EXAM: VITAL SIGNS: Reviewed. GENERAL: Well-developed in no acute distress. HEENT: No sclera icterus. Extraocular movements grossly intact. Moist buccal mucosa. Head is atraumatic, normocephalic. ABDOMEN: Soft. Obese. distended. Nontender. Evidence of incisional hernia on the right side of the abdomen NEUROLOGIC: Pleasantly confused ASSESSMENT: 1. Ileus versus small bowel obstruction with no further evidence of small bowel obstruction or ileus on repeat computed tomography scan 2. Incarcerated incisional/Ventral hernia 3. Hypokalemia and hypomagnesemia PLAN: -Replace magnesium and potassium -Surgery for incisional and ventral hernia repair and Port-A-Cath placement canceled per cardiology recommendations of not proceeding with any nonemergent surgery at this time due to patient's CHF exacerbation -Continue with diuretics per cardiology recommendations -Patient will eventually need surgery on her incarcerated incisional/ventral hernia -Advance diet to full liquids -continue Ensure clear 3 times a day -GI prophylaxis Protonix and DVT prophylaxis subcu heparin Physician Flake Miller Helper note has been reviewed by physician. Signing provider agrees with the documented findings, assessment, and plan of care. Objective - Vital Signs Vital signs: Vital Signs Temp 97.4 F L 11/18/20 07:50 Pulse 72 11/18/20 09:00 Resp 18 11/18/20 07:50 BP 114/73 11/18/20 07:50 Pulse Ox 96 11/18/20 07:50 Intake & Output 11/17/20 11/18/20 11/18/20 18:59 06:59 18:59 Intake Total 240 Output Total 70 Balance -70 240 Weight 63.5 kg 64 kg Intake: Oral 240 Output: Gastric Drainage 70 Other: Voiding Method Diaper Diaper Incontinent Incontinent Incontinent # Voids 4 1 # Bowel Movements 2 - Labs CBC & Chem 7: 11/17/20 06:05 11/18/20 06:18 Labs: Abnormal Lab Results - Last 24 Hours (Table) 11/17/20 11/17/20 11/17/20 Range/Units 11:36 16:45 20:29 Potassium (3.5-5.5) mmol/L Carbon Dioxide (21.6-31.8) mmol/L Creatinine (0.6-1.5) mg/dL BUN/Creatinine Ratio (12.00-20.00) Ratio Glucose (70-110) mg/dL POC Glucose (mg/dL) 178 H 237 H 323 H (75-99) mg/dL Calcium (8.7-10.3) mg/dL 11/18/20 11/18/20 11/18/20 Range/Units 02:00 06:18 07:03 Potassium 3.0 L (3.5-5.5) mmol/L Carbon Dioxide 32.0 H (21.6-31.8) mmol/L Creatinine 0.5 L (0.6-1.5) mg/dL BUN/Creatinine Ratio 28.00 H (12.00-20.00) Ratio Glucose 417 H (70-110) mg/dL POC Glucose (mg/dL) 135 H 123 H (75-99) mg/dL Calcium 8.2 L (8.7-10.3) mg/dL 11/18/20 Range/Units 11:33 Potassium (3.5-5.5) mmol/L Carbon Dioxide (21.6-31.8) mmol/L Creatinine (0.6-1.5) mg/dL BUN/Creatinine Ratio (12.00-20.00) Ratio Glucose (70-110) mg/dL POC Glucose (mg/dL) 338 H (75-99) mg/dL Calcium (8.7-10.3) mg/dL
[2020-11-18] MEDS ORDERED: MAGNESIUM SULFATE-D5W PMX 1 GM in DEXTROSE/WATER 1 100ML.BAG IVPB ONE ×2 (12:00→23:30)
[2020-11-18] MEDS: POTASSIUM CHLORIDE 10 MEQ in WATER FOR INJECTION 1 100ML.BAG IVPB SCH ×2 (14:56→15:55)
[2020-11-18 16:36] LABS: Glucose,Whole Blood 391 mg/dL (75-99)
[2020-11-18 20:18] LABS: Glucose,Whole Blood 244 mg/dL (75-99)
[2020-11-18] MEDS: BENZTROPINE MESYLATE 1 MG TAB PO SCH (20:25)
[2020-11-18] MEDS: risperiDONE 1 MG TAB PO SCH (20:25)
[2020-11-18] MEDS ORDERED: cloZAPine 100 MG TAB PO SCH (21:00)
--- NOTE | 2020-11-18 22:37 | PN ---
PROGRESS NOTE DATE OF SERVICE: 11/18/2020 REASON FOR FOLLOWUP: Aspiration pneumonia. INTERVAL HISTORY: The patient is currently afebrile. She is breathing comfortably. Seems to be more awake and alert. Denies having any chest pain or any cough. No abdominal pain or diarrhea. PHYSICAL EXAMINATION: Her blood pressure is 96/65 with a pulse of 68, temperature 98.4. She is 98% on 3 L nasal cannula. General description is an elderly female lying in bed in no distress. RESPIRATORY SYSTEM: Unlabored breathing with decreased breath sounds at the base. No wheeze. HEART: S1, S2. Regular rate and rhythm. ABDOMEN: Soft. No tenderness. LABS: BUN 14, creatinine 0.5. DIAGNOSTIC IMPRESSION AND PLAN: Patient with a component of ileus ventral hernia and a component of aspiration pneumonia. Patient is covered with Zosyn. Has received adequate antibiotic therapy. Culture has been negative so far. Continue continue supportive care. MMODL / IJN: [id number] /
[2020-11-18] MEDS: INSULIN DETEMIR (LEVEMIR) 100 UNIT/ML SYR SQ SCH (22:57)
[2020-11-18 23:14] LABS: Magnesium 1.9 mg/dL (1.6-2.3); Potassium 3.5 mmol/L (3.5-5.1)
[2020-11-19 01:51] LABS: Glucose,Whole Blood 106 mg/dL (75-99)
[2020-11-19] MEDS: PIPERACILLIN-TAZOBACTAM 3.375 GM in SODIUM CHLORIDE 0.9% 100 ML IVPB SCH ×2 (03:20→08:00)
[2020-11-19] MEDS: DEXTROSE 5% IN WATER 1,000 ML IV SCH (05:20)
[2020-11-19 06:54] LABS: Glucose,Whole Blood 134 mg/dL (75-99)
[2020-11-19] MEDS: PANTOPRAZOLE 40 MG/10 ML VIAL IVP SCH (08:00)
[2020-11-19] MEDS: methylPREDNISolone SOD SUCCI 40 MG/ML 1 ML VIAL IV SCH (08:00)
[2020-11-19] MEDS: HEPARIN SODIUM,PORCINE 5,000 UNIT/ML 1 ML VIAL SQ SCH (08:00)
[2020-11-19] MEDS: POTASSIUM CHLORIDE ER 10 MEQ TAB.ER.PRT PO SCH (08:01)
[2020-11-19] MEDS: LOSARTAN 25 MG TAB PO SCH (08:01)
[2020-11-19] MEDS: METOPROLOL TARTRATE 12.5 MG TAB PO SCH (08:01)
[2020-11-19] MEDS: FUROSEMIDE 40 MG TAB PO SCH (08:01)
[2020-11-19] MEDS: LEVOTHYROXINE IVP 100 MCG/5 ML VIAL IV SCH (08:01)
[2020-11-19] MEDS: GABAPENTIN 300 MG CAP PO SCH (08:01)
[2020-11-19] MEDS: cloZAPine 100 MG TAB PO SCH (08:02)
[2020-11-19] MEDS: levETIRAcetam 500 MG TAB PO SCH (08:03)
[2020-11-19] MEDS: NYSTATIN 100,000 UNIT/GM POWD 15 GM TOPICAL SCH (08:08)
[2020-11-19] MEDS: INSULIN ASPART (NovoLOG) 100 UNIT/ML VIAL SQ SCH ×2 (08:08→12:07)
[2020-11-19] MEDS: NYSTATIN 100,000UNIT/GM CREAM 30 GM TUBE TOPICAL SCH (08:08)
[2020-11-19] MEDS: IPRATROPIUM-ALBUTEROL 3 ML NEB INHALATION SCH ×2 (08:15→11:49)
--- NOTE | 2020-11-19 10:47 | P.PN ---
Subjective HISTORY OF PRESENTING ILLNESS This is a pleasant 70-year-old female past medical history significant for hypertension, dyslipidemia, CVA, seizure disorder, paranoid schizophrenic and chronic diastolic heart failure. She follows in the office with Dr. Gutierrez. She is seen and examined sitting up in bed. She is more alert today. She seems to communicating appropriately. Her NG has been removed and she is tolerating oral intake. Blood pressure 119/66 heart rate 74 afebrile and maintaining oxygen saturation on nasal cannula. She denies symptoms of chest pain, shortness of breath, dizziness or palpitations. PHYSICAL EXAMINATION CONSTITUTIONAL: No apparent distress. HEENT: Head is normocephalic. Pupils are equal, round. Sclerae anicteric. Mucous membranes of the mouth are moist. No JVD. No carotid bruit. CHEST EXAMINATION: Diminished bilaterally. No chest wall tenderness is noted on palpation or with deep breathing. HEART EXAMINATION: Regular rate and rhythm. S1, S2 heard. Systolic ejection murmur at the left sternal border, no gallops or rub. EXTREMITIES: 2+ peripheral pulses, no lower extremity edema and no calf tendern ess. ASSESSMENT Acute on chronic diastolic heart failure Aspiration pneumonia Ventral hernia, possibly incarcerated Leukocytosis Hypertension Dyslipidemia CVA Seizure disorder PLAN Stable on current medical regimen. Plan is for discharge to ECF today per nursing staff. Recommend outpatient follow up with Dr. Gutierrez in 2-3 weeks. Nurse Practitioner note has been reviewed, I agree with a documented findings and plan of care. Patient was seen and examined. Objective - Vital Signs Vital signs: Vital Signs Temp 97.9 F 11/19/20 07:32 Pulse 74 11/19/20 08:28 Resp 18 11/19/20 08:00 BP 119/66 11/19/20 07:32 Pulse Ox 99 11/19/20 07:32 Intake & Output 11/18/20 11/19/20 11/19/20 18:59 06:59 18:59 Intake Total 240 240 Output Total 1000 Balance 240 -760 Intake: Oral 240 240 Output: Urine 1000 Other: Voiding Method Incontinent Incontinent # Voids 2 # Bowel Movements 1 - Labs CBC & Chem 7: 11/17/20 06:05 11/18/20 22:57 Labs: Abnormal Lab Results - Last 24 Hours (Table) 01/14/21 01/14/21 01/14/21 Range/Units 06:18 11:33 16:34 Potassium 3.0 L (3.5-5.5) mmol/L Carbon Dioxide 32.0 H (21.6-31.8) mmol/L Creatinine 0.5 L (0.6-1.5) mg/dL BUN/Creatinine Ratio 28.00 H (12.00-20.00) Ratio Glucose 417 H (70-110) mg/dL POC Glucose (mg/dL) 338 H 391 H (75-99) mg/dL Calcium 8.2 L (8.7-10.3) mg/dL 11/18/20 11/19/20 11/19/20 Range/Units 20:16 01:51 06:52 Potassium (3.5-5.5) mmol/L Carbon Dioxide (21.6-31.8) mmol/L Creatinine (0.6-1.5) mg/dL BUN/Creatinine Ratio (12.00-20.00) Ratio Glucose (70-110) mg/dL POC Glucose (mg/dL) 244 H 106 H 134 H (75-99) mg/dL Calcium (8.7-10.3) mg/dL
[2020-11-19 11:37] LABS: Glucose,Whole Blood 399 mg/dL (75-99)
--- NOTE | 2020-11-19 11:48 | P.PN ---
Subjective Progress Note Date: 11/19/20 CHIEF COMPLAINT: Ileus versus small bowel obstruction HISTORY OF PRESENT ILLNESS: Patient is being followed for ileus versus small bowel obstruction and incisional/Ventral hernia. Patient did have a bowel movement today. Her abdominal fullness improved after the bowel movement. She denies any abdominal pain. Denies any nausea. Patient is followed by cardiology there diuresing her for CHF exacerbation. They're recommending to not proceed with any elective nonemergent surgeries at this time. She is currently on oral Lasix for her CHF exacerbation. She is down to 3 L satting at 99%. Afebrile. Repeat potassium 3.5 patient has been cleared by cardiology for discharge PHYSICAL EXAM: VITAL SIGNS: Reviewed. GENERAL: Well-developed in no acute distress. HEENT: No sclera icterus. Extraocular movements grossly intact. Moist buccal mucosa. Head is atraumatic, normocephalic. ABDOMEN: Soft. Obese. distended. Nontender. Evidence of incisional hernia on the right side of the abdomen NEUROLOGIC: Pleasantly confused ASSESSMENT: 1. Ileus versus small bowel obstruction with no further evidence of small bowel obstruction or ileus on repeat computed tomography scan. Resolving 2. Incarcerated incisional/Ventral hernia 3. Hypokalemia and hypomagnesemia status post replacement PLAN: -Patient is stable for discharge from surgical standpoint -Recommend that patient stays on a full liquid diet until she is reevaluated in the office next week by Dr. Sosa -Surgery for incisional and ventral hernia repair and Port-A-Cath placement canceled per cardiology recommendations of not proceeding with any nonemergent surgery at this time due to patient's CHF exacerbation -Patient will eventually need surgery on her incarcerated incisional/ventral hernia -GI prophylaxis Protonix and DVT prophylaxis subcu heparin Physician A Auxiliary note has been reviewed by physician. Signing provider agrees with the documented findings, assessment, and plan of care. Objective - Vital Signs Vital signs: Vital Signs Temp 97.9 F 11/19/20 07:32 Pulse 74 11/19/20 08:28 Resp 18 11/19/20 08:00 BP 119/66 11/19/20 07:32 Pulse Ox 99 11/19/20 07:32 Intake & Output 11/18/20 11/19/20 11/19/20 18:59 06:59 18:59 Intake Total 240 240 Output Total 1000 Balance 240 -760 Intake: Oral 240 240 Output: Urine 1000 Other: Voiding Method Incontinent Incontinent # Voids 2 # Bowel Movements 1 - Labs CBC & Chem 7: 11/17/20 06:05 11/18/20 22:57 Labs: Abnormal Lab Results - Last 24 Hours (Table) 11/18/20 11/18/20 11/19/20 Range/Units 16:34 20:16 01:51 POC Glucose (mg/dL) 391 H 244 H 106 H (75-99) mg/dL 11/19/20 11/19/20 Range/Units 06:52 11:36 POC Glucose (mg/dL) 134 H 399 H (75-99) mg/dL
[2020-11-19 11:50] LABS: African American GFR (CKD) 115.3 (60.0-200.0); Anion Gap 10.7 mmol/L (4.00-12.00); Calcium 9.1 mg/dL (8.7-10.3); Carbon Dioxide 28.3 mmol/L (21.6-31.8); Magnesium 1.7 mg/dL (1.5-2.4); Non-African American GFR(CKD) 99.4 (60.0-200.0); Phosphorus 3.2 mg/dL (2.4-5.1); Potassium 3.5 mmol/L (3.5-5.5)
--- NOTE | 2020-11-19 12:22 | P.DS ---
Providers Date of admission: 11/03/20 14:19 Attending physician: Angelica De La Torre Consults: 11/03/20 20:08 Consult Physician Routine Consulting Provider: George Dumont Consult Reason/Comments: pneumonia Do you want consulting provider notified?: Yes Consult Physician Routine Consulting Provider: Bess Smith Consult Reason/Comments: pneumonia Do you want consulting provider notified?: Yes 11/15/20 09:40 Consult Physician Routine Consulting Provider: Thomas Sosa Consult Reason/Comments: abdominal pain Do you want consulting provider notified?: Already Contacted 11/15/20 12:27 Consult Physician Stat Consulting Provider: Brenton Hou Consult Reason/Comments: Stat preop clearance Do you want consulting provider notified?: Already Contacted Primary care physician: Nixon Kim MD Hospital Course: Diagnoses: Sepsis secondary to acute right lower lobe pneumonia Acute hypoxic respiratory failure due to pneumonia, improving Metabolic encephalopathy multifactorial. Resolved Incarcerated ventral incisional hernia, patient is asymptomatic and surgery recommended outpatient follow-up Ileus versus small bowel obstruction, improved Acute on chronic diastolic CHF with ejection fraction of 55% History of CVA/TIA Type 2 diabetes mellitus patient with chronic hypoxic respiratory failure secondary to obesity and hypoventilation syndrome per pulmonary 2.6 cm pancreatic cyst, needs follow-up as an outpatient 2.4 left ovarian cyst, follow-up as an outpatient history of GERD Hypertension Hyperlipidemia Morbid obesity with BMI 51.2 history of Seizure disorder History of stroke with Chronic aphasia and right hemiparesis Hypokalemia Hyponatremia Bilateral stasis dermatitis History of pancreatic mass No code Hospital course: his is a pleasant 70 years old female with multiple medical problems was admitted for altered mental status, patient was agitated and pulling lines and aspiration pneumonia was suspected , throat is due to her bowel ileus versus small bowel obstruction secondary to incarcerated ventral hernia, however patient has no significant abdominal pain, NG tube was placed with bowel decompression was achieved, in addition the plan was to go for surgical repair of her ventral hernia however because of her acute diastolic heart failure then nitrocellulose maker recommended to hold on doing the surgery since it is elective and surgery team agreed to continue conservative treatment as an outpatient, eventually the NG tube was taken out, patient started eating, wearing direct was advised and tolerated well by the patient. No abdominal pain, no nausea vomiting, patient also had good bowel movement. Also her pneumonia is improved with Zosyn, her oxygen requirements came down to 2-3 L via nasal cannula upon discharge Patient denies chest pain or dyspnea or significant coughing. With improvement of the patient mentations, pneumonia and bowel obstruction, patient is currently fully awake and oriented, she is a slightly lethargic but she answers questions appropriately and follows commands and she is aware to the surrounding and her diagnosis. Her pneumonia resolved and antibiotics as per ID team. And she has normal bowel function and tolerated diet well Incidental findings of pancreatic cyst 2.6 cm and left ovary and 6 of 2.4 cm with recommendation for outpatient follow-up, patient informed and she agrees. Risks and benefits are explained including but not limited to the risk of cancer Patient was cleared for discharge by all consultants including infectious disease, nitrocellulose maker and surgery team Surgery team recommended Recommend that patient stays on a full liquid diet until she is reevaluated in the office next week by Dr. Sosa Because of her deconditioning and general weakness, patient will benefit from an ECF for inpatient rehab Problems and management plan were discussed with the patient and he verbalized understanding and acceptance Patient was found stable and can be discharged home however he needs follow-up as an outpatient. Patient was instructed to follow up with PCP within one week and patient agrees -Gen: patient is a AAOx3, no distress. Generally weak CVS: S1-S2, RRR, no murmur Lungs: B/L CTA, no wheezing Abdomen: soft, no distention, no tenderness, positive bowel sounds Extremity: no leg edema or induration Time spent more than 35 minutes Plan - Discharge Summary Discharge Rx Participant: No New Discharge Prescriptions: New cloZAPine [Clozaril] 200 mg PO HS tab cloZAPine [Clozaril] 100 mg PO DAILY tab Ipratropium-Albuterol Nebulize [Duoneb 0.5 mg-3 mg/3 ml Soln] 3 ml INHALATION RT-TID ml Ipratropium-Albuterol Nebulize [Duoneb 0.5 mg-3 mg/3 ml Soln] 3 ml INHALATION RT-TID PRN ml PRN Reason: Shortness Of Breath Or Wheezing Heparin Sodium,Porcine [Heparin Sodium] 5,000 unit SQ Q12HR vial Furosemide [Lasix] 40 mg PO BID@0900,1600 tab Insulin Detemir (Levemir) [Levemir] 20 unit SQ HS syr Metoprolol Tartrate [Lopressor] 12.5 mg PO BID tab INSULIN ASPART (NovoLOG) [NovoLOG (formulary)] 0 unit SQ ACHS vial predniSONE 10 mg PO DIRECTED #9 tab Continue Acetaminophen [Tylenol Arthritis] 650 mg PO Q8H PRN PRN Reason: Pain Aspirin EC [Ecotrin Low Dose] 81 mg PO DAILY Benztropine Mesylate [Cogentin] 1 mg PO HS Calcium Carbonate/Vitamin D3 [Calcium 600-Vit D3 100 mcg (400 Iu)] 1 tab PO DAILY Gabapentin 300 mg PO TID levETIRAcetam [Keppra] 500 mg PO Q12HR Levothyroxine Sodium [Synthroid] 150 mcg PO DAILY Losartan [Cozaar] 12.5 mg PO DAILY Magnesium Oxide [Mag-Ox] 250 mg PO BID metFORMIN HCL 1,000 mg PO BID Metoprolol Succinate [Toprol XL] 25 mg PO HS Multivitamin [Multivitamins Adult Gummies] 2 tab PO DAILY Nystatin 100,000 Unit/gm Powd [Mycostatin Powder] 1 applic TOPICAL BID Nystatin 100,000Unit/gm Cream [Mycostatin Cream] 1 applic TOPICAL TID Omeprazole [PriLOSEC] 20 mg PO DAILY Polyethylene Glycol 3350 [Miralax] 17 gm PO DAILY PRN PRN Reason: Constipation Potassium Chloride [Klor-Con 10] 10 meq PO DAILY risperiDONE [RisperDAL] 1 mg PO HS Discontinued Bumetanide [Bumex] 1 mg PO BID cloZAPine [Clozaril] 300 mg PO DAILY Furosemide [Lasix] 20 mg PO PC-LUNCH Furosemide [Lasix] 40 mg PO QAM Glimepiride [Amaryl] 8 mg PO AC-BRKFST Glucosamine-Chondr 500-400Mg 1 tab PO Q12HR l Acidophil/B Lactis/B Longum [Florajen3 Capsule] 460 mg PO DAILY sitaGLIPtin [Januvia] 25 mg PO DAILY Discharge Medication List Acetaminophen [Tylenol Arthritis] 650 mg PO Q8H PRN 11/03/20 [History] Aspirin EC [Ecotrin Low Dose] 81 mg PO DAILY 11/03/20 [History] Benztropine Mesylate [Cogentin] 1 mg PO HS 11/03/20 [History] Calcium Carbonate/Vitamin D3 [Calcium 600-Vit D3 100 mcg (400 Iu)] 1 tab PO DAILY 11/03/20 [History] Gabapentin 300 mg PO TID 11/03/20 [History] Levothyroxine Sodium [Synthroid] 150 mcg PO DAILY 11/03/20 [History] Losartan [Cozaar] 12.5 mg PO DAILY 11/03/20 [History] Magnesium Oxide [Mag-Ox] 250 mg PO BID 11/03/20 [History] Metoprolol Succinate [Toprol XL] 25 mg PO HS 11/03/20 [History] Multivitamin [Multivitamins Adult Gummies] 2 tab PO DAILY 11/03/20 [History] Nystatin 100,000 Unit/gm Powd [Mycostatin Powder] 1 applic TOPICAL BID 11/03/20 [History] Nystatin 100,000Unit/gm Cream [Mycostatin Cream] 1 applic TOPICAL TID 11/03/20 [History] Omeprazole [PriLOSEC] 20 mg PO DAILY 11/03/20 [History] Polyethylene Glycol 3350 [Miralax] 17 gm PO DAILY PRN 11/03/20 [History] Potassium Chloride [Klor-Con 10] 10 meq PO DAILY 11/03/20 [History] levETIRAcetam [Keppra] 500 mg PO Q12HR 11/03/20 [History] metFORMIN HCL 1,000 mg PO BID 11/03/20 [History] risperiDONE [RisperDAL] 1 mg PO HS 11/03/20 [History] Furosemide [Lasix] 40 mg PO BID@0900,1600 tab 11/19/20 [Rx] Heparin Sodium,Porcine [Heparin Sodium] 5,000 unit SQ Q12HR vial 11/19/20 [Rx] INSULIN ASPART (NovoLOG) [NovoLOG (formulary)] 0 unit SQ ACHS vial 11/19/20 [Rx] Insulin Detemir (Levemir) [Levemir] 20 unit SQ HS syr 11/19/20 [Rx] Ipratropium-Albuterol Nebulize [Duoneb 0.5 mg-3 mg/3 ml Soln] 3 ml INHALATION RT-TID ml 11/19/20 [Rx] Ipratropium-Albuterol Nebulize [Duoneb 0.5 mg-3 mg/3 ml Soln] 3 ml INHALATION RT-TID PRN ml 11/19/20 [Rx] Metoprolol Tartrate [Lopressor] 12.5 mg PO BID tab 11/19/20 [Rx] cloZAPine [Clozaril] 100 mg PO DAILY tab 11/19/20 [Rx] cloZAPine [Clozaril] 200 mg PO HS tab 11/19/20 [Rx] predniSONE 10 mg PO DIRECTED #9 tab 11/19/20 [Rx] Follow up Appointment(s)/Referral(s): Nixon Kim MD [Primary Care Provider] - 11/25/20 1:00 [facility] [NON-STAFF] - 1-2 Days (Agency was formally [facility] ) Thong Pruett MD [STAFF PHYSICIAN] - 3 Weeks (Dr. Fierro office in [place] will call you with your appointment date and time. Thank you.) Thomas Sosa MD [STAFF PHYSICIAN] - 1 Week Activity/Diet/Wound Care/Special Instructions: Patient is to continue on a full liquid diet until she is reevaluated by Dr. Sosa in the office next week
[2020-11-19 13:43] VITALS: BP 114/69; PULSE 78; RESP 20; TEMP 98.4
[2020-11-19 14:58] VITALS: BMI 28.5
== END 2020-11-19 15:20 | DRG 871 ==
LOC: SUPCPDRO 12:26 → EC 12:26 → 4SSUR 14:19
PROVIDERS: ADMIT Hospitalist; ATTEND Hospitalist
PROC: 0DH67UZ Insertion of Feeding Device into Stomach, Via Natural or Artificial Opening (ICD-10-PCS; 2020-11-05)
PROC: 3E0G76Z Introduction of Nutritional Substance into Upper GI, Via Natural or Artificial Opening (ICD-10-PCS; 2020-11-05)
PROC: 5A09557 Assistance with Respiratory Ventilation, Greater than 96 Consecutive Hours, Continuous Positive Airway Pressure (ICD-10-PCS; principal; 2020-11-08)
PROC: 02HV33Z Insertion of Infusion Device into Superior Vena Cava, Percutaneous Approach (ICD-10-PCS; 2020-11-10)
PROC: 02HV33Z Insertion of Infusion Device into Superior Vena Cava, Percutaneous Approach (ICD-10-PCS; 2020-11-12)
DX: A41.9 Sepsis, unspecified organism (principal); G93.41 Metabolic encephalopathy; J96.21 Acute and chronic respiratory failure with hypoxia; J96.22 Acute and chronic respiratory failure with hypercapnia; I50.33 Acute on chronic diastolic (congestive) heart failure; J69.0 Pneumonitis due to inhalation of food and vomit; E66.2 Morbid (severe) obesity with alveolar hypoventilation; E87.2 Acidosis; K43.0 Incisional hernia with obstruction, without gangrene; K56.7 Ileus, unspecified; K86.2 Cyst of pancreas; I69.351 Hemiplegia and hemiparesis following cerebral infarction affecting right dominant side; J98.11 Atelectasis; Z66 Do not resuscitate; Z20.822 Contact with and (suspected) exposure to COVID-19; K21.9 Gastro-esophageal reflux disease without esophagitis; E03.9 Hypothyroidism, unspecified; G40.909 Epilepsy, unspecified, not intractable, without status epilepticus; E78.5 Hyperlipidemia, unspecified; E11.9 Type 2 diabetes mellitus without complications; E78.00 Pure hypercholesterolemia, unspecified; I11.0 Hypertensive heart disease with heart failure; N83.202 Unspecified ovarian cyst, left side; E83.42 Hypomagnesemia; E87.6 Hypokalemia; I27.21 Secondary pulmonary arterial hypertension; I87.2 Venous insufficiency (chronic) (peripheral); J98.01 Acute bronchospasm; K80.20 Calculus of gallbladder without cholecystitis without obstruction; D64.9 Anemia, unspecified; Z79.4 Long term (current) use of insulin; Z79.82 Long term (current) use of aspirin; Z88.8 Allergy status to other drugs, medicaments and biological substances; I25.2 Old myocardial infarction; Z90.89 Acquired absence of other organs; Z98.890 Other specified postprocedural states; Z68.28 Body mass index [BMI] 28.0-28.9, adult; Z87.440 Personal history of urinary (tract) infections; Z80.3 Family history of malignant neoplasm of breast; Z80.6 Family history of leukemia; Z79.2 Long term (current) use of antibiotics; Z79.899 Other long term (current) drug therapy; Z79.890 Hormone replacement therapy; I69.320 Aphasia following cerebral infarction
CPT/HCPCS: 36415; 36573; 36600; 71045; 71275; 74019; 74176; 74177; 80048; 80053; 82040; 82330; 82805; 83605; 83735; 83880; 84100; 84132; 84145; 84478; 85025; 85379; 87635; 93306; 94640; 94760; 96365; 96366; 99291

== ENCOUNTER 2020-12-09 07:00 | Inpatient (IN) | payer MEDICARE, OTHER ==
[2020-12-07 16:19] VITALS: BMI 43.9
[~2020-12-09 07:00] MED LIST: ACETAMINOPHEN TAB 500 MG TAB PO PRN; DEXAMETHASONE SOD PHOSPHATE 4 MG/ML 1 ML VIAL IV ONE; HEPARIN SODIUM,PORCINE 5,000 UNIT/ML 1 ML VIAL SQ PRN; LIDOCAINE 1% (10MG/ML) FOR IV START INTRADERMA PRN; MIDAZOLAM 2 MG/2 ML VIAL IV PRN; ONDANSETRON 4 MG/2 ML VIAL IVP ONE
[2020-12-09] MEDS: LACTATED RINGERS 1,000 ML IV SCH (08:02)
[2020-12-09 08:08] LABS: Glucose,Whole Blood 127 mg/dL (75-99)
--- NOTE | 2020-12-09 08:22 | P.GSHP ---
History of Present Illness H&P Date: 12/09/20 Chief Complaint: Incarcerated incisional hernia This is a 70-year-old female who presents today for open repair of incarcerated incisional hernia. Patient's previous hospital admission with bowel obstruction related to her hernia. Past Medical History Past Medical History: Heart Failure, CVA/TIA, Diabetes Mellitus, GERD/Reflux, Hyperlipidemia, Hypertension, Pneumonia, Respiratory Disorder, Seizure Disorder, Skin Disorder, Thyroid Disorder Additional Past Medical History / Comment(s): CVA, R side weakness, TIA, NIDDM type II, confused, pancreatic mass - monitored, last seizure 2016, hx bilat lower leg/pedal edema, bilat stasis dermatitis, hyponatremia, past thoracic compression fx, UTI, hypothyroid /nodules. IP w/ Pneumonia, sepsis, ileus 11/03/20, discharged to [facility] 11/19/20. O2 3L NC. Full liq diet, ascites. Full jamal lift. Incisional hernia current History of Any Multi-Drug Resistant Organisms: None Reported Past Surgical History: Appendectomy, Heart Catheterization, Tonsillectomy Additional Past Surgical History / Comment(s): Thyroid (biopsies) surgery, colonoscopy, PICC line 11/2020 Past Anesthesia/Blood Transfusion Reactions: No Reported Reaction Smoking Status: Never smoker - Past Family History Father Family Medical History: No Reported History Additional Family Medical History / Comment(s): Father is 99yrs old. Mother Family Medical History: Cancer Additional Family Medical History / Comment(s): Mother of breast cancer. Sister(s) Family Medical History: Cancer Additional Family Medical History / Comment(s): Pt's twin sister from leukemia a couple months ago. Medications and Allergies Home Medications Medication Instructions Recorded Confirmed Type Acetaminophen [Tylenol Arthritis] 650 mg PO Q8H PRN 11/03/20 12/09/20 History Aspirin EC [Ecotrin Low Dose] 81 mg PO DAILY 11/03/20 12/09/20 History Benztropine Mesylate [Cogentin] 1 mg PO HS 11/03/20 12/09/20 History Calcium Carbonate/Vitamin D3 1 tab PO DAILY 11/03/20 12/09/20 History [Calcium 600-Vit D3 10 mcg (400 Iu)] Levothyroxine Sodium [Synthroid] 150 mcg PO DAILY 11/03/20 12/09/20 History Magnesium Oxide [Mag-Ox] 250 mg PO BID 11/03/20 12/09/20 History Metoprolol Succinate [Toprol XL] 25 mg PO HS 11/03/20 12/09/20 History Multivitamin [Multivitamins Adult 1 tab PO DAILY 11/03/20 12/09/20 History Gummies] Omeprazole [PriLOSEC] 20 mg PO DAILY 11/03/20 12/09/20 History Polyethylene Glycol 3350 [Miralax] 17 gm PO DAILY PRN 11/03/20 12/09/20 History Potassium Chloride [Klor-Con 10] 10 meq PO DAILY 11/03/20 12/09/20 History levETIRAcetam [Keppra] 500 mg PO Q12HR 11/03/20 12/09/20 History metFORMIN HCL 1,000 mg PO BID 11/03/20 12/09/20 History risperiDONE [RisperDAL] 1 mg PO HS 11/03/20 12/09/20 History Gabapentin 300 mg PO TID #9 cap 11/19/20 12/09/20 Rx Insulin Detemir (Levemir) [Levemir] 20 unit SQ HS syr 11/19/20 12/09/20 Rx Metoprolol Tartrate [Lopressor] 12.5 mg PO BID tab 11/19/20 12/09/20 Rx cloZAPine [Clozaril] 100 mg PO DAILY tab 11/19/20 12/09/20 Rx cloZAPine [Clozaril] 200 mg PO HS tab 11/19/20 12/09/20 Rx Furosemide [Lasix] 40 mg PO BID@0700,1400 12/07/20 12/09/20 History Heparin Sodium,Porcine [Heparin 5,000 unit SQ DAILY 12/07/20 12/09/20 History Sodium] Ipratropium-Albuterol Nebulize 3 ml INHALATION Q4H PRN 12/07/20 12/09/20 History [Duoneb 0.5 mg-3 mg/3 ml Soln] Losartan Potassium [Cozaar] 12.5 mg PO DAILY 12/07/20 12/09/20 History Allergies Allergy/AdvReac Type Severity Reaction Status Date / Time haloperidol [From Haldol] Allergy Unknown Verified 12/09/20 07:41 Surgical - Exam Vital Signs Temp Pulse Resp BP Pulse Ox 97.8 F 91 16 113/56 97 12/09/20 08:03 12/09/20 08:03 12/09/20 08:03 12/09/20 08:03 12/09/20 08:03 Morbid obesity, BMI 44 - General well developed, well nourished, no distress - Eyes PERRL - ENT normal pinna - Neck no masses - Respiratory normal expansion - Cardiovascular Rhythm: regular - Abdomen Abdomen: soft, non tender Hernia: incisional (Centimeter incisional hernia located in right lower quadrant) Results - Labs Abnormal Lab Results - Last 24 Hours (Table) 12/09/20 Range/Units 07:57 POC Glucose (mg/dL) 127 H (75-99) mg/dL Assessment and Plan Assessment: incarcerated incisional hernia, will perform open repair
[2020-12-09] MEDS ORDERED: PROPOFOL 10 MG/ML 20 ML VIAL IV ONE (08:29)
[2020-12-09] MEDS ORDERED: ROCURONIUM 10 MG/ML (10 ML VIAL) IV ONE (08:29)
[2020-12-09] MEDS ORDERED: NEOSTIGMINE 1 MG/ML 10 ML VIAL ONE (08:29)
[2020-12-09] MEDS ORDERED: GLYCOPYRROLATE 0.2 MG/ML 2 ML VIAL ONE (08:29)
[2020-12-09] MEDS ORDERED: PHENYLEPHRINE-0.9% NACL SYG 1,000 MCG/10 ML SYRINGE ONE (08:29)
[2020-12-09] MEDS ORDERED: LIDOCAINE 1% INJ 10MG/ML (20 ML MDV) ONE (08:29)
[2020-12-09] MEDS ORDERED: fentaNYL (PF) 50 MCG/ML 2 ML AMP ONE (08:29)
[2020-12-09] MEDS ORDERED: ONDANSETRON 4 MG/2 ML VIAL IVP PRN (09:54)
[2020-12-09] MEDS ORDERED: LACTATED RINGERS 1,000 ML IV ONE (09:54)
[2020-12-09] MEDS ORDERED: HYDROmorphone 0.5 MG/0.5 ML SYRINGE IVP PRN (09:54)
[2020-12-09] MEDS ORDERED: NALOXONE 0.4 MG/ML 1 ML VIAL IV PRN (09:54)
[2020-12-09] MEDS ORDERED: HYDROcodone/APAP 5-325MG 1 EACH TAB PO PRN (09:54)
--- NOTE | 2020-12-09 09:54 | P.OP ---
Date of Procedure: 12/09/20 Preoperative Diagnosis: Incarcerated incisional hernia Postoperative Diagnosis: Incarcerated incisional hernia Procedure(s) Performed: Repair of incarcerated incisional hernia Anesthesia: FLAKO Surgeon: Thomas Sosa Estimated Blood Loss (ml): 50 Pathology: none sent Condition: stable Disposition: PACU Description of Procedure: The patient's placed the operative table in supine position. She received general anesthesia. Her abdomen was prepped and usual fashion. Patient in carcerated hernia in the right lower quadrant. Skin was incised over top the hernia and then using the left cautery and subcutaneous tissue divided. The fascia is exposed using cautery and then the hernia defect was visualized. There was small bowel within the incarcerated hernia. The bowel was reduced back into the peritoneal cavity. The fascial repair was performed using [id number] 0 Ethibond suture. Next a #1 sutures placed over top of the repair and the fascia was secured. And then a piece of Prolene mesh was placed in the superior strap tacker. A JANIE drains placed overtop the mesh and brought through separate stab incision. Glenys's fascia close [place]. Skin was closed luann. Patient top she will was sent to recovery room in stable condition.
[2020-12-09] MEDS: HYDROmorphone 0.5 MG/0.5 ML SYRINGE IVP PRN ×2 (10:01→10:09)
[2020-12-09 11:44] LABS: Glucose,Whole Blood 168 mg/dL (75-99)
[2020-12-09] MEDS: METOPROLOL TARTRATE 12.5 MG TAB PO SCH ×2 (13:57→21:00)
[2020-12-09] MEDS: LOSARTAN 25 MG TAB PO SCH (13:57)
[2020-12-09] MEDS ORDERED: ACETAMINOPHEN TAB 325 MG TAB PO PRN (13:59)
--- NOTE | 2020-12-09 14:13 | P.PN ---
Subjective Progress Note Date: 12/09/20 Please refer to consultation dictated by Dr. Gutierrez that has been scanned into EMR HISTORY OF PRESENT ILLNESS: Patient is status post repair of incarcerated incisional hernia today with Dr. Sosa. Patient examined postoperatively at the bedside. She denies chest pain or pressure. Denies shortness of breath. Blood pressure 137/77. Heart rate 110s. She is on 3 L nasal cannula with oxygen saturations greater than 92%. She is afebrile. PHYSICAL EXAM: VITAL SIGNS: Reviewed. GENERAL: Well-developed in no acute distress. NECK: Supple. No JVD or thyromegaly LUNGS: Respirations even and unlabored. Lungs essentially clear to auscultation bilaterally. HEART: Tachycardic. Regular rate and rhythm. S1 and S2 heard. EXTREMITIES: Normal range of motion. No clubbing or cyanosis. Peripheral pulses intact. Trace bilateral lower extremity edema ASSESSMENT: Status post repair of incarcerated incisional hernia Hypertension Hyperlipidemia Diabetes mellitus Valvular heart disease: Mild mitral regurgitation and moderate tricuspid regurgitation Moderate pulmonary hypertension PLAN: Resume home cardiac medications Continue to monitor vital signs Further recommendations pending patient course Nurse practitioner note has been reviewed by physician. Signing provider agrees with the documented findings, assessment, and plan of care. Objective - Vital Signs Vital signs: Vital Signs Temp 97.7 F 12/09/20 11:15 Pulse 109 H 12/09/20 11:15 Resp 19 12/09/20 11:15 BP 137/77 12/09/20 11:15 Pulse Ox 93 L 12/09/20 11:15 Intake & Output 12/08/20 12/09/20 12/09/20 18:59 06:59 18:59 Intake Total 450 Output Total 25 Balance 425 Weight 97.976 kg Intake: IV 450 Output: Estimated Blood Loss 25 - Labs CBC & Chem 7: 12/09/20 07:58 Labs: Abnormal Lab Results - Last 24 Hours (Table) 12/09/20 12/09/20 Range/Units 07:57 11:42 POC Glucose (mg/dL) 127 H 168 H (75-99) mg/dL
--- NOTE | 2020-12-09 14:51 | XR ---
EXAMINATION TYPE: XR chest 1V portable DATE OF EXAM: 12/09/2020 COMPARISON: Prior chest x-ray 11/15/2020 HISTORY: Congestive heart failure, altered mental status, abnormal chest x-ray TECHNIQUE: Single frontal view of the chest is obtained. FINDINGS: There is been interval removal of the NG tube. Bibasilar atelectatic changes are present. There is no evident pneumothorax or sizable effusion. Cardiac mediastinal silhouette is stable. Verte broplasty changes are again seen. Aorta is dense and possibly ectatic. Suspect some improvement in in terstitium. IMPRESSION: There is some improvement in aeration, residual subsegmental basilar atelectatic changes are present. Cardiomegaly.
--- NOTE | 2020-12-09 16:14 | CONS ---
CONSULTATION DATE OF SERVICE: 12/09/2020 REASON FOR CONSULTATION: Advice regarding CHF and other multiple medical problems, requested by Dr. Sosa. HISTORY OF PRESENT ILLNESS: This 70-year-old woman with a past medical history of CHF, CVA, TIA, diabetes mellitus, GERD, hypertension, hyperlipidemia, history of seizure disorder, being followed by Dr. Nixon Kim in the outpatient setting, underwent repair of incarcerated incisional hernia by Dr. Sosa. Postoperatively, the patient is slightly confused. Otherwise, there is no history of chest pain, no history of palpitations, headache, loss of consciousness, seizures at this time. Cardiology is following the patient closely. PAST MEDICAL HISTORY: History of CHF, CVA, TIA, diabetes mellitus, hypertension, hyperlipidemia, seizure disorder. HOME MEDICATIONS: Risperdal, metformin, Keppra, Clozaril, MiraLAX, Prilosec, multivitamins, Lopressor, Toprol-XL, magnesium oxide, Cozaar, Synthroid, DuoNeb, Levemir, heparin, Lasix, calcium, Cogentin, Ecotrin, Tylenol Arthritis. ALLERGIES: HALOPERIDOL. FAMILY HISTORY: No history of heart disease or strokes in the family. SOCIAL HISTORY: No history of smoking. No history of alcohol intake. REVIEW OF SYSTEMS: Review of systems could not be taken. The patient is slightly confused. PHYSICAL EXAMINATION: Patient is conscious. Pulse 109, blood pressure 137/77, respiration 19, temperature 97.9, pulse ox 93% on 3 L. HEENT: Conjunctivae normal. NECK: No jugular venous distention. CARDIOVASCULAR SYSTEM: S1, S2 muffled. RESPIRATORY SYSTEM: Breath sounds diminished at the bases. A few scattered rhonchi and crackles. ABDOMEN: Soft. Status post surgery. LEGS: No edema. No swelling. NERVOUS SYSTEM: No focal deficit. SKIN: No ulcer, rash, bleeding. JOINTS: No active deforming arthropathy. LABS: Glucose 168. Otherwise, the preop labs included hemoglobin normal. Chemistry also is acceptable. ASSESSMENT: 1. Status post repair of incarcerated incisional hernia. 2. History of congestive heart failure. 3. History of cerebrovascular accident, transient ischemic attack. 4. Diabetes mellitus, type 2. 5. History of recent acute hypoxic respiratory failure as well as acute right lower lobe pneumonia. 6. History of gastroesophageal reflux disease. 7. Hypertension. 8. Hyperlipidemia. 9. History of pneumonia. 10.Seizure disorder. 11.History of hypothyroidism. 12.History of right-sided weakness and cerebrovascular accident. 13.History of pancreatic mass. 14.History of chronic hypoxic respiratory failure. 15.History of cardiac catheterization. 16.History of paranoid schizophrenia. 17.Obesity with body mass index of 43.6. 18.FULL CODE. RECOMMENDATIONS AND DISCUSSION: In this 70-year-old woman who presented with multiple complex medical issues, we will monitor the patient closely, continue the current medications, continue with symptomatic treatment. Otherwise, resume the home medications. Follow the labs closely. Follow closely with Cardiology. The patient recently had sepsis secondary to acute right lower lobe pneumonia. I also recommend a chest x-ray to ensure clearance. We will continue to monitor. The prognosis is guarded because of multiple complex medical issues. Further recommendations to follow. See orders for further details. MMODL / IJN: [id number] /
[2020-12-09 16:24] LABS: Glucose,Whole Blood 189 mg/dL (75-99)
[2020-12-09] MEDS: GABAPENTIN 300 MG CAP PO SCH ×2 (16:59→22:02)
[2020-12-09] MEDS: PANTOPRAZOLE 40 MG/10 ML VIAL IVP SCH (16:59)
[2020-12-09] MEDS: FUROSEMIDE 40 MG TAB PO SCH (16:59)
[2020-12-09 20:35] LABS: Glucose,Whole Blood 161 mg/dL (75-99)
[2020-12-09] MEDS: BENZTROPINE MESYLATE 1 MG TAB PO SCH (20:57)
[2020-12-09] MEDS: cloZAPine 100 MG TAB PO SCH (20:59)
[2020-12-09] MEDS: DOCUSATE 100 MG CAP PO SCH (20:59)
[2020-12-09] MEDS: levETIRAcetam 500 MG TAB PO SCH (20:59)
[2020-12-09] MEDS: MAGNESIUM OXIDE 400 MG TAB PO SCH (21:00)
[2020-12-09] MEDS: metFORMIN 500 MG TAB PO SCH (21:00)
[2020-12-09] MEDS: risperiDONE 1 MG TAB PO SCH (21:01)
[2020-12-10 02:03] LABS: Glucose,Whole Blood 132 mg/dL (75-99)
[2020-12-10] MEDS: INSULIN DETEMIR (LEVEMIR) 100 UNIT/ML SYR SQ SCH ×2 (02:08→20:42)
[2020-12-10] MEDS: LEVOTHYROXINE 75 MCG TAB PO SCH (04:52)
[2020-12-10 07:11] LABS: Glucose,Whole Blood 114 mg/dL (75-99)
[2020-12-10] MEDS: IPRATROPIUM-ALBUTEROL 3 ML NEB INHALATION PRN ×2 (07:11→20:34)
[2020-12-10] MEDS: FUROSEMIDE 40 MG TAB PO SCH ×2 (07:33→12:05)
[2020-12-10] MEDS: LACTATED RINGERS 1,000 ML IV SCH (07:40)
[2020-12-10] MEDS ORDERED: NON FORMULARY DRUG (Omeprazole 20 MG Capsule.Dr) PO SCH (09:00)
[2020-12-10] MEDS: METOPROLOL TARTRATE 12.5 MG TAB PO SCH ×2 (09:27→21:24)
[2020-12-10] MEDS: LOSARTAN 25 MG TAB PO SCH (09:28)
[2020-12-10] MEDS: GABAPENTIN 300 MG CAP PO SCH ×3 (09:28→21:40)
[2020-12-10] MEDS: POTASSIUM CHLORIDE ER 10 MEQ TAB.ER.PRT PO SCH (09:28)
[2020-12-10] MEDS: MAGNESIUM OXIDE 400 MG TAB PO SCH ×2 (09:28→21:24)
[2020-12-10] MEDS: PANTOPRAZOLE 40 MG/10 ML VIAL IVP SCH (09:29)
[2020-12-10] MEDS: metFORMIN 500 MG TAB PO SCH ×2 (09:29→21:23)
[2020-12-10] MEDS: DOCUSATE 100 MG CAP PO SCH ×2 (09:29→21:24)
[2020-12-10] MEDS: MULTIVITAMINS, THERA 1 EACH TAB PO SCH (09:29)
[2020-12-10] MEDS: levETIRAcetam 500 MG TAB PO SCH ×2 (09:30→21:24)
[2020-12-10] MEDS: ENOXAPARIN 40 MG/0.4 ML SYRINGE SQ SCH (09:30)
[2020-12-10 09:35] LABS: Basophils # (A) 0.01 X 10*3/uL (0.00-0.10); Basophils % (A) 0.1 %; Eosinophils # (A) 0 X 10*3/uL (0.04-0.35); Eosinophils % (A) 0 %; HCT 36.6 % (37.2-46.3); HGB 12.3 g/dL (12.0-15.0); Lymphocytes # (A) 1.48 X 10*3/uL (0.90-5.00); MCH 29.4 pg (27.0-32.0); MCHC 33.6 g/dL (32.0-37.0); MCV 87.4 fL (80.0-97.0); Mean Platelet Volume 9.2 fL (9.5-12.2); Monocytes # (A) 0.78 X 10*3/uL (0.20-1.00); Monocytes % (A) 11.6 %; Neutrophils # (A) 4.41 X 10*3/uL (1.80-7.70); Neutrophils % (A) 65.4 %; Platelet Count 273 X 10*3/uL (140-440); RBC 4.19 X 10*6/uL (4.10-5.20); RDW 15.1 % (11.5-14.5); WBC 6.74 X 10*3/uL (4.50-10.00)
[2020-12-10 10:11] LABS: African American GFR (CKD) 136.4 (60.0-200.0); BUN/Creat Ratio 16.67 Ratio (12.00-20.00); Calcium 7.6 mg/dL (8.7-10.3); Non-African American GFR(CKD) 117.6 (60.0-200.0)
[2020-12-10] MEDS ORDERED: Potassium Replacement Protocol 1 EACH MISC MISCELLANE PRN ×2 (10:15→15:01)
[2020-12-10] MEDS: cloZAPine 100 MG TAB PO SCH ×2 (10:25→21:25)
[2020-12-10 10:33] LABS: Potassium 2.6 mmol/L (3.5-5.5)
[2020-12-10] MEDS ORDERED: POTASSIUM CHLORIDE ER 20 MEQ TAB.ER PO SCH (11:00)
--- NOTE | 2020-12-10 11:04 | P.PN ---
Subjective Progress Note Date: 12/10/20 CHIEF COMPLAINT: Incarcerated incisional hernia HISTORY OF PRESENT ILLNESS: Patient is status post repair of incarcerated incisional hernia. She reports that her pain is controlled. She sitting up at bedside chair. She denies any nausea or vomiting. She is tolerating a regular diet. Denies any bowel movement. Afebrile. WBC 6.74, potassium 2.6 and is being replaced PHYSICAL EXAM: VITAL SIGNS: Reviewed. GENERAL: Well-developed in no acute distress. HEENT: No sclera icterus. Extraocular movements grossly intact. Moist buccal mucosa. Head is atraumatic, normocephalic. ABDOMEN: Soft. Obese Nondistended. Dressing in the right lower abdomen shows small area of blood saturation. JANIE drain in place with sanguinous fluid NEUROLOGIC: Alert and oriented. Cranial nerves II through XII grossly intact. ASSESSMENT: 1. Incarcerated incisional hernia status post repair 2. Hypokalemia PLAN: -Continue supportive care -Continue carb consistent diet -Potassium being replaced per protocol -Encouraged patient to increase activity -Encourage incentive spirometer use -PT OT on consult -GI prophylaxis Protonix and DVT prophylaxis Lovenox Physician [employer] Developer [place] note has been reviewed by physician. Signing provider agrees with the documented findings, assessment, and plan of care. Objective - Vital Signs Vital signs: Vital Signs Temp 97.5 F L 12/10/20 07:17 Pulse 68 12/10/20 07:20 Resp 14 12/10/20 07:17 BP 102/66 12/10/20 02:00 Pulse Ox 93 L 12/10/20 07:17 Intake & Output 12/09/20 12/10/20 12/10/20 18:59 06:59 18:59 Intake Total 450 Output Total 425 650 Balance 25 -650 Weight 97.976 kg Intake: IV 450 Output: Drainage 100 50 Abdomen 100 50 Urine 300 600 Straight 300 Estimated Blood Loss 25 Other: Voiding Method External Catheter External Catheter # Voids 0 - Labs CBC & Chem 7: 12/10/20 05:44 12/10/20 05:44 Labs: Abnormal Lab Results - Last 24 Hours (Table) 12/09/20 12/09/20 12/09/20 Range/Units 11:42 16:22 20:34 Hct (37.2-46.3) % RDW (11.5-14.5) % MPV (9.5-12.2) fL Immature Gran # (0.00-0.04) X 10*3/uL Eosinophils # (0.04-0.35) X 10*3/uL Potassium (3.5-5.5) mmol/L Chloride (96-109) mmol/L Carbon Dioxide (21.6-31.8) mmol/L BUN (9.0-27.0) mg/dL Creatinine (0.6-1.5) mg/dL Glucose (70-110) mg/dL POC Glucose (mg/dL) 168 H 189 H 161 H (75-99) mg/dL Calcium (8.7-10.3) mg/dL 12/10/20 12/10/20 12/10/20 Range/Units 02:02 05:44 05:44 Hct 36.6 L (37.2-46.3) % RDW 15.1 H (11.5-14.5) % MPV 9.2 L (9.5-12.2) fL Immature Gran # 0.06 H (0.00-0.04) X 10*3/uL Eosinophils # 0 L (0.04-0.35) X 10*3/uL Potassium 2.6 L* (3.5-5.5) mmol/L Chloride 88 L (96-109) mmol/L Carbon Dioxide 37.0 H (21.6-31.8) mmol/L BUN 5.0 L (9.0-27.0) mg/dL Creatinine 0.3 L (0.6-1.5) mg/dL Glucose 117 H (70-110) mg/dL POC Glucose (mg/dL) 132 H (75-99) mg/dL Calcium 7.6 L (8.7-10.3) mg/dL 12/10/20 Range/Units 07:10 Hct (37.2-46.3) % RDW (11.5-14.5) % MPV (9.5-12.2) fL Immature Gran # (0.00-0.04) X 10*3/uL Eosinophils # (0.04-0.35) X 10*3/uL Potassium (3.5-5.5) mmol/L Chloride (96-109) mmol/L Carbon Dioxide (21.6-31.8) mmol/L BUN (9.0-27.0) mg/dL Creatinine (0.6-1.5) mg/dL Glucose (70-110) mg/dL POC Glucose (mg/dL) 114 H (75-99) mg/dL Calcium (8.7-10.3) mg/dL
[2020-12-10 11:42] LABS: Glucose,Whole Blood 148 mg/dL (75-99)
[2020-12-10] MEDS: POTASSIUM CHLORIDE ER 20 MEQ TAB.ER PO SCH ×5 (12:00→17:32)
--- NOTE | 2020-12-10 12:03 | P.PN ---
Subjective Progress Note Date: 12/10/20 HISTORY OF PRESENT ILLNESS: Patient is status post repair of incarcerated incisional hernia with Dr. Sosa. POD #1. Patient examined this morning. She is sitting in the chair. She denies chest pain or pressure. Denies shortness of breath. She is tolerating regular diet. Vital signs are stable. PHYSICAL EXAM: VITAL SIGNS: Reviewed. GENERAL: Well-developed in no acute distress. NECK: Supple. No JVD or thyromegaly LUNGS: Respirations even and unlabored. Lungs essentially clear to auscultation bilaterally. HEART: Regular rate and rhythm. S1 and S2 heard. EXTREMITIES: Normal range of motion. No clubbing or cyanosis. Peripheral pulses intact. Trace bilateral lower extremity edema ASSESSMENT: Status post repair of incarcerated incisional hernia Hypertension Hyperlipidemia Diabetes mellitus Valvular heart disease: Mild mitral regurgitation and moderate tricuspid regurgitation Moderate pulmonary hypertension PLAN: Continue current cardiac medications Continue to monitor vital signs Patient is currently stable from a cardiac perspective. We will sign off. Please reconsult if needed. Nurse practitioner note has been reviewed by physician. Signing provider agrees with the documented findings, assessment, and plan of care. Objective - Vital Signs Vital signs: Vital Signs Temp 97.5 F L 12/10/20 07:17 Pulse 68 12/10/20 07:20 Resp 14 12/10/20 07:17 BP 102/66 12/10/20 02:00 Pulse Ox 93 L 12/10/20 07:17 Intake & Output 12/09/20 12/10/20 12/10/20 18:59 06:59 18:59 Intake Total 450 Output Total 425 650 Balance 25 -650 Weight 97.976 kg Intake: IV 450 Output: Drainage 100 50 Abdomen 100 50 Urine 300 600 Straight 300 Estimated Blood Loss 25 Other: Voiding Method External Catheter External Catheter # Voids 0 - Labs CBC & Chem 7: 12/10/20 05:44 12/10/20 05:44 Labs: Abnormal Lab Results - Last 24 Hours (Table) 12/09/20 12/09/20 12/10/20 Range/Units 16:22 20:34 02:02 Hct (37.2-46.3) % RDW (11.5-14.5) % MPV (9.5-12.2) fL Immature Gran # (0.00-0.04) X 10*3/uL Eosinophils # (0.04-0.35) X 10*3/uL Potassium (3.5-5.5) mmol/L Chloride (96-109) mmol/L Carbon Dioxide (21.6-31.8) mmol/L BUN (9.0-27.0) mg/dL Creatinine (0.6-1.5) mg/dL Glucose (70-110) mg/dL POC Glucose (mg/dL) 189 H 161 H 132 H (75-99) mg/dL Calcium (8.7-10.3) mg/dL 12/10/20 12/10/20 12/10/20 Range/Units 05:44 05:44 07:10 Hct 36.6 L (37.2-46.3) % RDW 15.1 H (11.5-14.5) % MPV 9.2 L (9.5-12.2) fL Immature Gran # 0.06 H (0.00-0.04) X 10*3/uL Eosinophils # 0 L (0.04-0.35) X 10*3/uL Potassium 2.6 L* (3.5-5.5) mmol/L Chloride 88 L (96-109) mmol/L Carbon Dioxide 37.0 H (21.6-31.8) mmol/L BUN 5.0 L (9.0-27.0) mg/dL Creatinine 0.3 L (0.6-1.5) mg/dL Glucose 117 H (70-110) mg/dL POC Glucose (mg/dL) 114 H (75-99) mg/dL Calcium 7.6 L (8.7-10.3) mg/dL 12/10/20 Range/Units 11:40 Hct (37.2-46.3) % RDW (11.5-14.5) % MPV (9.5-12.2) fL Immature Gran # (0.00-0.04) X 10*3/uL Eosinophils # (0.04-0.35) X 10*3/uL Potassium (3.5-5.5) mmol/L Chloride (96-109) mmol/L Carbon Dioxide (21.6-31.8) mmol/L BUN (9.0-27.0) mg/dL Creatinine (0.6-1.5) mg/dL Glucose (70-110) mg/dL POC Glucose (mg/dL) 148 H (75-99) mg/dL Calcium (8.7-10.3) mg/dL
[2020-12-10] MEDS: 0.9% NACL WITH KCL 40 MEQ/L 1,000 ML IV SCH (12:04)
[2020-12-10] MEDS ORDERED: Magnesium Replacement Protocol 1 EACH MISC MISCELLANE PRN (15:01)
[2020-12-10 15:39] LABS: Potassium 3.2 mmol/L (3.5-5.1)
[2020-12-10 15:40] LABS: ALT 16 U/L (4-34); AST 23 U/L (14-36); African American GFR (CKD) >90 (>60 ml/min/1.73 sqM); Albumin 2.7 g/dL (3.5-5.0); Albumin/Globulin Ratio 1.2; Alkaline Phosphatase 99 U/L (38-126); Anion Gap 7 mmol/L; Blood Urea Nitrogen 7 mg/dL (7-17); Calcium 7.3 mg/dL (8.4-10.2); Carbon Dioxide 33 mmol/L (22-30); Chloride 85 mmol/L (98-107); Globulin 2.3 g/dL; Glucose 170 mg/dL (74-99); Non-African American GFR(CKD) >90 (>60 ml/min/1.73 sqM); Sodium 125 mmol/L (137-145); Total Bilirubin 0.6 mg/dL (0.2-1.3)
--- NOTE | 2020-12-10 15:50 | CDI ---
Documentation Clarification Form Date: 12/10/2020 03:30:03 PM From: Jasmina Jovel RN, CCDS Admit Date: 12/10/2020 02:16:00 PM Patient Name: Rossi Anna Visit Number: [id number] Discharge Date: ATTENTION: The Clinical Documentation Specialists (CDI) and [facility] Coding Staff appreciate your assistance in clarifying documentation. Please respond to the clarification below the line at the bottom and electronically sign. The CDI & [facility] Coding staff will review the response and follow-up if needed. Please note: Queries are made part of the Legal Health Record. If you have any questions, please contact the author of this message via ITS. Dr. Angelica De La Torre CHF is documented in the past medical history and your consult on 12/09/20. Please render your opinion on the type and acuity of CHF if known. History/Risk Factors: Heart Failure, Diabetes Mellitus, Hypertension, bilateral leg/pedal edema, Clinical Indicators: 70-year-old female present on 12/09 for elective repair of incarcerated incisional hernia. 12/09 @ 13:20 VS/Pulse OX: 126/78 106 11/15 Echocardiogram Results: The left ventricular size is normal. Overall left ventricular systolic function is normal with, an EF 55-60 % 12/09 Chest X Ray: There is some improvement in aeration, residual subsegmental basilar atelectatic changes are present. Cardiomegaly. Treatment: Lasix 40 MG PO BID (hold) Lopressor 12.5 MG PO BID In your professional opinion, can you please clarify the acuity and type of CHF if known? Systolic Heart Failure: Acute Chronic Acute on Chronic Diastolic Heart Failure: Acute Chronic Acute on Chronic Systolic & Diastolic Heart Failure: Acute Chronic Acute on Chronic Heart Failure Unable to Determine Other, please specify (Last Revision: February 2018) Diastolic Heart Failure: Chronic MTDD
--- NOTE | 2020-12-10 16:00 | PN ---
PROGRESS NOTE DATE OF SERVICE: 12/10/2020 This 70-year-old woman who was admitted after repair of incarcerated incisional hernia is improving significantly. No chest pain. No palpitations. No fever. The chest x- ray done showed some atelectasis in the right base. No chest pain. No palpitations. No fever. The patient has severe hypokalemia also. Past medical history reviewed. PHYSICAL EXAMINATION: Alert and oriented x3. Pulse is 68, blood pressure 145/85, respiration 14, temperature 96.1, pulse ox 93% on 2 L. HEENT: Conjunctivae normal. NECK: No jugular venous distention. CARDIOVASCULAR SYSTEM: S1, S2 muffled. RESPIRATORY SYSTEM: Breath sounds diminished at the bases. A few scattered rhonchi and crackles. ABDOMEN: Soft, obese. Status post surgery. LEGS: No edema. No swelling. NERVOUS SYSTEM: No focal deficit. REVIEW OF SYSTEMS: CARDIOVASCULAR SYSTEM: No angina, palpitations. RESPIRATORY SYSTEM: As mentioned earlier. GI: As mentioned earlier. : No dysuria or retention. NERVOUS SYSTEM: No numbness, weakness. CURRENT MEDICATIONS: [place], Cogentin, Clozaril, Colace, Lovenox, Lasix, Neurontin, Levemir, Lactated Ringer, Synthroid. Doses are reviewed. LABS: WBC 6.7, hemoglobin 12.3, platelets are 273. Sodium 136, potassium 2.6, calcium 7.6. ASSESSMENT: 1. Status post repair of incarcerated incisional hernia. 2. History of congestive heart failure, ejection fraction unknown. 3. Severe hypokalemia. 4. Atelectasis of the right lung. 5. History of cerebrovascular accident, transient ischemic attack. 6. Diabetes mellitus, type 2. 7. History of recent acute hypoxic respiratory failure as well as acute right lower lobe pneumonia. 8. History of gastroesophageal reflux disease. 9. Hypertension. 10.Hyperlipidemia. 11.History of pneumonia. 12.History of seizure disorder. 13.History of hypothyroidism. 14.Right-sided weakness and cerebrovascular accident. 15.History of pancreatic mass. 16.Chronic hypoxic respiratory failure. 17.History of cardiac catheterization. 18.History of paranoid schizophrenia. 19.Obesity with a body mass index of 43.6. 20.FULL CODE. RECOMMENDATIONS AND DISCUSSION: I recommend to continue current medications, continue symptomatic treatment. I will check magnesium also. Magnesium and potassium replacement protocols. I would add another 80 mEq of p.o. potassium in addition to the IV ordered per protocol and repeat potassium at 5 p.m. today. Otherwise, I would also recommend changing the IV fluids to 0.9 with 40 of KCl running at 50 mL/hour. Closely follow with Surgery. See orders for further details. Further recommendations to follow. MALLORIEL / IJN: [id number] /
[2020-12-10 16:28] LABS: Magnesium 0.8 mg/dL (1.6-2.3)
[2020-12-10] MEDS: MAGNESIUM SULFATE-D5W PMX 1 GM in DEXTROSE/WATER 1 100ML.BAG IVPB SCH ×4 (16:40→21:42)
[2020-12-10 16:46] LABS: Glucose,Whole Blood 173 mg/dL (75-99)
[2020-12-10] MEDS: INSULIN ASPART (NovoLOG) 100 UNIT/ML VIAL SQ SCH ×2 (17:32→20:43)
[2020-12-10] MEDS: CALCIUM CARB-VIT D 500 MG-5 MCG TAB PO SCH (17:32)
[2020-12-10 20:35] LABS: Glucose,Whole Blood 179 mg/dL (75-99)
[2020-12-10] MEDS: risperiDONE 1 MG TAB PO SCH (21:23)
[2020-12-10] MEDS: BENZTROPINE MESYLATE 1 MG TAB PO SCH (21:25)
[2020-12-11 02:15] LABS: Glucose,Whole Blood 176 mg/dL (75-99)
[2020-12-11] MEDS: 0.9% NACL WITH KCL 40 MEQ/L 1,000 ML IV SCH ×2 (04:38→05:28)
[2020-12-11] MEDS: LEVOTHYROXINE 75 MCG TAB PO SCH (05:06)
[2020-12-11 07:01] LABS: Glucose,Whole Blood 161 mg/dL (75-99)
[2020-12-11] MEDS: IPRATROPIUM-ALBUTEROL 3 ML NEB INHALATION PRN ×3 (07:47→20:15)
[2020-12-11] MEDS: FUROSEMIDE 40 MG TAB PO SCH ×2 (09:34→15:35)
[2020-12-11] MEDS: PANTOPRAZOLE 40 MG TABLET PO SCH (09:34)
[2020-12-11] MEDS: ENOXAPARIN 40 MG/0.4 ML SYRINGE SQ SCH (09:34)
[2020-12-11] MEDS: MAGNESIUM OXIDE 400 MG TAB PO SCH ×2 (09:34→20:40)
[2020-12-11] MEDS: DOCUSATE 100 MG CAP PO SCH ×2 (09:34→20:40)
[2020-12-11] MEDS: metFORMIN 500 MG TAB PO SCH ×2 (09:34→20:40)
[2020-12-11] MEDS: METOPROLOL TARTRATE 12.5 MG TAB PO SCH ×2 (09:35→20:40)
[2020-12-11] MEDS: LOSARTAN 25 MG TAB PO SCH (09:35)
[2020-12-11] MEDS: GABAPENTIN 300 MG CAP PO SCH ×3 (09:35→20:40)
[2020-12-11] MEDS: INSULIN ASPART (NovoLOG) 100 UNIT/ML VIAL SQ SCH ×4 (09:35→21:13)
[2020-12-11] MEDS: MULTIVITAMINS, THERA 1 EACH TAB PO SCH (09:35)
[2020-12-11] MEDS: CALCIUM CARB-VIT D 500 MG-5 MCG TAB PO SCH ×2 (09:35→17:04)
[2020-12-11] MEDS: POTASSIUM CHLORIDE ER 10 MEQ TAB.ER.PRT PO SCH (09:35)
[2020-12-11] MEDS: cloZAPine 100 MG TAB PO SCH ×2 (09:39→20:41)
[2020-12-11] MEDS: levETIRAcetam 500 MG TAB PO SCH ×2 (09:39→20:41)
[2020-12-11] MEDS ORDERED: Potassium Replacement Protocol 1 EACH MISC MISCELLANE PRN ×2 (10:27→10:28)
[2020-12-11] MEDS ORDERED: Magnesium Replacement Protocol 1 EACH MISC MISCELLANE PRN (10:27)
[2020-12-11 11:30] LABS: Glucose,Whole Blood 154 mg/dL (75-99)
[2020-12-11 11:50] LABS: African American GFR (CKD) 136.4 (60.0-200.0); Anion Gap 5.6 mmol/L (4.00-12.00); BUN/Creat Ratio 16.67 Ratio (12.00-20.00); Calcium 7.8 mg/dL (8.7-10.3); Carbon Dioxide 34.4 mmol/L (21.6-31.8); Magnesium 1.8 mg/dL (1.5-2.4); Non-African American GFR(CKD) 117.6 (60.0-200.0)
[2020-12-11 12:15] LABS: Basophils # (A) 0.01 X 10*3/uL (0.00-0.10); Basophils % (A) 0.2 %; Eosinophils # (A) 0 X 10*3/uL (0.04-0.35); Eosinophils % (A) 0 %; HGB 11.3 g/dL (12.0-15.0); Lymphocytes # (A) 0.98 X 10*3/uL (0.90-5.00); Lymphocytes % (A) 15.2 %; MCHC 32.3 g/dL (32.0-37.0); Mean Platelet Volume 9.4 fL (9.5-12.2); Monocytes # (A) 0.55 X 10*3/uL (0.20-1.00); Monocytes % (A) 8.6 %; Neutrophils # (A) 4.82 X 10*3/uL (1.80-7.70); Neutrophils % (A) 74.9 %; Platelet Count 274 X 10*3/uL (140-440); RBC 3.89 X 10*6/uL (4.10-5.20); RDW 15.6 % (11.5-14.5); WBC 6.43 X 10*3/uL (4.50-10.00)
--- NOTE | 2020-12-11 14:30 | P.PN ---
Subjective Progress Note Date: 12/11/20 CHIEF COMPLAINT: Incisional hernia with incarceration HISTORY OF PRESENT ILLNESS: The patient is a 70-year-old female status post open repair of incarcerated incisional hernia, 12/09/2020. Postoperatively, she has multiple electrolyte dyscrasias including hyponatremia, hypokalemia. She has morbid obesity due to excess calories of BMI over 40. She is laying in bed. Her pain is controlled. She is tolerating diet, regular. ROS: No fevers or chills. Has productive sputum. No active chest pain. PHYSICAL EXAM: VITAL SIGNS: Reviewed CONSTITUTIONAL: Well developed and in no acute distress. EYES: Conjuctivae without sclera icterus. Extraocular movements grossly intact. HEAD, EARS, NOSE, THROAT: Moist buccal mucosa. Head is atraumatic, normocephalic. Hears conversational speech. No nasal drainage. NECK: Supple. No thyroidomegaly. RESPIRATORY: Non-labored respirations and equal bilateral excursions. CARDIOVASCULAR: Palpable 2+ radial pulses. ABDOMEN: Incisions clean dry and intact. MUSCULOSKELETAL: No gross deformity of the lower extremities noted. No clubbing. No cyanosis. SKIN: Good skin turgor. Well perfused. NEUROLOGIC: Cranial nerves II through XII grossly intact. No focal or lateralizing signs. PSYCH: Appropriate affect. Alert and oriented to person, place and time. CLINICAL LABS: White blood cell count normal, 6.7. Hemoglobin 12.3. Sodium less than 130. Potassium less than 3.5 ASSESSMENT: 1. Incarcerated incisional hernia status post repair 2. Morbid obesity due to excess calories, BMI 43.6 3. Hypokalemia 4. Hyponatremia PLAN: 1. May benefit from physical therapy/occupational therapy 2. Correction of electrolytes advised. Objective - Vital Signs Vital signs: Vital Signs Temp 100.1 F H 12/11/20 09:29 Pulse 91 12/11/20 09:29 Resp 18 12/11/20 09:29 BP 119/79 12/11/20 09:29 Pulse Ox 96 12/11/20 09:29 Intake & Output 12/10/20 12/11/20 12/11/20 18:59 06:59 18:59 Intake Total 1600 Output Total 1900 1245 Balance -300 -1245 Intake: Blood Product 1600 Output: Drainage 50 70 Abdomen 50 70 Urine 1850 1175 Other: Voiding Method External Catheter # Bowel Movements 1 1 - Labs CBC & Chem 7: 12/11/20 06:43 12/11/20 06:43 Labs: Abnormal Lab Results - Last 24 Hours (Table) 12/10/20 12/10/20 12/10/20 Range/Units 11:40 15:14 16:45 Sodium 125 L (137-145) mmol/L Potassium 3.2 L (3.5-5.1) mmol/L Chloride 85 L (98-107) mmol/L Carbon Dioxide 33 H (22-30) mmol/L Creatinine 0.36 L (0.52-1.04) mg/dL Glucose 170 H (74-99) mg/dL POC Glucose (mg/dL) 148 H 173 H (75-99) mg/dL Calcium 7.3 L (8.4-10.2) mg/dL Magnesium 0.8 L* (1.6-2.3) mg/dL Total Protein 5.0 L (6.3-8.2) g/dL Albumin 2.7 L (3.5-5.0) g/dL 12/10/20 12/11/20 12/11/20 Range/Units 20:33 02:12 06:59 Sodium (137-145) mmol/L Potassium (3.5-5.1) mmol/L Chloride (98-107) mmol/L Carbon Dioxide (22-30) mmol/L Creatinine (0.52-1.04) mg/dL Glucose (74-99) mg/dL POC Glucose (mg/dL) 179 H 176 H 161 H (75-99) mg/dL Calcium (8.4-10.2) mg/dL Magnesium (1.6-2.3) mg/dL Total Protein (6.3-8.2) g/dL Albumin (3.5-5.0) g/dL 12/11/20 Range/Units 11:28 Sodium (137-145) mmol/L Potassium (3.5-5.1) mmol/L Chloride (98-107) mmol/L Carbon Dioxide (22-30) mmol/L Creatinine (0.52-1.04) mg/dL Glucose (74-99) mg/dL POC Glucose (mg/dL) 154 H (75-99) mg/dL Calcium (8.4-10.2) mg/dL Magnesium (1.6-2.3) mg/dL Total Protein (6.3-8.2) g/dL Albumin (3.5-5.0) g/dL
[2020-12-11 16:53] LABS: Glucose,Whole Blood 174 mg/dL (75-99)
--- NOTE | 2020-12-11 19:51 | PN ---
PROGRESS NOTE DATE OF SERVICE: 12/11/2020. This 70-year-old woman who was admitted after repair of incarcerated incisional hernia, is improving significantly. No chest pain. No palpitations. No fever. PHYSICAL EXAMINATION: Alert and oriented x2. Pulse is 88, blood pressure 127/70, respirations 16, temperature 98 degrees, pulse ox 98% on 2 L. HEENT: Conjunctivae normal. NECK: No JVD. CARDIOVASCULAR: S1, S2 muffled. RESPIRATIONS: Breath sounds diminished in the bases. ABDOMEN: Soft, status post surgery. LEGS are no edema. No swelling. NERVOUS SYSTEM: No focal deficits. LABS: WBC 6.2, hemoglobin 7.3. Glucose noted. ASSESSMENT: 1. Status post repair of incarcerated incisional hernia. 2. History of congestive heart failure, ejection fraction unknown. 3. Severe hypokalemia, improved. 4. Atelectasis of the right lung. 5. History of cerebrovascular accident/transient ischemic attack. 6. Diabetes type 2. 7. History of recent acute hypoxic respiratory failure as well as acute right lower lobe pneumonia. 8. History of gastroesophageal reflux disease. 9. Hypertension. 10.Hyperlipidemia. 11.History of pneumonia. 12.History of seizure disorder. 13.History of hypothyroidism. 14.History of right-sided weakness and cerebrovascular accident history. 15.History of pancreatic mass. 16.Chronic hypoxic respiratory failure. 17.History of cardiac catheterization. 18.History of paranoid schizophrenia. 19.Obesity with body mass index of 43.6. 20.FULL CODE. RECOMMENDATIONS AND DISCUSSION: I recommend to continue current medications, continue to monitor, symptomatic treatment. Otherwise incentive spirometry, DVT prophylaxis. Closely follow with surgery. Further recommendations to follow. MMODL / IJN: [id number] /
[2020-12-11 20:23] LABS: Glucose,Whole Blood 144 mg/dL (75-99)
[2020-12-11] MEDS: BENZTROPINE MESYLATE 1 MG TAB PO SCH (20:41)
[2020-12-11] MEDS: risperiDONE 1 MG TAB PO SCH (20:41)
[2020-12-11] MEDS: INSULIN DETEMIR (LEVEMIR) 100 UNIT/ML SYR SQ SCH (21:13)
[2020-12-12 02:00] LABS: Glucose,Whole Blood 134 mg/dL (75-99)
[2020-12-12] MEDS: 0.9% NACL WITH KCL 40 MEQ/L 1,000 ML IV SCH (04:12)
[2020-12-12] MEDS: LEVOTHYROXINE 75 MCG TAB PO SCH (05:13)
[2020-12-12 06:58] LABS: Glucose,Whole Blood 151 mg/dL (75-99)
[2020-12-12] MEDS: IPRATROPIUM-ALBUTEROL 3 ML NEB INHALATION PRN ×2 (07:31→19:03)
[2020-12-12] MEDS: ENOXAPARIN 40 MG/0.4 ML SYRINGE SQ SCH (08:30)
[2020-12-12] MEDS: metFORMIN 500 MG TAB PO SCH ×2 (08:30→20:10)
[2020-12-12] MEDS: CALCIUM CARB-VIT D 500 MG-5 MCG TAB PO SCH ×2 (08:30→17:19)
[2020-12-12] MEDS: MULTIVITAMINS, THERA 1 EACH TAB PO SCH (08:30)
[2020-12-12] MEDS: PANTOPRAZOLE 40 MG TABLET PO SCH (08:30)
[2020-12-12] MEDS: GABAPENTIN 300 MG CAP PO SCH ×3 (08:30→20:09)
[2020-12-12] MEDS: MAGNESIUM OXIDE 400 MG TAB PO SCH ×2 (08:30→20:09)
[2020-12-12] MEDS: POTASSIUM CHLORIDE ER 10 MEQ TAB.ER.PRT PO SCH (08:30)
[2020-12-12] MEDS: LOSARTAN 25 MG TAB PO SCH (08:30)
[2020-12-12] MEDS: FUROSEMIDE 40 MG TAB PO SCH ×2 (08:30→17:20)
[2020-12-12] MEDS: cloZAPine 100 MG TAB PO SCH ×2 (08:31→20:10)
[2020-12-12] MEDS: METOPROLOL TARTRATE 12.5 MG TAB PO SCH ×2 (08:31→20:09)
[2020-12-12] MEDS: INSULIN ASPART (NovoLOG) 100 UNIT/ML VIAL SQ SCH ×4 (08:32→20:09)
[2020-12-12] MEDS: levETIRAcetam 500 MG TAB PO SCH ×2 (08:32→20:10)
[2020-12-12] MEDS: DOCUSATE 100 MG CAP PO SCH ×2 (08:32→20:10)
[2020-12-12 10:34] LABS: Basophils # (A) 0.02 X 10*3/uL (0.00-0.10); Basophils % (A) 0.3 %; Eosinophils # (A) 0 X 10*3/uL (0.04-0.35); Eosinophils % (A) 0 %; HCT 34.7 % (37.2-46.3); HGB 11.3 g/dL (12.0-15.0); Lymphocytes # (A) 1.14 X 10*3/uL (0.90-5.00); Lymphocytes % (A) 16.9 %; MCH 29.4 pg (27.0-32.0); MCHC 32.6 g/dL (32.0-37.0); MCV 90.1 fL (80.0-97.0); Mean Platelet Volume 9.4 fL (9.5-12.2); Monocytes # (A) 0.65 X 10*3/uL (0.20-1.00); Monocytes % (A) 9.6 %; Neutrophils % (A) 71.3 %; Platelet Count 261 X 10*3/uL (140-440); RBC 3.85 X 10*6/uL (4.10-5.20); RDW 15.3 % (11.5-14.5); WBC 6.74 X 10*3/uL (4.50-10.00)
[2020-12-12 11:08] LABS: African American GFR (CKD) 155.8 (60.0-200.0); Anion Gap 5.1 mmol/L (4.00-12.00); Calcium 7.8 mg/dL (8.7-10.3); Carbon Dioxide 36.9 mmol/L (21.6-31.8); Magnesium 1.2 mg/dL (1.5-2.4); Non-African American GFR(CKD) 134.4 (60.0-200.0); Potassium 3.4 mmol/L (3.5-5.5)
[2020-12-12] MEDS ORDERED: Potassium Replacement Protocol 1 EACH MISC MISCELLANE PRN (11:21)
[2020-12-12] MEDS ORDERED: Magnesium Replacement Protocol 1 EACH MISC MISCELLANE PRN (11:21)
[2020-12-12 11:34] LABS: Glucose,Whole Blood 200 mg/dL (75-99)
[2020-12-12] MEDS: POTASSIUM CHLORIDE ER 20 MEQ TAB.ER PO SCH ×2 (11:47→13:52)
[2020-12-12] MEDS: MAGNESIUM SULFATE-D5W PMX 1 GM in DEXTROSE/WATER 1 100ML.BAG IVPB SCH ×3 (11:48→17:20)
--- NOTE | 2020-12-12 14:16 | P.PN ---
Subjective Progress Note Date: 12/12/20 CHIEF COMPLAINT: Incisional hernia with incarceration HISTORY OF PRESENT ILLNESS: The patient is a 70-year-old female status post open repair of incarcerated incisional hernia, 12/09/2020. Postoperatively, she has multiple electrolyte dyscrasias including hyponatremia, hypokalemia. She has morbid obesity due to excess calories of BMI over 40. She is laying in bed. She doesn't re-call getting out of bed. Patient was in [facility] for rehab prior to surgery per case management notes. ROS: No fevers or chills. Has productive sputum. No active chest pain. PHYSICAL EXAM: VITAL SIGNS: Reviewed CONSTITUTIONAL: Well developed and in no acute distress. EYES: Conjuctivae without sclera icterus. Extraocular movements grossly intact. HEAD, EARS, NOSE, THROAT: Moist buccal mucosa. Head is atraumatic, normocephalic. Hears conversational speech. No nasal drainage. NECK: Supple. No thyroidomegaly. RESPIRATORY: Non-labored respirations and equal bilateral excursions. CARDIOVASCULAR: Palpable 2+ radial pulses. ABDOMEN: Dressing intact. No peritonitis. MUSCULOSKELETAL: No gross deformity of the lower extremities noted. No clubbing. No cyanosis. SKIN: Good skin turgor. Well perfused. NEUROLOGIC: Cranial nerves II through XII grossly intact. No focal or lateralizing signs. PSYCH: Alert and oriented to person. CLINICAL LABS: White blood cell count normal within normal. Electrolytes now normal. ASSESSMENT: 1. Incarcerated incisional hernia status post repair 2. Morbid obesity due to excess calories, BMI 43.6 3. Hypokalemia 4. Hyponatremia PLAN: 1. Recommend outpatient rehab. 2. Electrolytes moderately improved. 3. Continue with PT/OT while inpatient. Objective - Vital Signs Vital signs: Vital Signs Temp 98.6 F 12/12/20 07:55 Pulse 86 12/12/20 07:55 Resp 16 12/12/20 07:55 BP 109/70 12/12/20 07:55 Pulse Ox 95 12/12/20 07:55 Intake & Output 12/11/20 12/12/20 12/12/20 18:59 06:59 18:59 Intake Total 1040 450 Output Total 630 60 Balance 410 390 Intake: Intake, IV Titration 500 450 Amount 0.9% NaCl with KCl 40 Meq 500 450 /l 1,000 ml @ 50 mls/hr IV [facility] Rx#: [id number] Oral 540 Output: Drainage 30 60 Abdomen 30 60 Urine 600 Other: Voiding Method Diaper Diaper Diaper Incontinent Incontinent Incontinent # Voids 2 1 # Bowel Movements 1 1 1 - Labs CBC & Chem 7: 12/12/20 06:27 12/12/20 06:27 Labs: Abnormal Lab Results - Last 24 Hours (Table) 12/11/20 12/11/20 12/12/20 Range/Units 16:52 20:22 01:57 RBC (4.10-5.20) X 10*6/uL Hgb (12.0-15.0) g/dL Hct (37.2-46.3) % RDW (11.5-14.5) % MPV (9.5-12.2) fL Immature Gran # (0.00-0.04) X 10*3/uL Eosinophils # (0.04-0.35) X 10*3/uL Potassium (3.5-5.5) mmol/L Carbon Dioxide (21.6-31.8) mmol/L BUN (9.0-27.0) mg/dL Creatinine (0.6-1.5) mg/dL BUN/Creatinine Ratio (12.00-20.00) Ratio Glucose (70-110) mg/dL POC Glucose (mg/dL) 174 H 144 H 134 H (75-99) mg/dL Calcium (8.7-10.3) mg/dL Magnesium (1.5-2.4) mg/dL 12/12/20 12/12/20 12/12/20 Range/Units 06:27 06:27 06:56 RBC 3.85 L (4.10-5.20) X 10*6/uL Hgb 11.3 L (12.0-15.0) g/dL Hct 34.7 L (37.2-46.3) % RDW 15.3 H (11.5-14.5) % MPV 9.4 L (9.5-12.2) fL Immature Gran # 0.13 H (0.00-0.04) X 10*3/uL Eosinophils # 0 L (0.04-0.35) X 10*3/uL Potassium 3.4 L (3.5-5.5) mmol/L Carbon Dioxide 36.9 H (21.6-31.8) mmol/L BUN 5.0 L (9.0-27.0) mg/dL Creatinine 0.2 L (0.6-1.5) mg/dL BUN/Creatinine Ratio 25.00 H (12.00-20.00) Ratio Glucose 155 H (70-110) mg/dL POC Glucose (mg/dL) 151 H (75-99) mg/dL Calcium 7.8 L (8.7-10.3) mg/dL Magnesium 1.2 L (1.5-2.4) mg/dL 12/12/20 Range/Units 11:33 RBC (4.10-5.20) X 10*6/uL Hgb (12.0-15.0) g/dL Hct (37.2-46.3) % RDW (11.5-14.5) % MPV (9.5-12.2) fL Immature Gran # (0.00-0.04) X 10*3/uL Eosinophils # (0.04-0.35) X 10*3/uL Potassium (3.5-5.5) mmol/L Carbon Dioxide (21.6-31.8) mmol/L BUN (9.0-27.0) mg/dL Creatinine (0.6-1.5) mg/dL BUN/Creatinine Ratio (12.00-20.00) Ratio Glucose (70-110) mg/dL POC Glucose (mg/dL) 200 H (75-99) mg/dL Calcium (8.7-10.3) mg/dL Magnesium (1.5-2.4) mg/dL Assessment and Plan (1) Morbid obesity due to excess calories Current Visit: Yes Status: Acute Code(s): E66.01 - MORBID (SEVERE) OBESITY DUE TO EXCESS CALORIES SNOMED Code(s): 031705298 (2) BMI 40.0-44.9, adult Current Visit: Yes Status: Acute Code(s): Z68.41 - BODY MASS INDEX [BMI]40.0-44.9, ADULT SNOMED Code(s): 894383351 (3) Hyponatremia Current Visit: Yes Status: Acute Code(s): E87.1 - HYPO-OSMOLALITY AND HYPONATREMIA SNOMED Code(s): 84371667 (4) Hypokalemia Current Visit: Yes Status: Acute Code(s): E87.6 - HYPOKALEMIA SNOMED Code(s): 18525176 (5) Incisional hernia with obstruction Current Visit: Yes Status: Acute Code(s): K43.0 - INCISIONAL HERNIA WITH OBSTRUCTION, WITHOUT GANGRENE SNOMED Code(s): 840861490
--- NOTE | 2020-12-12 15:42 | PN ---
PROGRESS NOTE DATE OF SERVICE: 12/12/2020 This 70-year-old woman admitted after repair of incarcerated incisional hernia is being closely monitored. The patient also has CHF and multiple other medications issues. The patient has generalized weakness. ECF rehab is being planned at this time. PHYSICAL EXAMINATION: Alert and oriented x3. Pulse is 86, blood pressure 109/70, respirations 16, temperature 98.3, pulse ox 98% on 2 L. HEENT: Conjunctivae normal. NECK: No JVD. CARDIOVASCULAR system: S1, S2. RESPIRATION: Breath sounds diminished in the bases. No rhonchi. No crackles. ABDOMEN: Soft, status post surgery. LEGS: No edema. No swelling. NERVOUS SYSTEM: No focal deficits. LAB STUDIES: Hemoglobin 11.3, potassium 3.4. Glucose noted. Magnesium 1.2. ASSESSMENT: 1. Status post repair of incarcerated incisional hernia. 2. History of congestive heart failure, ejection fraction unknown. 3. Severe hypokalemia improved. 4. Hypomagnesemia. 5. Atelectasis of the right lung. 6. History of cerebrovascular accident, transient ischemic attack. 7. Diabetes type 2. 8. History of recent acute hypoxic respiratory failure as well as acute right lower lobe pneumonia. 9. History of gastroesophageal reflux disease. 10.Hypertension. 11.Hyperlipidemia. 12.History of pneumonia. 13.History of seizure disorder. 14.History of hypothyroidism. 15.History of right-sided weakness and cerebrovascular accident. 16.History of pancreatic mass. 17.Chronic hypoxic respiratory failure. 18.History of cardiac catheterization. 19.History of paranoid schizophrenia. 20.Obesity with body mass index of 43.6. 21.FULL CODE. RECOMMENDATIONS AND DISCUSSION: I recommend to continue current medications. Continue to monitor. Symptomatic treatment. Otherwise, at this time, supplement magnesium and potassium. Repeat labs in the morning. Otherwise, closely follow with surgery. Further recommendations to follow. MMODL / IJN: [id number] /
[2020-12-12 16:49] LABS: Glucose,Whole Blood 236 mg/dL (75-99)
[2020-12-12 20:01] LABS: Glucose,Whole Blood 155 mg/dL (75-99)
[2020-12-12] MEDS: BENZTROPINE MESYLATE 1 MG TAB PO SCH (20:09)
[2020-12-12] MEDS: risperiDONE 1 MG TAB PO SCH (20:10)
[2020-12-12] MEDS: INSULIN DETEMIR (LEVEMIR) 100 UNIT/ML SYR SQ SCH (20:59)
[2020-12-13] MEDS: 0.9% NACL WITH KCL 40 MEQ/L 1,000 ML IV SCH (01:37)
[2020-12-13 01:51] LABS: Glucose,Whole Blood 127 mg/dL (75-99)
[2020-12-13] MEDS: LEVOTHYROXINE 75 MCG TAB PO SCH (05:23)
[2020-12-13 07:10] LABS: Glucose,Whole Blood 202 mg/dL (75-99)
[2020-12-13] MEDS: IPRATROPIUM-ALBUTEROL 3 ML NEB INHALATION PRN (07:34)
[2020-12-13] MEDS: DOCUSATE 100 MG CAP PO SCH (08:01)
[2020-12-13] MEDS: metFORMIN 500 MG TAB PO SCH (08:01)
[2020-12-13] MEDS: LOSARTAN 25 MG TAB PO SCH (08:01)
[2020-12-13] MEDS: GABAPENTIN 300 MG CAP PO SCH ×2 (08:01→15:56)
[2020-12-13] MEDS: MAGNESIUM OXIDE 400 MG TAB PO SCH (08:01)
[2020-12-13] MEDS: METOPROLOL TARTRATE 12.5 MG TAB PO SCH (08:02)
[2020-12-13] MEDS: ENOXAPARIN 40 MG/0.4 ML SYRINGE SQ SCH (08:02)
[2020-12-13] MEDS: CALCIUM CARB-VIT D 500 MG-5 MCG TAB PO SCH (08:02)
[2020-12-13] MEDS: MULTIVITAMINS, THERA 1 EACH TAB PO SCH (08:02)
[2020-12-13] MEDS: cloZAPine 100 MG TAB PO SCH (08:02)
[2020-12-13] MEDS: PANTOPRAZOLE 40 MG TABLET PO SCH (08:02)
[2020-12-13] MEDS: POTASSIUM CHLORIDE ER 10 MEQ TAB.ER.PRT PO SCH (08:02)
[2020-12-13] MEDS: FUROSEMIDE 40 MG TAB PO SCH ×2 (08:02→13:25)
[2020-12-13] MEDS: INSULIN ASPART (NovoLOG) 100 UNIT/ML VIAL SQ SCH ×2 (08:07→12:14)
[2020-12-13 09:08] LABS: Basophils # (A) 0.03 X 10*3/uL (0.00-0.10); Basophils % (A) 0.4 %; Eosinophils # (A) 0 X 10*3/uL (0.04-0.35); Eosinophils % (A) 0 %; HCT 36.7 % (37.2-46.3); Lymphocytes # (A) 1.23 X 10*3/uL (0.90-5.00); MCH 29.5 pg (27.0-32.0); MCHC 32.7 g/dL (32.0-37.0); MCV 90.2 fL (80.0-97.0); Mean Platelet Volume 9.2 fL (9.5-12.2); Monocytes # (A) 0.69 X 10*3/uL (0.20-1.00); Monocytes % (A) 9.5 %; Neutrophils # (A) 5.16 X 10*3/uL (1.80-7.70); Neutrophils % (A) 71.2 %; Platelet Count 280 X 10*3/uL (140-440); RBC 4.07 X 10*6/uL (4.10-5.20); RDW 15.8 % (11.5-14.5); WBC 7.25 X 10*3/uL (4.50-10.00)
[2020-12-13 09:50] LABS: African American GFR (CKD) 155.8 (60.0-200.0); Calcium 8.4 mg/dL (8.7-10.3); Carbon Dioxide 33.8 mmol/L (21.6-31.8); Chloride 98 mmol/L (96-109); Glucose 182 mg/dL (70-110); Magnesium 1.3 mg/dL (1.5-2.4); Non-African American GFR(CKD) 134.4 (60.0-200.0); Potassium 3.4 mmol/L (3.5-5.5); Sodium 142 mmol/L (135-145)
[2020-12-13 10:04] LABS: Blood Urea Nitrogen <5.0 mg/dL (9.0-27.0)
[2020-12-13] MEDS: POTASSIUM CHLORIDE ER 20 MEQ TAB.ER PO SCH ×2 (10:07→12:14)
[2020-12-13] MEDS: levETIRAcetam 500 MG TAB PO SCH (10:07)
[2020-12-13] MEDS: MAGNESIUM SULFATE-D5W PMX 1 GM in DEXTROSE/WATER 1 100ML.BAG IVPB SCH ×3 (11:14→13:24)
[2020-12-13 11:34] LABS: Glucose,Whole Blood 184 mg/dL (75-99)
--- NOTE | 2020-12-13 13:11 | P.DS ---
Providers Date of admission: 12/10/20 14:16 Expected date of discharge: 12/13/20 Attending physician: Thomas Sosa Consults: 12/09/20 09:54 Consult Physician Routine Consulting Provider: Angelica De La Torre Consult Reason/Comments: Medical management Do you want consulting provider notified?: Yes Primary care physician: Nixon Kim MD Hospital Course: Discharge diagnosis 1. Incarcerated incisional hernia status post repair 2. Hypokalemia 3. Hypomagnesemia Hospital course This is a 70-year-old female who presents for repair of incarcerated incisional hernia. Patient's previous hospital admission with bowel obstruction related to her hernia. Patient is status post incarcerated incisional hernia repair. She tolerated surgery well. Her pain is controlled. She's tolerating diet. She is afebrile. Her magnesium is 1.3 and potassium 3.4. These are being replaced before discharge. Patient is stable for discharge. Please refer to chart for any further details. Physician Layout Man note has been reviewed by physician. Signing provider agrees with the documented findings, assessment, and plan of care. Patient Condition at Discharge: Stable Plan - Discharge Summary Discharge Rx Participant: No New Discharge Prescriptions: New HYDROcodone/APAP 5-325MG [[place] 5] 1 each PO Q6HR PRN 3 Days #10 tab PRN Reason: Pain Continue Aspirin EC [Ecotrin Low Dose] 81 mg PO DAILY Ipratropium-Albuterol Nebulize [Duoneb 0.5 mg-3 mg/3 ml Soln] 3 ml INHALATION Q4H PRN PRN Reason: Shortness Of Breath Or Wheezing No Action Acetaminophen [Tylenol Arthritis] 650 mg PO Q8H PRN PRN Reason: Pain Benztropine Mesylate [Cogentin] 1 mg PO HS Calcium Carbonate/Vitamin D3 [Calcium 600-Vit D3 10 mcg (400 Iu)] 1 tab PO DAILY levETIRAcetam [Keppra] 500 mg PO Q12HR Levothyroxine Sodium [Synthroid] 150 mcg PO DAILY Magnesium Oxide [Mag-Ox] 250 mg PO BID metFORMIN HCL 1,000 mg PO BID Metoprolol Succinate [Toprol XL] 25 mg PO HS Multivitamin [Multivitamins Adult Gummies] 1 tab PO DAILY Omeprazole [PriLOSEC] 20 mg PO DAILY Polyethylene Glycol 3350 [Miralax] 17 gm PO DAILY PRN PRN Reason: Constipation Potassium Chloride [Klor-Con 10] 10 meq PO DAILY risperiDONE [RisperDAL] 1 mg PO HS cloZAPine [Clozaril] 200 mg PO HS tab cloZAPine [Clozaril] 100 mg PO DAILY tab Insulin Detemir (Levemir) [Levemir] 20 unit SQ HS syr Metoprolol Tartrate [Lopressor] 12.5 mg PO BID tab Gabapentin 300 mg PO TID #9 cap Heparin Sodium,Porcine [Heparin Sodium] 5,000 unit SQ DAILY Losartan Potassium [Cozaar] 12.5 mg PO DAILY Furosemide [Lasix] 40 mg PO BID@0700,1400 Discharge Medication List Acetaminophen [Tylenol Arthritis] 650 mg PO Q8H PRN 11/03/20 [History] Aspirin EC [Ecotrin Low Dose] 81 mg PO DAILY 11/03/20 [History] Benztropine Mesylate [Cogentin] 1 mg PO HS 11/03/20 [History] Calcium Carbonate/Vitamin D3 [Calcium 600-Vit D3 10 mcg (400 Iu)] 1 tab PO DAILY 11/03/20 [History] Levothyroxine Sodium [Synthroid] 150 mcg PO DAILY 11/03/20 [History] Magnesium Oxide [Mag-Ox] 250 mg PO BID 11/03/20 [History] Metoprolol Succinate [Toprol XL] 25 mg PO HS 11/03/20 [History] Multivitamin [Multivitamins Adult Gummies] 1 tab PO DAILY 11/03/20 [History] Omeprazole [PriLOSEC] 20 mg PO DAILY 11/03/20 [History] Polyethylene Glycol 3350 [Miralax] 17 gm PO DAILY PRN 11/03/20 [History] Potassium Chloride [Klor-Con 10] 10 meq PO DAILY 11/03/20 [History] levETIRAcetam [Keppra] 500 mg PO Q12HR 11/03/20 [History] metFORMIN HCL 1,000 mg PO BID 11/03/20 [History] risperiDONE [RisperDAL] 1 mg PO HS 11/03/20 [History] Gabapentin 300 mg PO TID #9 cap 11/19/20 [Rx] Insulin Detemir (Levemir) [Levemir] 20 unit SQ HS syr 11/19/20 [Rx] Metoprolol Tartrate [Lopressor] 12.5 mg PO BID tab 11/19/20 [Rx] cloZAPine [Clozaril] 100 mg PO DAILY tab 11/19/20 [Rx] cloZAPine [Clozaril] 200 mg PO HS tab 11/19/20 [Rx] Furosemide [Lasix] 40 mg PO BID@0700,1400 12/07/20 [History] Heparin Sodium,Porcine [Heparin Sodium] 5,000 unit SQ DAILY 12/07/20 [History] Ipratropium-Albuterol Nebulize [Duoneb 0.5 mg-3 mg/3 ml Soln] 3 ml INHALATION Q4H PRN 12/07/20 [History] Losartan Potassium [Cozaar] 12.5 mg PO DAILY 12/07/20 [History] HYDROcodone/APAP 5-325MG [[place] 5] 1 each PO Q6HR PRN 3 Days #10 tab 12/13/20 [Rx] Follow up Appointment(s)/Referral(s): Thomas Sosa MD [STAFF PHYSICIAN] - 1 Week Activity/Diet/Wound Care/Special Instructions: Medicine service to complete discharge med rec Have magnesium and potassium re-drawn on 12/15/[address] while taking [place] No lifting over 10 pounds You may shower. No soaking or tub baths for 2 weeks Very light activity until you are reevaluated at your follow up appointment with your surgeon Discharge Disposition: TRANSFER TO SNF/ECF
[2020-12-13 15:23] VITALS: BP 121/71; PULSE 88; RESP 17; TEMP 97.8
--- NOTE | 2020-12-13 15:23 | PN ---
PROGRESS NOTE DATE OF SERVICE: 12/13/2020. This 70-year-old woman who was admitted after repair of incarcerated incisional hernia is being closely monitored. Patient also has hypokalemia and hypomagnesemia, which is being corrected. No chest pain. No palpitations. No fever. PHYSICAL EXAMINATION: On exam, alert and oriented x3. Pulse is 85, blood pressure 123/70, respiration 20, temperature 98.9, pulse ox 95% on 3 L. HEENT: Conjunctivae normal. NECK: No jugular venous distention. CARDIOVASCULAR: S1, S2 muffled. RESPIRATORY: Breath sounds diminished in the bases. No rhonchi. No crackles. ABDOMEN: Soft. Status post surgery. LEGS: No edema, no swelling. NERVOUS SYSTEM: No focal deficit. LABS: Labs WBC 7.25, hemoglobin 12. Sodium 142, potassium 3.4, magnesium 1.3. ASSESSMENT: 1. Status post repair of incarcerated incisional hernia. 2. History of congestive heart failure, ejection fraction unknown. 3. Severe hypokalemia, improved. 4. Hypomagnesemia. 5. Atelectasis of the right lung. 6. History of cerebrovascular accident, transient ischemic attack. 7. Diabetes mellitus type 2. 8. History of recent acute hypoxic respiratory failure as well as acute right lower lobe pneumonia. 9. History of gastroesophageal reflux disease. 10.Hypertension. 11.Hyperlipidemia. 12.History of pneumonia. 13.History of seizure disorder. 14.History of hypothyroidism. 15.History of right-sided weakness and cerebrovascular accident. 16.History of pancreatic mass. 17.Chronic hypoxic respiratory failure. 18.History of cardiac catheterization. 19.History of paranoid schizophrenia. 20.Obesity with body mass index of 43.6. 21.FULL CODE. RECOMMENDATIONS AND DISCUSSION: I recommend to continue current medications, continue with monitoring and symptomatic treatment. Supplement potassium, magnesium. Resume the home medications. Closely follow with Dr. Nixon Kim in the outpatient setting. Further recommendations to follow. The rest of the recommendations per Surgery. MMODL / IJN: [id number] /
== END 2020-12-13 16:31 | DRG 354 ==
LOC: OR 07:00 → 4SSUR 09:44 → OR 12-10 14:16
PROVIDERS: ADMIT Surgery; ATTEND Surgery
PROC: 0WUF0JZ Supplement Abdominal Wall with Synthetic Substitute, Open Approach (ICD-10-PCS; principal; 2020-12-09 08:30)
DX: K43.0 Incisional hernia with obstruction, without gangrene (principal); E87.1 Hypo-osmolality and hyponatremia; F20.0 Paranoid schizophrenia; I50.32 Chronic diastolic (congestive) heart failure; I69.351 Hemiplegia and hemiparesis following cerebral infarction affecting right dominant side; J96.11 Chronic respiratory failure with hypoxia; J98.11 Atelectasis; Z68.41 Body mass index [BMI] 40.0-44.9, adult; E03.9 Hypothyroidism, unspecified; E11.9 Type 2 diabetes mellitus without complications; E66.01 Morbid (severe) obesity due to excess calories; E78.5 Hyperlipidemia, unspecified; E83.42 Hypomagnesemia; E87.6 Hypokalemia; G40.909 Epilepsy, unspecified, not intractable, without status epilepticus; I08.1 Rheumatic disorders of both mitral and tricuspid valves; I11.0 Hypertensive heart disease with heart failure; I27.20 Pulmonary hypertension, unspecified; K21.9 Gastro-esophageal reflux disease without esophagitis; Z79.4 Long term (current) use of insulin; Z79.82 Long term (current) use of aspirin; Z79.890 Hormone replacement therapy; Z79.899 Other long term (current) drug therapy; Z80.3 Family history of malignant neoplasm of breast; Z80.6 Family history of leukemia; Z87.01 Personal history of pneumonia (recurrent); Z90.89 Acquired absence of other organs; Z87.440 Personal history of urinary (tract) infections; Z90.49 Acquired absence of other specified parts of digestive tract; Z88.8 Allergy status to other drugs, medicaments and biological substances
CPT/HCPCS: 71045; 80048; 80053; 83735; 84132; 85025; 94640; 94760

== ENCOUNTER 2021-03-30 20:23 | Inpatient (IN) | payer MEDICARE, OTHER ==
[2021-03-30] MEDS ORDERED: HYDROmorphone 0.5 MG/0.5 ML SYRINGE IVP PRN (22:51)
[2021-03-30] MEDS ORDERED: ONDANSETRON 4 MG/2 ML VIAL IVP PRN (22:51)
[2021-03-30] MEDS: SODIUM CHLORIDE 0.9% 1,000 ML IV SCH (23:21)
[2021-03-30 23:50] LABS: ALT 9 U/L (4-34); AST 18 U/L (14-36); African American GFR (CKD) >90 (>60 ml/min/1.73 sqM); Albumin 3.2 g/dL (3.5-5.0); Albumin/Globulin Ratio 1.3; Alkaline Phosphatase 131 U/L (38-126); Anion Gap 5 mmol/L; Blood Urea Nitrogen 5 mg/dL (7-17); Calcium 9.2 mg/dL (8.4-10.2); Carbon Dioxide 32 mmol/L (22-30); Chloride 99 mmol/L (98-107); Globulin 2.4 g/dL; Glucose 136 mg/dL (74-99); Non-African American GFR(CKD) >90 (>60 ml/min/1.73 sqM); Sodium 136 mmol/L (137-145); Total Bilirubin 0.3 mg/dL (0.2-1.3); Total Protein 5.6 g/dL (6.3-8.2)
[2021-03-30 23:54] LABS: HCT 37.4 % (34.0-46.0); HGB 12.6 gm/dL (11.4-16.0); MCH 28.6 pg (25.0-35.0); MCHC 33.7 g/dL (31.0-37.0); Mean Platelet Volume 6.6; Platelet Count 326 k/uL (150-450); RDW 14.2 % (11.5-15.5); WBC 8.6 k/uL (3.8-10.6)
[2021-03-31 07:28] LABS: Glucose,Whole Blood 140 mg/dL (75-99)
--- NOTE | 2021-03-31 08:32 | XR ---
EXAMINATION TYPE: XR chest 1V portable DATE OF EXAM: 03/31/2021 COMPARISON: Chest x-ray 12/09/2020, CT from outside institution 03/30/2021 HISTORY: Distended abdomen, abnormal chest x-ray TECHNIQUE: Single frontal view of the chest is obtained. FINDINGS: Bandlike areas of increased attenuation persist at the lung bases and likely representing scar. Heart remains enlarged. There is no evident pneumothorax or pleural effusion. Lung volumes are low and the patient is rotated. Aorta is dense. Bone mineralization is stable, vertebroplasty changes present0 at T9 level. IMPRESSION: Chronic scarring. Cardiomegaly. Rotated expiratory exam.
[2021-03-31] MEDS: HEPARIN SODIUM,PORCINE/PF 5,000 UNIT/0.5 ML SYRINGE SQ SCH ×2 (08:46→21:52)
[2021-03-31] MEDS: PANTOPRAZOLE 40 MG/10 ML VIAL IVP SCH (08:46)
--- NOTE | 2021-03-31 10:19 | P.HPIM ---
History of Present Illness This is a pleasant 71 years old female with past medical history of diabetes mellitus, hypertension, hyperlipidemia, CVA/TIA, chronic heart failure, GERD, seizure disorder, hypothyroidism, history of pancreatic mass, monitored Sherri izophrenia Patient is a direct admit due to abdominal abscess and bowel obstruction/ileus On reviewing the paper patient is transferred from [facility] where she was admitted there for abdominal pain and distention, she was sent from her ECF. And then her want him to be transferred to [facility]. Patient herself is very poor historian although she is alert awake however she is disoriented to the surrounding she thinks she came from a farm and that this is another farm she could not tell me person or date. Although she answers some questions appropriately and she follows commands however patient has history of dementia and her is her DPOA. I called the at [phone] and he did not pickup and I could not put a message through this number. Patient is hemodynamically stable. CBC is unremarkable, BMP is unremarkable, glucose 140, liver enzymes not elevated. Chest x-ray ordered and is showing chronic scarring and rotated to exam. bladder scan is 98 ml On reviewing the records from [facility] Patient was transferred to the emergency room for abdominal pain and distention, she has history of dementia and her history is slightly limited. Associated with vomiting but she had a big large movement when day earlier patient has urine culture positive for Proteus with resistance to many antibiotics. Abdominal x-ray showing marked diffuse gaseous distention of the small and large bowel loops throughout the abdomen bowel obstruction is a consideration with possible pulmonary vascular congestion CT of the abdomen and pelvis with contrast showing pancreatic cyst 2.7 x 2.6, left adnexal cyst for by 3.5 cm. Also there is a large fluid collection within the subcutaneous soft tissue of the anterior pelvic wall measuring 13.8 x 7.7 cm x 10.4 cm there were inflammatory changes and enhancement of the wall with small bubbles of gas associated with this collection, compatible with an abscess Ammonia 39 which is normal, Review of Systems CONSTITUTIONAL: No fever, no malaise, no fatigue. HEENT: No recent visual problems or hearing problems. Denied any sore throat. CARDIOVASCULAR: No orthopnea, PND, no palpitations, no syncope. PULMONARY: No shortness of breath, no cough, no hemoptysis. GASTROINTESTINAL: No diarrhea, no nausea, no vomiting, no abdominal pain. Normoactive bowel sounds. NEUROLOGICAL: No headaches, no weakness, no numbness. HEMATOLOGICAL: Denies any bleeding or petechiae. GENITOURINARY: Denies any burning micturition, frequency, or urgency. MUSCULOSKELETAL/RHEUMATOLOGICAL: Denies any joint pain, swelling, or any muscle pain. ENDOCRINE: Denies any polyuria or polydipsia. Past Medical History Past Medical History: Heart Failure, CVA/TIA, Diabetes Mellitus, GERD/Reflux, Hyperlipidemia, Hypertension, Pneumonia, Respiratory Disorder, Seizure Disorder, Skin Disorder, Thyroid Disorder Additional Past Medical History / Comment(s): CVA, R side weakness, TIA, NIDDM type II, confused, pancreatic mass - monitored, last seizure 2016, hx bilat lower leg/pedal edema, bilat stasis dermatitis, hyponatremia, past thoracic compression fx, UTI, hypothyroid /nodules. IP w/ Pneumonia, sepsis, ileus , discharged to [facility] 11/19/20. O2 3L NC. Full liq diet, ascites. Full jamal lift. Incisional hernia current History of Any Multi-Drug Resistant Organisms: None Reported Past Surgical History: Appendectomy, Heart Catheterization, Tonsillectomy Additional Past Surgical History / Comment(s): Thyroid (biopsies) surgery, colonoscopy, PICC line 11/2020 Past Anesthesia/Blood Transfusion Reactions: No Reported Reaction Past Psychological History: Schizophrenia Additional Psychological History / Comment(s): Paranoid Schizophrenia. In [facility], . POA is spouse Blayne. Smoking Status: Former smoker Past Alcohol Use History: None Reported Past Drug Use History: None Reported - Past Family History Father Family Medical History: No Reported History Additional Family Medical History / Comment(s): Father is 99yrs old. Mother Family Medical History: Cancer Additional Family Medical History / Comment(s): Mother of breast cancer. Sister(s) Family Medical History: Cancer Additional Family Medical History / Comment(s): Pt's twin sister from leukemia. Medications and Allergies Home Medications Medication Instructions Recorded Confirmed Type Acetaminophen [Tylenol Arthritis] 650 mg PO Q8H PRN 11/03/20 03/30/21 History Benztropine Mesylate [Cogentin] 1 mg PO HS@2100 11/03/20 05/26/21 History Calcium Carbonate/Vitamin D3 1 tab PO DIRECTED 11/03/20 03/30/21 History [Calcium 600-Vit D3 10 mcg (400 Iu)] Levothyroxine Sodium [Synthroid] 150 mcg PO DAILY@0600 11/03/20 03/30/21 History Metoprolol Succinate [Toprol XL] 25 mg PO BID@0900,209911/03/20 03/30/21 Histo ry Multivitamin [Multivitamins Adult 1 tab PO DIRECTED 11/03/20 03/30/21 History Gummies] Omeprazole [PriLOSEC] 20 mg PO DAILY@0600 11/03/20 03/30/21 History Potassium Chloride [Klor-Con 10] 30 meq PO DAILY@0900 11/03/20 03/30/21 History levETIRAcetam [Keppra] 500 mg PO BID@0900,209911/03/20 03/30/21 History metFORMIN HCL 1,000 mg PO BID@0900,209911/03/20 03/30/21 History Furosemide [Lasix] 40 mg PO DAILY@0900 12/07/20 03/30/21 History Losartan Potassium [Cozaar] 12.5 mg PO DAILY@0912/07/20 03/30/21 History Aspirin EC [Ecotrin Low Dose] 81 mg PO DAILY@0903/30/21 03/30/21 History Gabapentin 300 mg PO TID@0900,1300,209903/30/21 03/30/21 History HYDROcodone/APAP 5-325MG [[place] 5] 1 tab PO Q6HR PRN 03/30/21 03/30/21 History Insulin Glargine,Hum.rec.anlog 20 unit SQ HS@209903/30/21 03/30/21 History [Lantus Solostar] Magnesium Hydroxide [Milk of 2,400 mg PO DAILY PRN 03/30/21 03/30/21 History Magnesia] Magnesium Oxide [Mag-Ox] 400 mg PO DIRECTED 03/30/21 03/30/21 History Spironolactone 50 mg PO DAILY@1300 03/30/21 03/30/21 History Sulfamethox-Tmp 800-160Mg [Bactrim 1 tab PO BID@0900,2100 03/30/21 03/30/21 History DS 800-160 mg] cloZAPine [Clozaril] 100 mg PO DAILY@0900 03/30/21 03/30/21 History cloZAPine [Clozaril] 200 mg PO HS@209903/30/21 03/30/21 History risperiDONE [RisperDAL] 1 mg PO HS@209903/30/21 03/30/21 History Allergies Allergy/AdvReac Type Severity Reaction Status Date / Time haloperidol [From Haldol] Allergy Unknown Verified 03/30/21 23:09 Physical Exam Vitals: Vital Signs Temp Pulse Resp BP Pulse Ox 03/31/21 08:00 97.9 F 82 20 108/71 96 03/31/21 00:03 98.4 F 78 16 113/70 96 03/30/21 22:38 97.8 F 78 18 110/63 96 03/30/21 22:30 18 Intake and Output 03/30/21 03/31/21 03/31/21 22:59 06:59 14:59 Output Total 400 Balance -400 Output: Urine 400 Other: Voiding Method External Catheter Weight 98.5 kg GENERAL: The patient is alert and oriented x3, not in any acute distress. Well developed, well nourished. HEENT: Pupils are round and equally reacting to light. EOMI. No scleral icterus. No conjunctival pallor. Normocephalic, atraumatic. No pharyngeal erythema. No thyromegaly. CARDIOVASCULAR: S1 and S2 present. No murmurs, rubs, or gallops. PULMONARY: Chest is clear to auscultation, no wheezing or crackles. ABDOMEN: Soft, nontender, nondistended, normoactive bowel sounds. No palpable organomegaly. MUSCULOSKELETAL: No joint swelling or deformity. EXTREMITIES: No cyanosis, clubbing, or pedal edema. NEUROLOGICAL: Gross neurological examination did not reveal any focal deficits. SKIN: No rashes. No petechiae Results CBC & Chem 7: 03/30/21 23:19 03/30/21 23:19 Labs: Abnormal Lab Results - Last 24 Hours (Table) 03/30/21 03/31/21 Range/Units 23:19 07:16 Sodium 136 L (137-145) mmol/L Carbon Dioxide 32 H (22-30) mmol/L BUN 5 L (7-17) mg/dL Creatinine 0.39 L (0.52-1.04) mg/dL Glucose 136 H (74-99) mg/dL POC Glucose (mg/dL) 140 H (75-99) mg/dL Alkaline Phosphatase 131 H (38-126) U/L Total Protein 5.6 L (6.3-8.2) g/dL Albumin 3.2 L (3.5-5.0) g/dL Thrombosis Risk Factor Assmnt - Choose All That Apply Any of the Below Risk Factors Present?: Yes Each Factor Represents 1 point: Medical pt on bed rest, Obesity (BMI >25) Other Risk Factors: Yes Each Risk Factor Represents 2 Points: Age 61-74 years, Patient confined to bed Thrombosis Risk Factor Assessment Total Risk Factor Score: 6 Thrombosis Risk Factor Assessment Level: High Risk Assessment and Plan Assessment: Small and large bowel obstruction, consider rajni syndrome Anterior pelvic wall abscess 13.8 x 7.7 x 10.4. 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 left adnexal cyst 4 by 3.5 cm, need pelvic ultrasound per radiologist diabetes mellitus Hypertension Hyperlipidemia History of schizophrenia History of CVA/TIA Chronic heart failure Hypothyroidism History of seizure disorder History of pancreatic mass being monitored Plan: This is a pleasant 71 years old female who was sent for bowel obstruction, pelvic abscess, patient has been evaluated by surgeon and the planned for surgical intervention Patient is at risk from surgery however there is absolutely no contraindication We will resend urine analysis and culture and check bladder scan We'll order a pelvic ultrasound for left adnexal cyst Protocol oncology consult for possible cystic neoplasm of the pancreas labs and medication were reviewed.. Continue same treatment. Continue with symptomatic treatment. Resume home medication. Monitor lytes and vitals. DVT and GI prophylaxis. Further recommendations depends on the clinical course of the patient DVT prophylaxis: Subcutaneous heparin, hold for surgery GI Prophylaxis: Pepcid Prognosis is guarded
[2021-03-31] MEDS ORDERED: HALOPERIDOL LACTATE 5 MG/ML 1 ML VIAL IVP PRN (10:38)
[2021-03-31] MEDS ORDERED: hydrALAZINE HCL 20 MG/ML 1 ML VIAL IVP PRN (10:39)
[2021-03-31] MEDS ORDERED: LEVOTHYROXINE IVP 100 MCG/5 ML VIAL IV SCH (10:45)
[2021-03-31] MEDS ORDERED: levETIRAcetam IV 500 MG in SODIUM CHLORIDE 0.9% 100 ML IVPB SCH (10:45)
[2021-03-31 10:53] LABS: Appearance,Urine Clear (Clear); Bilirubin,Urine Negative (Negative); Blood,Urine Negative (Negative); Color,Urine Yellow; Glucose,Urine (UA) Negative (Negative); Ketones,Urine Negative (Negative); Leukocyte Esterase,Urine Negative (Negative); Nitrite,Urine Negative (Negative); Protein,Urine Negative (Negative); Specific Gravity,Urine 1.028 (1.001-1.035); Urobilinogen,Urine <2.0 mg/dL (<2.0)
[2021-03-31] MEDS: SODIUM CHLORIDE 0.9% 1,000 ML IV SCH (11:29)
[2021-03-31 11:58] LABS: Glucose,Whole Blood 126 mg/dL (75-99)
[2021-03-31] MEDS: INSULIN ASPART (NovoLOG) 100 UNIT/ML VIAL SQ SCH ×3 (12:15→21:07)
[2021-03-31] MEDS: IOPAMIDOL CONTRAST (ORAL USE) VIAL PO PRN ×2 (12:26→13:34)
--- NOTE | 2021-03-31 12:51 | P.GSCN ---
History of Present Illness Consult date: 03/31/21 Reason for Consult: Abdominal pain History of present illness: This a 71-year-old female who was transferred from [facility]. Andie silvestre resides at [facility]. She has abdominal pain yesterday. Patient had a CAT scan performed echo mild which was suspicious for abdominal wall abscess and gallstones. The patient's CAT scan also showed marked gastric distention of the redundant colon cystic lesion the left adnexa measuring 4 cm. The cystic lesion in the body of the pancreas measuring 2.7 cm Patient's currently resting in bed. She has minimal pain. She is passing gas Past Medical History Past Medical History: Heart Failure, CVA/TIA, Diabetes Mellitus, GERD/Reflux, Hyperlipidemia, Hypertension, Pneumonia, Respiratory Disorder, Seizure Disorder, Skin Disorder, Thyroid Disorder Additional Past Medical History / Comment(s): CVA, R side weakness, TIA, NIDDM type II, confused, pancreatic mass - monitored, last seizure 2016, hx bilat lower leg/pedal edema, bilat stasis dermatitis, hyponatremia, past thoracic compression fx, UTI, hypothyroid /nodules. IP w/ Pneumonia, sepsis, ileus 11/03/20, discharged to [facility] 11/19/20. O2 3L NC. Full liq diet, ascites. Full jamal lift. Incisional hernia current History of Any Multi-Drug Resistant Organisms: None Reported Past Surgical History: Appendectomy, Heart Catheterization, Tonsillectomy Additional Past Surgical History / Comment(s): Thyroid (biopsies) surgery, colonoscopy, PICC line 11/2020 Past Anesthesia/Blood Transfusion Reactions: No Reported Reaction Past Psychological History: Schizophrenia Additional Psychological History / Comment(s): Paranoid Schizophrenia. In [facility], . POA is spouse Blayne. Smoking Status: Former smoker Past Alcohol Use History: None Reported Past Drug Use History: None Reported - Past Family History Father Family Medical History: No Reported History Additional Family Medical History / Comment(s): Father is 99yrs old. Mother Family Medical History: Cancer Additional Family Medical History / Comment(s): Mother of breast cancer. Sister(s) Family Medical History: Cancer Additional Family Medical History / Comment(s): Pt's twin sister from leukemia. Medications and Allergies Home Medications Medication Instructions Recorded Confirmed Type Acetaminophen [Tylenol Arthritis] 650 mg PO Q8H PRN 11/03/20 03/30/21 History Benztropine Mesylate [Cogentin] 1 mg PO HS@209911/03/20 03/30/21 History Calcium Carbonate/Vitamin D3 1 tab PO DIRECTED 11/03/20 03/30/21 History [Calcium 600-Vit D3 10 mcg (400 Iu)] Levothyroxine Sodium [Synthroid] 150 mcg PO DAILY@0600 11/03/20 03/30/21 History Metoprolol Succinate [Toprol XL] 25 mg PO BID@0900,209911/03/20 03/30/21 History Multivitamin [Multivitamins Adult 1 tab PO DIRECTED 11/03/20 03/30/21 History Gummies] Omeprazole [PriLOSEC] 20 mg PO DAILY@0600 11/03/20 03/30/21 History Potassium Chloride [Klor-Con 10] 30 meq PO DAILY@0900 11/03/20 03/30/21 History levETIRAcetam [Keppra] 500 mg PO BID@0900,209911/03/20 03/30/21 History metFORMIN HCL 1,000 mg PO BID@0900,209911/03/20 03/30/21 History Furosemide [Lasix] 40 mg PO DAILY@0912/07/20 03/30/21 History Losartan Potassium [Cozaar] 12.5 mg PO DAILY@0900 12/07/20 03/30/21 History Aspirin EC [Ecotrin Low Dose] 81 mg PO DAILY@0903/30/21 03/30/21 History Gabapentin 300 mg PO TID@0900,1300,209903/30/21 03/30/21 History HYDROcodone/APAP 5-325MG [[place] 5] 1 tab PO Q6HR PRN 03/30/21 03/30/21 History Insulin Glargine,Hum.rec.anlog 20 unit SQ HS@209903/30/21 03/30/21 History [Lantus Solostar] Magnesium Hydroxide [Milk of 2,400 mg PO DAILY PRN 03/30/21 03/30/21 History Magnesia] Magnesium Oxide [Mag-Ox] 400 mg PO DIRECTED 03/30/21 03/30/21 History Spironolactone 50 mg PO DAILY@1300 03/30/21 03/30/21 History Sulfamethox-Tmp 800-160Mg [Bactrim 1 tab PO BID@0900,2100 03/30/21 03/30/21 History DS 800-160 mg] cloZAPine [Clozaril] 100 mg PO DAILY@0900 03/30/21 03/30/21 History cloZAPine [Clozaril] 200 mg PO HS@209903/30/21 03/30/21 History risperiDONE [RisperDAL] 1 mg PO HS@209903/30/21 03/30/21 History Allergies Allergy/AdvReac Type Severity Reaction Status Date / Time haloperidol [From Haldol] Allergy Unknown Verified 03/30/21 23:09 Surgical - Exam Vital Signs Resp 18 03/30/21 22:30 - General well developed, well nourished, no distress - ENT normal pinna - Neck no masses - Respiratory normal expansion - Cardiovascular Rhythm: regular - Abdomen Abdomen is soft. There is no rebound or guarding. The patient appears of had a previous hernia repair with a transverse skin incision. There is no peritoneal signs. Results - Labs 03/30/21 23:19 03/30/21 23:19 Abnormal Lab Results - Last 24 Hours (Table) 03/30/21 03/31/21 03/31/21 Range/Units 23:19 07:16 11:47 Sodium 136 L (137-145) mmol/L Carbon Dioxide 32 H (22-30) mmol/L BUN 5 L (7-17) mg/dL Creatinine 0.39 L (0.52-1.04) mg/dL Glucose 136 H (74-99) mg/dL POC Glucose (mg/dL) 140 H 126 H (75-99) mg/dL Alkaline Phosphatase 131 H (38-126) U/L Total Protein 5.6 L (6.3-8.2) g/dL Albumin 3.2 L (3.5-5.0) g/dL Diabetes panel 03/30/21 Range/Units 23:19 Sodium 136 L (137-145) mmol/L Potassium 4.0 (3.5-5.1) mmol/L Chloride 99 (98-107) mmol/L Carbon Dioxide 32 H (22-30) mmol/L BUN 5 L (7-17) mg/dL Creatinine 0.39 L (0.52-1.04) mg/dL Glucose 136 H (74-99) mg/dL Calcium 9.2 (8.4-10.2) mg/dL AST 18 (14-36) U/L ALT 9 (4-34) U/L Alkaline Phosphatase 131 H (38-126) U/L Total Protein 5.6 L (6.3-8.2) g/dL Albumin 3.2 L (3.5-5.0) g/dL Calcium panel 03/30/21 Range/Units 23:19 Calcium 9.2 (8.4-10.2) mg/dL Albumin 3.2 L (3.5-5.0) g/dL Pituitary panel 03/30/21 Range/Units 23:19 Sodium 136 L (137-145) mmol/L Potassium 4.0 (3.5-5.1) mmol/L Chloride 99 (98-107) mmol/L Carbon Dioxide 32 H (22-30) mmol/L BUN 5 L (7-17) mg/dL Creatinine 0.39 L (0.52-1.04) mg/dL Glucose 136 H (74-99) mg/dL Calcium 9.2 (8.4-10.2) mg/dL Adrenal panel 03/30/21 Range/Units 23:19 Sodium 136 L (137-145) mmol/L Potassium 4.0 (3.5-5.1) mmol/L Chloride 99 (98-107) mmol/L Carbon Dioxide 32 H (22-30) mmol/L BUN 5 L (7-17) mg/dL Creatinine 0.39 L (0.52-1.04) mg/dL Glucose 136 H (74-99) mg/dL Calcium 9.2 (8.4-10.2) mg/dL Total Bilirubin 0.3 (0.2-1.3) mg/dL AST 18 (14-36) U/L ALT 9 (4-34) U/L Alkaline Phosphatase 131 H (38-126) U/L Total Protein 5.6 L (6.3-8.2) g/dL Albumin 3.2 L (3.5-5.0) g/dL Assessment and Plan Assessment: Probable ileus. Patient will undergo repeat CAT scan with oral contrast. Her labs are normal. We will observe her closely
--- NOTE | 2021-03-31 14:56 | CT ---
EXAMINATION TYPE: CT abdomen pelvis wo con DATE OF EXAM: 03/31/2021 HISTORY: ileus. Abdominal pain. CT DLP: 1272.4 mGycm. Automated Exposure Control for Dose Reduction was Utilized. TECHNIQUE: CT scan of the abdomen and pelvis is performed with oral but without IV contrast. COMPARISON: CT abdomen and pelvis November 11, 2020 and older study November 04, 2020. Outside CT one d ay earlier. FINDINGS: Within the limitations of a non-contrast study, the following observations are made. LUNG BASES: Cardiomegaly redemonstrated. LIVER/GB: Calculi in contracted gallbladder. PANCREAS: Stable 2.4 cm thin-walled cyst or cystic lesion mid body of pancreas axial image 30. SPLEEN: No significant abnormality is seen. ADRENALS: No significant abnormality is seen. KIDNEYS: No renal calculi or hydronephrosis is seen bilaterally. Mildly distended bladder with increa sed density from contrast enhanced outside CT one day earlier BOWEL: The oral contrast reaches the level of the right colon. No suspicious small or large bowel dil atation. Blud-ut-jvbktdci fecal prominence in the rectum on current study. GENITAL ORGANS: Anteverted uterus.Persistent 3.7 x 2.7 cm left ovarian cyst or cystic lesion axial im age 77 LYMPH NODES: No greater than 1cm abdominal or pelvic lymph nodes are appreciated. OSSEOUS STRUCTURES: Scoliotic curvature. Persistent severe chronic compression fracture at T9 and T8 levels with T8 vertebroplasty. Moderate to severe narrowing and spurring in both hip joints redemonst rated. OTHER: Stable moderate-sized right rectus sheath hematoma measuring approximately 14 x 7 cm axial umair ge 73 is similar to outside CT one day earlier. Craniocaudal length roughly 11 cm. IMPRESSION: 1. Overall nonobstructive bowel gas pattern. Focal moderate rectal fecal stasis noted on current stud y is more prominent from one day earlier. 2. Stable moderate sized lower abdominal rectus sheath hematoma from one day earlier.
[2021-03-31 15:45] LABS: Prothrombin Time 10.5 sec (9.0-12.0)
[2021-03-31 17:11] LABS: Glucose,Whole Blood 145 mg/dL (75-99)
[2021-03-31] MEDS ORDERED: HYDROcodone/APAP 5-325MG 1 EACH TAB PO PRN (20:08)
[2021-03-31] MEDS ORDERED: ACETAMINOPHEN TAB 325 MG TAB PO PRN (20:10)
[2021-03-31 20:30] LABS: Glucose,Whole Blood 162 mg/dL (75-99)
[2021-03-31] MEDS: GABAPENTIN 300 MG CAP PO SCH (21:47)
[2021-03-31] MEDS: METOPROLOL SUCCINATE (ER) 25 MG TAB.ER.24H PO SCH (21:48)
[2021-03-31] MEDS: cloZAPine 100 MG TAB PO SCH (21:48)
[2021-03-31] MEDS: risperiDONE 1 MG TAB PO SCH (21:48)
[2021-03-31] MEDS: BENZTROPINE MESYLATE 1 MG TAB PO SCH (21:48)
[2021-03-31] MEDS: levETIRAcetam 500 MG TAB PO SCH (21:48)
[2021-04-01] MEDS: SODIUM CHLORIDE 0.9% 1,000 ML IV SCH ×2 (05:35→17:07)
[2021-04-01] MEDS: PANTOPRAZOLE 40 MG TABLET PO SCH (06:15)
[2021-04-01] MEDS: LEVOTHYROXINE 75 MCG TAB PO SCH (06:15)
[2021-04-01 06:55] LABS: Glucose,Whole Blood 156 mg/dL (75-99)
[2021-04-01] MEDS: LOSARTAN 25 MG TAB PO SCH (08:16)
[2021-04-01] MEDS: ASPIRIN 81 MG PO SCH (08:16)
[2021-04-01] MEDS: GABAPENTIN 300 MG CAP PO SCH ×3 (08:16→21:56)
[2021-04-01] MEDS: HEPARIN SODIUM,PORCINE/PF 5,000 UNIT/0.5 ML SYRINGE SQ SCH ×2 (08:16→21:58)
[2021-04-01] MEDS: METOPROLOL SUCCINATE (ER) 25 MG TAB.ER.24H PO SCH ×2 (08:16→21:59)
[2021-04-01] MEDS: INSULIN ASPART (NovoLOG) 100 UNIT/ML VIAL SQ SCH ×4 (08:16→21:58)
[2021-04-01] MEDS: PANTOPRAZOLE 40 MG/10 ML VIAL IVP SCH (08:17)
[2021-04-01] MEDS: cloZAPine 100 MG TAB PO SCH ×2 (08:17→21:56)
[2021-04-01] MEDS: levETIRAcetam 500 MG TAB PO SCH ×2 (08:17→21:56)
--- NOTE | 2021-04-01 09:50 | P.PN ---
Progress Note - Text Progress Note Date: 04/01/21 Patient feels better today. She is tolerating a diet. On exam vital signs are stable. Abdomen soft. There is no significant tenderness. There is no rebound or guarding. Resolving ileus. Patient will be managed medically. No surgical intervention is planned.
[2021-04-01 11:48] LABS: African American GFR (CKD) 123.2 (60.0-200.0); Blood Urea Nitrogen <5.0 mg/dL (9.0-27.0); Calcium 9.2 mg/dL (8.7-10.3); Carbon Dioxide 31.3 mmol/L (21.6-31.8); Chloride 103 mmol/L (96-109); Glucose 150 mg/dL (70-110); Magnesium 1.7 mg/dL (1.5-2.4); Non-African American GFR(CKD) 106.3 (60.0-200.0); Potassium 4.1 mmol/L (3.5-5.5); Sodium 141 mmol/L (135-145)
[2021-04-01 12:08] LABS: Glucose,Whole Blood 188 mg/dL (75-99)
[2021-04-01 17:21] LABS: Glucose,Whole Blood 202 mg/dL (75-99)
[2021-04-01 21:17] LABS: Glucose,Whole Blood 231 mg/dL (75-99)
[2021-04-01] MEDS: risperiDONE 1 MG TAB PO SCH (21:56)
[2021-04-01] MEDS: BENZTROPINE MESYLATE 1 MG TAB PO SCH (21:57)
[2021-04-02] MEDS: SODIUM CHLORIDE 0.9% 1,000 ML IV SCH ×2 (05:57→17:41)
[2021-04-02] MEDS: LEVOTHYROXINE 75 MCG TAB PO SCH (05:57)
[2021-04-02] MEDS: PANTOPRAZOLE 40 MG TABLET PO SCH (05:58)
[2021-04-02 07:42] LABS: Glucose,Whole Blood 152 mg/dL (75-99)
[2021-04-02] MEDS: HEPARIN SODIUM,PORCINE/PF 5,000 UNIT/0.5 ML SYRINGE SQ SCH ×2 (08:30→22:14)
[2021-04-02] MEDS: INSULIN ASPART (NovoLOG) 100 UNIT/ML VIAL SQ SCH ×4 (08:30→22:15)
[2021-04-02] MEDS: LOSARTAN 25 MG TAB PO SCH (08:30)
[2021-04-02] MEDS: levETIRAcetam 500 MG TAB PO SCH ×2 (08:31→22:15)
[2021-04-02] MEDS: ASPIRIN 81 MG PO SCH (08:31)
[2021-04-02] MEDS: METOPROLOL SUCCINATE (ER) 25 MG TAB.ER.24H PO SCH ×2 (08:31→22:15)
[2021-04-02] MEDS: cloZAPine 100 MG TAB PO SCH ×2 (08:31→22:14)
[2021-04-02] MEDS: GABAPENTIN 300 MG CAP PO SCH ×3 (08:31→22:15)
--- NOTE | 2021-04-02 09:27 | P.PN ---
Subjective This is a pleasant 71 years old female with past medical history of diabetes mellitus, hypertension, hyperlipidemia, CVA/TIA, chronic heart failure, GERD, seizure disorder, hypothyroidism, history of pancreatic mass, monitored Schizophrenia Patient is a direct admit due to abdominal abscess and bowel obstruction/ileus On reviewing the paper patient is transferred from [facility] where she was admitted there for abdominal pain and distention, she was sent from her ECF. And then her want him to be transferred to [facility]. Patient herself is very poor historian although she is alert awake however she is disoriented to the surrounding she thinks she came from a farm and that this is another farm she could not tell me person or date. Although she answers some questions appropriately and she follows commands man murray patient has history of dementia and her is her DPOA. I called the at [phone] and he did not pickup and I could not put a message through this number. Patient is hemodynamically stable. CBC is unremarkable, BMP is unremarkable, glucose 140, liver enzymes not elevated. Chest x-ray ordered and is showing chronic scarring and rotated to exam. bladder scan is 98 ml On reviewing the records from [facility] Patient was transferred to the emergency room for abdominal pain and distention, she has history of dementia and her history is slightly limited. Associated with vomiting but she had a big large movement when day earlier patient has urine culture positive for Proteus with resistance to many antibiotics. Abdominal x-ray showing marked diffuse gaseous distention of the small and large bowel loops throughout the abdomen bowel obstruction is a consideration with possible pulmonary vascular congestion CT of the abdomen and pelvis with contrast showing pancreatic cyst 2.7 x 2.6, left adnexal cyst for by 3.5 cm. Also there is a large fluid collection within the subcutaneous soft tissue of the anterior pelvic wall measuring 13.8 x 7.7 cm x 10.4 cm there were inflammatory changes and enhancement of the wall with small bubbles of gas associated with this collection, compatible with an abscess Ammonia 39 which is normal, 04/01/2021 Patient is improving. No abdominal pain, aching but no bowel movement yet. Surgical team recommended no surgical intervention Keep monitoring Objective - Vital Signs Vital signs: Vital Signs Temp 97.8 F 04/01/21 07:59 Pulse 82 04/01/21 08:21 Resp 16 04/01/21 08:21 BP 123/74 04/01/21 07:59 Pulse Ox 93 L 04/01/21 07:59 Intake & Output 03/31/21 04/01/21 04/01/21 18:59 06:59 18:59 Intake Total 600 600 200 Balance 600 600 200 Intake: Intake, IV Titration 600 600 Amount Sodium Chloride 0.9% 1, 600 600 000 ml @ 75 mls/hr IV . [id number] [facility] Rx#:[id number] Oral 200 Other: Voiding Method External Catheter Diaper Diaper Incontinent Incontinent # Voids 3 2 # Bowel Movements 1 1 - Exam GENERAL: The patient is alert and oriented x3, not in any acute distress. Well developed, well nourished. HEENT: Pupils are round and equally reacting to light. EOMI. No scleral icterus. No conjunctival pallor. Normocephalic, atraumatic. No pharyngeal erythema. No thyromegaly. CARDIOVASCULAR: S1 and S2 present. No murmurs, rubs, or gallops. PULMONARY: Chest is clear to auscultation, no wheezing or crackles. ABDOMEN: Soft, nontender, nondistended, normoactive bowel sounds. No palpable organomegaly. MUSCULOSKELETAL: No joint swelling or deformity. EXTREMITIES: No cyanosis, clubbing, or pedal edema. NEUROLOGICAL: Gross neurological examination did not reveal any focal deficits. SKIN: No rashes. no petechiae. - Labs CBC & Chem 7: 03/30/21 23:19 04/01/21 06:12 Labs: Abnormal Lab Results - Last 24 Hours (Table) 03/31/21 03/31/21 04/01/21 Range/Units 17:10 20:29 06:12 BUN <5.0 L (9.0-27.0) mg/dL Creatinine 0.4 L (0.6-1.5) mg/dL Glucose 150 H (70-110) mg/dL POC Glucose (mg/dL) 145 H 162 H (75-99) mg/dL 04/01/21 04/01/21 Range/Units 06:48 11:50 BUN (9.0-27.0) mg/dL Creatinine (0.6-1.5) mg/dL Glucose (70-110) mg/dL POC Glucose (mg/dL) 156 H 188 H (75-99) mg/dL Assessment and Plan Assessment: Small and large bowel obstruction, consider rajni syndrome. 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 left adnexal cyst 4 by 3.5 cm, need pelvic ultrasound per radiologist diabetes mellitus Hypertension Hyperlipidemia History of schizophrenia History of CVA/TIA Chronic heart failure Hypothyroidism History of seizure disorder History of pancreatic mass being monitored Plan: This is a pleasant 71 years old female who was sent for bowel obstruction, pelvi c abscess, patient has been evaluated by surgeon and the no plans for surgical intervention for pancreatic and ovarian oncology consult for possible cystic neoplasm of the pancreas Gynecologic consult for ovarian cyst labs and medication were reviewed.. Continue same treatment. Continue with symptomatic treatment. Resume home medication. Monitor lytes and vitals. DVT and GI prophylaxis. Further recommendations depends on the clinical course of the patient DVT prophylaxis: Subcutaneous heparin, hold for surgery GI Prophylaxis: Pepcid Prognosis is guarded
--- NOTE | 2021-04-02 10:19 | P.PN ---
Subjective Progress Note Date: 04/02/21 Principal diagnosis: Abdominal wall hematoma Patient feels well today. Denies pain. She is passing flatus. No bowel movement. Waiting for possible transfer back to ECF. Objective - Vital Signs Vital signs: Vital Signs Temp 98.2 F 04/02/21 07:54 Pulse 79 04/02/21 07:54 Resp 20 04/02/21 07:54 BP 127/74 04/02/21 07:54 Pulse Ox 98 04/02/21 07:54 Intake & Output 04/01/21 04/02/21 04/02/21 18:59 06:59 18:59 Intake Total 1100 600 Output Total 600 Balance 500 600 Intake: Intake, IV Titration 900 600 Amount Sodium Chloride 0.9% 1, 900 600 000 ml @ 75 mls/hr IV . [id number] [facility] Rx#:[id number] Oral 200 Output: Urine 600 Other: Voiding Method Diaper Diaper Diaper Incontinent Incontinent Incontinent # Voids 1 3 # Bowel Movements 0 - Exam Abdomen: Soft, nondistended, mild tenderness right lower quadrant with significant fullness appreciated - Labs CBC & Chem 7: 03/30/21 23:19 04/01/21 06:12 Labs: Abnormal Lab Results - Last 24 Hours (Table) 04/01/21 04/01/21 04/01/21 Range/Units 06:12 11:50 17:04 BUN <5.0 L (9.0-27.0) mg/dL Creatinine 0.4 L (0.6-1.5) mg/dL Glucose 150 H (70-110) mg/dL POC Glucose (mg/dL) 188 H 202 H (75-99) mg/dL 04/01/21 04/02/21 Range/Units 21:16 07:14 BUN (9.0-27.0) mg/dL Creatinine (0.6-1.5) mg/dL Glucose (70-110) mg/dL POC Glucose (mg/dL) 231 H 152 H (75-99) mg/dL Assessment and Plan (1) Rectus sheath hematoma Narrative/Plan: Patient doing well at this time. Continue observation of hematoma. Waiting for stool function. Anticipate transfer back to ECF soon. Current Visit: Yes Status: Acute Code(s): S30.1XXA - CONTUSION OF ABDOMINAL WALL, INITIAL ENCOUNTER SNOMED Code(s): 548435178
[2021-04-02] MEDS: MAGNESIUM HYDROXIDE 2,400 MG/10 ML CUP PO PRN (11:31)
[2021-04-02 11:39] LABS: Glucose,Whole Blood 200 mg/dL (75-99)
--- NOTE | 2021-04-02 14:08 | P.CONS ---
History of Present Illness - Reason for Consult Consult date: 04/02/21 Cystic masses pancreas, left adnexal - History of Present Illness Patient is a 71-year-old white female, with multiple medical problems. She is [facility] resident at [facility]. She was transferred from there, she had developed abdominal pain, and was found to have a fluid collection in the abdominal wall concerning for abscess. She was transferred here for surgical intervention. Computed tomography scan incidentally showed a 2.7 cm cystic lesion in the pancreas and a 3.6 cm left cystic adnexal lesion. These were present on prior CT scans done in 10/24 and were stable. Consult was placed for the same. CT scans here confirm the same findings in the pancreas and left adnexa. Fluid collection in the abdominal wall was felt to be possibly a rectus sheath hematoma patient herself is a very poor historian. history was mostly obtained from physician notes and EMR. She states that she thinks she may have had some kind of cancer in skein win[place] but could not provide any details. She did not remember if her ovaries are still in situ the thought that they were. She stated that she has had "problems with her pancreas", but could not elaborate further patient is confused. It appears that mobility and baseline is extremely limited. It is not clear if she can bear weight at all .she appears to be incontinent of stool and urine. Review of Systems Constitutional: Reports fatigue, Reports lethargy, Reports weakness Eyes: denies blurred vision, denies pain Ears: deny: decreased hearing, ear discharge, earache, tinnitus Ears, nose, mouth and throat: Denies headache, Denies sore throat Cardiovascular: Reports decreased exercise tolerance Respiratory: Denies cough Gastrointestinal: Reports as per HPI Genitourinary: Reports as per HPI Menstruation: Reports postmenopausal Musculoskeletal: Reports muscle weakness Integumentary: Denies pruritus, Denies rash Neurological: Reports confusion, Reports memory loss Psychiatric: Reports confusion, Reports memory loss Endocrine: Reports fatigue Hematologic/Lymphatic: Reports as per HPI Past Medical History Past Medical History: Heart Failure, CVA/TIA, Diabetes Mellitus, GERD/Reflux, Hyperlipidemia, Hypertension, Pneumonia, Respiratory Disorder, Seizure Disorder, Skin Disorder, Thyroid Disorder Additional Past Medical History / Comment(s): CVA, R side weakness, TIA, NIDDM type II, confused, pancreatic mass - monitored, last seizure 2016, hx bilat lower leg/pedal edema, bilat stasis dermatitis, hyponatremia, past thoracic compression fx, UTI, hypothyroid /nodules. IP w/ Pneumonia, sepsis, ileus 11/03/20, discharged to [facility] 11/19/20. O2 3L NC. Full liq diet, ascites. Full jamal lift. Incisional hernia current History of Any Multi-Drug Resistant Organisms: None Reported Past Surgical History: Appendectomy, Heart Catheterization, Tonsillectomy Additional Past Surgical History / Comment(s): Thyroid (biopsies) surgery, colonoscopy, PICC line 11/2020 Past Anesthesia/Blood Transfusion Reactions: No Reported Reaction Past Psychological History: Schizophrenia Additional Psychological History / Comment(s): Paranoid Schizophrenia. In [facility], . POA is spouse Blayne. Smoking Status: Former smoker Past Alcohol Use History: None Reported Past Drug Use History: None Reported - Past Family History Father Family Medical History: No Reported History Additional Family Medical History / Comment(s): Father is 99yrs old. Mother Family Medical History: Cancer Additional Family Medical History / Comment(s): Mother of breast cancer. Sister(s) Family Medical History: Cancer Additional Family Medical History / Comment(s): Pt's twin sister from leukemia. Medications and Allergies Home Medications Medication Instructions Recorded Confirmed Type Acetaminophen [Tylenol Arthritis] 650 mg PO Q8H PRN 11/03/20 03/30/21 History Benztropine Mesylate [Cogentin] 1 mg PO HS@209911/03/20 03/30/21 History Calcium Carbonate/Vitamin D3 1 tab PO DIRECTED 11/03/20 03/30/21 History [Calcium 600-Vit D3 10 mcg (400 Iu)] Levothyroxine Sodium [Synthroid] 150 mcg PO DAILY@0600 11/03/20 03/30/21 History Metoprolol Succinate [Toprol XL] 25 mg PO BID@0900,2100 11/03/20 03/30/21 History Multivitamin [Multivitamins Adult 1 tab PO DIRECTED 11/03/20 03/30/21 History Gummies] Omeprazole [PriLOSEC] 20 mg PO DAILY@0600 11/03/20 03/30/21 History Potassium Chloride [Klor-Con 10] 30 meq PO DAILY@0900 11/03/20 03/30/21 History levETIRAcetam [Keppra] 500 mg PO BID@0900,209911/03/20 03/30/21 History metFORMIN HCL 1,000 mg PO BID@0900,209911/03/20 03/30/21 History Furosemide [Lasix] 40 mg PO DAILY@0900 12/07/20 03/30/21 History Losartan Potassium [Cozaar] 12.5 mg PO DAILY@0912/07/20 03/30/21 History Aspirin EC [Ecotrin Low Dose] 81 mg PO DAILY@0903/30/21 03/30/21 History Gabapentin 300 mg PO TID@0900,1300,209903/30/21 03/30/21 History HYDROcodone/APAP 5-325MG [[place] 5] 1 tab PO Q6HR PRN 03/30/21 03/30/21 History Insulin Glargine,Hum.rec.anlog 20 unit SQ HS@209903/30/21 03/30/21 History [Lantus Solostar] Magnesium Hydroxide [Milk of 2,400 mg PO DAILY PRN 03/30/21 03/30/21 History Magnesia] Magnesium Oxide [Mag-Ox] 400 mg PO DIRECTED 03/30/21 03/30/21 History Spironolactone 50 mg PO DAILY@1300 03/30/21 03/30/21 History Sulfamethox-Tmp 800-160Mg [Bactrim 1 tab PO BID@0900,209903/30/21 03/30/21 History DS 800-160 mg] cloZAPine [Clozaril] 100 mg PO DAILY@0903/30/21 03/30/21 History cloZAPine [Clozaril] 200 mg PO HS@209903/30/21 03/30/21 History risperiDONE [RisperDAL] 1 mg PO HS@209903/30/21 03/30/21 History Allergies Allergy/AdvReac Type Severity Reaction Status Date / Time haloperidol [From Haldol] AdvReac Severe Unknown Verified 03/31/21 19:40 Physical Exam Vitals: Vital Signs Temp Pulse Resp BP Pulse Ox 04/02/21 07:54 98.2 F 79 20 127/74 98 04/02/21 02:00 75 17 122/74 97 04/01/21 20:00 97.5 F L 82 18 137/78 97 04/01/21 19:30 18 04/01/21 14:00 98.7 F 89 16 138/78 95 Intake and Output 04/01/21 04/02/21 04/02/21 22:59 06:59 14:59 Intake Total 900 600 Output Total 600 Balance 300 600 Intake: Intake, IV Titration 900 600 Amount Sodium Chloride 0.9% 1, 900 600 000 ml @ 75 mls/hr IV . [id number] [facility] Rx#:[id number] Output: Urine 600 Other: Voiding Method Diaper Diaper Incontinent Incontinent # Voids 1 3 # Bowel Movements 0 - Constitutional General appearance: no acute distress - EENT Eyes: EOMI ENT: hearing grossly normal, normal oropharynx - Neck Masslike area right upper neck, just below Right auricle, with overlying old scar- postsurgical scarring versus mass - Respiratory Respiratory: bilateral: CTA - Cardiovascular Rhythm: regular Heart sounds: normal: S1, S2 - Gastrointestinal horizontal incision right lower quadrant, with underlying hernia General gastrointestinal: normal bowel sounds, soft Localized gastrointestinal: tender: suprabubic - Integumentary Integumentary: normal - Neurologic Neurologic: CNII-XII intact - Musculoskeletal Musculoskeletal: generalized weakness, strength equal bilaterally - Psychiatric confused. Unable to provide coherent history. Able to follow simple commands Results CBC & Chem 7: 03/30/21 23:19 04/01/21 06:12 Labs: Abnormal Lab Results - Last 24 Hours (Table) 04/01/21 04/01/21 04/02/21 Range/Units 17:04 21:16 07:14 POC Glucose (mg/dL) 202 H 231 H 152 H (75-99) mg/dL 04/02/21 Range/Units 11:33 POC Glucose (mg/dL) 200 H (75-99) mg/dL Comments: reports of prior CT abdomen and pelvis from 10/24 reviewed Chest x-ray: report reviewed CT scan - abdomen: report reviewed CT scan - pelvis: report reviewed Assessment and Plan (1) Cystic mass of pancreas Narrative/Plan: this finding was present on previous CAT scan done in 10/24. This size of this lesion appears to be unchanged. CAT scan findings appear to indicate a fairly simple cystic lesion. Scan from 10/24 had also noted some changes in the pancreatic duct and generalized atrophy of the pancreas. Based on this clinical picture, benign cystic lesion of the pancreas such as pseudocyst resulting from prior pancreatitis is an overall differential. Concern for malignancy in this situation is overall low. - Check tumor marker. a less than his marked elevation, this would, however, not provide any diagnostic, or even supportive evidence. - No inpatient workup needed, given stability of this lesion. I would recommend follow-up in the office was discharged in a few weeks at which time ad ditional workup depending on the wishes of the patient's family, either with MRI or endoscopic ultrasound can be considered Current Visit: Yes Status: Acute Code(s): K86.2 - CYST OF PANCREAS SNOMED Code(s): 94914960 (2) Ovarian cystic mass Narrative/Plan: again the findings appear to be fairly stable from CT scans from 10/24. CT appearance appears to be consistent with Uncomplicated cyst. Clinical suspicion for malignancy is again low. I would recommend FIELD OPERATIONS COORDINATOR evaluation. Given the stability of this lesion and low clinical probability malignancy, this can also be performed outpatient. Current Visit: Yes Status: Acute Code(s): N83.209 - UNSPECIFIED OVARIAN CY ST, UNSPECIFIED SIDE SNOMED Code(s): 59512120 (3) Mass of neck Narrative/Plan: Patient on exam has ill-defined, masslike area in the right upper neck. There is an overlying scar. Therefore postsurgical scarring is more likely clinically. Patient was unable to provide any further details. Ultrasound of the neck will be ordered for further evaluation. Current Visit: Yes Status: Acute Code(s): R22.1 - LOCALIZED SWELLING, MASS AND LUMP, NECK SNOMED Code(s): 826983261 Plan: Defer to the admitting service and surgical service for management of her presenting complaint, specifically the abdominal wall fluid collection with possible infection.
--- NOTE | 2021-04-02 15:11 | US ---
EXAMINATION TYPE: US thyroid st tissue head/neck DATE OF EXAM: 04/02/2021 COMPARISON: NONE CLINICAL HISTORY: right upper neck mass. Patient is a poor historian 1.9 x 1.5 x 1.9 cm hypoechoic area visualized at the patient's palpable lump. Two lymph nodes visuali zed within the right neck, largest measuring 1.0 x 0.5 x 0.7 cm IMPRESSION: There is irregular solid mass in the area of the palpable lump on the right side of the n vesta. This could be an enlarged lymph node measuring 19 x 15 mm.
[2021-04-02 17:02] LABS: Glucose,Whole Blood 146 mg/dL (75-99)
[2021-04-02 21:48] LABS: Glucose,Whole Blood 196 mg/dL (75-99)
[2021-04-02] MEDS: risperiDONE 1 MG TAB PO SCH (22:14)
[2021-04-02] MEDS: BENZTROPINE MESYLATE 1 MG TAB PO SCH (22:15)
--- NOTE | 2021-04-02 23:10 | PN ---
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 The patient also had a pancreatic cyst. Multiple consultants are following the patient closely. The patient also had pancreatic and ovarian masses. Dr. Hernandez has been also consulted. Recommended outpatient followup. Ultrasound of the neck was done. It showed irregular solid mass in the area of right side of the neck, could be an enlarged lymph node. No chest pain. No palpitations. No fever. PHYSICAL EXAMINATION: Alert and oriented x3. Pulse is 78, blood pressure 130/70, respiration 20, temperature 98.2, pulse ox 96% on 4 L. HEENT: Conjunctivae normal. Oral mucosa moist. NECK: Right neck mass. CARDIOVASCULAR: S1, S2, muffled. No S3, no S4, RESPIRATORY: Diminished breath sounds at the bases. ABDOMEN: Soft, nontender. NERVOUS SYSTEM: No focal deficits. LABS: Accu-Cheks 200 and 146. Other labs are noted. ASSESSMENT: 1. Abdominal wall hematoma, improved. 2. 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 3. Pancreatic cyst. 4. Right neck lymph node possibly. 5. Left adnexa cyst. 6. Diabetes mellitus type 2. 7. Hypertension. 8. Hyperlipidemia. 9. History of schizophrenia. 10.History of cerebrovascular accident, transient ischemic attack. 11.Chronic congestive heart failure. 12.Hypothyroidism. 13.History of seizure disorder. 14.History of pancreatic mass, being monitored in the outpatient setting. RECOMMENDATIONS: Recommend to continue current medications, continue symptomatic treatment. Otherwise, at this time closely monitor with Hematology/Oncology and multiple consultants. Repeat labs. Also, recommend amylase, lipase. CA 99 is normal. Prognosis guarded. Further recommendations to follow. MMODL / IJN: [id number] /
[2021-04-02 23:11] LABS: African American GFR (CKD) 114.5 (60.0-200.0); Albumin 3.4 g/dL (3.80-4.90); Albumin/Globulin Ratio 1.62 (1.60-3.17); Anion Gap 6.2 mmol/L (4.00-12.00); Carbon Dioxide 30.8 mmol/L (21.6-31.8); Globulin 2.1 g/dL (1.6-3.3); Non-African American GFR(CKD) 98.8 (60.0-200.0); Potassium 3.9 mmol/L (3.5-5.5); Total Bilirubin 0.2 mg/dL (0.2-1.2); Total Protein 5.5 g/dL (6.2-8.2)
[2021-04-03] MEDS: LEVOTHYROXINE 75 MCG TAB PO SCH (05:15)
[2021-04-03] MEDS: PANTOPRAZOLE 40 MG TABLET PO SCH (05:15)
[2021-04-03 07:15] LABS: Glucose,Whole Blood 182 mg/dL (75-99)
[2021-04-03] MEDS: HEPARIN SODIUM,PORCINE/PF 5,000 UNIT/0.5 ML SYRINGE SQ SCH ×2 (07:49→20:52)
[2021-04-03] MEDS: MAGNESIUM HYDROXIDE 2,400 MG/10 ML CUP PO PRN (07:49)
[2021-04-03] MEDS: SODIUM CHLORIDE 0.9% 1,000 ML IV SCH (07:49)
[2021-04-03] MEDS: LOSARTAN 25 MG TAB PO SCH (07:49)
[2021-04-03] MEDS: ASPIRIN 81 MG PO SCH (07:50)
[2021-04-03] MEDS: GABAPENTIN 300 MG CAP PO SCH ×3 (07:50→20:52)
[2021-04-03] MEDS: MAGNESIUM OXIDE 400 MG TAB PO SCH ×3 (07:50→20:52)
[2021-04-03] MEDS: MULTIVITAMINS, THERA 1 EACH TAB PO SCH (07:50)
[2021-04-03] MEDS: levETIRAcetam 500 MG TAB PO SCH ×2 (07:50→20:52)
[2021-04-03] MEDS: CALCIUM CARB-VIT D 500 MG-5 MCG TAB PO SCH (07:50)
[2021-04-03] MEDS: METOPROLOL SUCCINATE (ER) 25 MG TAB.ER.24H PO SCH ×2 (07:50→20:52)
[2021-04-03] MEDS: cloZAPine 100 MG TAB PO SCH ×2 (07:51→20:52)
[2021-04-03] MEDS: INSULIN ASPART (NovoLOG) 100 UNIT/ML VIAL SQ SCH ×4 (07:51→20:51)
[2021-04-03 09:17] LABS: Basophils # (A) 0.04 X 10*3/uL (0.00-0.10); Basophils % (A) 0.7 %; Eosinophils # (A) 0 X 10*3/uL (0.04-0.35); Eosinophils % (A) 0 %; HGB 12.4 g/dL (12.0-15.0); Lymphocytes # (A) 1.59 X 10*3/uL (0.90-5.00); Lymphocytes % (A) 26.5 %; MCH 27.1 pg (27.0-32.0); MCV 87.5 fL (80.0-97.0); Mean Platelet Volume 9.3 fL (9.5-12.2); Monocytes # (A) 0.49 X 10*3/uL (0.20-1.00); Monocytes % (A) 8.2 %; Neutrophils # (A) 3.85 X 10*3/uL (1.80-7.70); Neutrophils % (A) 64.3 %; Platelet Count 354 X 10*3/uL (140-440); RBC 4.57 X 10*6/uL (4.10-5.20); WBC 5.99 X 10*3/uL (4.50-10.00)
--- NOTE | 2021-04-03 10:29 | P.PN ---
Subjective Progress Note Date: 04/03/21 Principal diagnosis: Abdominal wall hematoma Patient doing well today. Denies pain. Tolerating diet. She did have bowel movements. Objective - Vital Signs Vital signs: Vital Signs Temp 97.5 F L 04/03/21 07:59 Pulse 80 04/03/21 07:59 Resp 18 04/03/21 07:59 BP 144/77 04/03/21 07:59 Pulse Ox 90 L 04/03/21 07:59 Intake & Output 04/02/21 04/03/21 04/03/21 18:59 06:59 18:59 Intake Total 1240 600 Output Total 400 Balance 1240 -400 600 Intake: Intake, IV Titration 600 600 Amount Sodium Chloride 0.9% 1, 600 600 000 ml @ 75 mls/hr IV . [id number] [facility] Rx#:[id number] Oral 640 Output: Urine 400 Other: Voiding Method Diaper Diaper Diaper Incontinent External Catheter Incontinent # Voids 3 - Exam Abdomen: Soft, nondistended, mild right lower quadrant tenderness and fullness - Labs CBC & Chem 7: 04/03/21 06:20 04/02/21 19:15 Labs: Abnormal Lab Results - Last 24 Hours (Table) 04/02/21 04/02/21 04/02/21 Range/Units 11:33 16:59 19:15 MCHC (32.0-37.0) g/dL MPV (9.5-12.2) fL Eosinophils # (0.04-0.35) X 10*3/uL BUN 7.0 L (9.0-27.0) mg/dL Creatinine 0.5 L (0.6-1.5) mg/dL Glucose 168 H (70-110) mg/dL POC Glucose (mg/dL) 200 H 146 H (75-99) mg/dL Alkaline Phosphatase 134 H (41-126) U/L Total Protein 5.5 L (6.2-8.2) g/dL Albumin 3.40 L (3.80-4.90) g/dL Amylase 22 L (23-121) U/L 04/02/21 04/03/21 04/03/21 Range/Units 21:48 06:20 07:14 MCHC 31.0 L (32.0-37.0) g/dL MPV 9.3 L (9.5-12.2) fL Eosinophils # 0 L (0.04-0.35) X 10*3/uL BUN (9.0-27.0) mg/dL Creatinine (0.6-1.5) mg/dL Glucose (70-110) mg/dL POC Glucose (mg/dL) 196 H 182 H (75-99) mg/dL Alkaline Phosphatase (41-126) U/L Total Protein (6.2-8.2) g/dL Albumin (3.80-4.90) g/dL Amylase (23-121) U/L Assessment and Plan (1) Rectus sheath hematoma Narrative/Plan: Overall patient improved. She would be stable for discharge at this point however transfer being held until after the holiday. Continue diet as tolerated . Will follow. Current Visit: Yes Status: Acute Code(s): S30.1XXA - CONTUSION OF ABDOMINAL WALL, INITIAL ENCOUNTER SNOMED Code(s): 355016040
--- NOTE | 2021-04-03 10:59 | P.OBCN ---
History of Present Illness Consult date: 04/03/21 Reason for consult: ovarian cyst History of present illness: 71 year old presented from the extended care facility with bowel obstruction/ileus and rectus sheath hematoma. On CT she has a small ovarian cyst that remains unchanged from the previous CT scans done in 11/2020 and 10/2020. If there is thought that this could be ovarian neoplasm, then CA-125 should be done and gynonc if that is positive. Review of Systems Constitutional: Reports poor appetite, Denies chills, Denies fever Cardiovascular: Reports decreased exercise tolerance Respiratory: Denies cough, Denies hemoptysis Gastrointestinal: Reports change in bowel habits Genitourinary: Reports mixed incontinence Menstruation: Reports postmenopausal Psychiatric: Reports confusion, Reports memory loss Past Medical History Past Medical History: Heart Failure, CVA/TIA, Diabetes Mellitus, GERD/Reflux, Hyperlipidemia, Hypertension, Pneumonia, Respiratory Disorder, Seizure Disorder, Skin Disorder, Thyroid Disorder Additional Past Medical History / Comment(s): CVA, R side weakness, TIA, NIDDM type II, confused, pancreatic mass - monitored, last seizure 2016, hx bilat lower leg/pedal edema, bilat stasis dermatitis, hyponatremia, past thoracic compression fx, UTI, hypothyroid /nodules. IP w/ Pneumonia, sepsis, ileus 11/03/20, discharged to [facility] 11/19/20. O2 3L NC. Full liq diet, ascites. Full jamal lift. History of Any Multi-Drug Resistant Organisms: None Reported Past Surgical History: Appendectomy, Heart Catheterization, Tonsillectomy Additional Past Surgical History / Comment(s): Thyroid (biopsies) surgery, colonoscopy, PICC line 11/2020, hernia repair 11/2020 Past Anesthesia/Blood Transfusion Reactions: No Reported Reaction Past Psychological History: Schizophrenia Additional Psychological History / Comment(s): Paranoid Schizophrenia. In [facility], . POA is spouse Blayne. Smoking Status: Former smoker Past Alcohol Use History: None Reported Past Drug Use History: None Reported - Past Family History Father Family Medical History: No Reported History Additional Family Medical History / Comment(s): Father is 99yrs old. Mother Family Medical History: Cancer Additional Family Medical History / Comment(s): Mother of breast cancer. Sister(s) Family Medical History: Cancer Additional Family Medical History / Comment(s): Pt's twin sister from leukemia. Medications and Allergies Home Medications Medication Instructions Recorded Confirmed Type Acetaminophen [Tylenol Arthritis] 650 mg PO Q8H PRN 11/03/20 03/30/21 History Benztropine Mesylate [Cogentin] 1 mg PO HS@209911/03/20 03/30/21 History Calcium Carbonate/Vitamin D3 1 tab PO DIRECTED 11/03/20 03/30/21 History [Calcium 600-Vit D3 10 mcg (400 Iu)] Levothyroxine Sodium [Synthroid] 150 mcg PO DAILY@0600 11/03/20 03/30/21 History Metoprolol Succinate [Toprol XL] 25 mg PO BID@0900,209911/03/20 03/30/21 History Multivitamin [Multivitamins Adult 1 tab PO DIRECTED 11/03/20 03/30/21 History Gummies] Omeprazole [PriLOSEC] 20 mg PO DAILY@0600 11/03/20 03/30/21 History Potassium Chloride [Klor-Con 10] 30 meq PO DAILY@0900 11/03/20 03/30/21 History levETIRAcetam [Keppra] 500 mg PO BID@0900,209911/03/20 03/30/21 History metFORMIN HCL 1,000 mg PO BID@0900,209911/03/20 03/30/21 History Furosemide [Lasix] 40 mg PO DAILY@0900 12/07/20 03/30/21 History Losartan Potassium [Cozaar] 12.5 mg PO DAILY@0900 12/07/20 03/30/21 History Aspirin EC [Ecotrin Low Dose] 81 mg PO DAILY@0903/30/21 03/30/21 History Gabapentin 300 mg PO TID@0900,1300,209903/30/21 03/30/21 History HYDROcodone/APAP 5-325MG [[place] 5] 1 tab PO Q6HR PRN 03/30/21 03/30/21 History Insulin Glargine,Hum.rec.anlog 20 unit SQ HS@209903/30/21 03/30/21 History [Lantus Solostar] Magnesium Hydroxide [Milk of 2,400 mg PO DAILY PRN 03/30/21 03/30/21 History Magnesia] Magnesium Oxide [Mag-Ox] 400 mg PO DIRECTED 03/30/21 03/30/21 History Spironolactone 50 mg PO DAILY@1300 03/30/21 03/30/21 History Sulfamethox-Tmp 800-160Mg [Bactrim 1 tab PO BID@0900,2100 03/30/21 03/30/21 History DS 800-160 mg] cloZAPine [Clozaril] 100 mg PO DAILY@0900 03/30/21 03/30/21 History cloZAPine [Clozaril] 200 mg PO HS@2100 03/30/21 03/30/21 History risperiDONE [RisperDAL] 1 mg PO HS@2100 03/30/21 03/30/21 History Allergies Allergy/AdvReac Type Severity Reaction Status Date / Time haloperidol [From Haldol] AdvReac Severe Unknown Verified 03/31/21 19:40 Exam Osteopathic Statement: *. No significant issues noted on an osteopathic s tructural exam other than those noted in the History and Physical/Consult. Vital Signs Temp Pulse Resp BP Pulse Ox 04/03/21 07:59 97.5 F L 80 18 144/77 90 L 04/03/21 00:32 97.8 F 73 17 127/75 97 04/02/21 19:09 97.6 F 76 16 136/78 98 04/02/21 14:00 98.5 F 78 20 131/78 96 Intake and Output 04/02/21 04/03/21 04/03/21 22:59 06:59 14:59 Intake Total 600 Output Total 400 Balance -400 600 Intake: Intake, IV Titration 600 Amount Sodium Chloride 0.9% 1, 600 000 ml @ 75 mls/hr IV . [id number] [facility] Rx#:[id number] Output: Urine 400 Other: Voiding Method Diaper Diaper External Catheter Incontinent pelvic exam deferred due to mental status and question of consent Results Result Diagrams: 04/03/21 06:20 04/02/21 19:15 Abnormal Lab Results - Last 24 Hours (Table) 04/02/21 04/02/21 04/02/21 Range/Units 11:33 16:59 19:15 MCHC (32.0-37.0) g/dL MPV (9.5-12.2) fL Eosinophils # (0.04-0.35) X 10*3/uL BUN 7.0 L (9.0-27.0) mg/dL Creatinine 0.5 L (0.6-1.5) mg/dL Glucose 168 H (70-110) mg/dL POC Glucose (mg/dL) 200 H 146 H (75-99) mg/dL Alkaline Phosphatase 134 H (41-126) U/L Total Protein 5.5 L (6.2-8.2) g/dL Albumin 3.40 L (3.80-4.90) g/dL Amylase 22 L (23-121) U/L 04/02/21 04/03/21 04/03/21 Range/Units 21:48 06:20 07:14 MCHC 31.0 L (32.0-37.0) g/dL MPV 9.3 L (9.5-12.2) fL Eosinophils # 0 L (0.04-0.35) X 10*3/uL BUN (9.0-27.0) mg/dL Creatinine (0.6-1.5) mg/dL Glucose (70-110) mg/dL POC Glucose (mg/dL) 196 H 182 H (75-99) mg/dL Alkaline Phosphatase (41-126) U/L Total Protein (6.2-8.2) g/dL Albumin (3.80-4.90) g/dL Amylase (23-121) U/L Assessment and Plan (1) Ovarian cyst, left Current Visit: Yes Status: Acute Code(s): N83.202 - UNSPECIFIED OVARIAN CYST, LEFT SIDE SNOMED Code(s): 45568982 (2) Cystic mass of pancreas Current Visit: Yes Status: Acute Code(s): K86.2 - CYST OF PANCREAS SNOMED Code(s): 09772107 (3) Rectus sheath hematoma Current Visit: Yes Status: Acute Code(s): S30.1XXA - CONTUSION OF ABDOMINAL WALL, INITIAL ENCOUNTER SNOMED Code(s): 931151324 Plan: 1. CA-125 2. cyst remains stable. If CA-125 is elevated, consider PRE SALES ARCHITECT/ONC consultation outpatient. If CA-125 is normal, no other intervention for this cyst is required.
[2021-04-03 11:58] LABS: Glucose,Whole Blood 191 mg/dL (75-99)
[2021-04-03 17:12] LABS: Glucose,Whole Blood 201 mg/dL (75-99)
[2021-04-03 20:51] LABS: Glucose,Whole Blood 235 mg/dL (75-99)
[2021-04-03] MEDS: BENZTROPINE MESYLATE 1 MG TAB PO SCH (20:52)
[2021-04-03] MEDS: risperiDONE 1 MG TAB PO SCH (20:52)
--- NOTE | 2021-04-03 21:02 | PN ---
PROGRESS NOTE DATE OF SERVICE: 04/03/2021 This 71-year-old woman who was admitted with abdominal wall hematoma continues to be mildly confused. Otherwise, the patient is improving slowly. An [employer] consultation was done for evidence looking for ovarian cyst. Recommended outpatient followup. CA- 125 is requested at this time. No chest pain. No palpitations. No fever. PHYSICAL EXAMINATION: Alert and oriented times 3. Pulse is 84. Blood pressure 150/70, respiration 18, temperature 98.2, pulse ox 98% on room air. HEENT: Conjunctivae normal. NECK: No JVD. CARDIOVASCULAR: S1, S2 muffled. RESPIRATIONS: Breath sounds diminished in the bases. No rhonchi. No crackles. ABDOMEN: Soft. Nervous System: No focal deficits. LABS: Noted. Glucose elevated. ASSESSMENT: 1. Abdominal wall hematoma, improved. 2. Small and large bowel obstruction, possible ileus, possible [place] syndrome. 3. Pancreatic cyst history. 4. Right neck lymph node possibly. 5. Left adrenal cyst. 6. Diabetes type 2. 7. Hypertension. 8. Hyperlipidemia. 9. Ovarian cyst. 10.History of schizophrenia. 11.History of cerebrovascular accident, transient ischemic attack. 12.Chronic congestive heart failure. 13.Hypothyroidism. 14.History of seizure disorder. 15.History of pancreatic mass, being monitored in the outpatient setting. RECOMMENDATIONS AND DISCUSSION: Continue current medications, management and symptomatic treatment. Otherwise, at this time, I would recommend repeat labs. Monitor closely. Prognosis guarded because of multiple complex medical issues. Further recommendations to follow. MMODL / IJN: [id number] /
[2021-04-04] MEDS: LEVOTHYROXINE 75 MCG TAB PO SCH (05:54)
[2021-04-04] MEDS: PANTOPRAZOLE 40 MG TABLET PO SCH (05:54)
[2021-04-04 07:25] LABS: Glucose,Whole Blood 204 mg/dL (75-99)
[2021-04-04] MEDS: MAGNESIUM HYDROXIDE 2,400 MG/10 ML CUP PO PRN (08:02)
[2021-04-04] MEDS: HEPARIN SODIUM,PORCINE/PF 5,000 UNIT/0.5 ML SYRINGE SQ SCH ×2 (08:03→22:45)
[2021-04-04] MEDS: METOPROLOL SUCCINATE (ER) 25 MG TAB.ER.24H PO SCH ×2 (08:03→22:47)
[2021-04-04] MEDS: cloZAPine 100 MG TAB PO SCH ×2 (08:04→22:46)
[2021-04-04] MEDS: CALCIUM CARB-VIT D 500 MG-5 MCG TAB PO SCH (08:04)
[2021-04-04] MEDS: MAGNESIUM OXIDE 400 MG TAB PO SCH ×3 (08:04→22:47)
[2021-04-04] MEDS: MULTIVITAMINS, THERA 1 EACH TAB PO SCH (08:04)
[2021-04-04] MEDS: levETIRAcetam 500 MG TAB PO SCH ×2 (08:04→22:46)
[2021-04-04] MEDS: GABAPENTIN 300 MG CAP PO SCH ×3 (08:04→22:46)
[2021-04-04] MEDS: LOSARTAN 25 MG TAB PO SCH (08:04)
[2021-04-04] MEDS: ASPIRIN 81 MG PO SCH (08:05)
[2021-04-04] MEDS: INSULIN ASPART (NovoLOG) 100 UNIT/ML VIAL SQ SCH ×4 (08:05→22:47)
--- NOTE | 2021-04-04 09:53 | P.PN ---
Subjective Progress Note Date: 04/04/21 Principal diagnosis: Abdominal wall hematoma Patient has no new complaints. She was seen by gynecology. She is tolerating her diet. No pain. She is having bowel function. Objective - Vital Signs Vital signs: Vital Signs Temp 98.1 F 04/04/21 08:00 Pulse 78 04/04/21 08:00 Resp 16 04/04/21 08:00 BP 131/81 04/04/21 08:00 Pulse Ox 90 L 04/04/21 08:00 Intake & Output 04/03/21 04/04/21 04/04/21 18:59 06:59 18:59 Intake Total 600 Balance 600 Intake: Intake, IV Titration 600 Amount Sodium Chloride 0.9% 1, 600 000 ml @ 75 mls/hr IV . [id number] [facility] Rx#:[id number] Other: Voiding Method Diaper Diaper Diaper Incontinent Incontinent Incontinent # Voids 3 2 # Bowel Movements 0 - Exam Abdomen: Soft, nondistended, mild tenderness at the hematoma site right lower quadrant - Labs CBC & Chem 7: 04/03/21 06:20 04/02/21 19:15 Labs: Abnormal Lab Results - Last 24 Hours (Table) 04/03/21 04/03/21 04/03/21 Range/Units 11:56 17:10 20:50 POC Glucose (mg/dL) 191 H 201 H 235 H (75-99) mg/dL 04/04/21 Range/Units 07:20 POC Glucose (mg/dL) 204 H (75-99) mg/dL Assessment and Plan (1) Rectus sheath hematoma Narrative/Plan: Overall patient doing fairly well. Continue diet. May transfer back [facility] from our standpoint. Current Visit: Yes Status: Acute Code(s): S30.1XXA - CONTUSION OF ABDOMINAL WALL, INITIAL ENCOUNTER SNOMED Code(s): 495510921
[2021-04-04 12:00] LABS: Glucose,Whole Blood 164 mg/dL (75-99)
[2021-04-04 17:18] LABS: Glucose,Whole Blood 209 mg/dL (75-99)
[2021-04-04 21:59] LABS: Glucose,Whole Blood 284 mg/dL (75-99)
[2021-04-04] MEDS: BENZTROPINE MESYLATE 1 MG TAB PO SCH (22:46)
[2021-04-04] MEDS: risperiDONE 1 MG TAB PO SCH (22:47)
[2021-04-04 23:03] LABS: African American GFR (CKD) 107.8 (60.0-200.0); Albumin 3.8 g/dL (3.80-4.90); Albumin/Globulin Ratio 1.81 (1.60-3.17); Anion Gap 9.2 mmol/L (4.00-12.00); Calcium 9.5 mg/dL (8.7-10.3); Carbon Dioxide 30.8 mmol/L (21.6-31.8); Globulin 2.1 g/dL (1.6-3.3); Potassium 4.2 mmol/L (3.5-5.5); Total Bilirubin 0.3 mg/dL (0.3-1.2); Total Protein 5.9 g/dL (6.2-8.2)
--- NOTE | 2021-04-04 23:27 | PN ---
PROGRESS NOTE DATE OF SERVICE: 04/04/2021 This 71-year-old woman who was admitted with abdominal hematoma is improving significantly. Patient had on and off confusion. Surgery is following the patient closely and the patient suspected of abscess initially, but the patient is currently off antibiotics. The patient has normal white count at this time. A CA-19-9 and CA- 125 is also negative. PAST MEDICAL HISTORY: Reviewed. REVIEW OF SYSTEMS: CARDIOVASCULAR SYSTEM: No angina. Respiration as mentioned earlier. GI mentioned earlier. PHYSICAL EXAM: Patient is alert, oriented x2. Pulse 85, blood pressure 116/77, respiration 20, temperature 97.6, pulse ox 91 percent on room air. HEENT: Conjunctivae normal. NECK: No JVD. CARDIOVASCULAR : S1, S2 muffled. RESPIRATORY: Breath sounds diminished in the bases. No rhonchi. No crackles. ABDOMEN: Soft, mild diffuse discomfort. No guarding. No rigidity. No mass palpable. LEGS are no edema. NERVOUS SYSTEM: No focal deficits. LABORATORY DATA: CBC noted. ASSESSMENT: 1. Abdominal wall hematoma, improved. 2. Abdominal sepsis ruled out. 3. Small and large bowel obstruction, possibly ileus or possibly [place] syndrome. 4. Pancreatic cyst history. 5. Right neck lymph node possibly. 6. Left adrenal cyst. 7. Diabetes mellitus type 2. 8. Hypertension. 9. Hyperlipidemia. 10.History of ovarian cyst. 11.History of schizophrenia. 12.History of cerebrovascular accident, transient ischemic attack. 13.Chronic congestive heart failure. 14.Hypothyroidism. 15.History of seizure disorder. 16.History of pancreatic mass, possibly being monitored in the outpatient setting. RECOMMENDATIONS AND DISCUSSION: I recommend to continue current medications, management and symptomatic treatment. Otherwise, at this time I recommend repeat labs. I would also recommend serum procalcitonin. Guarded prognosis. Further recommendations to follow. Possible ECF rehab. MMODL / IJN: [id number] /
[2021-04-05] MEDS: LEVOTHYROXINE 75 MCG TAB PO SCH (05:47)
[2021-04-05] MEDS: PANTOPRAZOLE 40 MG TABLET PO SCH (05:47)
[2021-04-05 06:49] LABS: Glucose,Whole Blood 219 mg/dL (75-99)
[2021-04-05 07:51] VITALS: RESP 17
[2021-04-05] MEDS: HEPARIN SODIUM,PORCINE/PF 5,000 UNIT/0.5 ML SYRINGE SQ SCH (07:54)
[2021-04-05] MEDS: GABAPENTIN 300 MG CAP PO SCH ×2 (07:54→12:34)
[2021-04-05] MEDS: INSULIN ASPART (NovoLOG) 100 UNIT/ML VIAL SQ SCH ×2 (07:54→12:34)
[2021-04-05] MEDS: LOSARTAN 25 MG TAB PO SCH (07:55)
[2021-04-05] MEDS: ASPIRIN 81 MG PO SCH (07:55)
[2021-04-05] MEDS: CALCIUM CARB-VIT D 500 MG-5 MCG TAB PO SCH (07:55)
[2021-04-05] MEDS: MAGNESIUM OXIDE 400 MG TAB PO SCH ×2 (07:55→12:34)
[2021-04-05] MEDS: levETIRAcetam 500 MG TAB PO SCH (07:56)
[2021-04-05] MEDS: METOPROLOL SUCCINATE (ER) 25 MG TAB.ER.24H PO SCH (07:56)
[2021-04-05] MEDS: MULTIVITAMINS, THERA 1 EACH TAB PO SCH (07:56)
[2021-04-05] MEDS: cloZAPine 100 MG TAB PO SCH (07:57)
[2021-04-05 11:27] LABS: Basophils # (A) 0.02 X 10*3/uL (0.00-0.10); Basophils % (A) 0.2 %; Eosinophils # (A) 0 X 10*3/uL (0.04-0.35); Eosinophils % (A) 0 %; HCT 39.3 % (37.2-46.3); HGB 12.1 g/dL (12.0-15.0); Lymphocytes # (A) 1.73 X 10*3/uL (0.90-5.00); Lymphocytes % (A) 19.3 %; MCH 27.3 pg (27.0-32.0); MCHC 30.8 g/dL (32.0-37.0); MCV 88.7 fL (80.0-97.0); Mean Platelet Volume 9.3 fL (9.5-12.2); Monocytes # (A) 0.69 X 10*3/uL (0.20-1.00); Monocytes % (A) 7.7 %; Neutrophils # (A) 6.51 X 10*3/uL (1.80-7.70); Neutrophils % (A) 72.5 %; Platelet Count 353 X 10*3/uL (140-440); RBC 4.43 X 10*6/uL (4.10-5.20); RDW 14.3 % (11.5-14.5); WBC 8.98 X 10*3/uL (4.50-10.00)
[2021-04-05 11:37] LABS: Glucose,Whole Blood 200 mg/dL (75-99)
--- NOTE | 2021-04-05 13:36 | P.PN ---
Subjective Progress Note Date: 04/05/21 CHIEF COMPLAINT: Abdominal wall hematoma HISTORY OF PRESENT ILLNESS: Patient lying in bed comfortably. Denies any pain. She has no new complaints. She is tolerating diet. She is having bowel movements. Afebrile. WBC 8.98 and hemoglobin 12.1 PHYSICAL EXAM: VITAL SIGNS: Reviewed. GENERAL: Well-developed in no acute distress. HEENT: No sclera icterus. Extraocular movements grossly intact. Moist buccal mucosa. Head is atraumatic, normocephalic. ABDOMEN: Soft. Nondistended. Nontender. NEUROLOGIC: Alert and oriented. Cranial nerves II through XII grossly intact. ASSESSMENT: 1. Rectus sheath hematoma PLAN: -Patient is stable for discharge from surgical standpoint -Continue regular diet Physician [employer] Technician note has been reviewed by physician. Signing provider agrees with the documented findings, assessment, and plan of care. Objective - Vital Signs Vital signs: Vital Signs Temp 98.2 F 04/05/21 07:50 Pulse 80 04/05/21 07:50 Resp 17 04/05/21 07:50 BP 134/75 04/05/21 07:50 Pulse Ox 92 L 04/05/21 07:50 Intake & Output 04/04/21 04/05/21 04/05/21 18:59 06:59 18:59 Output Total 600 Balance -600 Output: Urine 600 Other: Voiding Method Diaper Diaper Incontinent Incontinent # Voids 2 2 # Bowel Movements 1 - Labs CBC & Chem 7: 04/05/21 06:33 04/04/21 19:52 Labs: Abnormal Lab Results - Last 24 Hours (Table) 04/04/21 04/04/21 04/04/21 Range/Units 17:07 19:52 21:58 MCHC (32.0-37.0) g/dL MPV (9.5-12.2) fL Eosinophils # (0.04-0.35) X 10*3/uL Glucose 250 H (70-110) mg/dL POC Glucose (mg/dL) 209 H 284 H (75-99) mg/dL Alkaline Phosphatase 147 H (41-126) U/L Total Protein 5.9 L (6.2-8.2) g/dL 04/05/21 04/05/21 04/05/21 Range/Units 06:33 06:47 11:36 MCHC 30.8 L (32.0-37.0) g/dL MPV 9.3 L (9.5-12.2) fL Eosinophils # 0 L (0.04-0.35) X 10*3/uL Glucose (70-110) mg/dL POC Glucose (mg/dL) 219 H 200 H (75-99) mg/dL Alkaline Phosphatase (41-126) U/L Total Protein (6.2-8.2) g/dL
[2021-04-05 13:59] VITALS: BP 115/63; PULSE 82; TEMP 98
[2021-04-05 14:28] VITALS: BMI 37.3
--- NOTE | 2021-04-05 14:43 | P.DS ---
Providers Date of admission: 03/30/21 22:25 Expected date of discharge: 04/05/21 Attending physician: Angelica De La Torre Consults: 03/30/21 23:48 Consult Physician Routine Consulting Provider: Thomas Sosa Consult Reason/Comments: Bowel Obstruction Do you want consulting provider notified?: Yes Placement Type Exists?: Yes 04/02/21 09:24 Consult Physician Routine Consulting Provider: Jerry Hernandez Consult Reason/Comments: pancreatic and ovarian masses/cysts Do you want consulting provider notified?: Yes 04/02/21 09:26 Consult Physician Urgent Consulting Provider: Maria Elena Jain Consult Reason/Comments: ovarian cyst Do you want consulting provider notified?: Yes Primary care physician: Stated None Hospital Course: Final diagnosis Abdominal wall hematoma, improved Abdominal sepsis ruled out Small and large bowel obstruction home possibly ileus or possible [place] syndrome Pancreatic cyst history Right neck lymph node possibly Left adrenal cyst Diabetes mellitus type 2 Hypertension hyperlipidemia History of ovarian cyst History of schizophrenia History of CVA, TIA Chronic congestive heart failure Hypothyroidism History of seizure disorder and history of pancreatic mass, possibly being monitored in the outpatient setting No code Discharge disposition Patient is being discharged in a stable condition with guarded prognosis to [facility] Patient will follow-up with Dr. Gonzalez upon discharge. Patient will follow-up outpatient with general surgery and gynecology oncology. Total time taken is greater than 35 minutes. Hospital course This is a 71-year-old female who was recently admitted with abdominal hematoma along with intermittent confusion and was being closely monitored. Patient was evaluated by general surgery initially suspecting abscess of the abdomen although stable from surgical standpoint and follow-up outpatient as needed. Patient was also seen and evaluated by gynecology recommending no further surgical intervention at this time of the ovarian cyst which is stable and may need gynecology oncology outpatient if the CA-125 is positive. Currently no reports of chest pain, shortness of breath, or palpitations. Patient is afe brile. No reports of nausea or vomiting and patient is tolerating diet. Patient will be discharged to [facility] today. Guarded prognosis On exam vital signs are stable. Cardio S1, S2 are muffled. Respiratory shows diminished breath sounds at the bases with no wheezing or rhonchi noted. Abdomen is soft, obese, and nontender. Nervous system shows mild diffuse weakness. Please refer to medication reconciliation sheet for a list of medications. Patient Condition at Discharge: Stable Plan - Discharge Summary Discharge Rx Participant: No New Discharge Prescriptions: New INSULIN ASPART (NovoLOG) [NovoLOG (formulary)] 0 unit SQ ACHS vial Continue Acetaminophen [Tylenol Arthritis] 650 mg PO Q8H PRN PRN Reason: Pain Benztropine Mesylate [Cogentin] 1 mg PO HS@2100 Calcium Carbonate/Vitamin D3 [Calcium 600-Vit D3 10 mcg (400 Iu)] 1 tab PO DIRECTED levETIRAcetam [Keppra] 500 mg PO BID@0900,2100 Levothyroxine Sodium [Synthroid] 150 mcg PO DAILY@0600 metFORMIN HCL 1,000 mg PO BID@0900,2100 Metoprolol Succinate [Toprol XL] 25 mg PO BID@0900,2100 Multivitamin [Multivitamins Adult Gummies] 1 tab PO DIRECTED Omeprazole [PriLOSEC] 20 mg PO DAILY@0600 Losartan Potassium [Cozaar] 12.5 mg PO DAILY@0900 Magnesium Oxide [Mag-Ox] 400 mg PO DIRECTED cloZAPine [Clozaril] 200 mg PO HS@2100 cloZAPine [Clozaril] 100 mg PO DAILY@0900 Magnesium Hydroxide [Milk of Magnesia] 2,400 mg PO DAILY PRN PRN Reason: Constipation Aspirin EC [Ecotrin Low Dose] 81 mg PO DAILY@0900 Changed Gabapentin 300 mg PO TID@0900,1300,2100 #9 cap risperiDONE [RisperDAL] 1 mg PO HS@2100 #3 tab HYDROcodone/APAP 5-325MG [[place] 5-325] 1 tab PO Q6HR PRN #6 tab PRN Reason: Pain Discontinued Potassium Chloride [Klor-Con 10] 30 meq PO DAILY@0900 Furosemide [Lasix] 40 mg PO DAILY@0900 Sulfamethox-Tmp 800-160Mg [Bactrim DS 800-160 mg] 1 tab PO BID@0900,2100 Spironolactone 50 mg PO DAILY@1300 Insulin Glargine,Hum.rec.anlog [Lantus Solostar] 20 unit SQ HS@2100 Discharge Medication List Acetaminophen [Tylenol Arthritis] 650 mg PO Q8H PRN 11/03/20 [History] Benztropine Mesylate [Cogentin] 1 mg PO HS@2100 11/03/20 [History] Calcium Carbonate/Vitamin D3 [Calcium 600-Vit D3 10 mcg (400 Iu)] 1 tab PO DIRECTED 11/03/20 [History] Levothyroxine Sodium [Synthroid] 150 mcg PO DAILY@0600 11/03/20 [History] Metoprolol Succinate [Toprol XL] 25 mg PO BID@0900,209911/03/20 [History] Multivitamin [Multivitamins Adult Gummies] 1 tab PO DIRECTED 11/03/20 [History] Omeprazole [PriLOSEC] 20 mg PO DAILY@0611/03/20 [History] levETIRAcetam [Keppra] 500 mg PO BID@0900,209911/03/20 [History] metFORMIN HCL 1,000 mg PO BID@0900,209911/03/20 [History] Losartan Potassium [Cozaar] 12.5 mg PO DAILY@0900 12/07/20 [History] Aspirin EC [Ecotrin Low Dose] 81 mg PO DAILY@0900 03/30/21 [History] Magnesium Hydroxide [Milk of Magnesia] 2,400 mg PO DAILY PRN 03/30/21 [History] Magnesium Oxide [Mag-Ox] 400 mg PO DIRECTED 03/30/21 [History] cloZAPine [Clozaril] 100 mg PO DAILY@89903/30/21 [History] cloZAPine [Clozaril] 200 mg PO HS@209903/30/21 [History] Gabapentin 300 mg PO TID@0900,1300,2099 #9 cap 04/05/21 [Rx] HYDROcodone/APAP 5-325MG [[place] 5-325] 1 tab PO Q6HR PRN #6 tab 04/05/21 [Rx] INSULIN ASPART (NovoLOG) [NovoLOG (formulary)] 0 unit SQ ACHS vial 04/05/21 [Rx] risperiDONE [RisperDAL] 1 mg PO HS@2099 #3 tab 04/05/21 [Rx] Follow up Appointment(s)/Referral(s): Nader Moore, [NON-STAFF] - As Needed Thomas Sosa MD [STAFF PHYSICIAN] - As Needed Activity/Diet/Wound Care/Special Instructions: Patient is going to [place] continue with dysphasia 3 chopped Activity as tolerated Labs in 2-3 days to monitor CBC and BMP NovoLog sliding scale 0-150 equals 0 units 151-200 equals 2 units 201-250 equals 4 units 251-300 equals 6 units 301-350 equals 8 units 351-400 equals 10 units Please notify provider if blood sugar is 400 or above Continue to monitor Accu-Cheks before meals and at bedtime Discharge Disposition: TRANSFER TO SNF/ECF
== END 2021-04-05 16:24 | DRG 389 ==
LOC: 4SSUR 22:25
PROVIDERS: ADMIT Hospitalist; ATTEND Hospitalist
DX: K56.609 Unspecified intestinal obstruction, unspecified as to partial versus complete obstruction (principal); K86.2 Cyst of pancreas; F20.0 Paranoid schizophrenia; L02.211 Cutaneous abscess of abdominal wall; E11.9 Type 2 diabetes mellitus without complications; E78.5 Hyperlipidemia, unspecified; I11.0 Hypertensive heart disease with heart failure; I50.9 Heart failure, unspecified; E03.9 Hypothyroidism, unspecified; E66.9 Obesity, unspecified; K56.7 Ileus, unspecified; K59.81 Ogilvie syndrome; G40.909 Epilepsy, unspecified, not intractable, without status epilepticus; F03.90 Unspecified dementia, unspecified severity, without behavioral disturbance, psychotic disturbance, mood disturbance, and anxiety; K31.89 Other diseases of stomach and duodenum; N83.202 Unspecified ovarian cyst, left side; M79.81 Nontraumatic hematoma of soft tissue; Z79.84 Long term (current) use of oral hypoglycemic drugs; Z79.890 Hormone replacement therapy; Z79.899 Other long term (current) drug therapy; Z87.891 Personal history of nicotine dependence; Z86.73 Personal history of transient ischemic attack (TIA), and cerebral infarction without residual deficits; I87.2 Venous insufficiency (chronic) (peripheral); K21.9 Gastro-esophageal reflux disease without esophagitis; K43.2 Incisional hernia without obstruction or gangrene
CPT/HCPCS: 71045; 74176; 76536; 80048; 80053; 81003; 82150; 83690; 83735; 84145; 85025; 85027; 85610; 86301; 86304; 93005; 94760